=== PATIENT | male | born 1965 | race Caucasian/White ===

== ENCOUNTER → 2016-02-27 | Outpatient (CLI) | payer OTHER ==
[~2016-02-27] MED LIST: BUPIVACAINE HCL 0.25% 30 ML VIAL As Ordered ONE; ISOVUE-M 300 61% 15ML VIAL (Q9967) As Ordered ONE; LIDOCAINE 1% SDV INJ 30 ML VIAL As Ordered ONE; TRIAMCINOLONE ACETONIDE SUSP 40 MG/ML VIAL (J3301) As Ordered ONE; diazePAM 5 MG TAB As Ordered ONE; oxyCODONE 5MG TAB As Ordered ONE
--- NOTE | 2016-02-27 16:02 | REP ---
Partial lumbar spine series: Two views. History: Bilateral lumbar facet block for pain. 10 seconds of fluoroscopy time is reported. Findings: A sequence of two fluoroscopically obtained intraprocedural spot radiographs lumbar spine document needle position and contrast injection associated with lumbar facet injection procedure. Signed by Jm العلي MD 02/27/2016 05:41 P
--- NOTE | 2016-02-28 23:53 | ECWPNPC ---
PATIENT NAME: MONICA HOBSON : 1965 GENDER: MALE VISIT DATE: 02/27/2016 DISCHARGE DATE: 02/27/16 1506 VISIT LOCKED DATE TIME: PHYSICIAN: ROSITA DEVLIN RESOURCE: ROSITA DEVLIN REASON FOR APPOINTMENT 1. LUMBAR FACET THERAPEUTIC HISTORY OF PRESENT ILLNESS HISTORY OF PRESENT ILLNESS: PAIN THE PATIENT DESCRIBES THE PAIN... FALL RISK SCREENING: SCREENING :NO FALLS IN THE PAST YEAR CURRENT MEDICATIONS TAKING OXYCONTIN 10 MG TABLET ER 12 HOUR ABUSE-DETERRENT 1 TABLET ORALLY EVERY 12 HRS, NOTES: 02-27-16 1600 TAKING OXYCODONE-ACETAMINOPHEN 10-325 MG TABLET 1 TABLET NEEDED ORALLY EVERY 6 HRS, NOTES: 02-27-16 1100 TAKING AMITRIPTYLINE HCL 25 MG TABLET 1 TABLET ORALLY ONCE A DAY, NOTES: 02-25-16 MEDICATION LIST REVIEWED AND RECONCILED WITH THE PATIENT PAST MEDICAL HISTORY KIDNEY CANCER GALL STONES DEGENERATIVE DISC DISEASE ALLERGIES N.K.D.A. SURGICAL HISTORY RIGHT NEPHRECTOMY 01/2015 CHOLECYSTECTOMY 06/2015 GASTRIC BYPASS 2004 SOCIAL HISTORY GENERAL: TOBACCO USE ARE YOU A:NONSMOKER ADDITIONAL FINDINGS: TOBACCO USERCHEWS TOBACCO LEARNING BARRIERS / SPECIAL NEEDS ORIENTED TO PLAN OF CARE: PATIENT, PAIN MANAGEMENT PATIENT, ORIENTED TO PLAN OF CARE: PATIENT, PAIN MANAGEMENT PATIENT. NEW PATIENT PAIN DIARY TODAY'S VISITNOTES FROM 0-10, WHAT LEVEL IS YOUR PAIN TODAY?0 PAIN CLINIC PFS, CLERGY, PUBLIC HEALTH REFERRALS PFS REFERRAL NEEDED?NO CLERGY REFERRAL NEEDED?NO PUBLIC HEALTH REFERRAL NEEDED?NO WAS THE PROVIDER NOTIFIED OF ANY PERTINENT INFO?NO PFS REFERRAL NEEDED?NO CLERGY REFERRAL NEEDED?NO PUBLIC HEALTH REFERRAL NEEDED?NO WAS THE PROVIDER NOTIFIED OF ANY PERTINENT INFO?NO HOSPITALIZATION/MAJOR DIAGNOSTIC PROCEDURE SURGERIES REVIEW OF SYSTEMS CONSTITUTIONAL: ANY CHANGE IN YOUR MEDICAL CONDITION? NO . CHILLS NO . FEVER NO . INFECTION: DO YOU HAVE NEW INFECTIONS? NO . DO YOU HAVE HISTORY OF MRSA? NO . MUSCULOSKELETAL: ANY NEW PATTERNS OF PAIN OR NUMBNESS? NO . GASTROENTEROLOGY: ANY NEW CHANGE IN BOWEL CONTROL? NO . GENITOURINARY: ANY NEW CHANGE IN BLADDER CONTROL? NO . IS THERE A CHANCE YOU COULD BE ? NO . HEMATOLOGY/LYMPH: DO YOU TAKE ANY BLOOD THINNERS? (FOR EXAMPLE- COUMADIN, PLAVIX, AGGRENOX, PLATEL, PRADAXA, OR XARELTO) NO . WHEN WAS YOUR LAST DOSE? DATE: TIME: . NEUROLOGY: HAVE YOU FALLEN IN THE PAST 6 MONTHS? NO . ANY NEW EXTREMITY NUMBNESS OR WEAKNESS? NO . CARDIOLOGY: DO YOU HAVE A PACEMAKER OR DEFIBRILLATOR? NO . RESPIRATORY: HAVE YOU BEEN SICK IN THE PAST WEEK? NO . FEVER NO . FLU LIKE SYMPTOMS? NO . COUGH NO . INTEGUMENTARY: DO YOU HAVE ANY RASHES OR OPEN SORES? NO . ALLERGIC/IMMUNO: ARE YOU ALLERGIC TO SHELLFISH OR IV DYE? NO . ANY NEW ALLERGIES? NO . PSYCHIATRIC: DO YOU HAVE THOUGHTS OF HURTING YOURSELF OR SOMEONE ELSE? NO . ARE YOU ABUSED, NEGLECTED, OR IN AN UNSAFE ENVIRONMENT? NO . ENDOCRINOLOGY: ARE YOU DIABETIC? NO . OTHER: DO YOU NEED ANY PRESCRIPTIONS? NO . IF YES, PLEASE LIST: ____ . ANY NEW PROBLEMS WITH YOUR MEDICATIONS? NO . WHEN DID YOU LAST EAT? 0800 . WHEN DID YOU LAST DRINK? 1230 . WHAT DID YOU LAST DRINK? WATER . NAME OF PERSON DRIVING YOU HOME? TIMBO . DO YOU HAVE ANY OTHER QUESTIONS OR CONCERNS NO . REVIEWED BY: PROVIDER: . VITAL SIGNS WT 250 LBS, HT 70", BMI 35.87 INDEX, BP 138/80 MM HG, HR 85 /MIN, RR 16 /MIN, TEMP 96.0 F, OXYGEN SAT % 98, NA INITIALS TL 1327, REVIEWED BY: LS. ASSESSMENTS SPONDYLOSIS WITHOUT MYELOPATHY OR RADICULOPATHY, LUMBAR REGION - M47.816 (PRIMARY) SPONDYLOSIS WITHOUT MYELOPATHY OR RADICULOPATHY, LUMBOSACRAL REGION - M47.817 PROCEDURES PN LUMBAR FACET BLOCK THERAPEUTIC PRE PROCEDURE DIAGNOSIS LUMBAR SPONDYLOSIS, LUMBOSACRAL SPONDYLOSIS POST PROCEDURE DIAGNOSIS LUMBAR SPONDYLOSIS, LUMBOSACRAL SPONDYLOSIS PROCEDURE BILATERAL L4-L5 AND BILATERAL L5-S1 LUMBAR FACET THERAPEUTIC BLOCK SURGEON DR. ROSITA DEVLIN PORTABLE SAWMILL OPERATOR NONE ANESTHESIA LOCAL PRE PROCEDURE NOTE THE PATIENT HAS A HISTORY OF CHRONIC LOW BACK PAIN. I EVALUATE THE PATIENT AND REVIEWED THE CHART. I WENT OVER THE RISKS, ALTERNATIVES, AND BENEFITS ASSOCIATED WITH THIS PROCEDURE. THE PATIENT WOULD LIKE TO PROCEED AND GIVE CONSENT TO PERFORMED THE PROCEDURE. THE PATIENT DENIES UNEXPLAINABLE WEIGHT LOSS, FEVER, CHILLS, OR NEW CHANGES IN URINARY OR BOWEL CONTROL DESCRIPTION OF PROCEDURE THE PATIENT WAS BROUGHT TO THE PROCEDURE ROOM AND PLACED IN THE PRONE POSITION. THE LUMBOSACRAL AREA WAS CLEANED WITH CHLORAPREP SOLUTION AND DRAPED ASEPTICALLY. THE PROCEDURE WAS DONE UNDER STERILE CONDITIONS. I CHECKED LATERALITY AND THE LEVEL WHERE THE PROCEDURE WAS GOING TO BE PERFORMED WITH THE PATIENT AND THE SUPPORTING STAFF AT THE MOMENT OF THE TIME OUT IN THE PROCEDURE ROOM. UNDER FLUOROSCOPIC GUIDANCE, THE TARGET POINT WAS SELECTED AT THE RIGHT AND LEFT L4-L5 AND RIGHT AND LEFT L5-S1 FACET JOINT. TARGET POINT WAS SELECTED AFTER LATERAL ROTATION AND TILT OF THE MAGNIFIER OF THE C-ARM. LIDOCAINE 0.5% WAS USED TO NUMB THE SKIN AND THE SUBCUTANEOUS TISSUE BELOW IT. SPINAL NEEDLES, 22-GAUGE, WERE ADVANCED UNDER FLUOROSCOPIC GUIDANCE AND FOLLOWING PATIENT FEEDBACK UNTIL THE TARGETS WERE TOUCHED. THE POSITION OF THE NEEDLES WAS VERIFIED WITH AP AND LATERAL VIEWS. AFTER PROPER POSITION OF THE NEEDLES WAS ACHIEVED, ISOVUE-M DYE 30% 0.1 ML WAS INJECTED SHOWING ADEQUATE SPREAD OF THE DYE. THEN A SOLUTION OF 1.9 ML OF BUPIVACAINE 0.125% OF KENALOG 10 MG WAS INJECTED AT EACH SITE. THERE WAS NO EVIDENCE OF BLOOD, PARESTHESIA OR CEREBROSPINAL FLUID DURING THE PROCEDURE. THE PATIENT WAS SENT TO THE RECOVERY ROOM. THE PATIENT WAS MOVING THE EXTREMITIES AND DOING WELL. THERE WAS NO COMPLICATION DURING THE PROCEDURE. FLUOROSCOPY TIME WAS 10 SECONDS POST PROCEDURE NOTE THE PATIENT WILL BE SEEN IN A FOLLOW UP IN THE NEXT FEW WEEKS. INSTRUCTIONS WERE GIVEN, QUESTIONS WERE ANSWERED, AND THE PATIENT EXPRESSED UNDERSTANDING AND AGREES WITH THE PLAN. I, NASREEN LY, DOCUMENTED THE ABOVE INFORMATION ACTING A SCRIBE FOR DR. DEVLIN. I, DR. DEVLIN, HAVE REVIEWED THE ABOVE DOCUMENT, SCRIBED BY NASREEN LY, AND I VERIFY THAT IT IS ACCURATE DIAGNOSTIC IMAGING [facility] FACET BLOCK (PAIN)[id number] PROCEDURE CODES 14693 INJ PARAVERT F JNT L/S 1 LEV 17410 INJ PARAVERT F JNT L/S 2 LEV 6045F RADXPS IN END [id number] PXD FOLLOW UP 3 WEEKS ELECTRONICALLY SIGNED BY ROSITA DEVLIN MD ON 02/28/2016 AT 02:07 PM EST DISCLAIMER : THIS IS A VISIT SUMMARY EXTRACTED FROM THE [employer] CHART. IT IS NOT A COPY OF THE [employer] PROGRESS NOTE. MTDD
== END ==
LOC: M PAIN 13:20
PROVIDERS: ATTEND Anesthesiology
DX: G89.29 Other chronic pain (principal); M47.816 Spondylosis without myelopathy or radiculopathy, lumbar region; M47.817 Spondylosis without myelopathy or radiculopathy, lumbosacral region; M54.5 Low back pain; Z79.891 Long term (current) use of opiate analgesic; F17.200 Nicotine dependence, unspecified, uncomplicated
CPT/HCPCS: 64493; 64494; J3301; Q9967

== ENCOUNTER → 2016-03-20 | Outpatient (CLI) | payer BC, OTHER ==
--- NOTE | 2016-03-21 23:48 | ECWPNPC ---
PATIENT NAME: MONICA HOBSON : 1965 GENDER: MALE VISIT DATE: 03/20/2016 DISCHARGE DATE: 03/20/16 1427 VISIT LOCKED DATE TIME: PHYSICIAN: ROSITA DEVLIN RESOURCE: ROSITA DEVLIN REASON FOR APPOINTMENT 1. POST PROCEDURE HISTORY OF PRESENT ILLNESS HISTORY OF PRESENT ILLNESS: PAIN THE PATIENT DESCRIBES THE PAIN... 50 YEAR OLD MALE PATIENT WITH CHRONIC HISTORY OF BACK PAIN. PATIENT DESCRIBES THE PAIN ACHING AND SORE WITH A PAIN SCORE OF 2/10 ON TODAY'S VISIT. PATIENT RECEIVED A LUMBAR FACET BLOCK ON 02/27/2016 AND REPORTS OF GETTING GOOD PAIN RELIEF FROM THE INJECTION. AND AT THIS TIME HE IS ONLY TAKING OXYCONTIN AND OXYCODONE NEEDED. PATIENT REPORTS THAT CHANTIX CAUSES HIS STOMACH TO BE UPSET, BUT ONLY STARTED TO DO SO ABOUT TWO WEEKS AGO. PATIENT DENIES UNEXPLAINABLE WEIGHT LOSS, FEVER, CHILLS, NEW CHANGES ON HIS URINARY OR BOWEL CONTROL. FALL RISK SCREENING: SCREENING :NO FALLS IN THE PAST YEAR CURRENT MEDICATIONS TAKING OXYCONTIN 10 MG TABLET ER 12 HOUR ABUSE-DETERRENT 1 TABLET ORALLY EVERY 12 HRS, NOTES: 02-27-16 1600 TAKING OXYCODONE-ACETAMINOPHEN 10-325 MG TABLET 1 TABLET NEEDED ORALLY EVERY 6 HRS, NOTES: 02-27-16 1100 TAKING AMITRIPTYLINE HCL 25 MG TABLET 1 TABLET ORALLY ONCE A DAY, NOTES: 02-25-16 TAKING CHANTIX STARTING MONTH COTY 0.5 MG X 11 & 1 MG X 42 TABLET ORALLY MEDICATION LIST REVIEWED AND RECONCILED WITH THE PATIENT PAST MEDICAL HISTORY KIDNEY CANCER GALL STONES DEGENERATIVE DISC DISEASE ALLERGIES N.K.D.A. SURGICAL HISTORY RIGHT NEPHRECTOMY 01/2015 CHOLECYSTECTOMY 06/2015 GASTRIC BYPASS 2005 FAMILY HISTORY NO FAMILY HISTORY DOCUMENTED. SOCIAL HISTORY GENERAL: TOBACCO USE ARE YOU A:NONSMOKER LEARNING BARRIERS / SPECIAL NEEDS ORIENTED TO PLAN OF CARE: PATIENT, PAIN MANAGEMENT PATIENT, ORIENTED TO PLAN OF CARE: PATIENT, PAIN MANAGEMENT PATIENT. NEW PATIENT PAIN DIARY TODAY'S VISITNOTES FROM 0-10, WHAT LEVEL IS YOUR PAIN TODAY?0 PAIN CLINIC PFS, CLERGY, PUBLIC HEALTH REFERRALS PFS REFERRAL NEEDED?NO CLERGY REFERRAL NEEDED?NO PUBLIC HEALTH REFERRAL NEEDED?NO WAS THE PROVIDER NOTIFIED OF ANY PERTINENT INFO?NO PFS REFERRAL NEEDED?NO CLERGY REFERRAL NEEDED?NO PUBLIC HEALTH REFERRAL NEEDED?NO WAS THE PROVIDER NOTIFIED OF ANY PERTINENT INFO?NO HOSPITALIZATION/MAJOR DIAGNOSTIC PROCEDURE SURGERIES REVIEW OF SYSTEMS CONSTITUTIONAL: ANY CHANGE IN YOUR MEDICAL CONDITION? NO . CHILLS NO . FEVER NO . INFECTION: DO YOU HAVE NEW INFECTIONS? NO . DO YOU HAVE HISTORY OF MRSA? NO . MUSCULOSKELETAL: ANY NEW PATTERNS OF PAIN OR NUMBNESS? NO . GASTROENTEROLOGY: ANY NEW CHANGE IN BOWEL CONTROL? NO . GENITOURINARY: ANY NEW CHANGE IN BLADDER CONTROL? NO . IS THERE A CHANCE YOU COULD BE ? NO . HEMATOLOGY/LYMPH: DO YOU TAKE ANY BLOOD THINNERS? (FOR EXAMPLE- COUMADIN, PLAVIX, AGGRENOX, PLATEL, PRADAXA, OR XARELTO) NO . WHEN WAS YOUR LAST DOSE? DATE: TIME: . NEUROLOGY: HAVE YOU FALLEN IN THE PAST 6 MONTHS? NO . ANY NEW EXTREMITY NUMBNESS OR WEAKNESS? NO . CARDIOLOGY: DO YOU HAVE A PACEMAKER OR DEFIBRILLATOR? NO . RESPIRATORY: HAVE YOU BEEN SICK IN THE PAST WEEK? NO . FEVER NO . FLU LIKE SYMPTOMS? NO . COUGH NO . INTEGUMENTARY: DO YOU HAVE ANY RASHES OR OPEN SORES? NO . ALLERGIC/IMMUNO: ARE YOU ALLERGIC TO SHELLFISH OR IV DYE? NO . ANY NEW ALLERGIES? YES ? CHANTIX-UPSET STOMACH . PSYCHIATRIC: DO YOU HAVE THOUGHTS OF HURTING YOURSELF OR SOMEONE ELSE? NO . ARE YOU ABUSED, NEGLECTED, OR IN AN UNSAFE ENVIRONMENT? NO . ENDOCRINOLOGY: ARE YOU DIABETIC? NO . OTHER: DO YOU NEED ANY PRESCRIPTIONS? NO . IF YES, PLEASE LIST: ____ . ANY NEW PROBLEMS WITH YOUR MEDICATIONS? YES CHANTIX-UPSET STOMACH . WHEN DID YOU LAST EAT? ____ . WHEN DID YOU LAST DRINK? ____ . WHAT DID YOU LAST DRINK? ____ . NAME OF PERSON DRIVING YOU HOME? ____ . DO YOU HAVE ANY OTHER QUESTIONS OR CONCERNS NO . REVIEWED BY: PROVIDER: ROSITA DEVLIN MD . VITAL SIGNS WT 254 LBS, HT 70", BMI 36.44 INDEX, BP 146/93 MM HG, HR 106 /MIN, RR 16 /MIN, TEMP 96.7 F, OXYGEN SAT % 99, NA INITIALS TL 1350, REVIEWED BY: MLF. EXAMINATION : PATIENT IS ALERT O X 3 AND COOPERATIVE. SOME PAIN AND TENDERNESS IN THE LUMBAR PARASPINAL MUSCLE GROUP. MRI OF THE LUMBAR SPINE DONE ON 01/31/2015 SHOWS DISC BULGING AND LATERAL RECESS NARROWING. ASSESSMENTS SPONDYLOSIS WITHOUT MYELOPATHY OR RADICULOPATHY, LUMBAR REGION - M47.816 (PRIMARY) SPONDYLOSIS WITHOUT MYELOPATHY OR RADICULOPATHY, LUMBOSACRAL REGION - M47.817 TREATMENT SPONDYLOSIS WITHOUT MYELOPATHY OR RADICULOPATHY, LUMBAR REGION NOTES: WE DISCUSSED SEVERAL ISSUES WITH MR. HOBSON PAIN MANAGEMENT CASE. AT THIS TIME DUE TO THE PATIENT DOING VERY WELL FROM THE INJECTION, PATIENT REPORTS THAT HE DOES NOT NEED ANY REFILL OF HIS MEDICATION. PATIENT TO FOLLOW UP IN 4 WEEKS WITH BRANDYN MASSEY. INSTRUCTIONS WERE GIVEN, QUESTIONS WERE ANSWERED, PATIENT REPORTS UNDERSTANDING AND AGREES WITH THE PLAN. I, MATT SANCHES, DOCUMENTED THE ABOVE INFORMATION ACTING A SCRIBE FOR DR. DEVLIN. I HAVE REVIEWED THE ABOVE DOCUMENT, WRITTEN BY MATT SANCHES SCR[employer] AND I VERIFY THAT IT IS ACCURATE. PROCEDURE CODES FA211 ESTABILISHED PATIENT [facility] FACILITY CHARGE G8730 PAIN ASSESS POS TOOL F/U PLAN DOC G8427 DOC MEDS VERIFIED W/PT OR RE FOLLOW UP 4 WEEKS ELECTRONICALLY SIGNED BY ROSITA DEVLIN MD ON 03/21/2016 AT 07:39 PM EST DISCLAIMER : THIS IS A VISIT SUMMARY EXTRACTED FROM THE [employer] CHART. IT IS NOT A COPY OF THE [employer] PROGRESS NOTE. MTDD
== END ==
LOC: M PAIN 14:00
PROVIDERS: ATTEND Anesthesiology
DX: G89.29 Other chronic pain (principal); M47.816 Spondylosis without myelopathy or radiculopathy, lumbar region; M47.817 Spondylosis without myelopathy or radiculopathy, lumbosacral region; M51.9 Unspecified thoracic, thoracolumbar and lumbosacral intervertebral disc disorder; Z88.8 Allergy status to other drugs, medicaments and biological substances; Z79.891 Long term (current) use of opiate analgesic; Z79.899 Other long term (current) drug therapy; Z85.528 Personal history of other malignant neoplasm of kidney

== ENCOUNTER → 2016-04-16 | Outpatient (CLI) | payer BC, OTHER ==
--- NOTE | 2016-04-17 01:18 | ECWPNPC ---
PATIENT NAME: MONICA HOBSON : 1965 GENDER: MALE VISIT DATE: 04/16/2016 DISCHARGE DATE: 04/16/16 1107 VISIT LOCKED DATE TIME: PHYSICIAN: BRANDYN MASSEY RESOURCE: BRANDYN MASSEY REASON FOR APPOINTMENT 1. BACK HISTORY OF PRESENT ILLNESS HISTORY OF PRESENT ILLNESS: PAIN THE PATIENT DESCRIBES THE PAIN... THE PATIENT DESCRIBES THE PAIN... HERE FOR F/U.HAD BILAT. LUMBAR FACET BLOCKS ON 02-27.PAIN CONTINUES TO BE BETTER SINCE PROCEDURE.PAIN IS LOCATED ACROSS LOW BACK.DENIES RADICULAR SYMPTOMS. REPORTS POOR SLEEP DUE TO PAIN. REVIEWED MRI L/S SPINE 01-31-15.THIS IS SHOWING MULTI-LEVEL DDD AND FACET ARTHRITIS.RATING PAIN VAS 3/10.PAIN IS AGGREVATED BY PROLONGED SITTING OR STANDING. FALL RISK SCREENING: SCREENING :NO FALLS IN THE PAST YEAR CURRENT MEDICATIONS TAKING OXYCONTIN 10 MG TABLET ER 12 HOUR ABUSE-DETERRENT 1 TABLET ORALLY EVERY 12 HRS TAKING OXYCODONE-ACETAMINOPHEN 10-325 MG TABLET 1 TABLET NEEDED ORALLY EVERY 6 HRS TAKING AMITRIPTYLINE HCL 25 MG TABLET 1 TABLET ORALLY ONCE A DAY TAKING CHANTIX STARTING MONTH COTY 0.5 MG X 11 & 1 MG X 42 TABLET ORALLY , NOTES: WILL BE STARTING MEDICATION LIST REVIEWED AND RECONCILED WITH THE PATIENT PAST MEDICAL HISTORY KIDNEY CANCER GALL STONES DEGENERATIVE DISC DISEASE ALLERGIES N.K.D.A. SOCIAL HISTORY GENERAL: TOBACCO USE ARE YOU A:USES TOBACCO IN OTHER FORMS ADDITIONAL FINDINGS: TOBACCO USERCHEWS TOBACCO LEARNING BARRIERS / SPECIAL NEEDS ORIENTED TO PLAN OF CARE: PATIENT, PAIN MANAGEMENT PATIENT, ORIENTED TO PLAN OF CARE: PATIENT, PAIN MANAGEMENT PATIENT. NEW PATIENT PAIN DIARY TODAY'S VISITNOTES FROM 0-10, WHAT LEVEL IS YOUR PAIN TODAY?0 PAIN CLINIC PFS, CLERGY, PUBLIC HEALTH REFERRALS PFS REFERRAL NEEDED?NO CLERGY REFERRAL NEEDED?NO PUBLIC HEALTH REFERRAL NEEDED?NO WAS THE PROVIDER NOTIFIED OF ANY PERTINENT INFO?NO PFS REFERRAL NEEDED?NO CLERGY REFERRAL NEEDED?NO PUBLIC HEALTH REFERRAL NEEDED?NO WAS THE PROVIDER NOTIFIED OF ANY PERTINENT INFO?NO REVIEW OF SYSTEMS CONSTITUTIONAL: ANY CHANGE IN YOUR MEDICAL CONDITION? NO . CHILLS NO . FEVER NO . INFECTION: DO YOU HAVE NEW INFECTIONS? NO . DO YOU HAVE HISTORY OF MRSA? NO . MUSCULOSKELETAL: ANY NEW PATTERNS OF PAIN OR NUMBNESS? NO . GASTROENTEROLOGY: ANY NEW CHANGE IN BOWEL CONTROL? NO . GENITOURINARY: ANY NEW CHANGE IN BLADDER CONTROL? NO . IS THERE A CHANCE YOU COULD BE ? NO . HEMATOLOGY/LYMPH: DO YOU TAKE ANY BLOOD THINNERS? (FOR EXAMPLE- COUMADIN, PLAVIX, AGGRENOX, PLATEL, PRADAXA, OR XARELTO) NO . WHEN WAS YOUR LAST DOSE? DATE: TIME: . NEUROLOGY: HAVE YOU FALLEN IN THE PAST 6 MONTHS? NO . ANY NEW EXTREMITY NUMBNESS OR WEAKNESS? NO . CARDIOLOGY: DO YOU HAVE A PACEMAKER OR DEFIBRILLATOR? NO . RESPIRATORY: HAVE YOU BEEN SICK IN THE PAST WEEK? NO . FEVER NO . FLU LIKE SYMPTOMS? NO . COUGH NO . INTEGUMENTARY: DO YOU HAVE ANY RASHES OR OPEN SORES? NO . ALLERGIC/IMMUNO: ARE YOU ALLERGIC TO SHELLFISH OR IV DYE? NO . ANY NEW ALLERGIES? NO . PSYCHIATRIC: DO YOU HAVE THOUGHTS OF HURTING YOURSELF OR SOMEONE ELSE? NO . ARE YOU ABUSED, NEGLECTED, OR IN AN UNSAFE ENVIRONMENT? NO . ENDOCRINOLOGY: ARE YOU DIABETIC? NO . OTHER: DO YOU NEED ANY PRESCRIPTIONS? NO . IF YES, PLEASE LIST: ____ . ANY NEW PROBLEMS WITH YOUR MEDICATIONS? NO . WHEN DID YOU LAST EAT? ____ . WHEN DID YOU LAST DRINK? ____ . WHAT DID YOU LAST DRINK? ____ . NAME OF PERSON DRIVING YOU HOME? ____ . DO YOU HAVE ANY OTHER QUESTIONS OR CONCERNS NO . REVIEWED BY: PROVIDER: BRANDYN MCKOY . VITAL SIGNS WT 252.8 LBS, HT 70", BMI 36.27 INDEX, BP 155/87 MM HG, HR 74 /MIN, RR 16 /MIN, TEMP 96.7 F, OXYGEN SAT % 94%, REVIEWED BY: VINAY. EXAMINATION GENERAL EXAMINATION: LUNGS:LUNG SOUNDS ARE CLEAR. HEART:HEART RATE REGULAR. MUSCULOSKELETAL:*, MUSCLE STRENGTH TESTING 5/5 BLE. PALPATION: NEGATIVE FOR PAIN OVER L/S SPINE. NEGATIVE FOR PAIN OVER L/S PARASPINALS. DIAGNOSTIC:MRI L/S SPINE 01-31-15-REVIEWED. ASSESSMENTS LUMBOSACRAL SPONDYLOLYSIS - M43.07 (PRIMARY) PROCEDURE CODES FA211 ESTABILISHED PATIENT [facility] CHARGE DISPOSITION & COMMUNICATION FOLLOW UP 2 MONTHS ELECTRONICALLY SIGNED BY EAN CARLOS ON 04/16/2016 AT 11:28 AM EST DISCLAIMER : THIS IS A VISIT SUMMARY EXTRACTED FROM THE [employer] CHART. IT IS NOT A COPY OF THE [employer] PROGRESS NOTE. JONI
== END ==
LOC: M PAIN 10:20
PROVIDERS: ATTEND Nurse Practitioner Family
DX: M43.07 Spondylolysis, lumbosacral region (principal); M79.1 Myalgia; M47.816 Spondylosis without myelopathy or radiculopathy, lumbar region; M47.817 Spondylosis without myelopathy or radiculopathy, lumbosacral region; Z79.891 Long term (current) use of opiate analgesic; Z79.899 Other long term (current) drug therapy

== ENCOUNTER → 2016-06-18 | Outpatient (CLI) | payer OTHER ==
--- NOTE | 2016-06-20 02:23 | ECWPNPC ---
PATIENT NAME: MONICA HOBSON : 1965 GENDER: MALE VISIT DATE: 06/18/2016 DISCHARGE DATE: 06/18/16 1514 VISIT LOCKED DATE TIME: PHYSICIAN: BRANDYN MASSEY RESOURCE: BRANDYN MASSEY REASON FOR APPOINTMENT 1. BACK HISTORY OF PRESENT ILLNESS HISTORY OF PRESENT ILLNESS: HERE FOR F/U AND MANAGEMENT OF CHRONIC LOW BACK PAIN.PAIN HAS RETURNED.HAD SIGNIFICANT REDUCTION IN LOW BACK PAIN POST L4/5-L5/S1 THERAPEUTIC FACET BLOCK IN FEBRUARY UNTIL THE PAST FEW WEEKS.WILL BE HAVING KIDNEY CANCER F/U IN NEXT FEW MONTHS.HAD RIGHT KIDNEY REMOVED FOR CANCER IN DECEMBER 2014.RATING PAIN VAS 4/10.USING OXYCONTIN 10MG BID AND PERCOCET 10/325 PRN PRESCRIBED BY [facility]IMARY [facility].ALSO TAKING AMITRIPTYLINE AT HS. FALL RISK SCREENING: SCREENING :NO FALLS IN THE PAST YEAR CURRENT MEDICATIONS TAKING OXYCONTIN 10 MG TABLET ER 12 HOUR ABUSE-DETERRENT 1 TABLET ORALLY EVERY 12 HRS TAKING OXYCODONE-ACETAMINOPHEN 10-325 MG TABLET 1 TABLET NEEDED ORALLY EVERY 6 HRS TAKING AMITRIPTYLINE HCL 25 MG TABLET 1 TABLET ORALLY ONCE A DAY NOT-TAKING CHANTIX STARTING MONTH COTY 0.5 MG X 11 & 1 MG X 42 TABLET ORALLY , NOTES: WILL BE STARTING MEDICATION LIST REVIEWED AND RECONCILED WITH THE PATIENT PAST MEDICAL HISTORY KIDNEY CANCER GALL STONES DEGENERATIVE DISC DISEASE ALLERGIES N.K.D.A. SOCIAL HISTORY GENERAL: TOBACCO USE ARE YOU A:USES TOBACCO IN OTHER FORMS ADDITIONAL FINDINGS: TOBACCO USERCHEWS TOBACCO LEARNING BARRIERS / SPECIAL NEEDS ORIENTED TO PLAN OF CARE: PATIENT, PAIN MANAGEMENT PATIENT, ORIENTED TO PLAN OF CARE: PATIENT, PAIN MANAGEMENT PATIENT. NEW PATIENT PAIN DIARY TODAY'S VISITNOTES FROM 0-10, WHAT LEVEL IS YOUR PAIN TODAY?0 PAIN CLINIC PFS, CLERGY, PUBLIC HEALTH REFERRALS PFS REFERRAL NEEDED?NO CLERGY REFERRAL NEEDED?NO PUBLIC HEALTH REFERRAL NEEDED?NO WAS THE PROVIDER NOTIFIED OF ANY PERTINENT INFO?NO PFS REFERRAL NEEDED?NO CLERGY REFERRAL NEEDED?NO PUBLIC HEALTH REFERRAL NEEDED?NO WAS THE PROVIDER NOTIFIED OF ANY PERTINENT INFO?NO REVIEW OF SYSTEMS CONSTITUTIONAL: ANY CHANGE IN YOUR MEDICAL CONDITION? NO . CHILLS NO . FEVER NO . INFECTION: DO YOU HAVE NEW INFECTIONS? NO . DO YOU HAVE HISTORY OF MRSA? NO . MUSCULOSKELETAL: ANY NEW PATTERNS OF PAIN OR NUMBNESS? YES, PAIN IS BAD IT WAS PRIOR TO HAVING LUMBAR FACET WHICH WAS DONE 02/26 17 . GASTROENTEROLOGY: ANY NEW CHANGE IN BOWEL CONTROL? NO . GENITOURINARY: ANY NEW CHANGE IN BLADDER CONTROL? NO . IS THERE A CHANCE YOU COULD BE ? NO . HEMATOLOGY/LYMPH: DO YOU TAKE ANY BLOOD THINNERS? (FOR EXAMPLE- COUMADIN, PLAVIX, AGGRENOX, PLATEL, PRADAXA, OR XARELTO) NO . WHEN WAS YOUR LAST DOSE? DATE: TIME: . NEUROLOGY: HAVE YOU FALLEN IN THE PAST 6 MONTHS? NO . ANY NEW EXTREMITY NUMBNESS OR WEAKNESS? NO . CARDIOLOGY: DO YOU HAVE A PACEMAKER OR DEFIBRILLATOR? NO . RESPIRATORY: HAVE YOU BEEN SICK IN THE PAST WEEK? NO . FEVER NO . FLU LIKE SYMPTOMS? NO . COUGH NO . INTEGUMENTARY: DO YOU HAVE ANY RASHES OR OPEN SORES? NO . ALLERGIC/IMMUNO: ARE YOU ALLERGIC TO SHELLFISH OR IV DYE? NO . ANY NEW ALLERGIES? NO . PSYCHIATRIC: DO YOU HAVE THOUGHTS OF HURTING YOURSELF OR SOMEONE ELSE? NO . ARE YOU ABUSED, NEGLECTED, OR IN AN UNSAFE ENVIRONMENT? NO . ENDOCRINOLOGY: ARE YOU DIABETIC? NO . OTHER: DO YOU NEED ANY PRESCRIPTIONS? NO . IF YES, PLEASE LIST: ____ . ANY NEW PROBLEMS WITH YOUR MEDICATIONS? NO . WHEN DID YOU LAST EAT? ____ . WHEN DID YOU LAST DRINK? ____ . WHAT DID YOU LAST DRINK? ____ . NAME OF PERSON DRIVING YOU HOME? ____ . DO YOU HAVE ANY OTHER QUESTIONS OR CONCERNS NO . REVIEWED BY: PROVIDER: BRANDYN MCKOY . VITAL SIGNS WT 262.2 LBS, HT 70", BMI 37.62 INDEX, BP 158/99 MM HG, HR 77 /MIN, RR 18 /MIN, TEMP 96.5 F, OXYGEN SAT % 94%, NA INITIALS SC 14:33, REVIEWED BY: AD. EXAMINATION GENERAL EXAMINATION: LUNGS:LUNG SOUNDS ARE CLEAR. HEART:HEART RATE REGULAR. MUSCULOSKELETAL:*, MUSCLE STRENGTH TESTING 5/5 BLE. PALPATION: NEGATIVE FOR PAIN OVER L/S SPINE. POSITIVE FOR PAIN OVER L/S PARASPINALS BILATERAL UPPER LUMBAR.. DIAGNOSTIC:MRI L/S SPINE 01-31-15-REVIEWED. ASSESSMENTS LUMBOSACRAL SPONDYLOLYSIS - M43.07 (PRIMARY) MYALGIA - M79.1 PROCEDURE CODES FA211 ESTABILISHED PATIENT [facility] CHARGE DISPOSITION & COMMUNICATION FOLLOW UP 2 MONTHS ELECTRONICALLY SIGNED BY EAN CARLOS ON 06/19/2016 AT 10:39 AM EDT DISCLAIMER : THIS IS A VISIT SUMMARY EXTRACTED FROM THE [employer] CHART. IT IS NOT A COPY OF THE [employer] PROGRESS NOTE. JONI
== END ==
LOC: M PAIN 15:00
PROVIDERS: ATTEND Nurse Practitioner Family
DX: G89.29 Other chronic pain (principal); M43.07 Spondylolysis, lumbosacral region; M79.1 Myalgia; M54.5 Low back pain; Z79.891 Long term (current) use of opiate analgesic; Z79.899 Other long term (current) drug therapy; Z85.528 Personal history of other malignant neoplasm of kidney; Z90.5 Acquired absence of kidney; F17.220 Nicotine dependence, chewing tobacco, uncomplicated

== ENCOUNTER 2020-03-26 12:20 | Emergency (ER) | payer BC, OTHER ==
[~2020-03-26] VITALS: Ht 182.9 cm; Wt 131.6 kg
[2020-03-26 12:21] VITALS: BP 138/85
--- OUTSIDE RECORDS SUMMARY | 2020-03-26 12:27 | CCD | Summary of Care ---
Author Author [facility] Organization [facility] Address Unknown Phone Unavailable Care Team Providers Care Sap Data Analyst Name Role Phone Reason, Dlel Ramírez DO PCP Reason for Visit * Reason Comments Renal Mass CT done 02/24/20 in chart Encounter Details Care Team Description Date Type Department Moe Mays MD [address] [place] [address] Malignant neoplasm of right kidney (Prim anthony Dx) 02/26/2020 Telemedicine [facility] Urology [address] [place] [address], [place] [address] Allergies No Known Allergiesdocumented as of this encounter (statuses as of 02/26/2020) Medications End Date Status Medication Sig Dispensed Refills Start Date Active oxycodone-acetaminophen Take 1 tablet 30 tablet 0 (PERCOCET) 5-325 MG per by mouth 6 tablet every 4 (four) hours as needed for Pain. Max Daily Amount: 6 tablets. Active tizanidine (ZANAFLEX) 4 Take 4 mg by 5 MG tabletIndications: mouth as 8 Malignant neoplasm of needed right kidney Active Losartan Potassium 50 MG 0 Oral Tablet (COZAAR) 9 Active Gabapentin 300 MG Oral TAKE ONE 0 01 Capsule (NEURONTIN) CAPSULE BY 9 MOUTH THREE TIMES A DAY Active Vitamin D 0 (Ergocalciferol) 1.25 MG 1 (64438 UT) Oral Capsule (ERGOCALCIFEROL) documented as of this encounter (statuses as of 02/26/2020) Active Problems Problem Noted Date Obesity (BMI 30-39.9) 06/15/2015 Gall stones 06/12/2015 Cholecystitis 06/12/2015 Transaminasemia 06/12/2015 Syncope 06/11/2015 Cancer of kidney 01/07/2015 Renal mass Alcohol abuse, daily use documented as of this encounter (statuses as of 02/26/2020) Social History Date Tobacco Use Types Packs/Day Years Used Quit: 07/22/2002 Former Smoker Cigarettes Smokeless Tobacco: Never Used Comments: chews tobacco 1 can q 3 days Drinks/Week oz/Week Comments Alcohol Use 0 Standard drinks or equivalent 0.0 10 beers nightly Yes Sex Assigned at Date Recorded Not on file Date Recorded COVID-19 Exposure Response 02/25/2020 9:16 PM EST In the last month, have you been in contact with No / Unsure someone who was confirmed or suspected to have Coronavirus / COVID-19? documented as of this encounter Last Filed Vital Signs Not on filedocumented in this encounter Progress Notes * Moe Mays MD - 02/26/2020 12:30 PM EST CC: Kidney cancer Chief Complaint Patient presents with Renal Mass CT done 02/24/20 in chart Referring Physician: Dell Xavier DO HPI: 54 y.o. gentleman with a history of renal cell carcinoma, status post radi tadeo nephrectomy in December 2016. 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 He had no recurrence since. He denies any fever, chills, na usea, vomiting. No gross hematuria. No flank pain. Patient recently underwent spine surgery at [place]. He is here with repeat scans. PMH: Past Medical History: Diagnosis Date Alcohol abuse, daily use Cancer of kidney 01/07/2015 Low back pain R lower side renal mass pain Renal mass PSH: Past Surgical History: Procedure Laterality Date APPENDECTOMY BACK SURGERY 11/2019 L-3, L-4, L-5 plates and screws CHOLECYSTECTOMY CYSTOSCOPY RESECTION N/A 01/07/2015 Procedure: CYSTOSCOPY; Surgeon: Moe Mays MD; Location: OR [facility]; Servic e: Urology; Laterality: N/A; GASTRIC BYPASS ID ERCP DX COLLECTION SPECIMEN BRUSHING/WASHING N/A 06/15/2015 Procedure: ENDOSCOPIC RETROGRADE CHOLANGIOPANCREATOGRAPHY DX (ERCP), W/WO SPECI MEN COLLECTION, BRUSH/WASH (SEP PROC); Surgeon: Sebastian Durant MD; Location: OR [facility]; Service: Endoscopy; Laterality: N/A; ID LAP, RADICAL NEPHRECTOMY Right 01/07/2015 Procedure: Right robotic assisted laparoscopic radical nephrectomy, retroperito hector lymph node dissection. Per Dr. Mays; Surgeon: Moe Mays MD; Locati on: OR 5E; Service: Urology; Laterality: Right; Allergies: No Known Allergies Social: Social History Socioeconomic History Marital status: Spouse name: Not on file Number of children: Not on file Years of education: Not on file Highest education level: Not on file Occupational History Not on file Social Needs Financial resource strain: Not on file Food insecurity Worry: Not on file Inability: Not on file Transportation needs Medical: Not on file Non-medical: Not on file Tobacco Use Smoking status: Former Smoker Types: Cigarettes Quit date: 07/22/2002 Years since quittin.6 Smokeless tobacco: Never Used Tobacco comment: chews tobacco 1 can q 3 days Substance and Sexual Activity Alcohol use: Yes Alcohol/week: 0.0 standard drinks Comment: 10 beers nightly Drug use: No Sexual activity: Yes Partners: Female Lifestyle Physical activity Days per week: Not on file Minutes per session: Not on file Stress: Not on file Relationships Social connections Talks on phone: Not on file Gets together: Not on file Attends confucianism service: Not on file Active member of club or organization: Not on file Attends meetings of clubs or organizations: Not on file Relationship status: Not on file Intimate partner violence Fear of current or ex partner: Not on file Emotionally abused: Not on file Physically abused: Not on file Forced sexual activity: Not on file Other Topics Concern Not on file Social History Narrative Not on file Family: Family History Problem Relation Age of Onset Cancer Father esophageal ca Medications: Current Outpatient Medications on File Prior to Visit Medication Sig Dispense Refill Losartan Potassium 50 MG Oral Tablet (COZAAR) oxycodone-acetaminophen (PERCOCET) 5-325 MG per tablet Take 1 tablet by m outh every 4 (four) hours as needed for Pain. Max Daily Amount: 6 tablets. 30 ta blet 0 tizanidine (ZANAFLEX) 4 MG tablet Take 4 mg by mouth as needed 5 Vitamin D (Ergocalciferol) 1.25 MG (83582 UT) Oral Capsule (ERGOCALCIFERO L) Gabapentin 300 MG Oral Capsule (NEURONTIN) TAKE ONE CAPSULE BY MOUTH THRE E TIMES A DAY Current Facility-Administered Medications on File Prior to Visit Medication Dose Route Frequency Provider Last Rate Last Admin [COMPLETED] iohexol (OMNIPAQUE) 300 MG/ML contrast injection 100 mL 100 mL Intravenous Once Sagar Parikh MD 100 mL at 02/24/20 1348 ROS: General: No fevers, chills, weight loss Eyes: No blurry vision, no double vision Ears: No hearing loss Throat: No hoarseness, no difficulty swallowing Heart: No chest pain, palpitations Lung: No shortness of breath Abdomen: No abdominal pain, nausea, vomiting Urinary: As per HPI Extremities: No swelling, no ecchymosis Psychiatric: No feelings of depression or anxiety Neurologic: No extremity weakness, no tingling or numbness Skin: No rashes PHYSICAL EXAM: CONSTITUTIONAL: General appearance is normal. Patient is well developed. ENT: Ears and nose are normal. Throat looks normal. There is no redness or swelli ng. EYES: EOMI. No scleral icterus. RESPIRATORY: The patient is breathing n ormally. No respiratory distress. MUSCULOSKELETAL: The patient moves all extr emities normally. SKIN: Appears normal. No rashes. NEURO: The patient is al ert, awake, and oriented x3. Normal speech. PSYCH: The patient has a normal m ood and normal affect. Labs: No visits with results within 1 Month(s) from this visit. Latest known visit with results is: No results displayed because visit has over 200 results. Radiology: I reviewed the patient's CT of the chest as well as CT of the abdomen pelvis. CT of the chest reveals no evidence of cancer recurrence. CT of the a bdomen reveals a new 2.3 cm left iliac bone lytic lesion. Patient had lytic les ions in the past which were deemed to be benign. Assessment/Plan: Patient does have a new lytic lesion in the left iliac crest. I need this biopsied by our interventional radiology colleagues as soon as possi ble. I will see the patient back as soon as the pathology is available. This is a telemedical visit. The patient was informed of the risks including sec urity breech, technological failure, inability to perform a comprehensive physic al exam which could delay or prevent an accurate diagnosis, and potential compli cations from treatment decisions rendered over a telemedical platform. The patie nt understands and consented to the use of tele-health services. [employer] was used. I appreciate the opportunity to see this patient and I will keep you posted on h is progress. Moe Mays MD FACS Feed Inspection Supervisor Departments of Urology and Radiation Oncology [place], [place] documented in this encounter Plan of Treatment Health Maintenance Due Date Last Done Comments MMR Vaccines (1 of - 1966 Standard series) Varicella Vaccines (1 of 1966 2 - 2-dose childhood series) Pneumococcal Vaccine: 06/21/1971 Pediatrics (0 to 5 Years) and At-Risk Patients (6 to 64 Years) (1 of 3 - PCV13) DTaP,Tdap,and Td Vaccines 1972 (1 - Tdap) HIV Screening 1978 Colon Cancer Screening 10 06/21/2015 yrs Influenza Vaccine 11/12/2019 Pneumococcal Vaccine: 65+ 2030 Years (1 of 1 - PPSV23) HIB Vaccines Aged Out No longer eligible based on patient's age to complete this topic Hepatitis A Vaccines Aged Out No longer eligibl e based on patient's age to complete this topic Hepatitis B Vaccines Aged Out No longer eligibl e based on patient's age to complete this topic IPV Vaccines Aged Out No longer eligible based on patient's age to complete this topic documented as of this encounter Implants Device Identifier Shelf Expiration Date Model / Serial / L ot Implanted Type Area Manufactur er 03/13/2016 [id number] / / [id number] Stapler Seamguard [employer]us 60 - N/A: Abdomen GORE, [id number] BRADLEY Ramírez Implanted: Qty: 1 on 06/15/2015 by + Williams Taylor MD at [facility] [employer] [employer] documented as of this encounter Results Not on filedocumented in this encounter Visit Diagnoses Diagnosis Malignant neoplasm of right kidney - Pr imary documented in this encounter
--- OUTSIDE RECORDS SUMMARY | 2020-03-26 12:27 | CCD | Summary of Care ---
Author Author [facility] Organization [facility] Address Unknown Phone Unavailable Care Team Providers Care Plant Control Aide Name Role Phone Reason, Dell Ramírez DO PCP Reason for Referral * Diagnostic Radiology (Routine) Referred By Contact Referred To Contact Status Reason Specialty Diagnoses / Procedures Moe Mays MD [address] [place] [address] Email: [email or web address] Moe Mays MD [address] [place] [address] Email: [email or web address] Open Diagnoses Malignant neoplasm of right kidney P rocedures IR Imaging Guided Needle, Drain Procedure Reason for Visit * Diagnostic Radiology (Routine) Referred By Contact Referred To Contact Status Reason Specialty Diagnoses / Procedures Moe Mays MD [address] [place] [address] Email: [email or web address] Moe Mays MD [address] [place] [address] Email: [email or web address] Open Diagnoses Malignant neoplasm of right kidney P rocedures IR Imaging Guided Needle, Drain Procedure Encounter Details Care Team Description Date Type Department Gaston Pizano DO [address] [place] [address] [phone] Malignant neoplasm of right kidney 03/15/2020 [facility] [address] Encounter [address] [facility] [address] [place] [address] Allergies No Known Allergiesdocumented as of this encounter (statuses as of 03/15/2020) Medications End Date Status Medication Sig Dispensed [...] Vitamin D 0 (Ergocalciferol) 1.25 MG 1 (02168 UT) Oral Capsule (ERGOCALCIFEROL) Active METOPROLOL SUCCINATE PO Take by mouth 0 Pt does not know dosage documented as of this encounter (statuses as of 03/15/2020) Active Problems Problem Noted Date Obesity (BMI 30-39.9) 06/15/2015 Gall stones 06/12/2015 Cholecystitis 06/12/2015 Transaminasemia 06/12/2015 Syncope 06/11/2015 Cancer of kidney 01/07/2015 Renal mass Alcohol abuse, daily use documented as of this encounter (statuses as of 03/15/2020) Social History Date Tobacco Use Types Packs/Day Years Used Quit: 07/22/2002 Former Smoker Cigarettes Smokeless Tobacco: Never Used Comments: chews tobacco 1 can q 3 days Drinks/Week oz/Week Comments Alcohol Use 0 Standard drinks or equivalent 0.0 10 beers nightly Yes Sex Assigned at Date Recorded Not on file Date Recorded COVID-19 Exposure Response 03/15/2020 9:45 AM EST In the last month, have you been in contact with No / Unsure someone who was confirmed or suspected to have Coronavirus / COVID-19? documented as of this encounter Last Filed Vital Signs Reading Time Taken Comments Vital Sign 132/82 03/15/2020 1:15 PM EST Blood Pressure 69 03/15/2020 1:15 PM EST Pulse 36.4 C (97.5 F) 03/15/2020 1:00 PM EST Temperature 16 03/15/2020 1:15 PM EST Respiratory Rate 96% 03/15/2020 1:15 PM EST Oxygen Saturation - - Inhaled Oxygen Concentration 136.1 kg (300 lb) 03/15/2020 9:58 AM EST Weight 182.9 cm (6') 03/15/2020 9:58 AM EST Height 40.69 03/15/2020 9:58 AM EST Body Mass Index documented in this encounter Discharge Instructions * Discharge Instr - Diet* Gaston Pizano DO - 03/15/2020 12:44 PM EST DISCHARGE INSTRUCTIONS FOR BIOPSY You must have a solid waste technician stay with you for the next 24 hours. Activity: Rest at home this evening. NO driving for 24 hours No strenuous activity, or heavy lifting (nothing over 10 pounds) for 72 hours. Keep a band-aid over the biopsy site for one day. You may shower and change your band-aid tomorrow, You may return to work/school tomorrow. You may resume your previous diet and medication. SAFETY: If you have received I.V. Sedation: Do not operate heavy machinery or drive for 24 hours. Do not drink alcohol for 24 hours. Do not sign legal documents or make important business decisions for 24 hours. If you develop pain or bleeding at the biopsy site, fast heart rate, faintness, dizziness, shortness of breath, or fever over 100.4 call the number below. In case of Emergency or if you experience severe symptoms go to the [facility]. For questions regarding your, call Interventional Radiology. Saturday-Saturday 7 a.am. - 4:30 pm.am. After hours and weekends call * Additional Instructions* Jm Hughes NP - 03/14/2020 7:12 AM EST DISCHARGE INSTRUCTIONS FOR BIOPSY You must have a solid waste technician stay with you for the next 24 hours. Activity: Rest at home this evening. NO driving for 24 hours No strenuous activity, or heavy lifting (nothing over 10 pounds) for 72 hours. Keep a band-aid over the biopsy site for one day. You may shower and change your band-aid tomorrow, You may return to work/school tomorrow. You may resume your previous diet and medication. If you are taking blood thinning medications you may resume after 24 hours. If you have concerns about resuming your blood thinners, please discuss with Int erventional Radiology staff prior to discharge. SAFETY: If you have received I.V. Sedation: Do not operate heavy machinery or drive for 24 hours. Do not drink alcohol for 24 hours. Do not sign legal documents or make important business decisions for 24 hours. If you develop pain or bleeding at the biopsy site, fast heart rate, faintness, dizziness, shortness of breath, or fever over 100.4 call the number below. In case of Emergency or if you experience severe symptoms go to the [facility]. For questions regarding your, call Interventional Radiology. Saturday-Saturday 7 am. - 4:30 pm After hours and weekends call documented in this encounter Progress Notes * Sherri Mancera RN - 03/15/2020 1:10 PM EST Reviewed discharge instructions with patient and patient verbalized nikkie g. Patient has no further questions at this time. VSS, PIV removed. Patient t aken to the front mcgrath in a wheel chair. documented in this encounter H&P Notes * Cyndie Jackson NP - 03/15/2020 10:09 AM EST Interventional Radiology Preprocedure HISTORY AND PHYSICAL Diagnosis:No diagnosis found. Patient Active Problem List Diagnosis Renal mass Alcohol abuse, daily use Cancer of kidney Syncope Gall stones Cholecystitis Transaminasemia Obesity (BMI 30-39.9) History of present illness: Patient is a 54 y.o. male who is seen for Image guid ed biopsy lytic lesion in the left iliac crest . History of renal cell carcinoma, status post radical nephrectomy in December. Malignant neoplasm of right kidney Past Medical history: Past Medical History: Diagnosis Date Alcohol abuse, daily use Cancer of kidney 01/07/2015 Low back pain R lower side renal mass pain Renal mass Past Surgical history: Past Surgical History: Procedure Laterality Date APPENDECTOMY BACK SURGERY 11/2019 L-3, L-4, L-5 plates and screws CHOLECYSTECTOMY CYSTOSCOPY RESECTION N/A 01/07/2015 Procedure: CYSTOSCOPY; Surgeon: Moe Mays MD; Location: OR 5E; Servic e: Urology; Laterality: N/A; GASTRIC BYPASS AK ERCP DX COLLECTION SPECIMEN BRUSHING/WASHING N/A 06/15/2015 Procedure: ENDOSCOPIC RETROGRADE CHOLANGIOPANCREATOGRAPHY DX (ERCP), W/WO SPECI MEN COLLECTION, BRUSH/WASH (SEP PROC); Surgeon: Sebastian Durant MD; Location: OR [facility] 5E; Service: Endoscopy; Laterality: N/A; AK LAP, RADICAL NEPHRECTOMY Right 01/07/2015 Procedure: Right robotic assisted laparoscopic radical nephrectomy, retroperito hector lymph node dissection. Per Dr. Mays; Surgeon: Moe aMys MD; Locati on: OR 5E; Service: Urology; Laterality: Right; Family History: Family History Problem Relation Age of Onset Cancer Father esophageal ca REVIEW OF SYSTEMS Pertinent items are noted in HPI. Current medications: Current Facility-Administered Medications Medication Dose Route Frequency Provider Last Rate Last Admin sodium chloride (preservative free) 0.9 % flush 3 mL 3 mL Intravenous 3 times per day Jm Hughes NP And sodium chloride (preservative free) 0.9 % flush 3 mL 3 mL Intravenous AK N Jm Hughes NP sodium chloride 0.9 % bag 3-20 mL 3-20 mL Intravenous PRN Jm bailon NP Allergies: No Known Allergies Problems with sedation/anesthesia? no Potential Drug/ Sedative Interaction?no PHYSICAL EXAM Vitals: Visit Vitals BP 122/72 (BP Location: Right arm, Patient Position: Lying) Pulse 62 Temp 36.8 C (98.3 F) (Oral) Resp 16 Ht 1.829 m (6') Wt 136.1 kg (300 lb) SpO2 97% BMI 40.69 kg/m Exam: General Appearance: Awake and alert, no distress Airway: II (hard and soft palate, upper portion of tonsils and uvula visible) Lungs: Clear to auscultation bilaterally, respirations unlabored Heart: Regular rate and rhythm ASA Physical Status Classification: ASA 3 - Patient with moderate systemic disea se with functional limitations Moderate Sedation/local Rationale: Pain Control Procedure: Image guided biopsy lytic lesion in the left iliac crest DAY OF SURGERY VERIFICATION: There have been no significant clinical changes sin ce the completion of the above H&P. documented in this encounter Miscellaneous Notes * Brief Op Note - Gaston Pizano DO - 03/15/2020 12:44 PM EST Brief Procedure Note Patient Name: Humberto Ferrell Patient Diagnosis: 1. Malignant neoplasm of right kidney Procedure Start: 03/15/2020 11:45 AM Procedure End: 03/15/2020 12:30 PM Radiologist(s) and/or Proceduralist(s): aGston Pizano MD No anesthesia staff entered. Anesthesia (type): moderate sedation Est. Blood loss: Minimal * No implants in log * Medications Medication Event Details Admin User Admin Time ceFAZolin (ANCEF) IVPB 1 g in dextrose 5 % (premix) Medication Ordered and New B ag Dose: 2 g; Route: Intravenous; Ordered by: DO Myriam Madsen RN 03/15/2020 11:53 AM sodium bicarbonate 8.4 % 1 mL in lidocaine (XYLOCAINE) 2 % 4 mL injection Medica tion Ordered and Given Route: Infiltration; Ordered by: DO Myriam Madsen RN 03/15/2020 12:00 PM Specimens Removed: Order Name Source Comment Collection Info Order Time GRAM STAIN 03/15/2020 12:19 PM Specimen Type Lesion SURGICAL PATHOLOGY EXAM ( ONLY) Collected By: Gaston Pizano DO 03/15/2020 12:14 PM Specimens and Anatomical Sites left lytic iliac lesion tissue Reason for Procedure left iliac lesion CYTOLOGY NON GYNECOLOGICAL Collected By: Gaston Pizano DO 03/15/2020 12:19 PM Clinical Impression left iliac lesion biopsy Specimen Type Other Source Other: lytic iliac bone lesion, left Reason for Procedure left lytic iliac lesion History of Malignancy Yes Comments: Successful left iliac crest lytic lesion biopsy and aspiration. Follo w up surgical pathology, cytology and cultures. Complications: None Noted Fluoroscopy Time AP(minutes): na documented in this encounter Plan of Treatment Care Team Description Date Type Specialty Moe Mays MD [address] [place] [address] [phone] 03/25/2020 Telemedicine Urology Date/Time Name Type Priority Associated Diag noses 03/15/2020 1:17 PM EST Wound culture Microbiology Routine 03/15/2020 1:37 PM EST Surgical Pathology Exam Pathology and Routine ( Only) Cytology Order Schedule Name Type Priority Associated Diag noses Once for 1 Occurrences starting 03/15/19 21 until 03/15/2020 POCT glucose, docked (if Point of Care Routine diabetic) Testing-Docked Device Once for 1 Occurrences starting 03/15/19 21 until 03/15/2020 Surgical Pathology Exam Pathology and Routine ( Only) Cytology Once for 1 Occurrences starting 03/15/19 21 until 03/15/2020 Cytology, Non Pathology and Routine Gynecological Cytology Once for 1 Occurrences starting 03/15/19 21 until 03/15/2020 Gram stain Microbiology Routine Once for 1 Occurrences starting 03/15/19 21 until 03/15/2020 Surgical Pathology Exam Pathology and Routine ( Only) Cytology Health Maintenance Due Date Last Done Comments [...] ot Implanted Type Area Manufactur er 03/13/2016 [id number] / / [id number] Stapler Seamguard [place] 60 - N/A: Abdomen GORCamron, [id number] BRADLEY Ramírez Implanted: Qty: 1 on 06/15/2015 by + Williams Taylor MD at OR [facility] documented as of this encounter Procedures Comments Procedure Name Priority Date/Time Associated Diag nosis WOUND CULTURE Routine 03/15/2020 1:17 PM EST IR IMAGE GUIDED NEEDLE Routine 03/15/2020 Maligna nt neoplasm of DRAIN PROCEDURE 12:30 PM EST right kidney PROTIME INR STAT 03/15/2020 10:19 AM EST CBC AND DIFFERENTIAL Routine 03/15/2020 10:19 AM EST BASIC METABOLIC PANEL STAT 03/15/2020 10:19 AM EST documented in this encounter Results * IR Imaging Guided Needle, Drain Procedure (03/15/2020 12:30 PM EST) Specimen Impressions Performed At Impression: Status post technically suc cessful CT guided left iliac bone biopsy [facility] and aspiration. Follow up pathology rep ort, cytology and cultures. Narrative Performed At Procedure: CT guided left iliac bone biopsy [facility] RAD[facility] OLOGY History: Left iliac crest lytic lesion Comparison: CT of the abdomen and pelvi s from 02/16/2019, 02/24/2020 Moderate Sedation: I performed Moderate Sedation with intravenous 1 mg of Versed and 50 mcg of fentanyl for 45 minutes Consent: Following discussion of the ri sks, benefits and alternatives of the procedure, written informed consent was obtained. Technique: Automated dose lowering tech niques and/or adjustment according to patient size were utilized for this exa m. The patient was placed in the prone pos ition for the exam. Utilizing maximum sterile barrier technique and local ane sthetic with buffered lidocaine an area over the left iliac crest was anestheti zed and an 17-gauge core biopsy introducer needle was advanced under CT guidance into the left iliac crest and multiple 18-gauge core biopsies of the lesion were obtained for histologic evaluation which yielded at least 3 goo d samples of tissue. Additionally, aspiration was performed and samples we re placed in RPMI solution for cytology. Furthermore, an aspirated sample was se nt to the lab for Gram stain and culture. The needle was removed and hemostasis w as obtained with manual pressure. A sterile occlusive dressing was applied. Procedure Note Interface, Received Via [employer] - 03/15/2020 1:00 PM EST Procedure: CT guided left iliac bone biopsy History: Left iliac crest lytic lesion Comparison: CT of the abdomen and pelvis from 02/16/2019, 02/24/2020 Moderate Sedation: I performed Moderate Sedation with intravenous 1 mg of Versed and 50 mcg of fentanyl for 45 minutes Consent: Following discussion of the risks, benefits and alternatives of the procedure, written informed consent was obtained. Technique: Automated dose lowering techniques and/or adjustment according to patient size were utilized for this exam. The patient was placed in the prone position for the exam. Utilizing maximum sterile barrier technique and local anesthetic with buffered lidocaine an area over the left iliac crest was anesthetized and an 17-gauge core biopsy introducer needle was advanced under CT guidance into the left iliac crest and multiple 18-gauge core biopsies of the lesion were obtained for histologic evaluation which yielded at least 3 good samples of tissue. Additionally, aspiration was performed and samples were placed in RPMI solution for cytology. Furthermore, an aspirated sample was sent to the lab for Gram stain and culture. The needle was removed and hemostasis was obtained with manual pressure. A sterile occlusive dressing was applied. Impression: Status post technically successful CT guided left iliac bone biopsy and aspiration. Follow up pathology report, cytology and cultures. Performing Organization Address City/State/[facility] Ph one Number [facility] RAD[facility] [address] [place] [address] * Basic Metabolic Panel (03/15/2020 10:19 AM EST) Bicarbonate 28 22 - 29 mmol/L [facility] Clin Pathology Chloride 100 98 - 107 mmol/L [facility]ology Creatinine 1.30 (H) 0.70 - 1.20 mg/dL [facility] Glucose 97 70 - 140 mg/dL [facility] Potassium 4.6 3.4 - 5.1 mmol/L [facility] Sodium 138 136 - 145 mmol/L [facility]ology Blood Urea 13 6 - 20 mg/dL [facility] Clin Pathology Anion Gap 10 8 - 15 mmol/L [facility] Pathology Osmolality, [place] 286 275 - 300 mosm/kg [facility] Upstat [facility] Clin Pathology BUN/Cre Ratio 10 [place] [facility]ology Calcium 9.4 8.6 - 10.0 mg/dL [facility] Clin Pathology GFR Non 61 >60 mL/min/1.73m2 [facility] e [place] 2008 Med Univ Clin CDK-EPI Pathology GFR 70 >60 mL/min/1.73m2 [facility] 2008 Med Univ Clin CKD-EPI Pathology Specimen Plasma Performing Organization Address City/[facility] Ph one Number [facility] [address] [place], [place] [address] [address] Clin Pathology * Protime-INR (03/15/2020 10:19 AM EST) PT Patient 13.4 12.5 - 14.9 s [facility] Clin Pathology Int'l 1.01Comment: Routine intensity ELDA U pstate Normalized oral anticoagulation INR is Med Univ Clin Ratio typically 2.0-3.0. Target INR Patholo gy must be clinically individualized. Specimen Plasma Performing Organization Address City/[facility] Ph one Number [facility] [address] [place], [place] [address] [address] Clin Pathology * CBC and Differential (03/15/2020 10:19 AM EST) White Blood 6.2 4 - 10 10*3/uL [facility] Cell [facility] Clin Pathology Red Blood Cell 4.19 (L) 4.6 - 6.1 10*6/uL [facility] Clin Pathology Hemoglobin 12.4 (L) 13.5 - 18 g/dL [facility] Clin Pathology Hematocrit 37.1 (L) 41 - 53 % [facility] Clin Pathology Mean Cell 88.5 80 - 96 fL [facility] Volume [facility] Clin Pathology Mean Cell 29.6 27 - 33 pg [facility] Hemoglobin [facility] Clin Pathology Mean Cell Hgb 33.4 32.0 - 36.0 g/dL [facility] Clin Pathology Red Cell Dist 15.5 (H) 11.5 - 14.5 % [facility] Width [facility] Clin Pathology Platelet Count 189 150 - 400 10*3/uL [facility] Clin Pathology Differential Automated Diff [facility] Clin Pathology Neutrophil 62 % [facility] Clin Pathology Lymphocyte 24 % [facility] Clin Pathology Monocyte 10 % [facility] Clin Pathology Eosinophil 3 % [facility] Clin Pathology Basophil 1 % [facility] Clin Pathology Abs Neutrophil 3.88 1.8 - 7.0 10*3/uL [facility] Clin Pathology Abs Lymphocyte 1.50 1.2 - 4.0 10*3/uL [facility] Clin Pathology Abs Monocyte 0.59 0 - 0.8 10*3/uL [facility] Clin Pathology Abs Eosinophil 0.18 0 - 0.5 10*3/uL [facility] Clin Pathology Abs Basophil 0.04 0 - 0.2 10*3/uL [facility] Clin Pathology Nucleated Red 0 0 - 0 /100{WBCs} [facility] Blood Cells [facility] Clin Pathology Specimen EDTA Whole Blood Performing Organization Address City/State/[facility] Ph one Number [facility] CL[facility] [address] [place], [place] [address] PATHOLOGY [facility] [address] [place], [place] [address] Clin Pathology documented in this encounter Visit Diagnoses Diagnosis Malignant neoplasm of right kidney documented in this encounter Administered Medications Action Date Dose Rate Site Medication Order MAR Action sodium chloride (preservative free) 0.9 % flush 3 mL 3 mL, Intravenous, Every 8 hours Standard (3 times per day), First dose on Sat03/15/20 at 1700, For 30 days, Pre-op, Saline Lock. Flush Q8H and afte r each use to Saline Lock., sodium chloride (preservative free) 0.9 % flush 3 mL 3 mL, Intravenous, PRN, Line Care, Starting Sat03/15/20 at 0954, For 30 days, Pre-op, Saline Lock. Flush Q8H an d after each use to Saline Lock., sodium chloride 0.9 % bag 3-20 mL 3-20 mL, Intravenous, at 1-999 mL/hr, PRN, For Medication Administration and Line Clearance, Starting Sat03/15/20 at 0954, For 30 days, Pre-op, Flush line with sufficient amount of fluid needed based on operating engineer recommendation fo r specific line size. Rate should be run at the same rate as medication in the line being flushed., Action Date Dose Rate Site Medication Order MAR Action 03/15/2020 11:53 AM EST 2 g ceFAZolin (ANCEF) IVPB 1 g in dextrose 5 New Bag % (premix) Administer over 30 Minutes, Code/Trauma continuous Med, Starting Sat03/15/20 at 1153 03/15/2020 12:00 PM EST sodium bicarbonate 8.4 % 1 mL in Given lidocaine (XYLOCAINE) 2 % 4 mL injectio n Infiltration, Code/Trauma Medication, Starting Sat03/15/20 at 1200 documented in this encounter
--- OUTSIDE RECORDS SUMMARY | 2020-03-26 12:27 | CCD | Summary of Care ---
Author Author [facility] Organization [facility] Address Unknown Phone Unavailable Care Team Providers Care Testing Consultant Name Role Phone Reason, Dell Ramírez DO PCP Reason for Referral * Diagnostic Radiology (Routine) Referred By Contact Referred To Contact Status Reason Specialty Diagnoses / Procedures Moe Mays MD [address] [place] [address] Email: [email or web address] Authorized Radiology Diagnoses Malignant neoplasm of right kidney P rocedures CT Abdomen Pelvis with and without Contrast * Diagnostic Radiology (Routine) Referred By Contact Referred To Contact Status Reason Specialty Diagnoses / Procedures Moe Mays MD [address] [place] [address] Email: [email or web address] Authorized Radiology Diagnoses Malignant neoplasm of right kidney P rocedures CT Thorax with Contrast Reason for Visit * Diagnostic Radiology (Routine) Referred By Contact Referred To Contact Status Reason Specialty Diagnoses / Procedures Moe Mays MD [address] [place] [address] Email: [email or web address] Authorized Radiology Diagnoses Malignant neoplasm of right kidney P rocedures CT Abdomen Pelvis with and without Contrast Encounter Details Care Team Description Date Type Department Malignant neoplasm of right kidney 02/24/[address] [facility] [address] Scan [id number] Encounter [address] [place] [address] Allergies No Known Allergiesdocumented as of this encounter (statuses as of 02/25/2020) Medications End Date Status Medication Sig Dispensed Refills Start Date Active oxycodone-acetaminophen Take 1 tablet 30 tablet 0 (PERCOCET) 5-325 MG per by mouth 6 tablet every 4 (four) hours as needed for Pain. Max Daily Amount: 6 tablets. Additional Information Patient not taking. Reported on 02/16/2019 11:44 AM Active tizanidine (ZANAFLEX) 4 Take 4 mg by 5 MG tabletIndications: mouth as 8 Malignant neoplasm of needed right kidney Active Losartan Potassium 50 MG 0 Oral Tablet (COZAAR) 9 Active Gabapentin 300 MG Oral TAKE ONE 0 01 Capsule (NEURONTIN) CAPSULE BY 9 MOUTH THREE TIMES A DAY documented as of this encounter (statuses as of 02/25/2020) Active Problems Problem Noted Date Obesity (BMI 30-39.9) 06/15/2015 Gall stones 06/12/2015 Cholecystitis 06/12/2015 Transaminasemia 06/12/2015 Syncope 06/11/2015 Cancer of kidney 01/07/2015 Renal mass Alcohol abuse, daily use documented as of this encounter (statuses as of 02/25/2020) Social History Date Tobacco Use Types Packs/Day Years Used Quit: 07/22/2002 Former Smoker Cigarettes Smokeless Tobacco: Never Used Comments: chews tobacco 1 can q 3 days Drinks/Week oz/Week Comments Alcohol Use 0 Standard drinks or equivalent 0.0 10 beers nightly Yes Sex Assigned at Date Recorded Not on file Date Recorded COVID-19 Exposure Response 02/24/2020 1:20 PM EST In the last month, have you been in contact with No / Unsure someone who was confirmed or suspected to have Coronavirus / COVID-19? documented as of this encounter Last Filed Vital Signs Not on filedocumented in this encounter Plan of Treatment Care Team Description Date Type Specialty Moe Mays MD [facility] [place] [address] [place] [address] [phone] 02/26/2020 Telemedicine Urology Date/Time Name Type Priority Associated Diag noses 02/24/2020 1:[address] Thorax with Contrast Imaging Routine Malign ant neoplasm of right kidney 02/24/2020 1:[address] Abdomen Pelvis with Imaging Routine Maligna nt neoplasm of and without Contrast right kidney Order Schedule Name Type Priority Associated Diag noses As Needed for 1 Occurrences starting until 02/24/2020 CT Thorax with Contrast Imaging Routine Malign ant neoplasm of right kidney As Needed for 1 Occurrences starting until 02/24/2020 CT Abdomen Pelvis with Imaging Routine Maligna nt neoplasm of and without Contrast right kidney Health Maintenance Due Date Last Done Comments MMR Vaccines (1 of 1 - 1966 Standard series) Varicella Vaccines (1 [...] ot Implanted Type Area Manufactur er 03/13/2016 [id number] / / [id number] Stapler Seamguard [place] 60 - N/A: Abdomen GORE, [id number] BRADLEY L Implanted: Qty: 1 on 06/15/2015 by + Williams Taylor MD at OR [facility] documented as of this encounter Results Not on filedocumented in this encounter Visit Diagnoses Diagnosis Malignant neoplasm of right kidney documented in this encounter Administered Medications Action Date Dose Rate Site Medication Order MAR Action 02/24/2020 1:48 PM EST 100 mLs iohexol (OMNIPAQUE) 300 MG/ML contrast New Bag injection 100 mL 100 mL, Intravenous, 1 TIME IMAGING, We d 02/24/20 at 1345, For 1 dose, Imaging Protocol documented in this encounter
--- OUTSIDE RECORDS SUMMARY | 2020-03-26 12:27 | CCD | Summary of Care ---
Author Author [facility] Organization [facility] Address Unknown Phone Unavailable Care Team Providers Care District Operations Manager Name Role Phone Reason, Dell Ramírez DO PCP Reason for Visit * Reason Comments Renal Cancer IR biopsy done 03/15/20, path ology in chart. Encounter Details Care Team Description Date Type Department Moe Mays MD [address] [place] [address] Malignant neoplasm of right kidney (Prim anthony Dx) 03/25/2020 Telemedicine [facility] Urology [address] [place] [address], [place] [address] Allergies No Known Allergiesdocumented as of this encounter (statuses as of 03/25/2020) Medications End Date Status Medication Sig Dispensed [...] Vitamin D 0 (Ergocalciferol) 1.25 MG 1 (63059 UT) Oral Capsule (ERGOCALCIFEROL) Active METOPROLOL SUCCINATE PO Take by mouth 0 Pt does not know dosage documented as of this encounter (statuses as of 03/25/2020) Active Problems Problem Noted Date Obesity (BMI 30-39.9) 06/15/2015 Gall stones 06/12/2015 Cholecystitis 06/12/2015 Transaminasemia 06/12/2015 Syncope 06/11/2015 Cancer of kidney 01/07/2015 Renal mass Alcohol abuse, daily use documented as of this encounter (statuses as of 03/25/2020) Social History Date Tobacco Use Types Packs/Day Years Used Quit: 07/22/2002 Former Smoker Cigarettes Smokeless Tobacco: Never Used Comments: chews tobacco 1 can q 3 days Drinks/Week oz/Week Comments Alcohol Use 0 Standard drinks or equivalent 0.0 10 beers nightly Yes Sex Assigned at Date Recorded Not on file Date Recorded COVID-19 Exposure Response 03/25/2020 6:22 AM EST In the last month, have you been in contact with No / Unsure someone who was confirmed or suspected to have Coronavirus / COVID-19? documented as of this encounter Last Filed Vital Signs Not on filedocumented in this encounter Progress Notes * Moe Mays MD - 03/25/2020 11:50 AM EST CC: Kidney cancer Chief Complaint Patient presents with Renal Cancer IR biopsy done 03/15/20, pathology in chart. Referring Physician: Dell Xavier DO HPI: 54 y.o. gentleman with a history of renal cell carcinoma, status post radi tadeo nephrectomy in December 2016. 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 He had no recurrence since. He denies any fever, c hills, nausea, vomiting. No gross hematuria. No flank pain. Patient rec ently underwent spine surgery at [place]. Patient's recent scan showed a 2.3 cm left iliac bone lytic lesion. We decided to biopsy the area and patient is here with the pathology. He was told by his [facility] doctors that the graft was taken fr om that spot for his orthopedic surgery. PMH: Past Medical History: Diagnosis Date Alcohol abuse, daily use Cancer of kidney 01/07/2015 [place] Low back pain R lower side renal mass pain Neuropathy Renal mass PSH: Past Surgical History: Procedure Laterality Date APPENDECTOMY BACK SURGERY 11/2019 L-3, L-4, L-5 plates and screws CHOLECYSTECTOMY CYSTOSCOPY RESECTION N/A 01/07/2015 Procedure: CYSTOSCOPY; Surgeon: Moe Mays MD; Location: OR 5E; Servic e: Urology; Laterality: N/A; GASTRIC BYPASS [place] ERCP DX COLLECTION SPECIMEN BRUSHING/WASHING N/A 06/15/2015 Procedure: ENDOSCOPIC RETROGRADE CHOLANGIOPANCREATOGRAPHY DX (ERCP), W/WO SPECI MEN COLLECTION, BRUSH/WASH (SEP PROC); Surgeon: Sebastian Durant MD; Location: OR [facility] 5[facility]; Service: Endoscopy; Laterality: N/A; NH LAP, RADICAL NEPHRECTOMY Right 01/07/2015 Procedure: Right [...] file Gets together: Not on file Attends latter day service: Not on file Active member of [...] Prior to Visit Medication Sig Dispense Refill Gabapentin 300 MG Oral Capsule (NEURONTIN) TAKE ONE CAPSULE BY MOUTH THRE E TIMES A DAY Losartan Potassium 50 MG Oral Tablet (COZAAR) METOPROLOL SUCCINATE PO Take by mouth Pt does not know dosage oxycodone-acetaminophen (PERCOCET) 5-325 MG per tablet Take 1 tablet by m outh every 4 (four) hours as needed for Pain. Max Daily Amount: 6 tablets. 30 ta blet 0 tizanidine (ZANAFLEX) 4 MG tablet Take 4 mg by mouth as needed 5 Vitamin D (Ergocalciferol) 1.25 MG (07138 UT) Oral Capsule (ERGOCALCIFERO L) No current facility-administered medications on file prior to visit. ROS: General: No fevers, chills, weight loss [...] normal m ood and normal affect. Labs: Admission on 03/15/2020, Discharged on 03/15/2020 Component Date Value Ref Range Status White Blood Cell 03/15/2020 6.2 4 - 10 10*3/uL Final Red Blood Cell 03/15/2020 4.19* 4.6 - 6.1 10*6/uL Final Hemoglobin 03/15/2020 12.4* 13.5 - 18 g/dL Final Hematocrit 03/15/2020 37.1* 41 - 53 % Final Mean Cell Volume 03/15/2020 88.5 80 - 96 fL Final Mean Cell Hemoglobin 03/15/2020 29.6 27 - 33 pg Final Mean Cell Hgb Conc 03/15/2020 33.4 32.0 - 36.0 g/dL Final Red Cell Dist Width 03/15/2020 15.5* 11.5 - 14.5 % Final Platelet Count 03/15/2020 189 150 - 400 10*3/uL Final Differential Type 03/15/2020 Automated Diff Final Neutrophil 03/15/2020 62 % Final Lymphocyte 03/15/2020 24 % Final Monocyte 03/15/2020 10 % Final Eosinophil 03/15/2020 3 % Final Basophil 03/15/2020 1 % Final Abs Neutrophil 03/15/2020 3.88 1.8 - 7.0 10*3/uL Final Abs Lymphocyte 03/15/2020 1.50 1.2 - 4.0 10*3/uL Final Abs Monocyte 03/15/2020 0.59 0 - 0.8 10*3/uL Final Abs Eosinophil 03/15/2020 0.18 0 - 0.5 10*3/uL Final Abs Basophil 03/15/2020 0.04 0 - 0.2 10*3/uL Final Nucleated Red Blood Cells 03/15/2020 0 0 - 0 /100 Final PT Patient 03/15/2020 13.4 12.5 - 14.9 s Final Int'l Normalized Ratio 03/15/2020 1.01 Final Bicarbonate 03/15/2020 28 22 - 29 mmol/L Final Chloride 03/15/2020 100 98 - 107 mmol/L Final Creatinine 03/15/2020 1.30* 0.70 - 1.20 mg/dL Final Glucose 03/15/2020 97 70 - 140 mg/dL Final Potassium 03/15/2020 4.6 3.4 - 5.1 mmol/L Final Sodium 03/15/2020 138 136 - 145 mmol/L Final Blood Urea Nitrogen 03/15/2020 13 6 - 20 mg/dL Final Anion Gap 03/15/2020 10 8 - 15 mmol/L Final Osmolality, Tadeo 03/15/2020 286 275 - 300 mosm/kg Final BUN/Cre Ratio 03/15/2020 10 Final Calcium 03/15/2020 9.4 8.6 - 10.0 mg/dL Final GFR Non 2008 CDK-* 03/15/2020 61 >60 mL/min/1.73m2 Final GFR 2008 CKD-EPI 03/15/2020 70 >60 mL/min/1.73m2 Final Special Request 03/15/2020 LEFT LYTIC LESION Final Gram Stain 03/15/2020 2+ WBC'S Seen.* Final Gram Stain 03/15/2020 No organisms seen Final Culture/Results 03/15/2020 No growth 3 days Final SURGICAL 03/15/2020 Final Value:Surgical Pathology Report Name: MONICA FERRELL Collection Date: 03/15/2020 00:00 Received Date: 03/15/2020 13:37 Physician(s): SIM GUTIERREZ DO MUJO, TOMAS, DO Copy To: MOE MAYS MD Specimen(s) Received A: Left lytic iliac lesion tissue Clinical History Left iliac lesion. History of clear cell renal cell carcinoma status post right nephrectomy ([id number]). Diagnosis BONE, LEFT ILIAC CREST LYTIC LESION, NEEDLE BIOPSY: BENIGN FIBROVASCULAR TISSUE WITH FEW SCATTERED EOSINOPHILS, FOCAL MILD CHRONIC INFLAMMATION, FOCAL HISTIOCYTES AND FOCAL REACTIVE WOVEN BONE. (See microscopic description). Devaughn Jean M.D.;Resident Pathologist Electronically Signed By Edgar Nair MD;, Attending Pathologist 03/18/2020 17:38:48 The attending pathologist named above attests that he/she has personally reviewed the relevant preparation(s) for the specimen, performed microscopic examination when indicated, and rendered the f inal diagnosis. Gross Description The specimen is received in formalin labeled with the patient's name "Monica Ferrell" and "left iliac crest lytic lesion tissue". It consists of multiple soft cazares-white tissue cores measuring from 0.1 up to 0.8 cm in length and averaging 0.1 cm in diameter. Totally submitted in two cassettes. [place]/pmw Microscopic Description Sections contain cores of fibrovascular tissue with bland spindle cells that have occasional irregular nuclear contours and longitudinal nuclear grooves. The morphology of these cells was initially suspicious for Langerhans cells but our CD1a and S-100 stains are negative. A few eosinophils are seen scattered in the background. Focal mild chronic inflammation, focal histiocytes and focal reactive woven bone are present. A CD163 immunostains highlights focal histiocytes within the fibrovascular tissue. Pankeratin and PAX-8 immunostains are also negative. No malignancy is identified. This report m ay include one or more immunohistochemical stain results that use analyte specific reagents. All positive and negative controls have been reviewed by the attending pathologist and are satisfactory. The tests were developed and their performance characteristics determined by [facility] Pathology department. They have not been cleared or approved by the [place] Food and Drug Administration. The FDA has determined that such clearance or approval is not necessary. FINE NEEDLE ASPIRATE (FNA) 03/15/2020 Final Value:CYTOPATHOLOGY REPORT Name: MONICA FERRELL Collection Date: 03/15/2020 00:00 Received Date: 03/15/2020 15:21 Physician(s): SIM GUTIERREZ DO SHAPIRO, OLEG, MD Copy To: SIM GUTIERREZ DO Specimen(s) Received A: ILIAC BONE LESION, LYTIC, LEFT, FINE NEEDLE ASPIRATION Clinical History: Hx of renal cell carcinoma, left lytic iliac lesion Diagnosis ILIAC BONE LESION, LYTIC, LEFT, FINE NEEDLE ASPIRATION: BLOOD ONLY Comment /cw/tadeo Reviewing [employer]: Vanessa White, [facility] Dick Moses M.D. Electronically Signed By Wyatt Bradshaw M.D. 03/16/2020 15:48:44 The attending pathologist named above attests that he/she has personally reviewed the relevant preparation(s) for the specimen(s) and rendered the final diagnosis. Microscopic Description The specimen is composed of blood. The cell block shows similar features. /cw/tadeo Gross Description 10 ml red fluid RPMI received: 2 slides prepared by cytocentrifugation: 1 Diff Quik and 1 Pap stain. Also received red clot material with aggregate dimension of 1.1 x 0.5 x 0.2 cm submitted for cell block. This report may include one or more immunohistochemical stain results that use analyte specific reagents. All positive and negative controls have been reviewed by the attending pathologist and are satisfactory. The tests were developed and their performance characteristics determined by [facility] Pathololgy department. They have not been cleared or approved by the [place] Food and Drug Administration. The FDA has determined that such clearance or approval is not necessary. Assessment/Plan: Patient's pathology on the left iliac bone biopsy was negative. I am very happy about that. I would like to keep a close eye and the patient given his high risk kidney cancer in the past. I would like to see him back in [address] of the chest as well as another CT of the abdomen pelvi s with renal mass protocol. This is a telemedical visit. The patient was informed of the risks including sec urity breech, technological failure, inability to perform a comprehensive physic al exam which could delay or prevent an accurate diagnosis, and potential compli cations from treatment decisions rendered over a telemedical platform. The patie nt understands and consented to the use of tele-health services. Aye.me was used. I appreciate the opportunity to see this patient and I will keep you posted on h is progress. Moe Mays MD FACS [facility] Dep[facility] of Urology and Radiation Oncology [place], [place] documented in this encounter Plan [...] ot Implanted Type Area Manufactur er 03/13/2016 [id number] / / [id number] Stapler Seamguard [place] 60 - N/A: Abdomen GORE, [id number] BRADLEY Ramírez Implanted: Qty: 1 on 06/15/2015 by + Williams Taylor MD at OR [facility] documented as of this encounter Results Not on filedocumented in this encounter Visit Diagnoses Diagnosis Malignant neoplasm of right kidney - Pr imary documented in this encounter
--- OUTSIDE RECORDS SUMMARY | 2020-03-26 12:29 | CCD ---
Author Author [facility] Address Unknown Phone Unavailable Care Team Providers Care Patent Attorney Name Role Phone Yusuf Grissom Unavailable Unavailable PraveenaYusuf Unavailable Unavailable Praveena, Jacek FLORES Unavailable Unavailable Praveena, Jacek FLORES Unavailable Unavailable Praveena, Jacek FLORES Unavailable Unavailable Praveena, Jacek FLORES Unavailable Unavailable Praveena, Jacek FLORES Unavailable Unavailable Praveena, Jacek FLORES Unavailable Unavailable Praveena, Jacek FLORES Unavailable Unavailable Praveena, Jacek FLORES Unavailable Unavailable Praveena, Jacek FLORES Unavailable Unavailable Praveena, Jacek FLORES Unavailable Unavailable Praveena, Jacek FLORES Unavailable Unavailable PraveenaYusuf Unavailable Unavailable PraveenaYusuf Unavailable Unavailable PraveenaYusuf Unavailable Unavailable PraveenaYusuf Unavailable Unavailable PraveenaYusuf Unavailable Unavailable PraveenaYusuf Unavailable Unavailable PraveenaYusuf Unavailable Unavailable Praveena, Jacek FLORES Unavailable Unavailable PraveenaYusuf Unavailable Unavailable PraveenaYusuf Unavailable Unavailable PraveenaYusuf Unavailable Unavailable Praveena, Jacek MD Unavailable Unavailable Praveena, Jacek FLORES Unavailable Unavailable Praveena, Jacek MD Unavailable Unavailable Praveena, Jacek MD Unavailable Unavailable Praveena, Jacek FLORES Unavailable Unavailable Praveena, Jacek FLORES Unavailable Unavailable Praveena, Jacek FLORES Unavailable Unavailable PraveenaYusuf Unavailable Unavailable Praveena, Jacek FLORES Unavailable Unavailable Praveena, Jacek FLORES Unavailable Unavailable Praveena, Jacek FLORES Unavailable Unavailable Praveena, Jacek MD Unavailable Unavailable Praveena, Jacek MD Unavailable Unavailable Praveena, Jacek MD Unavailable Unavailable Praveena, Jacek MD Unavailable Unavailable Praveena, Jacek MD Unavailable Unavailable Praveena, Jacek MD Unavailable Unavailable Praveena, Jacek MD Unavailable Unavailable Praveena, Jacek MD Unavailable Unavailable Praveena, Jacek MD Unavailable Unavailable Praveena, Jacek MD Unavailable Unavailable Praveena, Jacek MD Unavailable Unavailable Praveena, Jacek MD Unavailable Unavailable Praveena, Jacek MD Unavailable Unavailable Praveena, Jacek MD Unavailable Unavailable Praveena, Jacek MD Unavailable Unavailable Praveena, Jacek MD Unavailable Unavailable Praveena, Jacek MD Unavailable Unavailable Praveena, Jacek MD Unavailable Unavailable Praveena, Jacek MD Unavailable Unavailable Praveena, Jacek MD Unavailable Unavailable Praveena, Jacek MD Unavailable Unavailable Praveena, Jacek MD Unavailable Unavailable Praveena, Jacek MD Unavailable Unavailable Praveena, Jacek MD Unavailable Unavailable Praveena, Jacek MD Unavailable Unavailable Praveena, Jacek MD Unavailable Unavailable Praveena, Jacek MD Unavailable Unavailable Praveena, Jacek MD Unavailable Unavailable Schaffer, Jermain Unavailable Unavailable Schaffer, Jermain Unavailable Unavailable Schaffer, Jermain Unavailable Unavailable Schaffer, Jermain Unavailable Unavailable Schaffer, Jermain Unavailable Unavailable Schaffer, Jermain Unavailable Unavailable Schaffer, Jermain Unavailable Unavailable Schaffer, Jermain Unavailable Unavailable Schaffer, Jermain Unavailable Unavailable Schaffer, Jermain Unavailable Unavailable Schaffer, Jermain Unavailable Unavailable Schaffer, Jermain Unavailable Unavailable Schaffer, Jermain Unavailable Unavailable Schaffer, Jermain Unavailable Unavailable Schaffer, Jermain Unavailable Unavailable Schaffer, Jermain Unavailable Unavailable Schaffer, Jermain Unavailable Unavailable Schaffer, Jermain Unavailable Unavailable Schaffer, Jermain Unavailable Unavailable Schaffer, Jermain Unavailable Unavailable Schaffer, Jermain Unavailable Unavailable Schaffer, Jermain Unavailable Unavailable Schaffer, Jermain Unavailable Unavailable Schaffer, Jermain Unavailable Unavailable Schaffer, Jermain Unavailable Unavailable Schaffer, Jermain Unavailable Unavailable Schaffer, Jermain Unavailable Unavailable Schaffer, Jermain Unavailable Unavailable Schaffer, Jermain Unavailable Unavailable Schaffer, Jermain Unavailable Unavailable Schaffer, Jermain Unavailable Unavailable Schaffer, Jermain Unavailable Unavailable Schaffer, Jermain Unavailable Unavailable Schaffer, Jermain Unavailable Unavailable Schaffer, Jermain Unavailable Unavailable Schaffer, Jermain Unavailable Unavailable Schaffer, Jermain Unavailable Unavailable Schaffer, Jermain Unavailable Unavailable Schaffer, Jermain Unavailable Unavailable Schaffer, Jermain Unavailable Unavailable Schaffer, Jermain Unavailable Unavailable Schaffer, Jermain Unavailable Unavailable Schaffer, Jermain Unavailable Unavailable Schaffer, Jermain Unavailable Unavailable Schaffer, Jermain Unavailable Unavailable Schaffer, Jermain Unavailable Unavailable Schaffer, Jermain Unavailable Unavailable Schaffer, Jermain Unavailable Unavailable Schaffer, Jermain Unavailable Unavailable Schaffer, Jermain Unavailable Unavailable Schaffer, Jermain Unavailable Unavailable Schaffer, Jermain Unavailable Unavailable Schaffer, Jermain Unavailable Unavailable Schaffer, Jermain Unavailable Unavailable Schaffer, Jermain Unavailable Unavailable Schaffer, Jermain Unavailable Unavailable Schaffer, Jermain Unavailable Unavailable Schaffer, Jermain Unavailable Unavailable Schaffer, Jermain Unavailable Unavailable Schaffer, Jermain Unavailable Unavailable Schaffer, Jermain Unavailable Unavailable Schaffer, Jermain Unavailable Unavailable Schaffer, Jermain Unavailable Unavailable Schaffer, Jeramin Unavailable Unavailable Schaffer, Jermain Unavailable Unavailable Schaffer, Jermain Unavailable Unavailable Schaffer, Jermain Unavailable Unavailable Schaffer, Jermain Unavailable Unavailable Schaffer, Jermain Unavailable Unavailable Schaffer, Jermain Unavailable Unavailable REASON, L EDWARD DO Unavailable Unavailable REASON, L EDWARD DO Unavailable Unavailable REASON, L EDWARD DO Unavailable Unavailable REASON, L EDWARD DO Unavailable Unavailable REASON, L EDWARD DO Unavailable Unavailable REASON, L EDWARD DO Unavailable Unavailable REASON, L EDWARD DO Unavailable Unavailable REASON, L EDWARD DO Unavailable Unavailable REASON, L EDWARD DO Unavailable Unavailable REASON, L EDWARD DO Unavailable Unavailable REASON, L EDWARD DO Unavailable Unavailable REASON, L EDWARD DO Unavailable Unavailable REASON, L EDWARD DO Unavailable Unavailable REASON, L EDWARD DO Unavailable Unavailable REASON, L EDWARD DO Unavailable Unavailable REASON, L EDWARD DO Unavailable Unavailable REASON, L EDWARD DO Unavailable Unavailable REASON, L EDWARD DO Unavailable Unavailable REASON, L EDWARD DO Unavailable Unavailable REASON, L EDWARD DO Unavailable Unavailable REASON, L EDWARD DO Unavailable Unavailable REASON, L EDWARD DO Unavailable Unavailable REASON, L EDWARD DO Unavailable Unavailable REASON, L EDWARD DO Unavailable Unavailable REASON, L EDWARD DO Unavailable Unavailable REASON, L EDWARD DO Unavailable Unavailable REASON, L EDWARD DO Unavailable Unavailable REASON, L EDWARD DO Unavailable Unavailable REASON, L EDWARD DO Unavailable Unavailable REASON, L EDWARD DO Unavailable Unavailable REASON, L EDWARD DO Unavailable Unavailable REASON, L EDWARD DO Unavailable Unavailable REASON, L EDWARD DO Unavailable Unavailable REASON, L EDWARD DO Unavailable Unavailable REASON, L EDWARD DO Unavailable Unavailable REASON, L EDWARD DO Unavailable Unavailable REASON, L EDWARD DO Unavailable Unavailable REASON, L EDWARD DO Unavailable Unavailable REASON, L EDWARD DO Unavailable Unavailable REASON, L EDWARD DO Unavailable Unavailable REASON, L EDWARD DO Unavailable Unavailable REASON, L EDWARD DO Unavailable Unavailable REASON, L EDWARD DO Unavailable Unavailable REASON, L EDWARD DO Unavailable Unavailable REASON, L EDWARD DO Unavailable Unavailable REASON, L EDWARD DO Unavailable Unavailable REASON, L EDWARD DO Unavailable Unavailable REASON, L EDWARD DO Unavailable Unavailable REASON, L EDWARD DO Unavailable Unavailable REASON, L EDWARD DO Unavailable Unavailable REASON, L EDWARD DO Unavailable Unavailable REASON, L EDWARD DO Unavailable Unavailable REASON, L EDWARD DO Unavailable Unavailable REASON, L EDWARD DO Unavailable Unavailable REASON, L EDWARD DO Unavailable Unavailable REASON, L EDWARD DO Unavailable Unavailable REASON, L EDWARD DO Unavailable Unavailable REASON, L EDWARD DO Unavailable Unavailable REASON, L EDWARD DO Unavailable Unavailable REASON, L EDWARD DO Unavailable Unavailable REASON, L EDWARD DO Unavailable Unavailable REASON, L EDWARD DO Unavailable Unavailable REASON, L EDWARD DO Unavailable Unavailable REASON, L EDWARD DO Unavailable Unavailable REASON, L EDWARD DO Unavailable Unavailable GUSTAVO COLLAZO MD Unavailable Unavailable GUSTAVO COLLAZO MD Unavailable Unavailable GUSTAVO COLLAZO MD Unavailable Unavailable GUSTAVO COLLAZO MD Unavailable Unavailable GUSTAVO COLLAZO MD Unavailable Unavailable GUSTAVO COLLAZO MD Unavailable Unavailable GUSTAVO COLLAZO MD Unavailable Unavailable Schaffer, Jermain Unavailable Unavailable Schaffer, Jermain Unavailable Unavailable Schaffer, Jermain Unavailable Unavailable Schaffer, Jermain Unavailable Unavailable Schaffer, Jermain Unavailable Unavailable Schaffer, Jermain Unavailable Unavailable Schaffer, Jermain Unavailable Unavailable Schaffer, Jermain Unavailable Unavailable Schaffer, Jermain Unavailable Unavailable Schaffer, Jermain Unavailable Unavailable Schaffer, Jermain Unavailable Unavailable Schaffer, Jermain Unavailable Unavailable Schaffer, Jermain Unavailable Unavailable Schaffer, Jermain Unavailable Unavailable Schaffer, Jermain Unavailable Unavailable Schaffer, Jermain Unavailable Unavailable Schaffer, Jermain Unavailable Unavailable Schaffer, Jermain Unavailable Unavailable Schaffer, Jermain Unavailable Unavailable Schaffer, Jermain Unavailable Unavailable Schaffer, Jermain Unavailable Unavailable Schaffer, Jermain Unavailable Unavailable Schaffer, Jemrain Unavailable Unavailable Schaffer, Jermain Unavailable Unavailable Schaffer, Jermain Unavailable Unavailable Schaffer, Jermain Unavailable Unavailable Schaffer, Jermain Unavailable Unavailable Schaffer, Jermain Unavailable Unavailable Schaffer, Jermain Unavailable Unavailable Schaffer, Jermain Unavailable Unavailable Schaffer, Jermain Unavailable Unavailable Schaffer, Jermain Unavailable Unavailable Schaffer, Jermain Unavailable Unavailable Schaffer, Jermain Unavailable Unavailable Schaffer, Jermain Unavailable Unavailable Schaffer, Jermain Unavailable Unavailable Schaffer, Jermain Unavailable Unavailable Schaffer, Jermain Unavailable Unavailable Schaffer, Jermain Unavailable Unavailable Schaffer, Jermain Unavailable Unavailable Schaffer, Jermain Unavailable Unavailable Schaffer, Jermain Unavailable Unavailable Schaffer, Jermain Unavailable Unavailable Schaffer, Jermain Unavailable Unavailable Schaffer, Jermain Unavailable Unavailable Schaffer, Jermain Unavailable Unavailable Schaffer, Jermain Unavailable Unavailable Schaffer, Jermain Unavailable Unavailable Schaffer, Jermain Unavailable Unavailable Schaffer, Jermain Unavailable Unavailable Schaffer, Jermain Unavailable Unavailable Schaffer, Jermain Unavailable Unavailable Schaffer, Jermain Unavailable Unavailable Schaffer, Jermain Unavailable Unavailable Schaffer, Jermain Unavailable Unavailable Schafefr, Jermain Unavailable Unavailable Schaffer, Jermain Unavailable Unavailable Schaffer, Jermain Unavailable Unavailable Schaffer, Jermain Unavailable Unavailable Schaffer, Jermain Unavailable Unavailable Schaffer, Jermain Unavailable Unavailable Schaffer, Jermain Unavailable Unavailable Schaffer, Jermain Unavailable Unavailable Schaffer, Jermain Unavailable Unavailable Schaffer, Jermain Unavailable Unavailable Schaffer, Jermain Unavailable Unavailable Schaffer, Jermain Unavailable Unavailable Schaffer, Jermain Unavailable Unavailable Schaffer, Jermain Unavailable Unavailable Schaffer, Jermain Unavailable Unavailable Everetts, F Bijan PA Unavailable Unavailable Everetts, F Bijan PA Unavailable Unavailable Everetts, F Bijan PA Unavailable Unavailable Storm, F Bijan PA Unavailable Unavailable Everetts, F Bijan PA Unavailable Unavailable Storm, F Bijan PA Unavailable Unavailable Storm, F Bijan PA Unavailable Unavailable Storm, F Bijan PA Unavailable Unavailable Everetts, F Bijan PA Unavailable Unavailable Storm, F Bijan PA Unavailable Unavailable Hadian, Max Unavailable Unavailable Hadian, Max Unavailable Unavailable Hadian, Max Unavailable Unavailable Hadian, Max Unavailable Unavailable Hadian, Max Unavailable Unavailable Hadian, Max Unavailable Unavailable Hadian, Max Unavailable Unavailable Hadian, Max Unavailable Unavailable Hadian, Max Unavailable Unavailable Hadian, Max Unavailable Unavailable Hadian, Max Unavailable Unavailable Hadian, Max Unavailable Unavailable Hadian, Max Unavailable Unavailable Hadian, Max Unavailable Unavailable Hadian, Max Unavailable Unavailable Hadian, Max Unavailable Unavailable Hadian, Max Unavailable Unavailable Hadian, Max Unavailable Unavailable Hadian, Max Unavailable Unavailable Hadian, Max Unavailable Unavailable Hadian, Max Unavailable Unavailable Hadian, Max Unavailable Unavailable Hadian, Max Unavailable Unavailable Hadian, Max Unavailable Unavailable Hadian, Max Unavailable Unavailable Hadian, Max Unavailable Unavailable Hadian, Max Unavailable Unavailable Hadian, Max Unavailable Unavailable Hadian, Max Unavailable Unavailable Hadian, Max Unavailable Unavailable Hadian, Max Unavailable Unavailable Hadian, Max Unavailable Unavailable Hadian, Max Unavailable Unavailable MUJO, GASTON Unavailable Unavailable Rey DALTON MD Unavailable Unavailable Rey DALTON MD Unavailable Unavailable Rey DALOTN MD Unavailable Unavailable Rey DALTON MD Unavailable Unavailable Rey DALTON MD Unavailable Unavailable JIMMY, J BIJAN MD Unavailable Unavailable Rey DALTON MD Unavailable Unavailable Rey DALTON MD Unavailable Unavailable Rey DALTON MD Unavailable Unavailable Rey DALTON MD Unavailable Unavailable Rey DALTON MD Unavailable Unavailable Rey DALTON MD Unavailable Unavailable Rey DALTON MD Unavailable Unavailable Rey DALTON MD Unavailable Unavailable Rey DALTON MD Unavailable Unavailable Rey DALTON MD Unavailable Unavailable Rey DALTON MD Unavailable Unavailable Rey DALTON MD Unavailable Unavailable Rey DALTON MD Unavailable Unavailable Rey DALTON MD Unavailable Unavailable Rey DALTON MD Unavailable Unavailable Rey DALTON MD Unavailable Unavailable Rey DALTON MD Unavailable Unavailable Rey DALTON MD Unavailable Unavailable Rey DALTON MD Unavailable Unavailable Rey DALTON MD Unavailable Unavailable Rey DALTON MD Unavailable Unavailable Rey DALTON MD Unavailable Unavailable Rey DALTON MD Unavailable Unavailable Rey DALTON MD Unavailable Unavailable Rey DALTON MD Unavailable Unavailable Rey DALTON MD Unavailable Unavailable Rey DALTON MD Unavailable Unavailable Rey DALTON MD Unavailable Unavailable Rey DALTON MD Unavailable Unavailable Rey DALTON MD Unavailable Unavailable Rey DALTON MD Unavailable Unavailable Rey DALTON MD Unavailable Unavailable Rey DALTON MD Unavailable Unavailable Rey DALTON MD Unavailable Unavailable Rey DALTON MD Unavailable Unavailable Rey DALTON MD Unavailable Unavailable Rey DALTON MD Unavailable Unavailable Rey DALTON MD Unavailable Unavailable Rey DALTON MD Unavailable Unavailable Rey DALTON MD Unavailable Unavailable Rey DALTON MD Unavailable Unavailable Rey DALTON MD Unavailable Unavailable Rey DALTON MD Unavailable Unavailable Rey DALTON MD Unavailable Unavailable Rey DALTON MD Unavailable Unavailable Rey DALTON MD Unavailable Unavailable Rey DALTON MD Unavailable Unavailable Rey DALTON MD Unavailable Unavailable Rey DALTON MD Unavailable Unavailable Rey DALTON MD Unavailable Unavailable Rey DALTON MD Unavailable Unavailable Rey DALTON MD Unavailable Unavailable Rey DALTON MD Unavailable Unavailable Rey DALTON MD Unavailable Unavailable Rey DALTON MD Unavailable Unavailable Rey DALTON MD Unavailable Unavailable Rey DALTON MD Unavailable Unavailable Rey DALTON MD Unavailable Unavailable Rey DALTON MD Unavailable Unavailable Rey DALTON MD Unavailable Unavailable Rey DALTON MD Unavailable Unavailable Rey DALTON MD Unavailable Unavailable Rey DALTON MD Unavailable Unavailable Rey DALTON MD Unavailable Unavailable Rey DALTON MD Unavailable Unavailable Rey DALTON MD Unavailable Unavailable Rey DALTON MD Unavailable Unavailable Rey DALTON MD Unavailable Unavailable Rey DALTON MD Unavailable Unavailable Rey DALTON MD Unavailable Unavailable Rey DALTON MD Unavailable Unavailable Rey DALTON MD Unavailable Unavailable Rey DALTON MD Unavailable Unavailable Rey DALTON MD Unavailable Unavailable Rey DALTON MD Unavailable Unavailable Rey DALTON MD Unavailable Unavailable Rey DALTON MD Unavailable Unavailable Rey DALTON MD Unavailable Unavailable Rey DALTON MD Unavailable Unavailable Rey DALTON MD Unavailable Unavailable Rey DALTON MD Unavailable Unavailable Rey DALTON MD Unavailable Unavailable Rey DALTON MD Unavailable Unavailable Rey DALTON MD Unavailable Unavailable Rey DALTON MD Unavailable Unavailable Rey DALTON MD Unavailable Unavailable Rey DALTON MD Unavailable Unavailable Rey DALTON MD Unavailable Unavailable Rey DALTON MD Unavailable Unavailable Rey DALTON MD Unavailable Unavailable Rey DALTON MD Unavailable Unavailable Rey DALTON MD Unavailable Unavailable Rey DALTON MD Unavailable Unavailable Rey DALTON MD Unavailable Unavailable Rey DALTON MD Unavailable Unavailable Rey DALTON MD Unavailable Unavailable Rey DALTON MD Unavailable Unavailable Rey DALTON MD Unavailable Unavailable Rey DALTON MD Unavailable Unavailable Rey DALTON MD Unavailable Unavailable Rey DALTON MD Unavailable Unavailable Rey DALTON MD Unavailable Unavailable Rey DALTON MD Unavailable Unavailable Rey DALTON MD Unavailable Unavailable Rey DALTON MD Unavailable Unavailable Rey DALTON MD Unavailable Unavailable Rey DALTON MD Unavailable Unavailable Rey DALTON MD Unavailable Unavailable Rey DALTON MD Unavailable Unavailable Rey DALTON MD Unavailable Unavailable Rey DALTON MD Unavailable Unavailable Rey DALTON MD Unavailable Unavailable Rey DALTON MD Unavailable Unavailable Rey DALTON MD Unavailable Unavailable Rey DALTON MD Unavailable Unavailable Rey DALTON MD Unavailable Unavailable Rey DALTON MD Unavailable Unavailable Rey DALTON MD Unavailable Unavailable Rey DALTON MD Unavailable Unavailable Rey DALTON MD Unavailable Unavailable Rey DALTON MD Unavailable Unavailable Rey DALTON MD Unavailable Unavailable Rey DALTON MD Unavailable Unavailable Rey DALTON MD Unavailable Unavailable Rey DALTON MD Unavailable Unavailable Rey DALTON MD Unavailable Unavailable Rey DALTON MD Unavailable Unavailable Rey DALTON MD Unavailable Unavailable Rey DALTON MD Unavailable Unavailable Rey DALTON MD Unavailable Unavailable Rey DALTON MD Unavailable Unavailable Rey DALTON MD Unavailable Unavailable Rey DALTON MD Unavailable Unavailable Rey DALTON MD Unavailable Unavailable Rey DALTON MD Unavailable Unavailable Rey DALTON MD Unavailable Unavailable Rey DALTON MD Unavailable Unavailable Rey DALTON MD Unavailable Unavailable Rey DALTON MD Unavailable Unavailable Rey DALTON MD Unavailable Unavailable Rey DALTON MD Unavailable Unavailable Rey DALTON MD Unavailable Unavailable Rey DALTON MD Unavailable Unavailable Rey DALTON MD Unavailable Unavailable Rey DALTON MD Unavailable Unavailable Rey DALTON MD Unavailable Unavailable Rey DALTON MD Unavailable Unavailable Rey DALTON MD Unavailable Unavailable Rey DALTON MD Unavailable Unavailable Rey DALTON MD Unavailable Unavailable Rey DALTON MD Unavailable Unavailable Rey DALTON MD Unavailable Unavailable Rey DALTON MD Unavailable Unavailable Rey DALTON MD Unavailable Unavailable Rey DALTON MD Unavailable Unavailable Rey DALTON MD Unavailable Unavailable Rey DALTON MD Unavailable Unavailable Rey DALTON MD Unavailable Unavailable Rey DALTON MD Unavailable Unavailable Rey DALTON MD Unavailable Unavailable Rey DALTON MD Unavailable Unavailable Rey DALTON MD Unavailable Unavailable Rey DALTON MD Unavailable Unavailable Rey DALTON MD Unavailable Unavailable Rey DALTON MD Unavailable Unavailable Rey DALTON MD Unavailable Unavailable Rey DALTON MD Unavailable Unavailable Rey DALTON MD Unavailable Unavailable Rey DALTON MD Unavailable Unavailable Rey DALTON MD Unavailable Unavailable Rey DALTON MD Unavailable Unavailable Rey DALTON MD Unavailable Unavailable Rey DALTON MD Unavailable Unavailable Rey DALTON MD Unavailable Unavailable Rey DALTON MD Unavailable Unavailable Rey DALTON MD Unavailable Unavailable Rey DALTON MD Unavailable Unavailable Rey DALTON MD Unavailable Unavailable Rey DALTON MD Unavailable Unavailable Rey DALTON MD Unavailable Unavailable Rey DALTON MD Unavailable Unavailable Rey DALTON MD Unavailable Unavailable Rey DALTON MD Unavailable Unavailable Rey DALTON MD Unavailable Unavailable Rey DALTON MD Unavailable Unavailable Rey DALTON MD Unavailable Unavailable Jumalon, M Wen RUG SETTER VELVET Unavailable Unavailable Jumalon, M Wen RUG SETTER VELVET Unavailable Unavailable Jumalon, M Wen RUG SETTER VELVET Unavailable Unavailable Jumalon, M Wen RUG SETTER VELVET Unavailable Unavailable Jumalon, M Wen RUG SETTER VELVET Unavailable Unavailable Jumalon, M Wen RUG SETTER VELVET Unavailable Unavailable Jumalon, M Wen RUG SETTER VELVET Unavailable Unavailable Jumalon, M Wen RUG SETTER VELVET Unavailable Unavailable Jumalon, M Wen RUG SETTER [place]ELVET Unavailable Unavailable Jumalon, M Wen RUG SETTER [place]ELVET Unavailable Unavailable Jumalon, M Wen RUG SETTER [place]EL[place] Unavailable Unavailable Jumalon, M Wen RUG SETTER [place]ELVET Unavailable Unavailable Jumalon, M Wen RUG SETTER [place]EL[place]ET Unavailable Unavailable Jumalon, M Wen RUG SETTER [place]ELVET Unavailable Unavailable Jumalon, M Wen RUG SETTER [place]ELVET Unavailable Unavailable Jumalon, M Wen RUG SETTER [place]ELVET Unavailable Unavailable Jumalon, M Wen RUG SETTER [place]EL[place] Unavailable Unavailable Jumalon, M Wen RUG SETTER [place]EL[place] Unavailable Unavailable Jumalon, M Wen RUG SETTER [place]EL[place] Unavailable Unavailable Jumalon, M Wen RUG SETTER [place]EL[place] Unavailable Unavailable Jumalon, M Wen RUG SETTER [place] Unavailable Unavailable Jumalon, M Wen RUG SETTER [place] Unavailable Unavailable Jumalon, M Wen RUG SETTER [place] Unavailable Unavailable Jumalon, M Wen RUG SETTER [place] Unavailable Unavailable Jumalon, M Wen RUG SETTER [place] Unavailable Unavailable Jumalon, M Wen RUG SETTER [place]EL[place] Unavailable Unavailable Jumalon, M Wen RUG SETTER [place]EL[place] Unavailable Unavailable Jumalon, M Wen RUG SETTER VELVET Unavailable Unavailable Rey GARCÍA MD Unavailable Unavailable Rey GARCÍA MD Unavailable Unavailable Rey GARCÍA MD Unavailable Unavailable Rey GARCÍA MD Unavailable Unavailable Rey GARCÍA MD Unavailable Unavailable Rey GARCÍA MD Unavailable Unavailable Rey GARCÍA MD Unavailable Unavailable Rey GARCÍA MD Unavailable Unavailable Rey GARCÍA MD Unavailable Unavailable Rey GARCÍA MD Unavailable Unavailable Rey GARCÍA MD Unavailable Unavailable Rey GARCÍA MD Unavailable Unavailable Rey GRACÍA MD Unavailable Unavailable Rey GARCÍA MD Unavailable Unavailable Rey GARCÍA MD Unavailable Unavailable Rey GARCÍA MD Unavailable Unavailable Rey GARCÍA MD Unavailable Unavailable Rey GARCÍA MD Unavailable Unavailable Rey GARCÍA MD Unavailable Unavailable Rey GARCÍA MD Unavailable Unavailable Rey GARCÍA MD Unavailable Unavailable Rey GARCÍA MD Unavailable Unavailable Rey AGRCÍA MD Unavailable Unavailable Rey GARCÍA MD Unavailable Unavailable Rey GARCÍA MD Unavailable Unavailable Rey GARCÍA MD Unavailable Unavailable Rey GARCÍA MD Unavailable Unavailable Rey GARCÍA MD Unavailable Unavailable Rey GARCÍA MD Unavailable Unavailable Rey GARCÍA MD Unavailable Unavailable Rey GARCÍA MD Unavailable Unavailable Rey GARCÍA MD Unavailable Unavailable Rey GARCÍA MD Unavailable Unavailable Rey GARCÍA MD Unavailable Unavailable Rey GARCÍA MD Unavailable Unavailable Rey GARCÍA MD Unavailable Unavailable Rey GARCÍA MD Unavailable Unavailable Rey GARCÍA MD Unavailable Unavailable Rey GARCÍA MD Unavailable Unavailable Rey GARCÍA MD Unavailable Unavailable Rey GARCÍA MD Unavailable Unavailable Rey GARCÍA MD Unavailable Unavailable Rey GARCÍA MD Unavailable Unavailable Rey GARCÍA MD Unavailable Unavailable Rey GARCÍA MD Unavailable Unavailable Rey GARCÍA MD Unavailable Unavailable Rey GARCÍA MD Unavailable Unavailable Rey GARCÍA MD Unavailable Unavailable Rey GARCÍA MD Unavailable Unavailable Rey GARCÍA MD Unavailable Unavailable Rey GARCÍA MD Unavailable Unavailable Rey GARCÍA MD Unavailable Unavailable Rey GARCÍA MD Unavailable Unavailable Rey GARCÍA MD Unavailable Unavailable Rey GARCÍA MD Unavailable Unavailable Rey GARCÍA MD Unavailable Unavailable Rey GARCÍA MD Unavailable Unavailable Rey GARCÍA MD Unavailable Unavailable Rey GARCÍA MD Unavailable Unavailable Rey GARCÍA MD Unavailable Unavailable Rey AGRCÍA MD Unavailable Unavailable Rey GARCÍA MD Unavailable Unavailable Rey GARCÍA MD Unavailable Unavailable Rey GARCÍA MD Unavailable Unavailable Rey GARCÍA MD Unavailable Unavailable VanArnam, W Tremaine PA Unavailable Unavailable VanArnam, W Tremaine PA Unavailable Unavailable VanArnam, W Tremaine PA Unavailable Unavailable VanArnam, W Tremaine PA Unavailable Unavailable VanArnam, W Tremaine PA Unavailable Unavailable VanArnam, W Tremaine PA Unavailable Unavailable VanArnam, W Tremaine PA Unavailable Unavailable VanArnam, W Tremaine PA Unavailable Unavailable VanArnam, W Tremaine PA Unavailable Unavailable VanArnam, W Tremaine PA Unavailable Unavailable VanArnam, W Tremaine PA Unavailable Unavailable VanArnam, W Tremaine PA Unavailable Unavailable VanArnam, W Tremaine PA Unavailable Unavailable VanArnam, W Tremaine PA Unavailable Unavailable VanArnam, W Tremaine PA Unavailable Unavailable VanArnam, W Tremaine PA Unavailable Unavailable VanArnam, W Tremaine PA Unavailable Unavailable VanArnam, W Tremaine PA Unavailable Unavailable VanArnam, W Tremaine PA Unavailable Unavailable VanArnam, W Tremaine PA Unavailable Unavailable VanArnam, W Tremaine PA Unavailable Unavailable VanArnam, W Tremaine PA Unavailable Unavailable VanArnam, W Tremaine PA Unavailable Unavailable VanArnam, W Tremaine PA Unavailable Unavailable VanArnam, W Tremaine PA Unavailable Unavailable VanArnam, W Tremaine PA Unavailable Unavailable VanArnam, W Tremaine PA Unavailable Unavailable VanArnam, W Tremaine PA Unavailable Unavailable VanArnam, W Tremaine PA Unavailable Unavailable VanArnam, W Tremaine PA Unavailable Unavailable VanArnam, W Tremaine PA Unavailable Unavailable VanArnam, W Tremaine PA Unavailable Unavailable VanArnam, W Tremaine PA Unavailable Unavailable VanArnam, W Tremaine PA Unavailable Unavailable VanArnam, W Tremaine PA Unavailable Unavailable VanArnam, W Tremaine PA Unavailable Unavailable VanArnam, W Tremaine PA Unavailable Unavailable VanArnam, W Tremaine PA Unavailable Unavailable VanArnam, W Tremaine PA Unavailable Unavailable VanArnam, W Tremaine PA Unavailable Unavailable VanArnam, W Tremaine PA Unavailable Unavailable VanArnam, W Tremaine PA Unavailable Unavailable REASON, L EDWARD DO Unavailable Unavailable REASON, L EDWARD DO Unavailable Unavailable REASON, L EDWARD DO Unavailable Unavailable REASON, L EDWARD DO Unavailable Unavailable REASON, L EDWARD DO Unavailable Unavailable REASON, L EDWARD DO Unavailable Unavailable REASON, L EDWARD DO Unavailable Unavailable REASON, L EDWARD DO Unavailable Unavailable REASON, L EDWARD DO Unavailable Unavailable REASON, L EDWARD DO Unavailable Unavailable REASON, L EDWARD DO Unavailable Unavailable REASON, L EDWARD DO Unavailable Unavailable REASON, L EDWARD DO Unavailable Unavailable REASON, L EDWARD DO Unavailable Unavailable REASON, L EDWARD DO Unavailable Unavailable REASON, L EDWARD DO Unavailable Unavailable REASON, L EDWARD DO Unavailable Unavailable REASON, L EDWARD DO Unavailable Unavailable REASON, L EDWARD DO Unavailable Unavailable REASON, L EDWARD DO Unavailable Unavailable REASON, L EDWARD DO Unavailable Unavailable REASON, L EDWARD DO Unavailable Unavailable REASON, L EDWARD DO Unavailable Unavailable REASON, L EDWARD DO Unavailable Unavailable REASON, L EDWARD DO Unavailable Unavailable REASON, L EDWARD DO Unavailable Unavailable REASON, L EDWARD DO Unavailable Unavailable REASON, L EDWARD DO Unavailable Unavailable REASON, L EDWARD DO Unavailable Unavailable REASON, L EDWARD DO Unavailable Unavailable REASON, L EDWARD DO Unavailable Unavailable REASON, L EDWARD DO Unavailable Unavailable REASON, L EDWARD DO Unavailable Unavailable REASON, L EDWARD DO Unavailable Unavailable REASON, L EDWARD DO Unavailable Unavailable REASON, L EDWARD DO Unavailable Unavailable REASON, L EDWARD DO Unavailable Unavailable REASON, L EDWARD DO Unavailable Unavailable REASON, L EDWARD DO Unavailable Unavailable REASON, L EDWARD DO Unavailable Unavailable REASON, L EDWARD DO Unavailable Unavailable REASON, L EDWARD DO Unavailable Unavailable REASON, L EDWARD DO Unavailable Unavailable REASON, L EDWARD DO Unavailable Unavailable REASON, L EDWARD DO Unavailable Unavailable REASON, L EDWARD DO Unavailable Unavailable REASON, L EDWARD DO Unavailable Unavailable REASON, L EDWARD DO Unavailable Unavailable REASON, L EDWARD DO Unavailable Unavailable REASON, L EDWARD DO Unavailable Unavailable REASON, L EDWARD DO Unavailable Unavailable REASON, L EDWARD DO Unavailable Unavailable REASON, L EDWARD DO Unavailable Unavailable REASON, L EDWARD DO Unavailable Unavailable REASON, L EDWARD DO Unavailable Unavailable REASON, L EDWARD DO Unavailable Unavailable REASON, L EDWARD DO Unavailable Unavailable REASON, L EDWARD DO Unavailable Unavailable REASON, L EDWARD DO Unavailable Unavailable REASON, L EDWARD DO Unavailable Unavailable REASON, L EDWARD DO Unavailable Unavailable REASON, L EDWARD DO Unavailable Unavailable REASON, L EDWARD DO Unavailable Unavailable REASON, L EDWARD DO Unavailable Unavailable REASON, L EDWARD DO Unavailable Unavailable Rey DALTON MD Unavailable Unavailable Rey DALTON MD Unavailable Unavailable Rey DALTON MD Unavailable Unavailable Rey DALTON MD Unavailable Unavailable Rey DALTON MD Unavailable Unavailable Rey DALTON MD Unavailable Unavailable Rey DALTON MD Unavailable Unavailable Rey DALTON MD Unavailable Unavailable Rey DALTON MD Unavailable Unavailable Rey DALTON MD Unavailable Unavailable Rey DALTON MD Unavailable Unavailable Rey DALTON MD Unavailable Unavailable Rey DALTON MD Unavailable Unavailable Rey DALTON MD Unavailable Unavailable Rey DALTON MD Unavailable Unavailable Rey DALTON MD Unavailable Unavailable Rey DALTON MD Unavailable Unavailable Rey DALTON MD Unavailable Unavailable Rey DALTON MD Unavailable Unavailable Rey DALTON MD Unavailable Unavailable Rey DALTON MD Unavailable Unavailable Rey DALTON MD Unavailable Unavailable Rey DALTON MD Unavailable Unavailable Rey DALTON MD Unavailable Unavailable Rey DALTON MD Unavailable Unavailable Rey DALTON MD Unavailable Unavailable Rey DALTON MD Unavailable Unavailable Rey DALTON MD Unavailable Unavailable Rey DALTON MD Unavailable Unavailable Rey DALTON MD Unavailable Unavailable Rey DALTON MD Unavailable Unavailable Rey DALTON MD Unavailable Unavailable Rey DALTON MD Unavailable Unavailable Rey DALTON MD Unavailable Unavailable Rey DALTON MD Unavailable Unavailable Rey DALTON MD Unavailable Unavailable Rey DALTON MD Unavailable Unavailable Rey DALTON MD Unavailable Unavailable Rey DALTON MD Unavailable Unavailable Rey DALTON MD Unavailable Unavailable Rey DALTON MD Unavailable Unavailable Rey DALTON MD Unavailable Unavailable Rey DALTON MD Unavailable Unavailable Rey DALTON MD Unavailable Unavailable Rey DALTON MD Unavailable Unavailable Rey DALTON MD Unavailable Unavailable Rey DALTON MD Unavailable Unavailable Rey DALTON MD Unavailable Unavailable Rey DALTON MD Unavailable Unavailable Rey DALTON MD Unavailable Unavailable Rey DALTON MD Unavailable Unavailable Rey DALTON MD Unavailable Unavailable Rey DALTON MD Unavailable Unavailable Rey DALTON MD Unavailable Unavailable Rey DALTON MD Unavailable Unavailable Rey DALTON MD Unavailable Unavailable Rey DALTON MD Unavailable Unavailable Rey DALTON MD Unavailable Unavailable Rey DALTON MD Unavailable Unavailable Rey DALTON MD Unavailable Unavailable Rey DALTON MD Unavailable Unavailable Rey DALTON MD Unavailable Unavailable Rey DALTON MD Unavailable Unavailable Rey DALTON MD Unavailable Unavailable Rey DALTON MD Unavailable Unavailable Rey DALTON MD Unavailable Unavailable Rey DALTON MD Unavailable Unavailable Rey DALTON MD Unavailable Unavailable Rey DALTON MD Unavailable Unavailable Rey DALTON MD Unavailable Unavailable Rey DALTON MD Unavailable Unavailable Rey DALTON MD Unavailable Unavailable Rey DALTON MD Unavailable Unavailable Rey DALTON MD Unavailable Unavailable Rey DALTON MD Unavailable Unavailable Rey DALTON MD Unavailable Unavailable Rey DALTON MD Unavailable Unavailable Rey DALTON MD Unavailable Unavailable Rey DALTON MD Unavailable Unavailable Rey DALTON MD Unavailable Unavailable Rey DALTON MD Unavailable Unavailable Rey DALTON MD Unavailable Unavailable Rey DALTON MD Unavailable Unavailable Rey DLATON MD Unavailable Unavailable Rey DALTON MD Unavailable Unavailable Rey DALTON MD Unavailable Unavailable Rey DALTON MD Unavailable Unavailable Rey DALTON MD Unavailable Unavailable Rey DALTON MD Unavailable Unavailable Rey DALTON MD Unavailable Unavailable Rey DALTON MD Unavailable Unavailable Rey DALTON MD Unavailable Unavailable Rey DALTON MD Unavailable Unavailable Rey DALTON MD Unavailable Unavailable Rey DALTON MD Unavailable Unavailable Rey DALTON MD Unavailable Unavailable Angel Leon MD Unavailable Unavailable Angel Leon MD Unavailable Unavailable Angel Leon MD Unavailable Unavailable Angel Leon MD Unavailable Unavailable Angel Leon MD Unavailable Unavailable Angel Leon MD Unavailable Unavailable BolAngel rock MD Unavailable Unavailable BolAngel rock MD Unavailable Unavailable BolAngel rock MD Unavailable Unavailable BolAngel rock MD Unavailable Unavailable Angel Leon MD Unavailable Unavailable BolAngel rock MD Unavailable Unavailable BolAngel rock MD Unavailable Unavailable BolAngel rock MD Unavailable Unavailable BolAngel rock MD Unavailable Unavailable BolAngel rock MD Unavailable Unavailable BolAngel rock MD Unavailable Unavailable BolAngel rock MD Unavailable Unavailable BolAngel rock MD Unavailable Unavailable Bolla, S Farzad MD Unavailable Unavailable Bolla, S Farzad MD Unavailable Unavailable Bolla, S Farzad MD Unavailable Unavailable Bolla, S Farzad MD Unavailable Unavailable Bolla, S Farzad MD Unavailable Unavailable Bolla, S Farzad MD Unavailable Unavailable Bolla, S Farzad MD Unavailable Unavailable Bolla, S Farzad MD Unavailable Unavailable Bolla, S Farzad MD Unavailable Unavailable Bolla, S Farzad MD Unavailable Unavailable Bolla, S Farzad MD Unavailable Unavailable Bolla, S Farzad MD Unavailable Unavailable Bolla, S Farzad MD Unavailable Unavailable Bolla, S Farzad MD Unavailable Unavailable Bolla, S Farzad MD Unavailable Unavailable Bolla, S Farzad MD Unavailable Unavailable Bolla, S Farzad MD Unavailable Unavailable Bolla, S Farzad MD Unavailable Unavailable Bolla, S Farzad MD Unavailable Unavailable Bolla, S Farzad MD Unavailable Unavailable Bolla, S Frazad MD Unavailable Unavailable Bolla, S Farzad MD Unavailable Unavailable Bolla, S Farzad MD Unavailable Unavailable Bolla, S Farzad MD Unavailable Unavailable Bolla, S Farzad MD Unavailable Unavailable Bolla, S Farzad MD Unavailable Unavailable Bolla, S Farzad MD Unavailable Unavailable Bolla, S Farzad MD Unavailable Unavailable Bolla, S Farzad MD Unavailable Unavailable Re-disclosure Warning The records that you are about to access may contain information from federally-assisted alcohol or drug abuse programs. If such information is present, then the following federally mandated warning applies: This information has been disclosed to you from records protected by federal confidentiality rules (42 CFR part 2). The federal rules prohibit you from making any further disclosure of this information unless further disclosure is expressly permitted by the written consent of the person to whom it pertains or as otherwise permitted by 42 CFR part 2. A general authorization for the release of medical or other information is NOT sufficient for this purpose. The Federal rules restrict any use of the information to criminally investigate or prosecute any alcohol or drug abuse patient.The records that you are about to access may contain highly sensitive health information, the redisclosure of which is protected by Article 27-F of the [facility] Public Health law. If you continue you may have access to information: Regarding HIV / AIDS; Provided by facilities licensed or operated by the [facility] Office of Mental Health; or Provided by the [facility] Office for People With Developmental Disabilities. If such information is present, then the following [facility] mandated warning applies: This information has been disclosed to you from confidential records which are protected by state law. State law prohibits you from making any further disclosure of this information without the specific written consent of the person to whom it pertains, or as otherwise permitted by law. Any unauthorized further disclosure in violation of state law may result in a fine or mcc sentence or both. A general authorization for the release of medical or other information is NOT sufficient authorization for further disc losure. Encounters Encounter Providers Location Date Indications Data Source(s ) Outpatient Attender: Jermain Schaffer 07/19/2020 12:00:00 AM [facility] Outpatient Attender: Jermain ChavarriaA-XXHAURO 03/25/2020 12:00:[address] [facility] Recurring Patient Referrer: DELL TIRADO DO 03/24/2020 11 :20:26 AM [facility] Outpatient Attender: DELL TIRADO DO ED-IMAG 03/23 02:47:00 PM [facility] 03/23/2020 02:48:00 PM [facility] I1 [facility] I771 Patient discharged. Outpatient Attender: GASTON PIZANOAdmitter: GASTON PIZANO Referrer: Jermain Schaffer [id number] 03/15/2020 12:00:00 AM [facility] - 03/15/2020 12:00:00 AM ES T Malignant neoplasm of right kidney, except renal pelvis [facility] Malignant neoplasm of right kidney, exce pt renal pelvis Patient discharged. Outpatient 03/11/2020 12:00:[address] [facility] Outpatient Attender: Max Salmeron ED-LABPNP 02:04:00 PM [facility] - 03/10/2020 02:05:00 PM [facility] PREOP [facility] PREOP Patient discharged. Outpatient Attender: DELL TIRADO DO ED-LAB 03/05 09:45:00 AM [facility] 03/05/2020 09:46:00 AM [facility] [id number] [facility] [id number] Patient discharged. Outpatient Attender: Jermain ChavarriaA-XXHAURO 02/26/2020 12:00:[address] [facility] Recurring Patient Referrer: DELL TIRADO DO 02/25/2020 10 :08:17 AM EST [facility] Outpatient Referrer: Jermain Schaffer 02/24/2020 12:00:0 0 AM EST Malignant neoplasm of right kidney, except renal pelvis [facility] Malignant neoplasm of right kidney, exce pt renal pelvis Outpatient Attender: Jermain Schaffer 02/15/2020 12:00:00 AM E [facility] CPSCAORT-LABEJN 02/02/2020 02:59:00 PM EST [facility] Outpatient Attender: DELL TIRADO DO ED-LABGH 02/01 01:38:00 PM EST - 02/02/2020 01:39:00 PM EST E559 [id number] I10 N400 C641 [facility] E559 E538 I10 N400 C641 Patient discharged. Outpatient Attender: BIJAN DALTON MDReferrer: DELL JACOBO DO 01/21/2020 12:16:55 PM EST [facility] Outpatient CPSCAORT-LABEJN 12/25/2019 02:56:00 PM [facility] Outpatient Attender: DELL TIRADO DO ED-LABPNP 12/24 01:35:00 PM EST - 12/25/2019 01:36:00 PM EST HEADACHE [facility] HEADACHE Patient discharged. Outpatient Attender: Tremaine Marvinerrer: DELL MALDONADO DO 12/25/2019 08:18:21 AM EST [facility] Inpatient Attender: HOUSTON GARCÍA MDAt tender: BIJAN DALTON MDAdmitter: BIJAN DALTON MDReferrer: BIJAN DALTON MD [id number] 09:00:39 AM EDT - 12/02/2019 02:12:00 PM EDT [facility] Patient discharged. Outpatient Admitter: BIJAN DALTON MDReferrer: BIJAN DALTON MD MOB-MOB.PAT 11/25/2019 12:00:00 AM EDT [facility] Outpatient Attender: Tremaine Marvinerrer: DELL MALDONADO DO 11/24/2019 09:57:47 AM EDT [facility] Recurring Patient Referrer: EDWARD REASON DO 11/19/2019 11 :41:32 AM EDT [facility] Outpatient Attender: BIJAN DALTON MDAdmitter: BIAJN DALTON MDReferrer: BIJAN DALTON MD MOB-MOB.PAT 11/19/2019 12:00:00 AM EDT - 11/19/2019 02:52:02 PM EDT [facility] Outpatient CPSCAORT-LABEJN 11/10/2019 09:25:00 PM EDT [facility] Outpatient Attender: EDWARD REASON DO ED-LABGH 11/09 10:02:00 AM EDT - 11/10/2019 10:03:00 AM EDT 0 PREOP [facility] I10 PREOP Patient discharged. Recurring Patient Referrer: EDWARD REASON DO 11/04/2019 07 :00:10 AM EDT [facility] Outpatient Attender: BIJAN DALTON MDReferrer: DELL JACOBO DO 09/03/2019 07:23:32 PM EDT [facility] Recurring Patient Referrer: EDWARD REASON DO 09/03/2019 01 :52:24 PM EDT [facility] Outpatient Attender: Jacek Grissom MD Main office - [place] 08/19/2019 12:30:00 PM EDT [facility] ([facility], ) Outpatient Attender: Jacek Grissom MD Main office - [place] 07/20/2019 12:15:00 PM [facility] CPSCAORT-LABEJN 06/12/2019 02:48:00 PM EDT [facility] Outpatient Attender: EDWARD REASON DO ED-IMAGH 06/11 12:12:00 PM EDT - 06/12/2019 12:13:00 PM EDT PVD - BILAT LEGS I73.9 G62.89 [facility] PVD - BILAT LEGS I73.9 G62.89 Patient discharged. Wen Earl NP: [id number], [address], [place] [id number], Ph. Attender: Wen Earl EAN [place] [facility] 03/31/2019 12:00:00 AM EST ATHE NA ([facility]) Farzad Leon MD: [id number], [place] [address], Ph. Attender: Farzad Leon MD [facility] 02/23/2019 12:00:00 AM EST KATIE ([facility]) Farzad Leon MD: [id number], [place] [phone], Ph. Attender: Farzad Leon MD [place] - [facility] 02/23/2019 12:00:00 AM EST KATIE ([facility]) Outpatient Attender: Jermain Schaffer [id number] 0 12:00:00 AM EST - 02/16/2019 01:36:52 PM EST Malignant neoplasm of right kidney, exce pt renal pelvis [facility] Malignant neoplasm of right kidney, exce pt renal pelvis Outpatient Referrer: Jermain Schaffer 02/16/2019 12:00:0 0 AM EST Malignant neoplasm of right kidney, except renal pelvis [facility] Malignant neoplasm of right kidney, exce pt renal pelvis Outpatient Attender: Jermain Schaffer ED-[facility] 9 10:22:00 AM EST - 02/07/2019 10:23:00 AM EST C641 [facility] C641 Patient discharged. R Attender: BIJAN DALTON MD ED-[facility] 0 04/04/2017 09:36:00 AM EST - 04/10/2017 12:01:00 AM EST LOW BACK PAIN, SPONDYLOLISTHESIS [facility] LOW BACK PAIN, SPONDYLOLISTHESIS R Attender: [facility]TON [facility] 03/08/2017 09:54:00 AM EST - 03/13/2017 12:01:00 AM EST LOW BACK PAIN, SPONDYLOLISTHESIS [facility] LOW BACK PAIN, SPONDYLOLISTHESIS R Attender: BIJAN DALTON MD ED-[facility] 1 04/10/2016 09:47:00 AM EST - 02/10/2017 12:01:00 AM EST LOW BACK PAIN, SPONDYLOLISTHESIS [facility] LOW BACK PAIN, SPONDYLOLISTHESIS Outpatient Attender: EDWARD REASON DO ED-IMAG 11/02 10:03:00 AM EDT - 11/02/2016 10:04:00 AM EDT LBP [facility] LBP Outpatient Attender: EDWARD REASON DO ED-[facility] 10/11 03:24:00 PM EDT - 10/11/2016 03:25:00 PM EDT [id number] CONTUSION OF THE RIGHT HIP [facility] [id number] CONTUSION OF THE RIGHT HIP Emergency Attender: GUSTAVO COLLAZO MD ED-ED 2016 08:00:00 PM EDT - 10/08/2016 08:50:00 PM EDT RT LOWER BACK AND HIP PAIN [facility] RT LOWER BACK AND HIP PAIN Outpatient Attender: Jermain Schaffer [facility] 6 09:02:00 AM EDT - 09/13/2015 09:03:00 AM EDT C64.1 [facility] C64.1 Outpatient Attender: EDGABE REASON [facility] 06/09 09:26:00 AM EDT - 06/10/2015 09:27:00 AM EDT K86.9, [facility] K86.9, Emergency Attender: Bijan MATTHEWS ED-ED 01:01:00 AM EDT - 06/09/2015 03:54:00 AM EDT EPIGASTRIC DISCOMFORT [facility] EPIGASTRIC DISCOMFORT Outpatient Attender: Jermain Schaffer [facility] 6 03:00:00 PM EDT - 05/20/2015 03:01:00 PM EDT C64.1 [facility] C64.1 Outpatient Attender: Jermain Schaffer [facility] 6 01:54:00 PM EST - 04/20/2015 01:55:00 PM EST C64.1 [facility] C64.1 Medications Medication Brand Name Start Date Product Form Dose Route Admi nistrative Instructions Pharmacy Instructions Status Indications Reaction Description Data Source(s) 100 mg 03/20/2020 12:00:00 AM EST capsule 60 TAKE ONE CAPSULE BY MOUTH TWICE A DAY MAXIMUM DAILY DOSE = 2 TAKE ONE CAPSULE BY MOUTH TWICE A DAY MA THA DAILY DOSE = 2 SOLD: 03/20/2020 [facility] Cephalexin 500 MG Oral Capsule CEPHALEXIN 03/20/2020 12:00:00 AM EST capsule 28 TAKE ONE CAPSULE BY MOUTH FOUR TIMES A DAY FOR 7 DAYS TAKE ONE CAPSULE BY MOUTH FOUR TIMES A DAY FOR 7 DAYS SOLD: 03/20/2020 [facility] 2 % 03/20/2020 12:00:00 AM EST ointment 22 APPLY ONCE DAILY DIRECTED TO AFFECTED TOES APPLY ONCE DAILY DIRECTED TO AFFECTED TOES SOLD: 03/20/2020 [facility] 20 mg 03/17/2020 12:00:00 AM EST tablet,oral only,ext.re l.12 hr 60 TAKE ONE TABLET BY MOUTH EVERY 12 HOURS MAXIMUM DAILY DOSE = 2 TAKE ONE TABLET BY MOUTH EVERY 12 HOURS MAXIMUM DAILY DOSE = 2 SOLD: 03/17/2020 [facility] 10-325 mg 03/17/2020 12:00:00 AM EST tablet 120 TAKE ONE TABLET BY MOUTH FOUR TIMES A DAY NEEDED MAXIMUM DAILY DOSE = 4 TAKE ONE TABLET BY MOUTH FOUR TIMES A DAY NEEDED MAXIMUM DAILY DOSE = 4 SOLD: 03/17/2020 [facility] sodium chloride (preservative free) 0.9 % flush 3 mL 03/15/2020 05:00:00 PM EST 3 mL Intravenous active [Ord er 1 Start] Name: Peripheral IV Signed Summary: Routine, CONTINUOUS, Starting Sat03/15/20 at 0955, Until Sat03/16/20, For 1 day
Upon admission through end of procedure., Pre-op [Order 1 End] [Order 2 Start] Name: sodium chloride (preservative free) 0.9 % flush 3 mL Signed Summary: 3 mL, Intravenous, Every 8 hours Standard (3 times per day), First dose on Sat03/15/20 at 1700, For 30 days, Pre-op
Saline Lock. Flush Q8H and after each use to Saline Lock.
[Order 2 End] [Order 3 Start] Name: sodium chloride (preservative free) 0.9 % flush 3 mL Signed Summary: 3 mL, Intravenous, PRN, Line Care, Starting Sat03/15/20 at 0954, For 30 days, Pre-op
Saline Lock. Flush Q8H and after each use to Saline Lock.
[Order 3 End] [Order 4 Start] Name: Saline Lock order Signed Summary: Routine, ONCE, Sat03/15/20 at 0955, For 1 occurrence
Pre-op [Order 4 End] [facility] Medication administered onsite sodium bicarbonate 8.4 % 1 mL in lidocaine (XYLOCAINE) 2 % 4 mL injection 03/15/2020 12:00:00 PM EST Infiltration complete d Infiltration, Code/Trauma Medication, Starting Sat03/15/20 at 1200 [facility] Medication administered onsite Cefazolin 1000 MG Injection ceFAZolin (ANCEF) IVPB 1 g in dextrose 5 % (premix) ceFAZolin (ANCEF) IVPB 1 g in dextrose 5 % (premix) 03/15/2020 11:53:19 AM EST completed Administer ove r 30 Minutes, Code/Trauma continuous Med, Starting [facility] 03/15/20 at 1153 [facility] [facility] Medication administered onsite sodium chloride 0.9 % bag 3-20 mL [id number] 03/15/2020 09:54:43 AM EST mL Intravenous active 3-20 mL, Intr avenous, at 1-999 mL/hr, PRN, For Medication Administration and Line Clearance, Starting [facility] 03/15/20 at 0954, For 30 days, Pre-op
Flush line with sufficient amount of fluid needed based on civil drafter recommendation for specific line size. Rate should be run at the same rate as medication in the line being flushed.
[facility] Medication administered onsite iohexol (OMNIPAQUE) 300 MG/ML contrast injection 100 mL [id number] 02/24/2020 01:45:00 PM EST 100 mL Intravenous completed 100 mL, Intravenous, 1 TIME IMAGING, 02/24/20 at 1345, For 1 dose, Imaging Protocol [facility] Medication administered onsite Ergocalciferol [id number] UNT Oral Capsule Vi tamin D (Ergocalciferol) 1.25 MG (23543 UT) Oral Capsule (ERGOCALCIFEROL) Vitamin D (Ergocalciferol) 1.25 MG (5000 0 UT) Oral Capsule (ERGOCALCIFEROL) 02/19/2020 12:00:00 AM EST [facility] 20 mg 02/10/2020 12:00:00 AM EST tablet,oral only,ext.re l.12 hr 60 TAKE ONE TABLET BY MOUTH EVERY 12 HOURS MAXIMUM DAILY DOSE = 2 TAKE ONE TABLET BY MOUTH EVERY 12 HOURS MAXIMUM DAILY DOSE = 2 SOLD: 02/11/2020 [facility] 10-325 mg 02/10/2020 12:00:00 AM EST tablet 120 TAKE ONE TABLET BY MOUTH FOUR TIMES A DAY NEEDED MAXIMUM DAILY DOSE = 4 TAKE ONE TABLET BY MOUTH FOUR TIMES A DAY NEEDED MAXIMUM DAILY DOSE = 4 SOLD: 02/11/2020 [facility] 500 mg 02/10/2020 12:00:00 AM EST tablet 28 TAKE ONE TABLET BY MOUTH EVERY 12 HOURS TAKE ONE TABLET BY MOUTH EVERY 12 HOURS SOLD: 02/11/2020 [facility] 50 mg 01/26/2020 12:00:00 AM EST tablet 30 TAKE ONE TABLET BY MOUTH EVERY DAY TAKE ONE TABLET BY MOUTH EVERY DAY SOLD: 01/27/2020 [facility] 10-325 mg 01/20/2020 12:00:00 AM EST tablet 80 TAKE ONE TABLET BY MOUTH FOUR TIMES A DAY NEEDED MAXIMUM DAILY DOSE = 4 TAKE ONE TABLET BY MOUTH FOUR TIMES A DAY NEEDED MAXIMUM DAILY DOSE = 4 SOLD: 01/20/2020 [facility] 20 mg 01/10/2020 12:00:00 AM EST tablet,oral only,ext.re l.12 hr 60 TAKE ONE TABLET BY MOUTH EVERY 12 HOURS MAXIMUM DAILY DOSE = TWO TABLETS TAKE ONE TABLET BY MOUTH EVERY 12 HOURS MAXIMUM DAILY DOSE = TWO TABLETS SOLD: 01/11/2020 [facility] 10-325 mg 12/21/2019 12:00:00 AM EST tablet 120 TAKE ONE TABLET BY MOUTH FOUR TIMES A DAY NEEDED MAXIMUM DAILY DOSE = 4 TABLETS TAKE ONE TABLET BY MOUTH FOUR TIMES A DAY NEEDED MAXIMUM DAILY DOSE = 4 TABLETS SOLD: 12/22/2019 [facility] 50 mg 12/12/2019 12:00:00 AM EDT tablet extended release 24 hr 30 TAKE ONE TABLET BY MOUTH EVERY DAY TAKE ONE TABLET BY MOUTH EVERY DAY SOLD: 01/18/2020 [facility] 50 mg 12/12/2019 12:00:00 AM EDT tablet extended release 24 hr 30 TAKE ONE TABLET BY MOUTH EVERY DAY TAKE ONE TABLET BY MOUTH EVERY DAY SOLD: 12/16/2019 [facility] 10 mg 12/04/2019 12:00:00 AM EDT tablet 240 TAKE 1-2 TABLETS BY MOUTH EVERY 4 HOURS NEEDED FOR PAIN MAX DAILY DOSE = 8 TAKE 1-2 TABLETS BY MOUTH EVERY 4 HOURS NEEDED FOR PAIN MAX DAILY DOSE = 8 SOLD: 12/04/2019 [facility] Bisacodyl 10 MG Rectal Suppository bisacodyl (DULCOLAX ) suppository 10 mg bisacodyl (DULCOLAX) suppository 10 mg 12/02/2019 07:00:00 PM EDT 10 mg Rectal active 10 mg, Rectal, Once, Sat12/02/19 at 1900, For 1 dose, Post-op
Post-op day #2Hold for BM
[facility] Medication administered onsite Methocarbamol 500 MG Oral Tablet methocarbamol (ROBAXI N) 500 MG tablet methocarbamol (ROBAXIN) 500 MG tablet 12/02/2019 12:00:00 AM EDT 50 0 mg Oral active Take 1 tablet ( 500 mg total) by mouth 4 (four) times a day as needed [facility] Oxycodone Hydrochloride 5 MG Oral Tablet oxyCODONE (ROXICODONE) 5 MG immediate release tablet oxyCODONE (ROXICODONE) 5 MG immediate release tablet 1 12:00:00 AM EDT active Take 1-2 tablets every 4 hrs prn pain. MDD: 6 tablets [facility] 500 mg 12/02/2019 12:00:00 AM EDT tablet 20 TAKE ONE TABLET BY MOUTH FOUR TIMES A DAY NEEDED TAKE ONE TABLET BY MOUTH FOUR TIMES A DAY NEEDED SO LD: 12/02/2019 [facility] 5 mg 12/02/2019 12:00:00 AM EDT tablet 40 TAKE 1-2 TABLETS BY MOUTH EVERY 4 HOURS NEEDED FOR PAIN MAXIMUM DAILY DOSE = 6 TAKE 1-2 TABLETS BY MOUTH EVERY 4 HOURS NEEDED FOR PAIN MAXIMUM DAILY DOSE = 6 SOLD: 12/02/2019 [facility] 24 HR metoprolol succinate 50 MG Extende d Release Oral Tablet metoprolol succinate (TOPROL-XL) 24 hr tablet 50 mg metoprolol succinate (TOPROL-XL) 24 hr tablet 50 mg 12/01/2019 09:00:00 PM EDT 50 mg Oral activ e 50 mg, Oral, Nightly, First dose on Sat12/01/19 at 2100, Post-op [facility] Medication administered onsite Methocarbamol 500 MG Oral Tablet methocarbamol (ROBAXI N) tablet 500 mg methocarbamol (ROBAXIN) tablet 500 mg 12/01/2019 03:13:56 PM EDT 50 0 mg Oral active 500 mg, Oral, 4 times daily PRN, muscle spasms, Starting Sat12/01/19 at 1513 [facility] Medication administered onsite oxyCODONE HCl ER (OXYCONTIN) tablet 20 mg [id number] 12/01/2019 11:00:00 AM EDT 20 mg Oral active 20 mg, O ral, Every 12 hours, First dose on Sat12/01/19 at 1100 [facility] Medication administered onsite POLYETHYLENE GLYCOL 3350 142 MG/ML Oral Solution polyethylene glycol (GLYCOLAX) packet 17 g polyethylene glycol (GLYCOLAX) packet 17 g 12/01/2019 09:00:00 AM EDT 17 g Oral active 17 g, Or al, Daily, First dose on Sat12/01/19 at 0900, Post-op
Start POD #1
[facility] Medication administered onsite Bisacodyl 10 MG Rectal Suppository bisacodyl (DULCOLAX ) suppository 10 mg bisacodyl (DULCOLAX) suppository 10 mg 12/01/2019 12:00:00 AM EDT 10 mg Rectal active 10 mg, Rectal, Daily PRN, constipation, for constipation unrelieved by miralax/MOM, Starting Sat12/01/19 at 0000, For 4 days, Post- op
For post-op day #1, #3, and #4Hold for BM
[facility] Medication administered onsite Docusate Sodium 50 MG / sennosides, INTERMEDIATE 8.6 MG Oral Tablet senna-docusate (PERICOLACE) 8.6-50 MG 2 tablet senna-docusate (PERICOLACE) 8.6-50 MG 2 tablet 11/30/2019 09:00:00 PM EDT 2 {tbl} Oral active 2 tablet, Oral, Nightly, First dose on Sat11/30/19 at 2100, Post-op
hold for loose stools
[facility] Medication administered onsite pregabalin 100 MG Oral Capsule pregabalin (LYRICA) cap addison 100 mg pregabalin (LYRICA) capsule 100 mg 11/30/2019 09:00:00 PM EDT 100 mg Oral active 100 mg, Oral, 2 times daily, First dose on Sat11/30/19 at 2100, For 7 days, Post-op [facility] Medication administered onsite sodium chloride 0.9% (NS) infusion [id number] 11/30/2019 06:00:00 P M EDT Intravenous active at 100 mL/hr, Intravenous, Continuous, Starting Sat11/30/19 at 1800, Post-op [facility] Medication administered onsite cefazolin (ANCEF) injection 2 g 11/30/2019 06:00:00 PM EDT 2 g Intravenous aborted Perioperative Pharmacoprophylaxis 2 g, Intravenous, Administer over 6 Minutes, Every 8 hours (relative), First dose on Sat11/30/19 at 1800, Post- op
Start 4 hours after pre-op dose, then every 8 hours until hemovac removed. Give a minimum of 3 doses. Time pre-op dose hunRN may administer IV push or infuse this medication through syringe adapter set ref [id number]. Flush line after use
[facility] Perioperative Pharmacoprophylaxis Medication administered onsite Acetaminophen 500 MG Oral Tablet acetaminophen (TYLENO L) tablet 1,000 mg acetaminophen (TYLENOL) tablet 1,000 mg 11/30/2019 06:00:00 PM EDT 1000 mg Oral active 1,000 mg, Oral , Every 6 hours (scheduled), First dose on Sat11/30/19 at 1800, Post-op [facility] Medication administered onsite Oxycodone Hydrochloride 5 MG Oral Tablet oxyCODONE (ROXICODONE) immediate release tablet 5 mg oxyCODONE (ROXICODONE) immediate release tablet 5 mg 11/30/2019 04:54:15 PM EDT 5 mg Oral active 5 mg, Oral, Every 4 hours PRN, moderate pain (4-6), Starting 11/30/19 at 1654, For 7 days, Post-op [facility] Medication administered onsite Oxycodone Hydrochloride 10 MG Oral Tablet Oxycodone HC l TABS 10 mg Oxycodone HCl TABS 10 mg 11/30/2019 04:54:15 PM EDT 10 mg Oral active 10 mg, Oral, Every 4 hours PRN, severe pain (7-10), Starting 11/30/19 at 1654, For 7 days, Post-op [facility] Medication administered onsite Ondansetron 4 MG Disintegrating Oral Tab let ondansetron (ZOFRAN-ODT) disintegrating tablet 4 mg ondansetron (ZOFRAN-ODT) disintegrating tablet 4 mg 11/30/2019 04:54:15 PM EDT 4 mg Oral active 4 mg, Oral, Every 4 hours PRN, nausea, vomiting, Starting 11/30/19 at 1654, Post-op [facility] Medication administered onsite ondansetron (ZOFRAN) injection 4 mg [id number] 11/30/2019 04:54:1 5 PM EDT 4 mg Intravenous active 4 mg, In travenous, Every 4 hours PRN, nausea, vomiting, Starting 11/30/19 at 1654, Post-op
If unable to take PO
[facility] Medication administered onsite Mineral Oil 1000 MG/ML Enema mineral oil enema 1 enema mineral oil enema 1 enema 11/30/2019 04:54:15 PM EDT 1 {enema} Rectal active 1 enema, Rectal, Daily PRN, constipation, if unrelieved by dulcolax, Starting 11/30/19 at 1654, Post-op
hold for loose stools
[facility] Medication administered onsite fentaNYL Citrate (PF) (SUBLIMAZE) injection 50 mcg [id number] 11/30/2019 04:54:15 PM EDT 50 ug Intravenous active 50 mcg, Intravenous, Every 3 hours PRN, for severe breakthrough pain (7-10) if oral opioid ineffective, Starting Sat11/30/19 at 1654, For 7 days, Post-op [facility] Medication administered onsite 1 ML Meperidine Hydrochloride 50 MG/ML I njection meperidine (DEMEROL) injection 25 mg meperidine (DEMEROL) injection 25 mg 11/30/2019 04:18:32 PM EDT 25 mg Intravenous aborted 25 mg, Intrav enous, Every 10 min PRN, severe pain (7-10), Starting Sat11/30/19 at 1618, For 2 doses, PACU (only) [facility] Medication administered onsite HYDROmorphone (DILAUDID) injection 0.5 mg [id number] 11/30/2019 03:54:58 PM EDT 0.5 mg Intravenous aborted 0.5 mg, Intravenous, Every 5 min PRN, severe pain (7-10), Starting Sat11/30/19 at 1554, For 4 doses, PACU (only) [facility] Medication administered onsite fentaNYL Citrate (PF) (SUBLIMAZE) injection 25 mcg [id number] 11/30/2019 02:43:29 PM EDT 25 ug Intravenous aborted 25 mcg, Intravenous, Every 5 min PRN, moderate pain (4 to 6), Starting Sat11/30/19 at 1443, For 5 doses, PACU (only) [facility] Medication administered onsite HYDROmorphone (DILAUDID) injection 0.5 mg [id number] 11/30/2019 02:43:29 PM EDT 0.5 mg Intravenous completed 0. 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
To be administered just prior to to transport to operating room
[facility] Spinal stenosis of lumbar region with ne urogenic claudication Medication administered onsite chlorhexidine gluconate 1.2 MG/ML Mouthw aleksey chlorhexidine (PERIDEX) 0.12 % oral solution 15 mL chlorhexidine (PERIDEX) 0.12 % oral solution 15 mL 09:00:00 AM EDT 15 mL Mouth/Throat completed S randell stenosis of lumbar region with neurogenic claudication 15 mL, Mouth/Throa t, call center supervisor, Sat11/30/19 at 0900, For 1 dose, Pre-op
Swish for 30 seconds and spit in pre-induction unit
[facility] Spinal stenosis of lumbar region with ne urogenic claudication Medication administered onsite dexamethasone (DECADRON) injection 4 mg [id number] 11/30/19 09:00:00 AM EDT 4 mg Intravenous completed Spinal stenos is of lumbar region with neurogenic claudication 4 mg, Intravenous, call center supervisor, Sat11/30/19 at 0900, For 1 dose, Pre-op
To be administered just prior to to transport to operating room.Hold if patient is diabetic or if stress dose steroids are ordered
[facility] Spinal stenosis of lumbar region with ne urogenic claudication Medication administered onsite 2 ML Metoclopramide 5 MG/ML Prefilled Sy ringe metoclopramide (REGLAN) injection 10 mg metoclopramide (REGLAN) injection 10 mg 11/30/2019 09:00:00 AM E DT 10 mg Intravenous completed Spinal stenosis of lumbar region with neurogenic claudication 10 mg, Intravenous, call center supervisor, Sat11/30/19 at 0900, For 1 dose, Pre-op
To be administered just prior to to transport to operating room
[facility] Spinal stenosis of lumbar region with ne urogenic claudication Medication administered onsite ondansetron (ZOFRAN) injection 4 mg [id number] 11/30/2019 09:00:0 0 AM EDT 4 mg Intravenous completed Spinal stenosis of lumbar region with neurogenic claudication 4 mg, Intravenous, call center supervisor, Sat11/30/19 at 0900, For 1 dose, Pre-op
To be administered just prior to to transport to operating room
[facility] Spinal stenosis of lumbar region with ne urogenic claudication Medication administered onsite Magnesium Chloride 0.74314 MEQ/ML / Pota ssium Chloride 0.0497 MEQ/ML / Sodium Acetate 0.0163 MEQ/ML / Sodium Chloride 0.0899 MEQ/ML / Sodium gluconate 5.02 MG/ML Injectable Solution [Normosol-R] electrolyte-R (NORMOSOL-R/PLASMALYTE-R) solution electrolyte-R (NORMOSOL-R/PLASMALYTE-R) solution 11/29 09:00:00 AM EDT Intravenous aborted at 1 00 mL/hr, Intravenous, Continuous, Starting Sat11/30/19 at 0900, Pre-op [facility] Medication administered onsite Hydrochlorothiazide 12.5 MG Oral Tablet HYDROCHLOROTHIAZIDE 11/11/2019 12:00:00 AM EDT tablet 30 TAKE ONE TABLET BY MOUTH JAZLYN DAY TAKE ONE TABLET BY MOUTH EVERY DAY SOLD: 12/10/2019 [facility] Hydrochlorothiazide 12.5 MG Oral Tablet HYDROCHLOROTHIAZIDE 11/11/2019 12:00:00 AM EDT tablet 30 TAKE ONE TABLET BY MOUTH JAZLYN TAKE ONE TABLET BY MOUTH EVERY DAY SOLD: 01/18/2020 [facility] 10-325 mg 11/11/2019 12:00:00 AM EDT tablet 120 TAKE ONE TABLET BY MOUTH FOUR TIMES A DAY NEEDED MAXIMUM DAILY DOSE = 4 TAKE ONE TABLET BY MOUTH FOUR TIMES A DAY NEEDED MAXIMUM DAILY DOSE = 4 SOLD: 11/12/2019 [facility] Hydrochlorothiazide 12.5 MG Oral Tablet HYDROCHLOROTHIAZIDE 11/11/2019 12:00:00 AM EDT tablet 30 TAKE ONE TABLET BY MOUTH JAZLYN RY DAY TAKE ONE TABLET BY MOUTH EVERY DAY SOLD: 11/11/2019 [facility] 20 mg 11/11/2019 12:00:00 AM EDT tablet,oral only,ext.re l.12 hr 60 TAKE ONE TABLET BY MOUTH EVERY 12 HOURS MAXIMUM DAILY DOSE = 2 TAKE ONE TABLET BY MOUTH EVERY 12 HOURS MAXIMUM DAILY DOSE = 2 SOLD: 11/12/2019 [facility] 100 mg 10/12/2019 12:00:00 AM EDT capsule 60 TAKE ONE CAPSULE BY MOUTH TWICE A DAY MAXIMUM DAILY DOSE = 2 TAKE ONE CAPSULE BY MOUTH TWICE A DAY DOLLY ALMAZAN DAILY DOSE = 2 SOLD: 01/18/2020 [facility] 100 mg 10/12/2019 12:00:00 AM EDT capsule 60 TAKE ONE CAPSULE BY MOUTH TWICE A DAY MAXIMUM DAILY DOSE = 2 TAKE ONE CAPSULE BY MOUTH TWICE A DAY MA XIMUHarleen DAILY DOSE = 2 SOLD: 11/10/2019 [facility] 100 mg 10/12/2019 12:00:00 AM EDT capsule 60 TAKE ONE CAPSULE BY MOUTH TWICE A DAY MAXIMUM DAILY DOSE = 2 TAKE ONE CAPSULE BY MOUTH TWICE A DAY DOLLY XIMUHarleen DAILY DOSE = 2 SOLD: 10/12/2019 [facility] 100 mg 10/12/2019 12:00:00 AM EDT capsule 60 TAKE ONE CAPSULE BY MOUTH TWICE A DAY MAXIMUM DAILY DOSE = 2 TAKE ONE CAPSULE BY MOUTH TWICE A DAY DOLLY SUMMERSMUHarleen DAILY DOSE = 2 SOLD: 12/10/2019 [facility] 20 mg 10/12/2019 12:00:00 AM EDT tablet,oral only,ext.re l.12 hr 60 TAKE ONE TABLET BY MOUTH EVERY 12 HOURS MAXIMUM DAILY DOSE = 2 TAKE ONE TABLET BY MOUTH EVERY 12 HOURS MAXIMUM DAILY DOSE = 2 SOLD: 10/12/2019 [facility] 10-325 mg 10/12/2019 12:00:00 AM EDT tablet 120 TAKE ONE TABLET BY MOUTH FOUR TIMES A DAY NEEDED MAXIMUM DAILY DOSE = 4 TAKE ONE TABLET BY MOUTH FOUR TIMES A DAY NEEDED MAXIMUM DAILY DOSE = 4 SOLD: 10/12/2019 [facility] 10-325 mg 09/10/2019 12:00:00 AM EDT tablet 120 TAKE ONE TABLET BY MOUTH FOUR TIMES A DAY NEEDED MAXIMUM DAILY DOSE = 4 TAKE ONE TABLET BY MOUTH FOUR TIMES A DAY NEEDED MAXIMUM DAILY DOSE = 4 SOLD: 09/10/2019 [facility] 20 mg 09/10/2019 12:00:00 AM EDT tablet,oral only,ext.re l.12 hr 60 TAKE ONE TABLET BY MOUTH EVERY 12 HOURS MAXIMUM DAILY DOSE = 2 TAKE ONE TABLET BY MOUTH EVERY 12 HOURS MAXIMUM DAILY DOSE = 2 SOLD: 09/10/2019 [facility] 20 mg 08/11/2019 12:00:00 AM EDT tablet,oral only,ext.re l.12 hr 60 TAKE ONE TABLET BY MOUTH EVERY 12 HOURS MAXIMUM DAILY DOSE = 2 TAKE ONE TABLET BY MOUTH EVERY 12 HOURS MAXIMUM DAILY DOSE = 2 SOLD: 08/11/2019 [facility] 1,250 mcg (50,000 unit) 08/10/2019 12:00:00 AM EDT capsule 1 TAKE ONE CAPSULE BY MOUTH ONCE WEEKLY FOR 1 MONTH, THEN 1 CAPSULE MONTHLY THEREAFTER TAKE ONE CAPSULE BY MOUTH ONCE WEEKLY FOR 1 MONTH, THEN 1 CAPSULE MONTHLY THEREAFTER SOLD: 01/20/2020 [facility] 1,250 mcg (50,000 unit) 08/10/2019 12:00:00 AM EDT capsule 1 TAKE ONE CAPSULE BY MOUTH ONCE WEEKLY FOR 1 MONTH, THEN 1 CAPSULE MONTHLY THEREAFTER TAKE ONE CAPSULE BY MOUTH ONCE WEEKLY FOR 1 MONTH, THEN 1 CAPSULE MONTHLY THEREAFTER SOLD: 02/22/2020 [facility] 1,250 mcg (50,000 unit) 08/10/2019 12:00:00 AM EDT capsule 4 TAKE ONE CAPSULE BY MOUTH ONCE WEEKLY FOR 1 MONTH, THEN 1 CAPSULE MONTHLY THEREAFTER TAKE ONE CAPSULE BY MOUTH ONCE WEEKLY FOR 1 MONTH, THEN 1 CAPSULE MONTHLY THEREAFTER SOLD: 09/14/2019 [facility] 1,250 mcg (50,000 unit) 08/10/2019 12:00:00 AM EDT capsule 1 TAKE ONE CAPSULE BY MOUTH ONCE WEEKLY FOR 1 MONTH, THEN 1 CAPSULE MONTHLY THEREAFTER TAKE ONE CAPSULE BY MOUTH ONCE WEEKLY FOR 1 MONTH, THEN 1 CAPSULE MONTHLY THEREAFTER SOLD: 11/10/2019 [facility] 1,250 mcg (50,000 unit) 08/10/2019 12:00:00 AM EDT capsule 1 TAKE ONE CAPSULE BY MOUTH ONCE WEEKLY FOR 1 MONTH, THEN 1 CAPSULE MONTHLY THEREAFTER TAKE ONE CAPSULE BY MOUTH ONCE WEEKLY FOR 1 MONTH, THEN 1 CAPSULE MONTHLY THEREAFTER SOLD: 12/10/2019 [facility] 1,250 mcg (50,000 unit) 08/10/2019 12:00:00 AM EDT capsule 4 TAKE ONE CAPSULE BY MOUTH ONCE WEEKLY FOR 1 MONTH, THEN 1 CAPSULE MONTHLY THEREAFTER TAKE ONE CAPSULE BY MOUTH ONCE WEEKLY FOR 1 MONTH, THEN 1 CAPSULE MONTHLY THEREAFTER SOLD: 08/10/2019 [facility] 1,250 mcg (50,000 unit) 08/10/2019 12:00:00 AM EDT capsule 1 TAKE ONE CAPSULE BY MOUTH ONCE WEEKLY FOR 1 MONTH, THEN 1 CAPSULE MONTHLY THEREAFTER TAKE ONE CAPSULE BY MOUTH ONCE WEEKLY FOR 1 MONTH, THEN 1 CAPSULE MONTHLY THEREAFTER SOLD: 10/10/2019 [facility] 100 mg 08/10/2019 12:00:00 AM EDT capsule 60 TAKE ONE CAPSULE BY MOUTH TWICE A DAY MAXIMUM DAILY DOSE = 2 TAKE ONE CAPSULE BY MOUTH TWICE A DAY DOLLY ALMAZAN DAILY DOSE = 2 SOLD: 09/14/2019 [facility] 100 mg 08/10/2019 12:00:00 AM EDT capsule 60 TAKE ONE CAPSULE BY MOUTH TWICE A DAY MAXIMUM DAILY DOSE = 2 TAKE ONE CAPSULE BY MOUTH TWICE A DAY MA XIMUM DAILY DOSE = 2 SOLD: 08/11/2019 [facility] 10-325 mg 08/10/2019 12:00:00 AM EDT tablet 120 TAKE ONE TABLET BY MOUTH FOUR TIMES A DAY NEEDED MAXIMUM DAILY DOSE = 4 TAKE ONE TABLET BY MOUTH FOUR TIMES A DAY NEEDED MAXIMUM DAILY DOSE = 4 SOLD: 08/11/2019 [facility] 1,000 mcg/mL 07/28/2019 12:00:00 AM EDT solution 6 INJECT 1ML INTRAMUSCULARLY WEEKLY X 4 WEEKS, MONTHLY THEREAFTER (AT MD OFFICE) INJECT 1ML INTRAMUSCULARLY WEEKLY X 4 WEEKS, MONTHLY THEREAFTER (AT MD OFFICE) SOLD: 07/31/2019 [facility] 75 mg 07/14/2019 12:00:00 AM EDT capsule 60 TAKE ONE CAPSULE BY MOUTH TWICE A DAY MAXIMUM DAILY DOSE = 2 TAKE ONE CAPSULE BY MOUTH TWICE A DAY DOLLY ALMAZAN DAILY DOSE = 2 SOLD: 07/15/2019 [facility] Losartan Potassium 50 MG Oral Tablet LOSARTAN POTASSIUM 03/2019 12:00:00 AM EDT tablet 30 TAKE ONE TABLET BY MOUTH TAKE ONE TABLET BY MOUTH EVERY DAY SOLD: 09/10/2019 [facility] 50 mg 07/14/2019 12:00:00 AM EDT tablet 30 TAKE ONE TABLET BY MOUTH EVERY DAY TAKE ONE TABLET BY MOUTH EVERY DAY SOLD: 08/10/2019 [facility] 50 mg 07/14/2019 12:00:00 AM EDT tablet 30 TAKE ONE TABLET BY MOUTH EVERY DAY TAKE ONE TABLET BY MOUTH EVERY DAY SOLD: 10/10/2019 [facility] 50 mg 07/14/2019 12:00:00 AM EDT tablet 30 TAKE ONE TABLET BY MOUTH EVERY DAY TAKE ONE TABLET BY MOUTH EVERY DAY SOLD: 12/10/2019 [facility] 50 mg 07/14/2019 12:00:00 AM EDT tablet 30 TAKE ONE TABLET BY MOUTH EVERY DAY TAKE ONE TABLET BY MOUTH EVERY DAY SOLD: 07/15/2019 [facility] 50 mg 07/14/2019 12:00:00 AM EDT tablet 30 TAKE ONE TABLET BY MOUTH EVERY DAY TAKE ONE TABLET BY MOUTH EVERY DAY SOLD: 11/11/2019 [facility] 20 mg 07/10/2019 12:00:00 AM EDT tablet,oral only,ext.re l.12 hr 60 TAKE ONE TABLET BY MOUTH EVERY 12 HOURS MAXIMUM DAILY DOSE = 2 TAKE ONE TABLET BY MOUTH EVERY 12 HOURS MAXIMUM DAILY DOSE = 2 SOLD: 07/10/2019 [facility] 10-325 mg 07/10/2019 12:00:00 AM EDT tablet 120 TAKE ONE TABLET BY MOUTH FOUR TIMES A DAY NEEDED MAXIMUM DAILY DOSE = 4 TAKE ONE TABLET BY MOUTH FOUR TIMES A DAY NEEDED MAXIMUM DAILY DOSE = 4 SOLD: 07/10/2019 [facility] 300 mg 07/08/2019 12:00:00 AM EDT capsule 90 TAKE ONE CAPSULE BY MOUTH THREE TIMES A DAY TAKE ONE CAPSULE BY MOUTH THREE TIMES A DAY SOLD: 08/10/2019 [facility] 300 mg 07/08/2019 12:00:00 AM EDT capsule 90 TAKE ONE CAPSULE BY MOUTH THREE TIMES A DAY TAKE ONE CAPSULE BY MOUTH THREE TIMES A DAY SOLD: 07/08/2019 [facility] 8 HR Acetaminophen 650 MG Extended Release Oral Tablet [Tyle nol] Tylenol 8 Hour 06/18/2019 12:00:00 AM EDT active [facility] ([facility]) 10-325 mg 06/11/2019 12:00:00 AM EDT tablet 120 TAKE ONE TABLET BY MOUTH FOUR TIMES A DAY NEEDED MAXIMUM DAILY DOSE = 4 TAKE ONE TABLET BY MOUTH FOUR TIMES A DAY NEEDED MAXIMUM DAILY DOSE = 4 SOLD: 06/11/2019 [facility] 20 mg 06/11/2019 12:00:00 AM EDT tablet,oral only,ext.re l.12 hr 60 TAKE ONE TABLET BY MOUTH EVERY 12 HOURS MAXIMUM DAILY DOSE = 2 TAKE ONE TABLET BY MOUTH EVERY 12 HOURS MAXIMUM DAILY DOSE = 2 SOLD: 06/11/2019 [facility] 50 mg 06/09/2019 12:00:00 AM EDT tablet extended release 24 hr 30 TAKE ONE TABLET BY MOUTH EVERY DAY TAKE ONE TABLET BY MOUTH EVERY DAY SOLD: 06/09/2019 [facility] 50 mg 06/09/2019 12:00:00 AM EDT tablet extended release 24 hr 30 TAKE ONE TABLET BY MOUTH EVERY DAY TAKE ONE TABLET BY MOUTH EVERY DAY SOLD: 08/10/2019 [facility] 50 mg 06/09/2019 12:00:00 AM EDT tablet extended release 24 hr 30 TAKE ONE TABLET BY MOUTH EVERY DAY TAKE ONE TABLET BY MOUTH EVERY DAY SOLD: 10/10/2019 [facility] 50 mg 06/09/2019 12:00:00 AM EDT tablet extended release 24 hr 30 TAKE ONE TABLET BY MOUTH EVERY DAY TAKE ONE TABLET BY MOUTH EVERY DAY SOLD: 11/10/2019 [facility] 50 mg 06/09/2019 12:00:00 AM EDT tablet extended release 24 hr 30 TAKE ONE TABLET BY MOUTH EVERY DAY TAKE ONE TABLET BY MOUTH EVERY DAY SOLD: 07/08/2019 [facility] 50 mg 06/09/2019 12:00:00 AM EDT tablet extended release 24 hr 30 TAKE ONE TABLET BY MOUTH EVERY DAY TAKE ONE TABLET BY MOUTH EVERY DAY SOLD: 09/10/2019 [facility] tizanidine 4 MG Oral Tablet TIZANIDINE HCL 05/20/2019 12:00:00 AM EDT tablet 90 TAKE ONE TABLET BY MOUTH THREE TIMES A DAY NEEDED F OR SPASM TAKE ONE TABLET BY MOUTH THREE TIMES A DAY NEEDED FOR SPASM SOLD: 01/18/2020 [facility] 4 mg 05/20/2019 12:00:00 AM EDT tablet 90 TAKE ONE TABLET BY MOUTH THREE TIMES A DAY NEEDED FOR SPASM TAKE ONE TABLET BY MOUTH THREE TIMES A D AY NEEDED FOR SPASM SOLD: 06/26/2019 [facility] tizanidine 4 MG Oral Tablet TIZANIDINE HCL 05/20/2019 12:00:00 AM EDT tablet 90 TAKE ONE TABLET BY MOUTH THREE TIMES A DAY NEEDED F OR SPASM TAKE ONE TABLET BY MOUTH THREE TIMES A DAY NEEDED FOR SPASM SOLD: 12/10/2019 [facility] 4 mg 05/20/2019 12:00:00 AM EDT tablet 90 TAKE ONE TABLET BY MOUTH THREE TIMES A DAY NEEDED FOR SPASM TAKE ONE TABLET BY MOUTH THREE TIMES A D AY NEEDED FOR SPASM SOLD: 11/10/2019 [facility] 4 mg 05/20/2019 12:00:00 AM EDT tablet 90 TAKE ONE TABLET BY MOUTH THREE TIMES A DAY NEEDED FOR SPASM TAKE ONE TABLET BY MOUTH THREE TIMES A D AY NEEDED FOR SPASM SOLD: 10/10/2019 [facility] 4 mg 05/20/2019 12:00:00 AM EDT tablet 90 TAKE ONE TABLET BY MOUTH THREE TIMES A DAY NEEDED FOR SPASM TAKE ONE TABLET BY MOUTH THREE TIMES A D AY NEEDED FOR SPASM SOLD: 05/22/2019 [facility] 10-325 mg 05/08/2019 12:00:00 AM EDT tablet 120 TAKE ONE TABLET BY MOUTH FOUR TIMES A DAY NEEDED MAXIMUM DAILY DOSE = 4 TAKE ONE TABLET BY MOUTH FOUR TIMES A DAY NEEDED MAXIMUM DAILY DOSE = 4 SOLD: 05/08/2019 [facility] 20 mg 05/08/2019 12:00:00 AM EDT tablet,oral only,ext.re l.12 hr 60 TAKE ONE TABLET BY MOUTH EVERY 12 HOURS MAXIMUM DAILY DOSE = 2 TAKE ONE TABLET BY MOUTH EVERY 12 HOURS MAXIMUM DAILY DOSE = 2 SOLD: 05/08/2019 [facility] 300 mg 05/02/2019 12:00:00 AM EDT capsule 90 TAKE 1 CAPSULE BY MOUTH THREE TIMES DAILY TAKE 1 CAPSULE BY MOUTH THREE TIMES DAILY SOLD: 06/01/2019 [facility] 300 mg 05/02/2019 12:00:00 AM EDT capsule 90 TAKE 1 CAPSULE BY MOUTH THREE TIMES DAILY TAKE 1 CAPSULE BY MOUTH THREE TIMES DAILY SOLD: 05/06/2019 [facility] 10-325 mg 04/09/2019 12:00:00 AM EST tablet 120 TAKE ONE TABLET BY MOUTH FOUR TIMES A DAY NEEDED MAXIMUM DAILY DOSE = 4 TAKE ONE TABLET BY MOUTH FOUR TIMES A DAY NEEDED MAXIMUM DAILY DOSE = 4 SOLD: 04/09/2019 [facility] 20 mg 04/09/2019 12:00:00 AM EST tablet,oral only,ext.re l.12 hr 60 TAKE ONE TABLET BY MOUTH EVERY 12 HOURS MAXIMUM DAILY DOSE = 2 TAKE ONE TABLET BY MOUTH EVERY 12 HOURS MAXIMUM DAILY DOSE = 2 SOLD: 04/09/2019 [facility] 10-325 mg 03/05/2019 12:00:00 AM EST tablet 120 TAKE 1 TABLET BY MOUTH FOUR TIMES DAILY NEEDED MAX = 4 TABS/DAY TAKE 1 TABLET BY MOUTH FOUR TIMES DAILY NEEDED MAX = 4 TABS/DAY SOLD: 03/05/2019 [facility] 20 mg 03/05/2019 12:00:00 AM EST tablet,oral only,ext.re l.12 hr 60 TAKE 1 TABLET BY MOUTH EVERY 12 HOURS MAX = 2 TABS/DAY TAKE 1 TABLET BY MOUTH EVERY 12 HOURS MAX = 2 TABS/DAY SOLD: 03/05/2019 [facility] 300 mg 02/23/2019 12:00:00 AM EST capsule 90 TAKE ONE CAPSULE BY MOUTH THREE TIMES A DAY TAKE ONE CAPSULE BY MOUTH THREE TIMES A DAY SOLD: 02/25/2019 [facility] 300 mg 02/23/2019 12:00:00 AM EST capsule 90 TAKE ONE CAPSULE BY MOUTH THREE TIMES A DAY TAKE ONE CAPSULE BY MOUTH THREE TIMES A DAY SOLD: 03/29/2019 [facility] iohexol (OMNIPAQUE) 300 MG/ML contrast injection 100 mL [id number] 02/16/2019 01:00:00 PM EST 100 mL Intravenous completed 100 mL, Intravenous, 1 TIME IMAGING, 02/16/19 at 1300, For 1 dose, Imaging Protocol [facility] Medication administered onsite Losartan Potassium 50 MG Oral Tablet Los tenisha Potassium 50 MG Oral Tablet (COZAAR) Losartan Potassium 50 MG Oral Tablet (COZAAR) 02/07/20 19 12:00:00 AM EST active [facility] 10-325 mg 01/25/2019 12:00:00 AM EST tablet 120 TAKE ONE TABLET BY MOUTH FOUR TIMES A DAY NEEDED MAXIMUM DAILY DOSE = 4 TAKE ONE TABLET BY MOUTH FOUR TIMES A DAY NEEDED MAXIMUM DAILY DOSE = 4 SOLD: 01/26/2019 [facility] 20 mg 01/25/2019 12:00:00 AM EST tablet,oral only,ext.re l.12 hr 60 TAKE ONE TABLET BY MOUTH EVERY 12 HOURS MAXIMUM DAILY DOSE = 2 TAKE ONE TABLET BY MOUTH EVERY 12 HOURS MAXIMUM DAILY DOSE = 2 SOLD: 01/26/2019 [facility] Losartan Potassium 50 MG Oral Tablet LOSARTAN POTASSIUM 12:00:00 AM EST tablet 30 TAKE ONE TABLET BY MOUTH JAZLYN DAY TAKE ONE TABLET BY MOUTH EVERY DAY SOLD: 03/06/2019 [facility] Losartan Potassium 50 MG Oral Tablet LOSARTAN POTASSIUM 12:00:00 AM EST tablet 30 TAKE ONE TABLET BY MOUTH JAZLYN RY DAY TAKE ONE TABLET BY MOUTH EVERY DAY SOLD: 04/07/2019 [facility] 50 mg 01/06/2019 12:00:00 AM EST tablet 30 TAKE ONE TABLET BY MOUTH EVERY DAY TAKE ONE TABLET BY MOUTH EVERY DAY SOLD: 05/18/2019 [facility] Losartan Potassium 50 MG Oral Tablet LOSARTAN POTASSIUM 12:00:00 AM EST tablet 30 TAKE ONE TABLET BY MOUTH JAZLYN DAY TAKE ONE TABLET BY MOUTH EVERY DAY SOLD: 02/06/2019 [facility] 4 mg 08/22/2018 12:00:00 AM EDT tablet 90 TAKE ONE TABLET BY MOUTH THREE TIMES A DAY NEEDED FOR SPASM TAKE ONE TABLET BY MOUTH THREE TIMES A D AY NEEDED FOR SPASM SOLD: 03/06/2019 [facility] 4 mg 08/22/2018 12:00:00 AM EDT tablet 90 TAKE ONE TABLET BY MOUTH THREE TIMES A DAY NEEDED FOR SPASM TAKE ONE TABLET BY MOUTH THREE TIMES A D AY NEEDED FOR SPASM SOLD: 04/04/2019 [facility] 4 mg 08/22/2018 12:00:00 AM EDT tablet 90 TAKE ONE TABLET BY MOUTH THREE TIMES A DAY NEEDED FOR SPASM TAKE ONE TABLET BY MOUTH THREE TIMES A D AY NEEDED FOR SPASM SOLD: 02/06/2019 [facility] Acetaminophen 325 MG / Oxycodone Hydroch loride 10 MG Oral Tablet oxyCODONE- acetaminophen (PERCOCET) 10-325 MG per tablet oxyCODONE-acetaminophen (PERCOCET) 10-325 MG per tablet 1 {tbl} Oral aborted Take 1 tablet by mouth every 6 (six) hours as needed for pain [facility] tizanidine 4 MG Oral Tablet tiZANidine (ZANAFLEX) 4 MG tablet tiZANidine (ZANAFLEX) 4 MG tablet 4 mg Oral aborted Take 4 mg by mouth nightly as needed [facility] Insurance Providers Payer name Policy type / Coverage type Policy ID Covered democrat ID Covered democrat's relationship to jhaveri Policy Jhaveri Plan Information [facility] [id number] SP [id number] BCBS EMPIRE [place] DIV [id number] SP [id number] EMPIRE PLAN [facility] U [id number] Self [id number] [place] [id number] S [id number] [facility] INSURANCE FUND [id number] S [id number] [facility] INSURANCE FUND [id number] S [id number] [employer] [id number] S [id number] [employer] [id number] S [id number] [employer] [place] [id number] S [id number] WORKER'S COMP [id number] WORKER'S COMP [id number] Rabia [id number] INSURANCE COVID-19 COVID Rabia C OVID WORKER'S COMP [id number] Rabia [id number] ONE CALL CARE MANAGEMENT O [id number] S [id number] [employer] EMPIRE [place] DIV [id number] SP [id number] [facility] [id number] SP [id number] [facility] O [id number] S [id number] [facility] O [id number] S [id number] [facility] [id number] SP [id number] BC[employer] EMPIRE [place] ELENA DIV [id number] SP [id number] EMPIRE PLAN [facility] U [id number] Self [id number] EMPIRE PLAN [facility] U [id number] Self [id number] EMPIRE BLUE CROSS -O/P [id number] [facility] -PHYSICIAN [id number] BLUE CARD C [id number] Self [id number] Problems, Conditions, and Diagnoses Code Display Name Description Problem Type Effective Dates Data Source(s) I10 Hypertension Hypertension [id number] 11/30/2019 12:00:00 A M EDT [facility] E53.8 Vitamin B12 deficiency Vitamin B12 deficiency 69363983 11/30/2019 12:00:00 AM EDT [facility] E55.9 Vitamin D deficiency Vitamin D deficiency 68971503 11/30/2019 12:00:00 AM EDT [facility] F10.20 Alcohol dependence Alcohol dependence [id number] 12:00:00 AM EDT [facility] M54.5 Low back pain radiating to both legs Low back pa in radiating to both legs [id number] 11/30/2019 12:00:00 AM EDT [facility] R60.0 Edema of both legs Edema of both legs [id number] 0 12:00:00 AM EDT [facility] R20.0 Numbness and tingling of both feet Numbness and tingling of both feet [id number] 11/19/2019 12:00:00 AM EDT [facility] G62.9 Peripheral neuropathy Peripheral neuropathy [id number] 11/19/2019 12:00:00 AM EDT [facility] Z87.19 Personal history of gallstones Personal history of gal lstones [id number] 11/19/2019 12:00:00 AM EDT [facility] E66.01 Morbid obesity with BMI of 40.0-44.9, ad ult Morbid obesity with BMI of 40.0-44.9, adult [id number] 11/19/2019 12:00:00 AM EDT [facility] K42.9 Umbilical hernia Umbilical hernia 06052411 11/19/2019 12 :00:00 AM EDT [facility] C80.1 Cancer Cancer [id number] 11/19/2019 12:00:00 AM ED T [facility] [id number] Idiopathic peripheral neuropathy Idiopathic tyler pheral neuropathy Problem 06/18/2019 12:00:00 AM EDT [facility] ([facility]) [id number] Numbness of lower limb Numbness of lower limb Problem 06/18/2019 12:00:00 AM EDT [facility] ([facility]) [id number] Lumbosacral radiculopathy Lumbosacral radiculopathy Pr oblem 06/18/2019 12:00:00 AM EDT [facility] ([facility]) [id number] Chronic low back pain Chronic low back pain Problem 06/18/2019 12:00:00 AM EDT [facility] ([facility]) Z11.52 ENCOUNTER FOR SCREENING FOR COVID-19 ENC OUNTER FOR SCREENING FOR COVID-19 Diagnosis 03/10/2020 02:04:00 PM [facility] Z01.812 Encounter for preprocedural laboratory e xamination ENCOUNTER FOR PREPROCEDURAL LABORATORY EXAMINATION Diagnosis 03/10/2020 02:04:00 PM [facility] C64.1 Malignant neoplasm of right kidney, exce pt renal pelvis MALIGNANT NEOPLASM OF RIGHT KIDNEY, EXCEPT RENAL PELVIS Diagnosis 02/02/2020 01:38:00 PM [facility] N40.0 Benign prostatic hyperplasia without low er urinary tract symptoms BENIGN PROSTATIC HYPERPLASIA WITHOUT LOWER URINRY TRACT SYMP Diagnosis 02/02/2020 01:38:00 PM [facility] E53.8 Deficiency of other specified B group vi tamins DEFICIENCY OF OTHER SPECIFIED B GROUP VITAMINS Diagnosis 02/02/2020 01:38:00 PM [facility] E55.9 Vitamin D deficiency, unspecified VITAMIN D DEFI CIENCY, UNSPECIFIED Diagnosis 02/02/2020 01:38:00 PM [facility] M48.062 Spinal stenosis, lumbar region with neur ogenic claudication Spinal stenosis, lumbar region with neur Diagnosis 11/30/2019 07:20:00 AM EDT [facility] G89.29 Other chronic pain Other chronic pain Diagnosis 07:20:00 AM EDT [facility] M54.5 Low back pain Low back pain Diagnosis 11/30/2019 07:20:00 AM EDT [facility] M43.10 Spondylolisthesis, site unspecified Spondylolist hesis, site unspecified Diagnosis 11/30/2019 07:20:00 AM EDT [facility] U07.1 COVID-19 COVID-19 Diagnosis 11/25/2019 12:00:00 AM ED T [facility] R60.0 Localized edema Localized edema Diagnosis 11/19/2019 12:5 4:33 PM EDT [facility] E53.8 Deficiency of other specified B group vi tamins Deficiency of other specified B group vi Diagnosis 11/19/2019 12:54:33 PM EDT [facility] E55.9 Vitamin D deficiency, unspecified Vitamin D defi ciency, unspecified Diagnosis 11/19/2019 12:54:33 PM EDT [facility] R20.2 Paresthesia of skin Paresthesia of skin Diagnosis 1 12:54:33 PM EDT [facility] R20.0 Anesthesia of skin Anesthesia of skin Diagnosis 09/2019 12:54:33 PM EDT [facility] F10.20 Alcohol dependence, uncomplicated Alcohol depend ence, uncomplicated Diagnosis 11/19/2019 12:54:33 PM EDT [facility] Z87.19 Personal history of other diseases of th e digestive system Personal history of other diseases of th Diagnosis 11/19/2019 12:54:33 PM EDT [facility] Z68.41 Body mass index (BMI) 40.0-44.9, adult B jemima mass index (BMI)40.0-44.9, adult Diagnosis 11/19/2019 12:54:33 PM EDT [facility] E66.01 Morbid (severe) obesity due to excess ca lories Morbid (severe) obesity due to excess ca Diagnosis 11/19/2019 12:54:33 PM EDT [facility] K42.9 Umbilical hernia without obstruction or gangrene Umbilical hernia without obstruction or Diagnosis 11/19/2019 12:54:33 PM EDT [facility] C80.1 Malignant (primary) neoplasm, unspecifie d Malignant (primary) neoplasm, unspecifie Diagnosis 11/19/2019 12:54:33 PM EDT [facility] I10 Essential (primary) hypertension ESSENTIAL (PRIMARY) H YPERTENSION Diagnosis 11/10/2019 10:02:00 AM [facility] Z01.818 Encounter for other preprocedural examin ation ENCOUNTER FOR OTHER PREPROCEDURAL EXAMINATION Diagnosis 11/10/2019 10:02:[address] [facility] G62.89 Other specified polyneuropathies OTHER SPECIFIED POLYNEUROPATHIES Diagnosis 06/12/2019 12:12:00 PM [facility] I73.9 Peripheral vascular disease, unspecified PERIPHERAL VASCULAR DISEASE, UNSPECIFIED Diagnosis 06/12/2019 12:12:00 PM [facility] spital Surgeries/Procedures Procedure Description Date Indications Data Source(s) CUL BACT XCPT URINE BLOOD/STOOL AEROBIC ISOL WOUND CULTURE Ro utine 03/15/2020 1:17 PM EST 03/15/2020 01:17:00 PM EST U [facility] BIOPSY BONE TROCAR/NEEDLE DEEP IR IMAGE GUIDED NEEDLE DRAIN PRO CEDURE Routine 03/15/2020 12:30 PM EST Malignant neoplasm of right kidney 03/15/2020 12:30:00 PM ES T Malignant neoplasm of right kidney [facility] Malignant neoplasm of right kidney PROTHROMBIN TIME PROTIME INR STAT 03/15/2020 10:19 AM EST 03/15/2020 10:19:[address] [facility] BLOOD COUNT COMPLETE AUTO&AUTO DIFRNTL WBC COUNT CBC AND DIFFER ENTIAL Routine 03/15/2020 10:19 AM EST 03/15/2020 10:19:[address] [facility] BASIC METABOLIC PANEL CALCIUM TOTAL BASIC METABOLIC PANEL STAT 03/15/2020 10:19 AM EST 03/15/2020 10:19:00 AM [facility] [address] SARS-COV-2 COVID-19 AMP PRB 03/10/2020 12:00:00 AM [facility] 25 HYDROXY INCLUDES FRACTIONS IF PERFORMED VITAMIN D 25 HYDR OXY 02/02/2020 12:00:00 AM [facility] FOLIC ACID SERUM ASSAY OF FOLIC ACID SERUM 02/02/2020 12:00:00 AM [facility] CYANOCOBALAMIN VITAMIN B-12 VITAMIN B-12 02/02/2020 12:00:00 AM [facility] URNLS DIP STICK/TABLET REAGENT AUTO MICROSCOPY URINALYSIS AU TO W/SCOPE 02/02/2020 12:00:00 AM [facility] PROSTATE SPECIFIC ANTIGEN TOTAL ASSAY OF PSA TOTAL 02/02/2020 12:00 :00 AM [facility] LIPID PANEL LIPID PANEL 02/02/2020 12:00:00 AM [facility] BLOOD COUNT COMPLETE AUTOMATED CBC Routine 12/01/2019 4:22 A M EDT 12/01/2019 08:22:00 AM EDT [facility] BASIC METABOLIC PANEL CALCIUM TOTAL BASIC METABOLIC PANEL Routi ne 12/01/2019 4:22 AM EDT 12/01/2019 08:22:00 AM EDT [facility] FLUOROSCOPY SPX <1 HOUR PHYSICIAN TIME XR OR SPINE LUMBAR JUSTIN NUATION STAT 11/30/2019 2:04 PM EDT 11/30/2019 06:04:24 PM EDT [facility] RADEX SPINE 1 VIEW SPECIFY LEVEL XR OR SPINE LUMBAR CONTINUATIO N STAT 11/30/2019 12:13 PM EDT 11/30/2019 04:13:56 PM EDT [facility] XR OR SPINE LUMBAR XR OR SPINE LUMBAR Routine 11/30/2019 12:13 PM E DT 11/30/2019 04:13:21 PM [facility] LAMINECTOMY, SPINE, THORACOLUMBAR, 3 LEVELS, WITH DECO MPRESSION AND FUSION LAMINECTOMY, SPINE, THORACOLUMBAR, 3 LEVELS, WITH DECOMPRESSION AND FUSION 11/30/2019 10:13 AM EDT Spinal stenosis of lumbar region with neurogenic claudication Spondylolisthesis, unspecified spinal region Chronic low back pain, unspecified back pain laterality, unspecified whether sciatica present 11/30/2019 02:13:00 PM EDT - 11/30/2019 07:14:00 PM EDT Chronic low back pain, unspecified back pain laterality, unspecified whether sciatica presentSpondylolisthesis, unspecified spinal regionSpinal stenosis of lumbar region with neurogenic claudication [facility] Chronic low back pain, unspecified back pain laterality, unspecified whether sciatica present Spondylolisthesis, unspecified spinal re gion Spinal stenosis of lumbar region with ne urogenic claudication ECG ROUTINE ECG W/LEAST 12 LDS TRCG ONLY W/O I&R ELECTROCARD IOGRAM TRACING 11/10/2019 12:00:00 AM [facility] CULTURE BACTERIAL QUANTTATIVE COLONY COUNT URINE URINE CULTU RE/COLONY COUNT 11/10/2019 12:00:00 AM [facility] URNLS DIP STICK/TABLET RGNT AUTO W/O MICROSCOPY URINALYSIS A UTO W/O SCOPE 11/10/2019 12:00:00 AM [facility] COLLECTION VENOUS BLOOD VENIPUNCTURE ROUTINE VENIPUNCTURE 12:00:00 AM [facility] BLOOD COUNT COMPLETE AUTO&AUTO DIFRNTL WBC COUNT COMPLETE CB C W/AUTO DIFF WBC 11/10/2019 12:00:00 AM [facility] BASIC METABOLIC PANEL CALCIUM TOTAL METABOLIC PANEL TOTAL CA 11/10/2019 12:00:00 AM [facility] MRI SPINAL CANAL LUMBAR W/O CONTRAST MATERIAL [facility]22[facility] MRI SPINAL CANAL LUMBAR W/O CONTRAST MATERIAL 07/22/19 12:00:00 AM [facility] ([facility], ) Needle electromyography, each extremity, with related paraspinal areas, when performed, done with nerve conduction, amplitude and latency/velocity study; complete, five or more muscles studied, innervated by three or more nerves or four or more spinal levels (list separately in addition to the code for primary procedure). 06/18/2019 12:00:00 AM [facility] ([facility] ) Needle electromyography, each extremity, with related paraspinal areas, when performed, done with nerve conduction, amplitude and latency/velocity study; complete, five or more muscles studied, innervated by three or more nerves or four or more spinal levels (list separately in addition to the code for primary procedure). 06/18/2019 12:00:00 AM [facility] ([facility], ) [address] Nerve conduction studies 13 or more studies NEW 201206/18/2019 12:00:00 AM [facility] ([facility] ) DUP-SCAN LXTR ART/ARTL BPGS COMPL BI STUDY LOWER EXTREMITY S TUDY 06/12/2019 12:00:00 AM [facility] THIAMINE ASSAY OF VITAMIN B-1 06/12/2019 12:00:00 AM [facility] LEAD ASSAY OF LEAD 06/12/2019 12:00:00 AM [facility] MERCURY QUANTITATIVE ASSAY OF MERCURY 06/12/2019 12:00:00 AM [facility] THYROXINE FREE ASSAY OF FREE THYROXINE 06/12/2019 12:00:00 AM [facility] THYROID STIMULATING HORMONE TSH ASSAY THYROID STIM HORMONE 0 06/12/2019 12:00:00 AM [facility] ARSENIC ASSAY OF ARSENIC 06/12/2019 12:00:00 AM [facility] SEDIMENTATION RATE RBC NON-AUTOMATED RBC SED RATE NONAUTOMAT ED 06/12/2019 12:00:00 AM [facility] HEMOGLOBIN GLYCOSYLATED A1C GLYCOSYLATED HEMOGLOBIN TEST 02/2019 12:00:00 AM [facility] MAGNESIUM ASSAY OF MAGNESIUM 06/12/2019 12:00:00 AM [facility] Results ID Date Data Source [id number] 03/25/2020 11:56:30 AM [facility] Name Value Range Interpretation Code Description Data Rachel rce(s) Supporting Document(s) Progress Note [facility] BZDTAe8tToJIDrDx52/LDPljCMOrr5EhMZwpEZz6JFbcPFQnU4HbPFU4wB0wLBL4NIpDReOqEuReNlGl lbm [file] AgICAgICAgICAgICAgICAgICAgICAgICAgICAgICAgICAgICAgICAgICAgICAgICAgICAgICAgICAgIC AgICAgICAgICAgICAgICAgICAgICAgICAgICANCiAg ICAgICAgICAgICAgICAgICAgICAgICAgICAgICAgICAgICAgICAgICAgICAgICAgICAgICAgICAgICAg ICAgICAgICAgICAgICAgICAgICAgICAgICAgICAgICAgICAgICANCiAgICAgICAgICAgICAgICAgICAg ICAgICAgICAgICAgICAgICAgICAgICAgICAgICAgIC AgICAgICAgICAgICAgICAgICAgICAgICAgICAgICAgICAgICAgICAgICAgICAgICANCiAgICAgICAgIC AgICAgICAgICAgICAgICAgICAgICAgICAgICAgICAgICAgICAgICAgICAgICAgICAgICAgICAgICAgIC AgICAgICAgICAgICAgICAgICAgICAgICAgICAgICAN CiAgICAgICAgICAgICAgICAgICAgICAgICAgICAgICAgICAgICAgICAgICAgICAgICAgICAgICAgICAg ICAgICAgICAgICAgICAgICAgICAgICAgICAgICAgICAgICAgICAgICANCiAgICAgICAgICAgICAgICAg ICAgICAgICAgICAgICAgICAgICAgICAgICAgICAgIC AgICAgICAgICAgICAgICAgICAgICAgICAgICAgICAgICAgICAgICAgICAgICAgICAgICANCiAgICAgIC AgICAgICAgICAgICAgICAgICAgICAgICAgICAgICAgICAgICAgICAgICAgICAgICAgICAgICAgICAgIC AgICAgICAgICAgICAgICAgICAgICAgICAgICAgICAg ICANCiAgICAgICAgICAgICAgICAgICAgICAgICAgICAgICAgICAgICAgICAgICAgICAgICAgICAgICAg ICAgICAgICAgICAgICAgICAgICAgICAgICAgICAgICAgICAgICAgICAgICANCiAgICAgICAgICAgICAg ICAgICAgICAgICAgICAgICAgICAgICAgICAgICAgIC AgICAgICAgICAgICAgICAgICAgICAgICAgICAgICAgICAgICAgICAgICAgICAgICAgICAgICANCiAgIC AgICAgICAgICAgICAgICAgICAgICAgICAgICAgICAgICAgICAgICAgICAgICAgICAgICAgICAgICAgIC AgICAgICAgICAgICAgICAgICAgICAgICAgICAgICAg ICAgICANCjw/cPNoZ2cscCBwybB4T8keEq4VLk3NKX0re3OwKWJcAWawyhRjQhnYUnYeQQSjXxwOSnu7 TMhyUD1KtAIsA6NvJ8FaAIyjOM0TWOWtWGIyxXGnQIQlMQQrVmG5IQXmQKxsYA9WsLXgSQczQBIiNGYe NyAwIFIgOSAwIFIgMTEgMCBSIDEzIDAgUiAxNSAwIF EyXVbxKDHQSCQ1NYFoSjGkJKuaPX8Ep1YluCM0EXr+Hd2OOI1gc4YpXJwrRQMjCB7qxx2JGFkWUaEbI8 UbvbM7WILyNHAtRm5GVIEwJGDdeZK4IPNfILFVMhItB6WjxN05KJVRYr0+DQplbmRvYmoNCjQwIDAgb2 YvCOs8QH5WPGJxSUr2bRFlPVXgC4Yre4YxJe24UYAc TjykY9rnZqCGbUEceFWuPNTCNWAtiMDdTbDaXaCuXdGoOYX0TQZxEV2qQXbzZZ0WJLZ1EHepZRXpVHHn Q8fMHfFtABQfZXRcnAiyWC9UEdTeV1KvisCqxSLvBEUmMCOUTd7+JRiuemKzZntYHeOzKLUqj3AbCXk3 RC6UGKVtXDtcQO1EVBGskA0pYMxiRH6WWdCgRhNiHA NZMmGvT27npMIuHPw4K7XdQjOtHCScWqzvXNLtSPvcSdDyBQCiNhJtIQdzRD8+ID4+JKjaHV9NZCsdkp GpRUBlTa2UMPZyDQLgKH1oSBXbVYHtJ0Z9cOpbOSNUXkZgV4biiuhvOZ4uCYYxD237xHulrfXiQYY2IG SmFf5TZYYsAZZ5DHFdlZEiVofqOJWLVNmmKK5JhOUi QMR9pI8tOJftLUNiIDSrX3lUXwJooDiaNS39hEtuxfKtrHPmYVn+Ji2YYX2cg5IyMYf0uzYjYIwsYVHg ZLmrBOZnAKGbVYBhAWI2EDI6BJMGWtDmVSYbMRAqAQnbBNJuOPFcls7LJRAbGNE1IQPnULDgNRSoQCKx CKuuELKmKCVeTEu2QCEkPUEwCP5FIxMeEVYiOSYzGY cmBOTqJYYdes8YYVLeAWMtWsU6XUOyQVVmYNAzCGwlOPGrWYLsKdJgTSTxNHMlSC3QQfWuACSmHWIlKp jsNMLdCCGsrz4VJWTlYVPbVbT8BLYoIFSbAPHnMFuaPRVjJGD3ROP5SFUkWTVtBZ1TUjIoXXXuBYs7XT wbQLIqSPVdie6ELMJkRQKmAjU5LvFkBFFiOHRaEPca DEFcGWZfXHx3GFBsBOSbMJ6ZPzUxKHYtZJWkPUPmEMDpKNVoto8UZYVfEOBuBdHhZATjROAcDZYjMBfx JJAgVXC6GuH0XVWaVZQkEE8ZQlAzFXLjVHg3PURbZACkYVOfcx7TXKTvZVCnKjR8BIGuSJUwDJEeBCyh MJClODYhZrF0IJZvGHRbYE2NVsGnURIkTyM3HFVtSL NaKDTuyf2CAKWxDQUgCbB1TfAgDOGwOLQrQKauBNQaPQS1SzQ3FEBhHYChMP9FFwCuQQDkKcI6LLGcGP PzHKCrlm7UIXWuDZAhCWd0DwCaQHPiAGUvJLjcFYGcOAJ2JLZ7UQGsZQLwLU7GJvOyAKOgUkExVMumQV EcGKRoqw9XWPRxURAzZeGhEaDmWPRjGZReUEmoWKBk UMR5UpK7XZFtVQTtXI6ZOwSxWVJiKjciULNkZNYtIAVhzu4PZXPwLYFaQTXiJGSsVDRzXYSaXYemZLSg ZGV1VDUkABJlCEXiHZ8ERoRlDBYsDlj4OWNwJXPjPNCltk5WSNShWKBtSAY7TUClXGEhWUNgZJtlSYOb GTN5SDK4NSMrXWIpVQ2FKaQbCWXtRJTxLHGuEWGcXH Ersw2DLFEeXTD9XXw5QYToMKCmWUMiUQuyLBUyQTEmKDNuGVTrSCWnID9WFcObVWUwQWPpUPVwTTNcWS Bqky2NJXLgWYJ7CQdyRKNgYXQcFVObFNpoZYYiAMPqEiRvRWOgFXZwAW1IIvLdNQOnQCTsXATmTGYzWL Gjtn9JAXJbAWD4SeKoDLUkJROcLXDjYJi8ejJmxTNq LDx4CM9QO0PellJpAIXQRa8Wu976IJKiRFRaJm8NN0qePu9bJPFjHEPPYh5OBFh9PxVwQFCfXPD5IqHg OAXtSTH4GTLvIxD6BnfuBYXcQPl+DXdaANZ3KEVuJhQyWSPgVRC4EDA7CAA4CfTrTSH2OEJ4Kh6qVUSE Cj4+CCbzyFGtvCdiLVBBBkAkAiogYDuxYGTDSa3K ID Date Data Source [id number] 03/24/2020 11:55:[address] [facility] Imaging Services Department Imaging Report [address] [place] [address] %(RAD)RES..[email or web address]("line") Name: MONICA HOBSON : 1965 Age/Sex: 54M Ordering Provider: Dell Tirado DO Med Rec #: [id number] Reg Status: DEP REF Room #: Date of Service: 03/23/20 Report Number: [id number] cc:Dell Tirado DO Send Report To: [id number] US/US Dup Lower Ext Artery Lt Reason for exam: STRICTURE OF ARTERY Technique: Ultrasound imaging performed using color flow and spectral Doppler interrogation. Comparison: 06-12-19 FINDINGS: Color and spectral doppler along with grayscale imaging was utilizedto evaluate the arterial system of the left lower extremity. No areas of plaqueare depicted. The peak systolic velocity are in cm/sec for the left are as follows: Common femoral: 103.3; superficial femoral artery 114; popliteal artery 94.2; posterior tibial artery 163.1; anterior tibial artery 81.2; proximal peroneal artery 36.5; mid peroneal artery 36.3; distal peroneal artery 90; dorsalis pedisartery 109.9. There is more than doubling of the peak systolic velocity between the mid and distal left peroneal artery which was also the case before, suggesting the presence of a hemodynamically significant stenosis. Otherwise, normal flow is demonstrated without areas of occlusion. Waveforms appear to be triphasic and biphasic. IMPRESSION: No areas of occlusion. Suggestion of hemodynamically significant stenosis at between the mid and distal left peroneal artery. Further evaluation may be made with CTA with lower extremity runoff if needed. REPORT SIGNATURE ON FILE Reported By: Imtiaz Ruiz MD <Electronically signed by Imtiaz Ruiz MD> 03/25/20 1154 Dictation Date/Time: 03/23/20 1717 Transcribed Date/Time: 03/24/20 1155 Track Repair Person: LOUISA Name Value Range Interpretation Code Description Data Rachel rce(s) Supporting Document(s) ID Date Data Source [id number] 03/15/2020 01:37:12 PM [facility] Name Value Range Interpretation Code Description Data Rachel rce(s) Supporting Document(s) Progress Note [facility] [id number]/YTVoaOQRbo5CfLPinXLb0MMybTHAkY9TkQRB6iK6jLJC8ARjELqYuDtDoWvPf [facility] [file] HtYbKIW9BSTpXkDfAnrhCWIgBAKsEzY+XX6rVMh+Kw4Wp1PmxsT0cwWuJYl8TUXnGBrcRELARv5S ID Date Data Source [id number] 03/18/2020 10:57:29 AM [facility] Service Cmnt XXX-Imp : LEFT LYTIC LESION Gram Stn XXX : 2+WBC'S Seen.No organisms seenMicroorganism XXX Cult : No growth 3 days Name Value Range Interpretation Code Description Data Rachel rce(s) Supporting Document(s) ID Date Data Source [id number] 03/15/2020 01:00:10 PM [facility] IR IMAGE GUIDED NEEDLE DRAIN PROCEDUREFI NAL RESULTInterpreted by:RUIZ Madsenrocedure: CT guided left iliac bone biopsy History: Left iliac crest lytic lesionComparison: CT of the abdomen and pelvis from 02/16/2019, 02/24/2020Moderate Sedation: I performed Moderate Sedation with intravenous 1 mg of Versed and 50 mcg of fentanyl for 45 minutesConsent: Following discussion of the risks, benefits and alternatives of the procedure, written informed consent was obtained. Technique: Automated dose lowering techniques and/or adjustment according to patient size were utilized for this exam.The patient was placed in the prone position [...] manual pressure. A sterile occlusive dressing was applied.Impression: Status post technically successful CT guided left iliac bone biopsy and aspiration. Follow up pathology report, cytology and cultures.This document has been electronically signed by Gaston Pizano DO on 03/15/2020 12:57 PM Name Value Range Interpretation Code Description Data Rachel rce(s) Supporting Document(s) ID Date Data Source [id number] 03/15/2020 10:27:18 AM [facility] Name Value Range Interpretation Code Description Data Rachel rce(s) Supporting Document(s) History and Physical [facility] UXXKCe3lRxWXMpHt03/VJAytQCApi4CqJXlpEKt2XLbbLQHuF4EgRPG7jZ8eBCN3UTlEAqVnBuNuXdLs [facility] [file] [id number]+IPqocHKpuDzbJWJYOuE0EKlcEHkaEXATVv2C ID Date Data Source [id number] 03/15/2020 10:37:21 AM [facility] Name Value Range Interpretation Code Description Data Rachel rce(s) Supporting Document(s) Leukocytes [#/volume] in Blood by Automated count 6.2 10*3/uL 4-10 [facility] Erythrocytes [#/volume] in Blood by Automated count 4.19 10*6/uL 4.6- 6.1 L [facility] Hemoglobin [Mass/volume] in Blood 12.4 g/dL 13.5-18 L [facility] Hematocrit [Volume Fraction] of Blood by Automated count 37.1 % 4 1-53 L [facility] Erythrocyte mean corpuscular volume [Entitic volume] by Auto mated count 88.5 fL 80-96 [facility] Erythrocyte mean corpuscular hemoglobin [Entitic mass] by Automated count 29.6 pg 27-33 [facility] Erythrocyte mean corpuscular hemoglobin concentration [Mass/volume] by Automated count 33.4 g/dL 32.0-[facility].0 [facility] width [Ratio] by Automated count 15.5 % 11.5-14.5 H [facility] Platelets [#/volume] in Blood by Automated count 189 10*3/uL 150-400 [facility] Differential cell count method - Blood [facility] Neutrophils/100 leukocytes in Blood by Automated count 62 % [facility] Lymphocytes/100 leukocytes in Blood by Automated count 24 % [facility] Monocytes/100 leukocytes in Blood by Automated count 10 % [facility] Eosinophils/100 leukocytes in Blood by Automated count 3 % [facility] Basophils/100 leukocytes in Blood by Automated count 1 % [facility] Neutrophils [#/volume] in Blood by Automated count 3.88 10*3/uL 1.8-7 .0 [facility] Lymphocytes [#/volume] in Blood by Automated count 1.50 10*3/uL 1.2-4 .0 [facility] Monocytes [#/volume] in Blood by Automated count 0.59 10*3/uL 0-0.8 [facility] Eosinophils [#/volume] in Blood by Automated count 0.18 10*3/uL 0-0.5 [facility] Basophils [#/volume] in Blood by Automated count 0.04 10*3/uL 0-0.2 [facility] Nucleated erythrocytes/100 leukocytes [Ratio] in Blood by Automated count 0 /100{WBCs} 0-0 [facility] ID Date Data Source [id number] 03/15/2020 11:00:32 AM [facility] Name Value Range Interpretation Code Description Data Rachel rce(s) Supporting Document(s) Bicarbonate [Moles/volume] in Serum 28 mmol/L 22-29 [facility] Chloride [Moles/volume] in Serum or Plasma 100 mmol/L 98-107 [facility] Creatinine [Mass/volume] in Serum or Plasma 1.30 mg/dL 0.70-1.20 H [facility] Glucose [Mass/volume] in Serum or Plasma 97 mg/dL 70-140 [facility] Potassium [Moles/volume] in Serum or Plasma 4.6 mmol/L 3.4-5.1 [facility] Sodium [Moles/volume] in Serum or Plasma 138 mmol/L 136-145 [facility] Urea nitrogen [Mass/volume] in Serum or Plasma 13 mg/dL 6-20 [facility] Anion gap 3 in Serum or Plasma 10 mmol/L 8-15 [facility] Osmolality of Serum or Plasma by calculation 286 mosm/kg 275-300 [facility] Creatinine/Urea nitrogen [Mass Ratio] in Serum or Plasma 10 [facility] Calcium [Mass/volume] in Serum or Plasma 9.4 mg/dL 8.6-10.0 [facility] Glomerular filtration rate/1.73 sq M pre dicted among non-blacks [Volume Rate/Area] in Serum or Plasma by Creatinine-based formula (MDRD) 61 mL/min/1.73m2 >60 [facility] Glomerular filtration rate/1.73 sq M pre dicted among blacks [Volume Rate/Area] in Serum or Plasma by Creatinine-based formula (MDRD) 70 mL/min/1.73m2 >60 [facility] ID Date Data Source [id number] 03/15/2020 11:03:27 AM [facility] Name Value Range Interpretation Code Description Data Rachel rce(s) Supporting Document(s) Prothrombin time (PT) 13.4 s 12.5-14.9 [facility] INR in Platelet poor plasma by Coagulation assay 1.01 [facility] Routine intensity oral anticoagulation I NR is typically 2.0-3.0. Target INR must be clinically individualized. ID Date Data Source [id number] 03/18/2020 05:38:00 PM [facility] Surgical Pathology ReportName: MONICA HOBSONMRN: [id number] Number: [id number] Date: 03/15/2020 00:00Received Date: 03/15/2020 13:37Physician(s): GASTON PIZANO,GASTON JACINTO,DOCopy To:JERMAIN SCHAFFER,MDSpecimen(s) ReceivedA: Left lytic iliac lesion tissueClinical HistoryLeft iliac lesion. History of clear cell renal cell carcinoma status postright nephrectomy ([id number]). DiagnosisBONE, LEFT ILIAC CREST LYTIC LESION, NEEDLE BIOPSY: BENIGN FIBROVASCULARTISSUE WITH FEW SCATTERED EOSINOPHILS, FOCAL MILD CHRONIC INFLAMMATION,FOCAL HISTIOCYTES AND FOCAL REACTIVE WOVEN BONE. (See microscopicdescription).Devaughn Jean M.D.;Resident PathologistElectronically Signed By Edgar Nair MD;, Attending Pathologist03/18/2020 17:38:48 The attending pathologist named above attests that he/she has personallyreviewed the relevant preparation(s) for the specimen, performedmicroscopic examination when indicated, and rendered the final diagnosis. Gross DescriptionThe specimen is received in formalin labeled with the patient's name"Monica Hobson" and "left iliac crest lytic lesion tissue". It consistsof multiple soft cazares-white tissue cores measuring from 0.1 up to 0.8 cm inlength and averaging 0.1 cm in diameter. Totally submitted in twocassettes.PILOT STATION/pmwMicroscopic DescriptionSections contain cores of fibrovascular tissue with bland spindle cellsthat have occasional irregular nuclear contours and longitudinal nucleargrooves. The morphology of these cells was initially suspicious forLangerhans cells but our CD1a and S-100 stains are negative. A feweosinophils are seen scattered in the background. Focal mild chronicinflammation, focal histiocytes and focal reactive woven bone are present. A CD163 immunostains highlights focal histiocytes within thefibrovascular tissue. Pankeratin and PAX-8 immunostains are alsonegative. No malignancy is identified.This report may include one or more immunohistochemical stain results thatuse analyte specific reagents. All positive and negative controls havebeen reviewed by the attending pathologist and are satisfactory. The testswere developed and their performance characteristics determined by [facility] Pathology department. They have not been cleared or approved by the USFood and Drug Administration. The FDA has determined that such clearanceor approval is not necessary. Name Value Range Interpretation Code Description Data Rachel rce(s) Supporting Document(s) ID Date Data Source [id number] 03/16/2020 03:48:00 PM [facility] CYTOPATHOLOGY REPORTName: HOBSONJOSEMRN: [id number] Number: [id number] Date: 03/15/2020 00:00Received Date: 03/15/2020 15:21Physician(s): GASTON PIZANO DO SHAPIRO, OLEG, MD Copy To:GASTON PIZANO,DOSpecimen(s) ReceivedA: ILIAC BONE LESION, LYTIC, LEFT, FINE NEEDLE ASPIRATIONClinical History:Hx of renal cell carcinoma, left lytic iliac lesion DiagnosisILIAC BONE LESION, LYTIC, LEFT, FINE NEEDLE ASPIRATION: BLOOD ONLYComment/cw/calReviewing Cytotech: Vanessa White, SCTQuoc Alcon MosesElectronically Signed By Wyatt Bradshaw M.D. 03/16/2020 15:48:44The attending pathologist named above attests that he/she has personallyreviewed the relevant preparation(s) for the specimen(s) and rendered thefinal diagnosis. Microscopic DescriptionThe specimen is composed of blood. The cell block shows similar features. /cw/calGross Qoefkvjvvrx15 ml red fluid RPMI received: 2 slides prepared by cytocentrifugation: 1Diff Quik and 1 Pap stain. Also received red clot material with aggregatedimension of 1.1 x 0.5 x 0.2 cm submitted for cell block. This report may include one or more immunohistochemical stain results thatuse analyte specific reagents. All positive and negative controls havebeen reviewed by the attending pathologist and are satisfactory. The testswere developed and their performance characteristics determined by [facility] Pathololgy department. They have not been cleared or approved by [place] Food and Drug Administration. The FDA has determined that suchclearance or approval is not necessary. Name Value Range Interpretation Code Description Data Rachel rce(s) Supporting Document(s) ID Date Data Source [id number] 03/11/2020 07:56:00 PM EST [facility] Name Value Range Interpretation Code Description Data Rachel rce(s) Supporting Document(s) SARS-CoV-2 RNA INHOUSE Negative Normal (applies to non-n umeric results) [facility] THIS IS A STATE REPORTABLE COMMUNICABLE DISEASE. Testing was performed using the [employer] COVID-19 MDx Assay. This test has been authorized by FDA under an (Emergency Use Authorization) EUA for use by authorized laboratories for individuals who are suspected of COVID-19 by their healthcare provider. This test is only authorized for the duration of the declaration that circumstances exist justifying the authorization of emergency use of in vitro diagnostic tests for detection and/or diagnosis of SARS-CoV-2. Methodology: Endpoint RT-PCR. Fact sheets for this EUA assay can be found at the following links: Providers: https://www.fda.gov/media/843692/download Patients : https://www.fda.gov/media/098596/download THIS IS A [facility] REPORTABLE COMMUNICABLE DISEASE Negative results do not preclude SARS-CoV-2 infection and should not be used as the sole basis for patient management decisions. Negative results must be combined with clinical observations,patient history, and epidemiological information. ID Date Data Source [id number] 03/10/2020 01:00:00 PM EST [facility] Name Value Range Interpretation Code Description Data Rachel rce(s) Supporting Document(s) Respiratory specimen severe acute respir atory syndrome coronavirus 2 (SARS-CoV-2) RNA Negative (qualifier value) [facility] This lab was ordered by [facility] yamil and reported by . ID Date Data Source [id number] 03/05/2020 10:26:00 AM EST [facility] Name Value Range Interpretation Code Description Data Rachel rce(s) Supporting Document(s) Color,Urine Colorl-Dk Y Normal (applies to non-numeric res ults) [facility] Clarity,Urine Clear Normal (applies to non-numeric re sults) [facility] Specific [place],Urine 1.005-1.030 Normal (applies to non- numeric results) [facility] pH,Urine 5.0-8.0 Normal (applies to non-numeric resul ts) [facility] Protein,Urine Negative Normal (applies to non-numeric re sults) [facility] Glucose,Urine Negative Normal (applies to non-numeric re sults) [facility] Ketones,Urine Negative Normal (applies to non-numeric re sults) [facility] Blood,Urine Negative Normal (applies to non-numeric resu lts) [facility] Bilirubin,Urine Negative Normal (applies to non-numeric results) [facility] Urobilinogen,Urine 0.2-1.0 Normal (applies to non-numer ic results) [facility] Leukocyte Esterase,Urine Negative Normal (applies to non -numeric results) [facility] Nitrite,Urine Negative Normal (applies to non-numeric re sults) [facility] ID Date Data Source [id number] 03/05/2020 10:55:00 AM EST [facility] Name Value Range Interpretation Code Description Data Rachel rce(s) Supporting Document(s) PSA,Monitoring 0.13-4.0 Normal (applies to non-numeric r esults) [facility] Results cannot be interpreted as absolut e evidence of the presence or absence of malignant disease. Testing method is EIA by [employer]. Values obtained with different assay methods or kits cannot be used interchangeably. ID Date Data Source [id number] 02/26/2020 11:55:39 AM [facility] Name Value Range Interpretation Code Description Data Rachel rce(s) Supporting Document(s) Progress Note 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 [file] ICAgICAgICAgICAgICAgICAgICAgICAgICAgICAgIC PwQRArHPToQDBlNCIxABMsNMIhJRWdKAMcCLGkYLKrBJYuWRKzAQXtSBIyDCVjOVDaSIYsIK1DXMJuCV AgICAgICAgICAgICAgICAgICAgICAgICAgICAgICAgICAgICAgICAgICAgICAgICAgICAgICAgICAgIC AgICAgICAgICAgICAgICAgICAgICAgICAgICAgICAg ACLgIE5OJTUpENRtWDJxCICzEOCcEBGbNUQnHYCdWTMyTRSdZMExTUTwAIOjSLPyCUZnLMCiNDNoKTVl LTZxMFZeSYYgGWLkNFHdAQSwAPCjDNBpJAJfCHDbUZEgTUTnXCHoPGXyENYjJI7QCFAbULTdPMYeGZCf ICAgICAgICAgICAgICAgICAgICAgICAgICAgICAgIC HaSTUvYFBmQELiVNSwTWEbFZOnWQBjURZsWJRtVKJcHTExLJRyJRMbPJAbEVXnWPJfLSCqCJOrON2XAZ AgICAgICAgICAgICAgICAgICAgICAgICAgICAgICAgICAgICAgICAgICAgICAgICAgICAgICAgICAgIC AgICAgICAgICAgICAgICAgICAgICAgICAgICAgICAg FNYcDMPaNP7TKTDmRORiQCJcYBRfEFXdJRUtTECtONDcVXZeIMLaTDOcHDHtFQBgQAGrKZMqNZLsSXHe ZWThQSOvIJOmLTFdJNIaYHMqGUYuADAdPGHhYVSiXUHwEAImXVPrVTEsLEGbSHLtYE5EUAYgBLHvMXOf ICAgICAgICAgICAgICAgICAgICAgICAgICAgICAgIC AgICAgICAgICAgICAgICAgICAgICAgICAgICAgICAgICAgICAgICAgICAgICAgICAgICAgICAgICAgIA 0KICAgICAgICAgICAgICAgICAgICAgICAgICAgICAgICAgICAgICAgICAgICAgICAgICAgICAgICAgIC AgICAgICAgICAgICAgICAgICAgICAgICAgICAgICAg IZJfRCJpXCKuET1OQXHfVXDpGCTlSKBsHMBiEZRvHYVjRTEnUFWdNWAeDPVtWCGzKEThYNVeMSTsTHCj MOVkHUMhLKCrTFOwMECrLCEwAYBpYFDtLAJyUAZrSGIaXTXjLCMqRCDuAMWoIXHrCYQbGW2BFS18dSAn z2K0FGIqBV8tpvn/Ys7MMXkhxoFjsZTkUM4RHkRlBO 5xkp7CJhUnUF7xsx8IVPdGUvLeO7V4mPLxRRBkTORKTeRnI89cTJysJm69FTciHOBdUnTuIQc1Db5JJc ViB6mlHSLuIaA0FZXiQwO7GXIfCcC2OCWwArCcJUDnNZBrCE6BWOHiC170vdUeZM0XEm5RZrTeSK8yji 1OYwQpPMQoGrhCQtk5PYvoRD3VwJBpfJZqJpIeCMFI NsWzY3wen2PfOdWhHBNPARohFK7Uh5NksIOuBUf+Lq0QJN3oh6ZqVYbwBeKoTT0jmi4KDPdIWyTnY1Cm zMflRDCrx1jkXKBpGI5dtAYjKJV6KT0vERfkN1poeWtabtsgSGOjWPNgTZ9aQV8bTFVmULNzAgXqHMJB LL3ELFGhBGPthUUwPGRjCAJLXP4GWZccWIV2BYMwoi HuzDQuMHllXA7ZHIRmjvXdNoWyDBHSUDm+An7QQX2am7SmWKnuKbCiMD7ydx1MRQhUMiKiY9T4rZEmK9 L7UVblZk3XWPJrQKVwSilgKMKJTAooNS4HMR6wxnG0XE2RwPMsZZEvLBSxmTIaRZx0X01efDIaYMokKG 0KICA+Antionette+Hv3YXVRyQRNvSDEkVyFtGQWLGnMoR8Ql J3IBm1RqX3BgCA06pNmallYoPHmqVC2CFB5rFADqLDGBRR0KhPDwtT7muhIsLGHpLONKMsRgL90cfAKz FKUdHUGkAVUdNr8RLYTqN6JiqqQbjOzlrfJoQSQeGHBSBL8HLXqccpGvkFVzlAywUY44rVhvVY2AJq7V XvQgTV9avj8GnEHhKy2XZNPzKE7TWCVyGHXkYRAtLU Y9YZOiMkXsDBcfPDXdAVQdKAL3JKEjUNTtIR9SSlNbJXIxHlF7SiPoUAQyOWBqnv9HPQJqYPQxUzW0OV NrKDGeQLPfDQysUHPqKESzMTQ2BCNoEGGyEE5GRvVsCNYoPDE4GfNdFDFiBXJpfj3NQSFqGWEeQgWrBM PiUDEcSJFmMPijLCThLPC7QWD7PTUvASPxAL0EFvEj JSVkKXYuZQMoCPTiQIRpzu1SAJOvIWGxADN5YVIgUNYqEKGbOXfcYFBhNPE5ZRrkXEPcHWZhXA9MLfDo ULFaEBI0BZShSYZnUSGupv8HVJQgZMYzFji0NtWlYACoGPRdSZzwGVUbHJPsYCS4CZVeJAGnVW0GXfMi CHSkPACaYIVeFTTfTJFkyi9YVXMgNZCpSTM6OmFwBY GmPNOvOQlnMXTlFMX3NTI0UCNzKYXhIL0KRuKrZZZqGPQhUOvoQLKyTKCrpc6YYVPnGCWaGGEwIZZrVS TuHGUxHCnrEQAoTNU2VLR0XOCxCUXhRD7OQdCxPUKqEinbHZMjWLEwDTJgjn3CPKJhXVFgGyO5GPYpGG JiWIWaCAdkFBEhMUD2CaE7USMwFYEfZY0YSlKmPUUp Ikh1QOFnFYWbCTKjgs3DQIOzCXFkOJokMALhKUIzITOdJLilASKrDXJ6KYD6PSJwTMWpGL1DSmQjLKUn IjwsVBXtEEQfWYUapw1BFVNyNQDwRRZ1DVMqULFyCWVgUGsmZINpEMTzSaEgURCaDNZyNC0KFkKgVNAh SeC5AFSbSSOtTJYoto0JVJPnYIGtDPjlTENkIKGxUL TiXGmbFMDbUKHdWdllBZAfVHDlPL6KYzVbCFRnUfB6ClYeJDQwCXEnek2MVMCcUOOsHiMuBZRbMSGuGN GtOZm9rvRsyZIyERe9QN7II2NstaAyQzKUIw0Xc564MPMpNVBbZg0NM0fcVc9sJUMoXZRBIx4HTMt4UU A7KTQfTzN2SDSmYGY2YSD2U7EtGShdNctdDcNlFjN+ OCrcAFGqRfX6FEswErT3FMAoFJrgUQP0NrLjGMBpMdS9CA5uVXBJIs4+DQpzdGFydHhyZWYNCjMyODUz YXmcKMKQIw4O ID Date Data Source [id number] 02/26/2020 08:56:29 AM [facility] CT ABDOMEN PELVIS WITH AND WITHOUT CONTR AST [id number] RESULTInterpreted by:Alycia Pickard DOINDICATION: 54-year-old male with kidney cancer. TECHNIQUE: Helical axial images of the abdomen and pelvis were obtained with and without intravenous contrast administration. Oral contrast was not administered. Sagittal and coronal reconstructions were created from the original axial data. Automated dose lowering techniques and/or adjustment according to patient size were utilized for this exam. COMPARISON: CT abdomen and pelvis dated 02/16/2019.FINDINGS: LUNGS AND MEDIASTINUM: For findings above the diaphragm, please see CT chest performed same day. The visualized lung bases are clear. No pleural pericardial effusion.LIVER: The liver reveals homogeneous attenuation. There are no focal lesions. There is mild intrahepatic biliary duct prominence, expected given status post cholecystectomy..GALLBLADDER AND BILIARY TREE: Patient is status post cholecystectomy with surgical clips present within the gallbladder fossa. The common bile duct is normal in caliber, measuring 0.7 cm. PANCREAS: Redemonstration of diffuse fatty infiltration and associated mild atrophic changes. No pancreatic duct dilation.SPLEEN: Homogeneous attenuation, no focal lesions.ADRENALS: No focal mass lesion identified.RIGHT KIDNEY: Patient is status post radical left nephrectomy. Surgical material is present within the surgical bed. No evidence of local disease recurrence.LEFT KIDNEY: There is a nonenhancing 1.6 cm exophytic low-density lesion within the upper pole, unchanged. Redemonstration of multiple peripelvic cysts, not significantly different compared to prior exam. Low-density, lesion measuring 0.9 cm within the lower pole which is increased in size compared to prior study, with hyperdense contents without significant contrast enhancement. No new evidence of enhancing lesion or mass. No renal calculus or hydronephrosis.BOWEL: Stomach is unremarkable.Patient is status post Johana-en-Y gastric bypass. The small and large bowel appear unremarkable. No dilated loops of bowel or bowel wall thickening. Small amount stool is present within the colon. The appendix is not visualized.FREE AIR/FLUID: No evidence of free intraperitoneal air. No significant free fluid is identified.LYMPH NODES: No pathologically enlarged lymph nodes are identified.VESSELS: The abdominal aorta is normal in caliber and the origins of its major branches are patent. Small outpouching of contrast at the renal artery origin likely reflect postsurgical stump.BLADDER: Bladder is distended and unremarkable.REPRODUCTIVE ORGANS: Prostate is unremarkable. Seminal vesicles are symmetric bilaterally.BODY WALL: There is a 4.8 cm anterior abdominal wall defect with herniation of fat, similar to prior study. Small bowel loops are seen at the base of the abdominal wall defect. There is a 1.5 x 3.6 x 7.5 cm fluid collection within the posterior soft tissues, likely related to a postoperative seroma, cannot exclude infection or soft tissue eleme nt.BONES: Patient is status post lumbar spine fusion extending from L3 to L5. There is also laminectomy extending from L4 to S1. Postoperative changes are seen within the soft tissues. There is grade 1 anterolisthesis of L3 on L4 and L4 and L5. Multilevel degenerative changes are present within the spine, similar to prior study. There is 23 x 17 mm lytic lesion seen in the posterior superior aspect of the left iliac bone, new compared to prior study. Redemonstrated degenerative changes at the hip joint, more pronounced on the right side.IMPRESSION:Immediate postoperative details not provided in the chart.1. New 23 x 17 mm lytic lesion in the left iliac bone compared with prior exam of 02/16/2019, cannot exclude metastasis in absence of any recent procedure.2. Interval increase in low-density lesion within the lower pole of left kidney, however too small to resolve, attention on follow-up is suggested. Another exophytic cystic lesions at the superior pole appear stable in appearance.3. Patient is status post spinal surgery with postoperative changes. There is a fluid collection within the posterior soft tissues likely representing a seroma, cannot exclude complexity related to infection or other etiology.4. Other chronic and stable findings as above.5. Clinical correlation and Continued attention on follow-up is suggested.Findings were discussed with Dr. Jermain San MD at 12:49 PM on 02/25/2020This document has been electronically signed by RYANN Pickard on 02/26/2020 8:54 AM Name Value Range Interpretation Code Description Data Rachel rce(s) Supporting Document(s) ID Date Data Source [id number] 02/25/2020 04:23:47 PM [facility] CT THORAX WITH CONTRAST [id number] RESUL TInterpreted by:Rae Carlos MDINDICATION: kidney cancerTECHNIQUE: Multidetector axial images were obtained from the thoracic inlet through the domes of the diaphragm with intravenous contrast. Coronal and sagittal reformats are provided. Automated dose lowering techniques and/or adjustment according to patient size were utilized for this examination.COMPARISON: CT thorax dated 02/16/2019.FINDINGS:LUNGS: The central airways are patent. The lungs are clear. There is no interstitial or airspace opacity, pulmonary nodule, or mass.MEDIASTI NUM : No mediastinal, hilar or axillary lymphadenopathy is seen. HEART: The heart and pericardium are within normal limits.BASE OF THE NECK: No focal nodules in the visualized portions of the thyroid gland. VASCULAR: The aorta size is normal. There is no central filling defect within the main pulmonary arteries on this nonangiographic phase study. ABDOMEN: No focal lesion is seen within the visualized liver, spleen, pancreas, kidneys and adrenal glands. Postsurgical changes seen involving the stomach.SOFT TISSUES: Unremarkable other than bilateral gynecomastia.BONES: The osseous structures are intact. Multilevel degenerative changes noted throughout the spine. Stable appearance of lytic sclerotic lesion in the manubrium going back to at least 01/25/2020 seen. A sclerotic lesion is present in the left fourth rib (image 120. A lytic lesion is present in the left seventh rib (image 219. Hemangioma is present in T4 vertebra. A sclerotic focus is present in T7 spinous process. Another sclerotic focus is present in T9 vertebral body. These foci are present in prior CT dated 09/22/2015 and has not significantly changed since then. IMPRESSION:No evidence of acute intrathoracic process or malignancy. Multiple sclerotic foci in the spine and ribs as well as lytic lesions which are stable since 2016.This document has been electronically signed by RYANN Carlos on 02/25/2020 4:21 PM Name Value Range Interpretation Code Description Data Rachel rce(s) Supporting Document(s) ID Date Data Source [id number] 02/03/2020 04:30:00 AM [facility] Name Value Range Interpretation Code Description Data Rachel rce(s) Supporting Document(s) Vitamin B12 result 499 pg/mL 193-986 Normal (applies to non-numer ic results) [facility] Test Performed By: [facility] [address] [place] [address] Director: Amy Moreno MD ID Date Data Source [id number] 02/03/2020 04:30:00 AM [facility] Name Value Range Interpretation Code Description Data Rachel rce(s) Supporting Document(s) Folate result 2.76-20.0 Normal (applies to non-numeric re sults) [facility] Test Performed By: [facility] [address] [place] [address] Director: Amy Moreno MD ID Date Data Source [id number] 02/02/2020 08:15:00 PM EST [facility] Value Range Interpretation Code Description Data Rachel rce(s) Supporting Document(s) Vitamin B12 499 pg/mL 193-986 Normal (applies to non-numeric resu lts) [facility] Test Performed By: [facility] [address] [place] [address] Director: Amy Moreno MD ID Date Data Source [id number] 02/02/2020 08:16:[address] [facility] Value Range Interpretation Code Description Data Rachel rce(s) Supporting Document(s) Folate 2.76-20.0 Normal (applies to non-numeric resul ts) [facility] Test Performed By: [facility] [address] [place] [address] Director: Amy Moreno MD ID Date Data Source [id number] 02/02/2020 03:35:00 PM [facility] Value Range Interpretation Code Description Data Rachel rce(s) Supporting Document(s) Vitamin D, Total 30.0-100.0 Below low normal [facility] ID Date Data Source [id number] 02/02/2020 03:17:00 PM [facility] Value Range Interpretation Code Description Data Rachel rce(s) Supporting Document(s) Triglycerides 248 mg/dL <150 Above high normal [facility] Cholesterol 194 mg/dL 100-200 Normal (applies to non-numeric resu lts) [facility] LDL Cholesterol Calculated 111 0-130 Normal (applies to n on-numeric results) [facility] HDL Cholesterol 33 mg/dL 40-60 Below low normal [facility] Cholesterol/HDL Ratio 3.6-6.7 Normal (applies to non-nu meric results) [facility] ID Date Data Source [id number] 02/02/2020 03:17:00 PM [facility] Value Range Interpretation Code Description Data Rachel rce(s) Supporting Document(s) PSA,Monitoring 0.13-4.0 Above high normal [facility] Results cannot be interpreted as absolut e evidence of the presence or absence of malignant disease. Testing method is EIA by [employer]. Values obtained with different assay methods or kits cannot be used interchangeably. ID Date Data Source [id number] 02/02/2020 03:17:00 PM EST [facility] Name Value Range Interpretation Code Description Data Rachel rce(s) Supporting Document(s) Sodium 139 mmol/L 136-145 Normal (applies to non-numeric resul ts) [facility] Potassium 3.5-5.1 Above high normal [facility] Chloride 103 mmol/L 98-107 Normal (applies to non-numeric resul ts) [facility] Carbon Dioxide CO2 21-32 Normal (applies to non-numer ic results) [facility] Anion Gap 5.0-16.0 Normal (applies to non-numeric resul ts) [facility] BUN 11 mg/dL 7-18 Normal (applies to non-numeric results) [facility] Creatinine,Serum 0.8-1.5 Normal (applies to non-numeric results) [facility] GFR >60 Normal (applies to non-numeric results) [facility] Glucose Level 91 mg/dL 60-99 Normal (applies to non-numeric re sults) [facility] Reference range is only applicable when patient is fasting Note the following drug interference: Sulfasalazine Sulfapyridine Can see falsely depressed Can see falsely elevated result with up to 17% results with up to 11% decrease in measurement increase in measurement Recommend patients be collected for this test prior to administration of either drug. Calcium 8.5-10.1 Normal (applies to non-numeric resul ts) [facility] Bilirubin,Total 0.1-1.9 Normal (applies to non-numeric results) [facility] SGOT(AST) 15 U/L 15-37 Normal (applies to non-numeric resul ts) [facility] Note the following drug interference: Sulfasalazine Sulfapyridine Can see falsely depressed Can see falsely elevated result with up to 10% results with up to 10% decrease in measurement increase in measurement Recommend patients be collected for this test prior to administration of either drug. SGPT(ALT) 28 U/L 12-78 Normal (applies to non-numeric resul ts) [facility] Note the following drug interference: Sulfasalazine Sulfapyridine Can see falsely depressed Can see falsely elevated result with up to 29% results with up to 10% decrease in measurement increase in measurement Recommend patients be collected for this test prior to administration of either drug. Alkaline Phosphatase 106 U/L 38-126 Normal (applies to non-num kuldeep results) [facility] can increase Alkaline Phosp le vels up to 2 times the normal adult value. Normal values for children and adolescents are 2 to 3 times the normal adult value. Total Protein 6.0-8.2 Normal (applies to non-numeric re sults) [facility] Albumin Level 3.4-5.0 Normal (applies to non-numeric re sults) [facility] ID Date Data Source [id number] 02/02/2020 02:51:00 PM EST [facility] Name Value Range Interpretation Code Description Data Rachel rce(s) Supporting Document(s) Color,Urine Colorl-Dk Y Normal (applies to non-numeric res ults) [facility] Clarity,Urine Clear Normal (applies to non-numeric re sults) [facility] Specific [place],Urine 1.005-1.030 Normal (applies to non- numeric results) [facility] pH,Urine 5.0-8.0 Normal (applies to non-numeric resul ts) [facility] Protein,Urine Negative Normal (applies to non-numeric re sults) [facility] Glucose,Urine Negative Normal (applies to non-numeric re sults) [facility] Ketones,Urine Negative Normal (applies to non-numeric re sults) [facility] Blood,Urine Negative Normal (applies to non-numeric resu lts) [facility] Bilirubin,Urine Negative Normal (applies to non-numeric results) [facility] Urobilinogen,Urine 0.2-1.0 Normal (applies to non-numer ic results) [facility] Leukocyte Esterase,Urine Negative [facility] Nitrite,Urine Negative Normal (applies to non-numeric re sults) [facility] ID Date Data Source [id number] 02/02/2020 02:51:00 PM [facility] Name Value Range Interpretation Code Description Data [facility] rce(s) Supporting Document(s) RBC,Urine None Seen Normal (applies to non-numeric resul ts) [facility] WBC,Urine None Seen [facility] Casts,Urine None Seen Normal (applies to non-numeric resu lts) [facility] Squamous Cells,Urine None Seen [facility] Bacteria,Urine None Seen [facility] ital ID Date Data Source [id number] 02/02/2020 02:35:00 PM [facility] Name Value Range Interpretation Code Description Data [facility] rce(s) Supporting Document(s) White Blood Count 3.5-10.5 Normal (applies to non-numeri c results) [facility] Red Blood Count 4.30-5.70 Below low normal [facility] Hemoglobin 13.5-17.5 Below low normal [facility] Hematocrit 38.8-50.0 Below low normal [facility] Mean Corpuscular Volume 81.2-95.1 Normal (applies to non- numeric results) [facility] Mean Corpuscular Hgb 25.6-32.2 Normal (applies to non-num kuldeep results) [facility] Mean Corpuscular Hgb Conc 32.0-36.0 Normal (applies to no n-numeric results) [facility] Red Cell Distribution Width 11.8-15.6 Normal (appli es to non-numeric results) [facility] Platelet Count 334 x10 3/uL 150-450 Normal (applies to non-numeric results) [facility] Mean Platelet Volume 9.4-12.4 Normal (applies to non-num kuldeep results) [facility] Neutrophils% (Auto) 31.0-71.0 Normal (applies to non-nume crow results) [facility] Lymphocytes% (Auto) 20.0-55.0 Normal (applies to non-nume crow results) [facility] Monocytes% (Auto) 4.0-12.0 Normal (applies to non-numeri c results) [facility] Eosinophils% (Auto) 1.0-8.0 Normal (applies to non-nume crow results) [facility] Basophils% (Auto) 0.0-2.0 Normal (applies to non-numeri c results) [facility] Immature Granulocytes% (Auto) 0.0-2.0 Normal (alba lies to non-numeric results) [facility] Neutrophils# (Auto) 1.50-6.20 Normal (applies to non-nume crow results) [facility] Lymphocytes# (Auto) 1.20-4.00 Normal (applies to non-nume crow results) [facility] Monocytes# (Auto) 0.00-0.90 Normal (applies to non-numeri c results) [facility] Eosinophils# (Auto) 0.00-0.50 Normal (applies to non-nume corw results) [facility] Basophils# (Auto) 0.00-0.20 Normal (applies to non-numeri c results) [facility] Immature Granulocytes# (Auto) 0.00-7.00 No rmal (applies to non-numeric results) [facility] ID Date Data Source [id number] 01/21/2020 12:16:55 PM EST [facility]Name: Monica EchevarriaOB: 1965Provider: Yoselin Dalton: 01/21/2020 Reason For VisitDavid Joce is here today for L Spine. Monica Hobson is an established patient here for follow up. L Spine follow up The patient is currently residing at home. DelfinoCTracy DOI: 10/08/2016. Surgery DOS: 11-30-2019. Surgery Description: Lumbar 3 to 4 Lumbar 4 to 5 Lumbar 5 to sacral 1 laminectomy with foraminotomies posterior lateral fusion iliac crest bone graft, local bone graft. Patient states the injury occurred while at work. Patient states he fell down stairs. The patient has followed a home exercise program for greater than 4 weeks. The patient has had a course of NSAIDs for greater than 4 weeks. NSAIDs usage has been effective. NSAID Name: ibuprofen. The patient's pain is managed by [facility] in [place]. 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 History of Present IllnessFollow-up lumbar surgeryPostop low back pain improvingPreopera tive left leg pain is gonePreoperative numbness in both feet unchanged-history of neuropathyNo signs of infection Results/DataXRays were ordered, obtained and interpreted today in the office. Indication: pain/dysfunction. Site: Lumbar Spine Views: 2 Views, AP/Lateral Standing Findings:. Good position of implants and healed fusion. Results/Data [facility]: Multilevel DDD.MRI lumbar [facility] neurology 07/22/19: L3- 4 moderate to severe stenosis; L4-5 severe stenosis; L5-S1 epidural lipomatosis was stenosis. 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 Low back pain (724.2) (M54.5) condition: Chronicetiology: Workers comp injury as abovelevels: L3-4, L4-5 and L5-S1 Plan X-Ray I Lumbosacral - 2 views (XRays were ordered, obtained and interpreted today inthe office. Indication: pain/dysfunction.); Status:Complete; Done: [id number] Perform:SOS22; Due: [id number]; Last Updated By:Sirena Ramires; 01/21/2020 10:41:27 AM;Ordered; For:Low back pain; Ordered By:Bijan Dalton; Plan, Assessment and Recommendation(s) Schedule Appointment: Months: 2 X-Rays ARE required at next visit. The various alternatives and treatment options were discussed with pros and cons, risks, and potential benefits of each option reviewed. The various options reviewed include physical therapy and home exercise program. He wishes to proceed with home exercise program. Work / School NoteThe percentage of temporary impairment is 50%. The patient is not working at this time. This document was dictated and electronically signed using Delver software. A reasonable attempt at proof reading has been made to minimize errors. Please call with any questions. Signatures Electronically signed by : Bijan Dalton M.D.; Jan 21 2020 12:16PM EST (Author) Name Value Range Interpretation Code Description Data Rachel rce(s) Supporting Document(s) ID Date Data Source [id number] 01/25/2020 04:10:00 PM EST [facility] Name Value Range Interpretation Code Description Data Rachel rce(s) Supporting Document(s) SARS-CoV-2 ALAYNA result Not Detected Normal (applies to non- numeric results) [facility] Testing was performed using the wily(R) SARS-CoV-2 test. This nucleic acid amplification test was developed and its performance characteristics determined by [employer]. Nucleic acid amplification tests include PCR and TMA. This test has not been FDA cleared or approved. This test has been authorized by FDA under an Emergency Use Authorization (EUA). This test is only authorized for the duration of time the declaration that circumstances exist justifying the authorization of the emergency use of in vitro diagnostic tests for detection of SARS-CoV-2 virus and/or diagnosis of COVID-19 infection under section 564(b)(1) of the Act, 21 U.S.C. 360bbb-3(b) (1), unless the authorization is terminated or revoked sooner. When diagnostic testing is negative, the possibility of a false negative result should be considered in the context of a patient's recent exposures and the presence of clinical signs and symptoms consistent with COVID-19. An individual without symptoms of COVID- 19 and who is not shedding SARS-CoV-2 virus would expect to have a negative (not detected) result in this assay. Performed at: [address] [id number] Regional Environmental Manager: Sintia Thompson MD, Phone: [phone] ID Date Data Source [id number] 12/29/2019 07:32:00 AM [facility] Name Value Range Interpretation Code Description Data Rachel rce(s) Supporting Document(s) COVID-19 Result Normal (applies to non-numeric results) [facility] SEE SCANNED REPORT ID Date Data Source [id number] 12/25/2019 01:00:00 PM [facility] Name Value Range Interpretation Code Description Data Rachel rce(s) Supporting Document(s) SARS coronavirus 2 RNA [facility] This lab was ordered by [facility]o and reported by [facility]. ID Date Data Source [id number] 12/25/2019 08:18:21 AM EST [facility]Name: Monica ThakkarsDOB: 1965Provider: Tremaine ElamDOS: 12/14/2019 Reason For VisitDavialan Hobson is an established patient here for follow up and Monica Hobson is here for first post-op appointment. The patient is currently residing at home. W.C. DOI: 10/08/2016. Surgery DOS: 11-30-2019. Surgery Description: Lumbar 3 to 4 Lumbar 4 to 5 Lumbar 5 to sacral 1 laminectomy with foraminotomies posterior lateral fusion iliac crest bone graft, local bone graft. Patient states the injury occurred while at work. Patient states he fell down stairs. The patient's pain is managed by [facility] in [place]. 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 History of Present IllnessPatient is a 54-year-old male presents to the office for his first postop visit following lumbar surgery on 11/30/2019. Complaining of mild to moderate low back soreness. Denies any signs of infection. Preoperative radicular symptoms improved. AssessmentLow back painPostsurgical arthrodesis status Plan X-Ray I Lumbosacral - 2 views (XRays were ordered, obtained and interpreted today inthe office. Indication: pain/dysfunction.); Status:Complete; Done: 14Dec2019 Perform:SOS22; Due:28Dec2019; Last Updated By:Sirena Ramires; 12/14/2019 11:27:38 AM;Ordered; For:Low back pain; Ordered By:Tremaine Elam; Patient is status post lumbar laminectomy/fusion on 11/30/2019. Advised to continue with normal ADLs. Follow-up in 4 weeks for clinical reassessment and x-ray recheck. Work / School NoteThe percentage of temporary impairment is 100%. The patient is not working at this time. DisclaimersThis document was dictated and electronically signed using Delver software. A reasonable attempt at proof reading has been made to minimize errors. Please call with any questions. Signatures Electronically signed by : Froylan Belle; Dec 25 2019 8:03AM EST (Author) Electronically signed by : Bijan Dalton M.D.; Dec 25 2019 8:18AM EST Name Value Range Interpretation Code Description Data Rachel rce(s) Supporting Document(s) ID Date Data Source [id number] 12/02/2019 08:54:22 PM EDT [facility] NT INFORMATIONPatient MRN Name Date of Age Gend*PT [id number] HobsonMonica 1965 54 years M IPPT Location Admission Date/Time Visit ID Attending [id number] 11/30/1920 --- --- EPI ID CSN Admitting Provider [id number] Bijan Dalton MD([id number]) Attestation signed by Bijan Dalton MD at 12/02/2019 8:54 PMSignature: CLAUDETTE Garciaate: December 02, 2019Time: 8:54 PM ORTHOPEDIC DISCHARGE SUMMARYPatient Name: Monica Hobson of : 1965 Age 54 yearsPrimary Physician: DELL TIRADO DO PCP Aqfodnhwe Date: 11/30/2019 Discharge Date: 12/02/2019Admission Provider: Bijan Dalton MD Discharge Provider: DOREEN Barrientosischjaskaran Diagnoses:Principal Problem: Low back pain radiating to both legsActive Problems: Alcohol dependence Vitamin B12 deficiency HypertensionResolved Problems: * No resolved hospital problems. *Surgical Procedures:Procedure(s) with comments:LUMBAR 3 TO 4 LUMBAR 4 TO 5 LUMBAR 5 TO SACRAL 1 LAMINECTOMY WITH FORAMINOTOMIESPOSTERIOR LATERAL FUSION ILIAC CREST BONE GRAFT LEFT, LOCAL BONEGRAFT (N/A) -NASIM ALANIZ NEUROMONOTORING,Brief Hospital Course:Patient was admitted through ambulatory unit. Patient underwent procedurewithout any complications. Postoperatively, patient had DVT prophylaxis withMechanical means. Hospital course was uneventful. Patient had physical therapywhile in the hospital. Pain control was maintained with IV and oral painmedications initially and transitioned to only oral when tolerating pain withoutany IV medications. Once discharge criteria was met, the patient was found to bestable for discharge. Please see discharge instructions and medications forfurther details.Discharge disposition: [facility] home in stable condition.Discharge Weight Bearing Status:WBATDischarge Medications:Patient was instructed to refrain from driving or operating machinery untilcleared by surgeon.Current Discharge Medication ListSTART taking these medications Detailsmethocarbamol (ROBAXIN) 500 MG tablet Take 1 tablet (500 mg total) by mouth 4(four) times a day as neededQty: 20 tablet, Refills: 0oxyCODONE (ROXICODONE) 5 MG immediate release tablet Take 1-2 tablets every 4hrs prn pain. MDD: 6 tabletsQty: 40 tablet, Refills: 0CONTINUE these medications which have NOT CHANGED DetailsCyanocobalamin 1000 MCG/ML KIT Inject 1,000 mcg as directed every 30 (thirty)dayshydrochlorothiazide (HYDRODIURIL) 12.5 MG tablet Take 12.5 mg by mouth dailylosartan (COZAAR) 50 MG tablet Take 50 mg by mouth dailymetoprolol succinate (TOPROL-XL) 50 MG 24 hr tablet Take 50 mg by mouth nightlyoxyCODONE HCl ER (OXYCONTIN) 20 MG T12A tablet Take 20 mg by mouth every 12(twelve) hourspregabalin (LYRICA) 100 MG capsule Take 100 mg by mouth 2 (two) times a dayvitamin D, Ergocalciferol, 1.25 MG (56628 UT) CAPS Take 1 capsule by mouth every30 (thirty) daysSTOP taking these medications oxyCODONE-acetaminophen (PERCOCET) 10-325 MG per tablet tiZANidine (ZANAFLEX) 4 MG tabletFollow Up Instructions:An After Visit Summary was printed and given to the patient.Items needing special attention: noneDischarge Exam:Blood Pressure: BP: 121/79 Pulse: Heart Rate: 85Temperature: Temp: 97.7 F Respirations: Resp: 16Admission Weight: Weight: (!) 138.3 kg (305 lb) O2 Saturation: SpO2: 95 %Discharge Weight: Weight: (!) 138.3 kg (305 lb) BMI: Body mass index is 42.54kg/m .Physical ExamGeneral: A/O x 3, NAD.Respiratory: Breathing unlaboredOrthopedic: lumbar spine exam: Dressing clean, dry and intact. Sensation intactbilaterally. Strength intact bilaterally, 5/5 DF/PF bilaterally.Diagnostics:Lab ResultsComponent Value Date WBC 10.6 12/01/2019 HGB 11.5 (L) 12/01/2019 HCT 32.9 (L) 12/01/2019 MCV 98.6 (H) 12/01/2019 PLT 160 12/01/2019Lab ResultsComponent Value Date INR 0.99 11/19/2019 PROTIME 10.3 11/19/2019Lab ResultsComponent Value Date CREATININE 1.37 (H) 12/01/2019 BUN 11 12/01/2019 NA 142 12/01/2019 K 4.3 12/01/2019 CL 107 12/01/2019 CO2 28 12/01/2019 GLU 94 12/01/2019Significant Imaging:noneConsults:noneSignature: [phone]: December 02, 2019Time: 9:27 AM Name Value Range Interpretation Code Description Data Rachel rce(s) Supporting Document(s) ID Date Data Source [id number] 12/01/2019 06:23:47 AM EDT [facility] Name Value Range Interpretation Code Description Data Rachel rce(s) Supporting Document(s) SODIUM 142 mmol/L (136-145) [facility] POTASSIUM 4.3 mmol/L (3.6-5.2) [facility] CHLORIDE 107 mmol/L (100-108) [facility] CO2 28 mmol/L (22-31) [facility] ANION GAP 7 mmol/L (7-16) [facility] UREA NITROGEN 11 mg/dL (7-24) [facility] CREATININE 1.37 mg/dL (0.80-1.30) H [facility] BUN/CREAT RATIO 8.0 RATIO (10.0-20.0) L [facility] GLUCOSE 94 mg/dL (70-99) [facility] CALCIUM 8.2 mg/dL (8.4-10.2) L [facility] GFR 54 ml/min/1.73m2 (>59) L [facility] GFR ( AMER) >60 ml/min/1.73m2 (>59) [facility] GFR INTERPRETATION [facility] [place] --NORMAL KIDNEY FUNCTION OR MILD DISEASE - GFR >OR= 60CHRONIC KIDNEY DISEASE - GFR 15 - 59RENAL FAILURE - GFR <15 Est. GFR calculation based on the MDRDstudy equation, which assumes a steadystate for creatinine. Est. GFR should notbe used for medication dosing. ID Date Data Source [id number] 12/01/2019 05:49:31 AM EDT [facility] Name Value Range Interpretation Code Description Data Rachel rce(s) Supporting Document(s) WBC 10.6 10*3/uL (4.1-11.0) [facility] RBC 3.34 10*6/uL (4.60-6.10) L [facility] HGB 11.5 g/dL (13.5-18.0) [facility] HCT 32.9 % (41.0-53.0) [facility] MCV 98.6 fL (80.0-95.0) [facility] MCH 34.3 pg (27.0-32.0) [facility] MCHC 34.8 g/dL (32.0-36.0) [facility] RDW 13.7 % (10.5-14.5) [facility] PLT 160 10*3/uL (150-450) [facility] MPV 9.1 fL (7.1-10.7) [facility] ID Date Data Source [id number] 11/30/2019 02:51:58 PM EDT [facility] NT INFORMATIONPatient MRN Name Date of Age Gend*PT [id number] Monica Hobson Darrell 1965 54 years M IPPT Location Admission Date/Time [facility] --- Bijan Dalton MD([id number]) EPI ID CSN Admitting Provider [id number] Bijan Dalton MD([id number])Operative ReportPatient Name: Monica Hobson of : 1965 Age 54 yearsPrimary Physician: DELL TIRADO DO PCP Hdjx of Surgery: 11/30/2019Diagnostic InformationPre- Op Diagnosis: Lumbar stenosis-multisegmental; L3-4 and L4-5spondylolisthesis; L5-S1 degenerative disc diseasePost-Op Diagnosis: SameProcedure(s) Procedure(s) with comments:LUMBAR 3 TO 4 LUMBAR 4 TO 5 LUMBAR 5 TO SACRAL 1 LAMINECTOMY WITH FORAMINOTOMIESPOSTERIOR LATERAL FUSION ILIAC CREST BONE GRAFT LEFT, LOCAL BONEGRAFT (N/A) -ROMARIO, SOS NEUROMONOTORING,Surgical StaffSurgeon: ONEIL Garciaurgical Staff: OR Mold Builder: Arthur Taylor RNRadiology Tech: Mitzy Swain Relief Mold Builder: Dora Pickett RNOR Relief Scrub: Karen Justice Scrub Person: Donavan Diezurophysiology Tech: ONEIL Elizabethurgical Victim Witness Administrator: Abrahan Cameron Photographic Colorist is a Physician's Manager Electrical (BYRON), the Orthopedic Resident wasnot availableAnesthesiaAnesthesia Staff: Anesthesiologist: Monica Sofia, DOCRNA: Tremaine Carter CRNAStudenini Nurse Conveyor Weigher Operator: Dinesh De Souzaesthesia: *Anesthesia ServicesOperative Description Procedure:1. L3-4, L4-5 and L5-S1 posterior lateral spinal fusions2. Segmental spinal instrumentation from L3 to L5 using Romario pedicle screwsystem3. Local bone graft/bone harvest from spinous process and lamina4. Left iliac crest bone graft through separate fascial incision-morselized5 . L3 and L4 and L5 and S1 laminectomies with partial facetectomies andbilateral foraminotomies with decompression of the cauda equina at each level aswell decompressing the bilateral L3, L4, L5 and S1 nerve roots6. Intraoperative electrophysiologic monitoring by Dr. Wade: 900 ccFluid: CrystalloidDrains: Collins and HemovacComplications:noneIndications: Patient is a 54 years Male with a history of back pain andbilateral leg pain. Evaluation including x-rays and MRI showed multilevel lumbarstenosis as well as multilevel spondylolisthesis and L5-S1 degenerative discdisease. Patient failed conserve measures. Treatment options were reviewed withrisks and benefits with the choice of operative intervention-no guaranteesgiven. Again did review what the surgery would involve including risks andbenefits, as well as the chances of successes and failures and potentialcomplications with no guarantees given.Antibiotics: Intravenous Kefzol was given within one hour of incision time andordered to be stopped within 24 hours of surgery.Procedure:Patient brought to operating room and received antibiotics as above. Alsoreceived general anesthe nikolai.. Monitoring needles placed per routine. Foleycatheter placed as well. Next rolled onto the Ruel table on the proneposition on the Jem frame. All pressure points checked and padded. Nextpatient's back was prepped and draped in usual fashion using a ChloraPrepsystem. Please note throughout the procedure, 3.5 loupe magnification views.Next use skin knife, midline incision from L3 to S1 . Carried deeply until thefascia was encounter. This was incised on each side using electrocautery incarried down to the level lamina as well as exposing out the transverse processof L3, L4, L5 and sacral ala bilaterally. Intraoperative x-rays obtained forlocalization.Next using Leksell, 1/2 inferior spinous process of L3, all of L4, all the L5and superior 1/2 of S1 was removed. Please note this bone was saved for localbone graft/bone harvest.Next using the Kerrison rongeurs, a nice wide midline laminectomy performed byremoving the inferior 1/2 lamina of L3, all of L4, all of L5 and superior halfof S1. This decompressed the cauda equina in the midline nicely each level.Again please note this bone was saved for local bone graft/ bone harvest. Again using the Kerrison rongeurs, lateral recesses were decompressed byperforming partial facetectomies and bilateral foraminotomies decompress thebilateral L3, L4, L5 and S1 nerve roots. Again please note this bone was savedfor local bone graft bone harvest.Next attention was directed to the left iliac crest region. This was done bytunneling under the skin. Fascia incised exposing the outer table. Usingosteotome, the outer table was removed. Next using curettes, cancellous bone wasscooped out. Nice amount of harvest was obtained. Wound was copiously irrigated.Fascia closed using 0 Vicryl, interrupted sutures.Attention placed back midline incision. Under C-arm guidance, pedicle screwsplaced in pedicles of L3, L4 and L5 bilaterally. Again these were Zimmerpedicle screws. Checked with C-arm and noted proper position. Also canalexplored using the probe and no evidence of any intra canal penetration ofscrews. Also each screw was checked electrophysiologically and again noevidence of any cortical breach of any screws. Bone decorticated bilaterally at L3-4, L4-5 and L5-S1 for the posterolateralfusion each level. Bone packed out bilaterally for the L3-4, L4-5 and L5-H6eurdyksadixlxl fusion. Screws hooked up using the norma and cap connectors andlocked down bilaterally. Wound was copiously irrigated. Wounds hemostatic. Deep drain inserted. Fasciaclosure number Vicryl. Skin closure in 2-0 Vicryl subcu and 3-0 Monocryl forskin with application of a sterile dressing..Please note throughout the procedure, electrophysiologic monitoring revealedstrong signals that were unchanged throughout the procedure. Patient rolled onto stretcher, extubated, moving all 4 extremities and broughtto recovery room in stable condition.Operative InformationSpecimen(s): @ORSPECMN@Grafts/Implants:Implant Name Type Inv. Item Serial No. Japanese Professor Lot No. LRB No. UsedSCREW,VITIALY,PA,6.5X50,ZIMM - [id number] SCREW,VITIALY,PA,6.5X50,ZIMM ROMARIO,INC. N/A 6SCREW,SET,TQ,LMT,ROMARIO - [id number] SCREW,SET,TQ,LMT,ROMARIO ROMARIO, INC. N/A6ROD,VITIALY,TI,CV,5.5X 80,ZIMM - [id number] NORMA,VITIALY,TI,CV,5.5X80,ZIMMZIMMER, INC. N/A 1ROD 85 MM ROMARIO, INC. N/A 1All significant tasks completed under the direction of the primary surgeonBijan Dalton MD Name Value Range Interpretation Code Description Data Rachel rce(s) Supporting Document(s) ID Date Data Source [id number] 11/30/2019 02:05:44 PM EDT [place], [place] [address]Patient Name: MONICA ECHEVARRIAOB: 1965Sex: MOrdering Provider: BIJAN DALTONAuthorielgin Prov: BIJAN DALTONReferreligio Provider: BIJAN DALTONProyue Performed: XR OR SPINE LUMBAR CONTINUATIONExam Date: 11/30/2019 14:04MRN: [id number] Number: [id number] Class: InpatientAccount #: [id number] for Exam: spondylosisTechnique: Fluoroscopy with no digital spot images obtained.Comparison: NoneFindings: Fluoroscopy used for lumbar spine surgery. There is placement of pedicle screws.IMPRESSION: Fluoroscopy for lumbar spine surgery.Report electronically signed by: REINA MACKENZIE On 11/30/2019 2:05 PMWorkstation ID: [id number] Name Value Range Interpretation Code Description Data Rachel rce(s) Supporting Document(s) ID Date Data Source [id number] 11/30/2019 12:16:45 PM EDT [place], [place] [address]Patient Name: MONICA BLACK: 1965Sex: MOrdering Provider: BIJAN PIZANOEFANOAuthorizing Prov: BIJAN DISTEFANOReferring Provider: BIJAN DISTEFANOProcedure Performed: XR OR SPINE LUMBAR CONTINUATIONExam Date: 11/30/2019 12:13MRN: [id number] Number: [id number] Class: InpatientAccount #: [id number] for Exam: spondylosisTechnique: Lateral view obtained.Comparison: NoneFindings: Localization devices are overlying the posterior elements. One is at the top of L3. The second is at the L3-4 disc space. The third is at the L5-S1 disc space.IMPRESSION: Intraoperative localization for lumbar spine surgery.Report electronically signed by: REINA MACKENZIE On 11/30/2019 12:16 PMWorkstation ID: [id number] - [id number] Name Value Range Interpretation Code Description Data Rachel rce(s) Supporting Document(s) ID Date Data Source [id number] 11/30/2019 12:15:45 PM EDT [address] [address]Dylvnem Name: MONICA THAKKARSDOB: 1965Sex: MOrdering Provider: BIJAN PIZANOEFANOAuthorizing Prov: BIJAN PIZANOEFANOReferring Provider: BIJAN DISTEFANOProcedure Performed: XR OR SPINE LUMBARExam Date: 11/30/2019 12:13MRN: [id number] Number: [id number] Class: InpatientAccount #: [id number] for Exam: painTechnique: Lateral view obtained.Comparison: NoneFindings: Localization devices are in the posterior soft tissues. One is pointing toward the back of L3. The second is point toward the back of S2.IMPRESSION: Intr aoperative localization for lumbar spine surgery.Report electronically signed by: REINA MACKENZIE On 11/30/2019 12:15 PMWorkstation ID: [id number] - [id number] Name Value Range Interpretation Code Description Data Rachel rce(s) Supporting Document(s) ID Date Data Source [id number] 11/30/2019 09:56:42 AM EDT [facility]PAT[facility] NT INFORMATIONPatient MRN Name Date of Age Gend*PT [id number] Monica Hobson 1965 54 years M SDAPT Location Admission Date/Time Visit ID [facility] --- Bijan Dalton MD([id number]) EPI ID CSN Admitting Provider [id number] Bijan Dalton MD([id number])Pre- op note/discusson/H&P review:Long discussion today.Options were reviewedProcedure was reviewedRisks/potential complications were reviewedDavid Darrell Hobson wishes to proceed with surgeryNo guarantees givenPlease refer to the patient's H&P completed within 30 days prior to admissionfor details.I have reviewed the patient's H&P and there are no significant changes in thepatient's history nor physical exam.--Bijan Dalton MD Name Value Range Interpretation Code Description Data Rachel rce(s) Supporting Document(s) ID Date Data Source [id number] 12/03/2019 07:12:55 AM EDT [facility] Name Value Range Interpretation Code Description Data Rachel rce(s) Supporting Document(s) POC POTASSIUM 4.1 MMOL/L (3.6-5.2) [facility] PERFORMED BY [facility] STAFF ID Date Data Source [id number] 11/25/2019 10:25:00 AM EDT [facility] Name Value Range Interpretation Code Description Data Rachel rce(s) Supporting Document(s) SARS coronavirus 2 RNA [facility] This lab was ordered by [facility] and reported by [facility]. ID Date Data Source [id number] 11/26/2019 12:11:17 PM EDT [facility] Name Value Range Interpretation Code Description Data Rachel rce(s) Supporting Document(s) SARS-COV-2 [facility] Not DetectedReference range: Not Detecte d This nucleic acid amplification test was developed and its performance characteristics determined by [facility]. Nucleic acid amplification tests include PCR and TMA. This test has not been FDA cleared or approved. This test has been authorized by FDA under an Emergency Use Authorization (EUA). This test is only authorized for the duration of time the declaration that circumstances exist justifying the authorization of the emergency use of in vitro diagnostic tests for detection of SARS-CoV-2 virus and/or diagnosis of COVID-19 infection under section 564(b)(1) of the Act, 21 U.S.C. 360bbb-3(b) (1), unless the authorization is terminated or revoked sooner. When diagnostic testing is negative, the possibility of a false negative result should be considered in the context of a patient's recent exposures and the presence of clinical signs and symptoms consistent with COVID- 19. An individual without symptoms of COVID- 19 and who is not shedding SARS -CoV-2 virus would expect to have a negative (not detected) result in this assay. Performed At: [facility] [address] [id number] Jay Disla MD Ph:[phone] ID Date Data Source [id number] 11/20/2019 07:00:40 AM EDT [facility] NT INFORMATIONPatient MRN Name Date of Age Gend*PT [id number] Monica Hobson 1965 54 years M OPPT Location Admission Date/Time Visit ID Attending Provider --- --- --- Bijan Dalton MD([id number]) EPI ID CSN Admitting Provider [id number] Bijan Dalton MD([id number])Addended by: BAILEY ALVAREZ on: 11/20/2019 07:00 AM Modules accepted: Orders Name Value Range Interpretation Code Description Data Rachel rce(s) Supporting Document(s) ID Date Data Source [id number] 11/19/2019 03:09:50 PM EDT [facility] NT INFORMATIONPatient MRN Name Date of Age Gend*PT [id number] Monica Hobson 1965 54 years M OPPT Location Admission Date/Time Visit ID Attending Provider --- --- --- Bijan Dalton MD([id number]) EPI ID CSN Admitting Provider [id number] Bijan Dalton MD([id number])HISTORY PHYSICALName: Monica Hobson : 1965 Sex: male Care Provider: No primary care provider on file.Attending Physician: Dr. Bijan DaltonInformant: The patient who is reliable.Chief Complaint: Chronic low back pain radiating down to my feet. Numbnessand tingling in both feet. Pain ranges from 7-10 out of 10. I take prescriptionopiates 4 x/day for the pain.HISTORY OF PRESENT ILLNESS: 54 years old white male with a longstanding historyof pain to his low back area with referred pain in both legs associated withdecreased sensation in his feet. It has been more severe over the last coupleof years. However, he denies any weakness in his lower extremities. Patientreports being told that he had an elevated serum potassium approximately oneweek ago and was placed on a daily diuretic. Additionally, he reports having"gained" a lot of weight over the past couple of years. He is also beingtreatedhypertension. Lastly, he reports drinking 6-8 beers a day oykgclxzwpxwq5klif/week.The patient met with Dr. Dalton, options were discussed and the patient haselected to under go Lumbar 3 To 4 Lumbar 4 To 5 Lumbar 5 To Sacral 1 LaminectomyWith Foraminotomies Posterior Lateral Fusion Iliac Crest Bone Graft, [facility]Re[facility] Peoriaegraft - N/A on 11/30/2019.PAST MEDICAL HISTORY:Past Medical History:Diagnosis Date Alcohol dependence Reports consuming 6-8 beers a day approx five days a week. 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 H Edema of both legs BLE edema lower legs R>L Hypertension Low back pain radiating to both legs Morbid obesity with BMI of 40.0-44.9, adult Numbness and tingling of both feet Takes Lyrica daily Personal history of gallstones Umbilical hernia Vitamin B12 deficiency receives monthly injections Vitamin D deficiency takes monthly Vit DPAST SURGICAL HISTORY:Past Surgical History:Procedure Laterality Date lapararoscopic gall stone surgery ?2016 NEPHRECTOMY RADICAL Right renal cell carcinoma, status post radical nephrectomy in December 2014.ALLERGIES: No Known Drug AllergiesMEDICATIONS:Prior to Admission medicationsMedication Sig Start Date End Date Taking? Authorizing ProviderCyanocobalamin 1000 MCG/ML KIT Inject 1,000 mcg as directed every 30 (thirty)days Historical Provider, hydrochlorothiazide (HYDRODIURIL) 12.5 MG tablet Take 12.5 mg by mouth dailyHistorical Provider, losartan (COZAAR) 50 MG tablet Take 50 mg by mouth daily Historical Provider,Donetoprolol succinate (TOPROL-XL) 50 MG 24 hr tablet Take 50 mg by mouth nightlyHistorical Provider, oxyCODONE-acetaminophen (PERCOCET) 10-325 MG per tablet Take 1 tablet by mouthevery 6 (six) hours as needed for pain Historical Provider, Adrienneregabalin (LYRICA) 100 MG capsule Take 100 mg by mouth 2 (two) times a dayHistorical Provider, tiZANidine (ZANAFLEX) 4 MG tablet Take 4 mg by mouth nightly as neededHistorical Provider, vitamin D, Ergocalciferol, 1.25 MG (88104 UT) CAPS Take 1 capsule by mouth every30 (thirty) days Historical Provider, Tierney HistoryTobacco Use Smoking status: Not on fileSubstance Use Topics Alcohol use: Not on file Drug use: Not on fileNo family history on file.REVIEW OF SYSTEMS:Constitution: Weight stable, Denies fatigue, fever or chills.HEENT: Denies any blurred vision, double vision, dizziness, tinnitus, dysphagiaor headaches.Respiratory: Denies any shortness of breath, cough, yellow sputum production orwheezing.Cardiovascular: Denies any chest pain, pressure or tightness. Denies anyparoxysmal nocturnal dyspnea or orthopnea.Muscle/Skeletal System: Pain to the low back radiating to both legs as above.Ambulates at home without any assistance. Denies any falls.Neurologic: Reports chronic numbness and tingling in both feet. Denies tremorsor syncope.GI: Denies any nausea, vomiting, diarrhea, constipation or melena.: Denies any dysuria, hematuria or nocturia.Endocrine: Denies polyuria, polydipsia or polyphagia. Denies any heat or coldintolerance, fatigue or night sweats.Hematology: Denies any bleeding or bruising tendencies.Code Status: Full CodeHCP: uncertain, per patient. Recommended he accomplish when possible.PHYSICAL EXAM:General: He is a 54 years old, pleasant white male, in no acute distress at timeof examination. Vitals on arrival to the office are BP 136/76 (BP Location:Right upper arm, Patient Position: Sitting) | Pulse 65 | Temp 96.2 F(Temporal) | Ht 1.803 m (5' 11") | Wt (!) 138.6 kg (305 lb 9.6 oz) | SpO2 95%| BMI 42.62 kg/m Body mass index is 42.62 kg/m ..Skin is pink warm and dry. Dustin complexion.HEENT: He is normocephalic, atraumatic. Risingsun conjunctivae. Anicteric sclerae.Pupils are equal, round, reactive to light and accommodation. Extraocularmovements are intact. Ears: Without drainage or lesion. Mouth: Dentition is ingood repair. He has a class I airway. Neck is supple midline without cervicaladenopathy. There is no tonsillo pharyngeal congestion. Mucous membranes aremoist. There are no oral lesions. No jugular distention. No carotid bruit.CHEST/BREAST: A/P less than transverse. Breast exam declined.LUNGS: Clear to auscultation. No wheezes, rhonchi or crackles.HEART: Rate rhythm regular. S1, S2. No murmur, rub or gallop.ABDOMEN: Obese abdomen. Small umbilical hernia. Bowel sounds positive timesfour. Soft, non tender. No rebound tenderness. No hepatosplenomegaly. NegativeCVAT.GENITAL/RECTAL: Deferred.MUSCLE/SKELETAL: Strength is 5/5. Lining Inserter are equal.NEUROLOGICALLY: Cranial nerves II through XII are grossly intact.VASCULAR: Radial pulses are symmetrical. Bilateral lower extremity edema (belowthe knees), RLE +2 and LLE +1.Anesthesia complications: DeniesSteroid use: [facility]In[facility] Frailty Scale :: 3/10 Managing Well (medical problems are well controlled,but are not regularly active beyond routine walking).Stop Bang Questionnaire - Total Score:STOP-Bang Total Score: 7IMPRESSION and PLAN:Primary Diagnosis: Spinal stenosis of lumbar region with neurogenicclaudication: Spondylolisthesis, unspecified spinal region; chronic low backpain, unspecified back pain laterality, unspecified whether sciatica present.Surgery as per Dr. Dalton.Secondary Diagnosis and Plan:1. Hypertension Continuation of prior to admission anti-hypertensivemedications unless precluded by clinical status.2. GI prophylaxis Per surgeon3. DVT prophylaxis Early ambulation. Pneumatic compression device.Subcutaneous Heparin or LMW Heparin if clinically indicated4. Alcohol dependence.5. Chronic opioid use / Substance use disorder.Based on above medical co morbidities, length of stay may be prolonged greaterthan previously anticipated.ALLERGIES:Patient has no known drug allergies.11/19/2019 3:03 PMUgo Hill NP*This document or parts of this document, were dictated using Cloak software. A reasonable attempt at proofreading has beenmade to minimize errors. Please call with any questions or corrections. Name Value Range Interpretation Code Description Data Rachel rce(s) Supporting Document(s) ID Date Data Source [id number] 11/19/2019 06:59:57 PM EDT [facility] Name Value Range Interpretation Code Description Data Rachel rce(s) Supporting Document(s) SODIUM 137 mmol/L (136-145) [facility] POTASSIUM 4.7 mmol/L (3.6-5.2) [facility] CHLORIDE 100 mmol/L (100-108) [facility] CO2 29 mmol/L (22-31) [facility] ANION GAP 8 mmol/L (7-16) [facility] UREA NITROGEN 14 mg/dL (7-24) [facility] CREATININE 1.42 mg/dL (0.80-1.30) H [facility] BUN/CREAT RATIO 9.9 RATIO (10.0-20.0) L [facility] GLUCOSE 86 mg/dL (70-99) [facility] CALCIUM 9.5 mg/dL (8.4-10.2) [facility] TOTAL PROTEIN 7.3 g/dL (6.4-8.2) [facility] ALBUMIN 3.8 g/dL (3.5-4.6) [facility] GLOBULIN 3.5 g/dL (2.7-4.3) [facility] ALB/GLOB RATIO 1.1 RATIO [facility] ALKALINE PHOSPHATASE 103 U/L (45-117) [facility] BILIRUBIN,TOTAL 0.6 mg/dL (0.0-1.0) [facility] PLEASE NOTE:Total bilirubin results may be falselyelevated in patients taking Eltrombopag. AST (SGOT) 40 U/L (11-39) H [facility] ALT (SGPT) 58 U/L (12-78) [facility] GFR 52 ml/min/1.73m2 (>59) L [facility] GFR ( AMER) >60 ml/min/1.73m2 (>59) [facility] GFR INTERPRETATION [facility] --NORMAL KIDNEY FUNCTION OR MILD DISEASE - GFR >OR= 60CHRONIC KIDNEY DISEASE - GFR 15 - 59RENAL FAILURE - GFR <15 Est. GFR calculation based on the MDRDstudy equation, which assumes a steadystate for creatinine. Est. GFR should notbe used for medication dosing. ID Date Data Source [id number] 11/19/2019 06:57:22 PM EDT [facility] Name Value Range Interpretation Code Description Data Rachel rce(s) Supporting Document(s) HEMOGLOBIN A1C @ 5.1 % (4.0-6.0) [facility] Performed using Siemens Lazbuddie immunoassa y.Care must be taken when interpreting WvG2foojsicf in patients with a hemoglobin variantor decreased erythrocyte lifespan. Values 5.7 - 6.4% suggest prediabetes.Values >=6.5% are diagnostic for diabetes.REFERENCE: DIABETES CARE 2018: 41(S13-S27). EST AVERAGE GLUCOSE 100 mg/dL [facility] ID Date Data Source [id number] 11/19/2019 06:55:17 PM EDT [facility] Name Value Range Interpretation Code Description Data Rachel rce(s) Supporting Document(s) APTT 25.6 s (22.0-34.3) [facility] ID Date Data Source [id number] 11/19/2019 06:55:17 PM EDT [facility] Name Value Range Interpretation Code Description Data Rachel rce(s) Supporting Document(s) PT 10.3 s (9.2-11.9) [facility] INR 0.99 [facility] VILLASENOR SUGGESTED THERAPEUTIC RANGES USING INR F ORSTABILIZED ANTICOAGULATED PATIENTS:STANDARD DOSE THERAPY INR 2.0-3.0 DVT, PE, PREVENT DVT OR EMBOLISMHIGH DOSE THERAPY INR 2.5-3.5 PREVENT EMBOLISM FROM MECHANICAL HEART VALVE ID Date Data Source [id number] 11/19/2019 06:33:37 PM EDT [facility] SPEC EXP DATE 12/01/2019PATI ENT ABO/Rh A POSITIVEANTIBODY SCREEN NEGATIVETESTING SITE PERFORMED AT [address] [place] [address] Name Value Range Interpretation Code Description Data Rachel rce(s) Supporting Document(s) TYPE AND SCREEN [facility] ID Date Data Source [id number] 11/20/2019 10:37:21 AM EDT [facility] Name Value Range Interpretation Code Description Data Rachel rce(s) Supporting Document(s) SPECIMEN DESCRIPTION [facility] STAPH SCREEN RESULTS (ONEGSA) [facility] COMMENT [facility] GENE TO DETECT STAPH AUREUS. (2) RT-P CR WAS PERFORMED FOR THE mecA AND SCCmec GENES TO DETECT METHICILLIN RESISTANCE IN STAPH AUREUS. ID Date Data Source [id number] 11/24/2019 09:57:47 AM EDT [facility], PCName: Monica ThakkarKimOB: 1965Provider: Asia Elam: 11/19/2019 Reason For VisitPatient is seen at the request of Dr. Dell Tirado, PCP. Monica Hobson is an established patient here for follow up. The patient is currently residing at home. W.C. DOI: 10/08/2016. Surgery Description: Lumbar 3 to Sacral 1 Laminectomy/Foraminotomies, Posterior Lateral Fusion, Instrumentation, Iliac Crest Bone Graft, Local Bone Graft. [facility] Neuromonitoring. Expected DOS: 11-30-2019. Patient states the injury occurred while at work. Patient states he fell down stairs. The patient's pain is managed by [facility] in [place]. 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 History of Present IllnessPatient is a 54-year-old male presents to the office for his preoperative HP. Scheduled for lumbar surgery on 11/30/2019. Complaining of constant chronic low back pain rated 7 out of 10. Associated with radiating pain in the left lower extremity with constant numbness in the left anterior ospina and foot. Results/Data XRays previously taken were reviewed today. Site: Lumbar Spine Views: 4 Views, AP/Lateral/Flexion/Extension Findings:. Grade 1 spondylolisthesis at L3-4 and L4-5. Results/Data OtherMRI [facility]: Multilevel DDD.MRI lumbar [facility] neurology 07/22/19: L3-4 moderate to severe stenosis; L4-5 severe stenosis; L5-S1 epidural lipomatosis was stenosis. 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 Spondylolisthesis (756.12) (M43.10) 2. Spinal stenosis of lumbar region with neurogenic claudication (724.03) (M48.062) PlanPatient is scheduled for lumbar laminectomy/fusion on 11/30/2019. He will follow-up postoperatively. Work / School NoteThe percentage of temporary impairment is 50%. The patient is not working at this time. This document was dictated and electronically signed using Delver software. A reasonable attempt at proof reading has been made to minimize errors. Please call with any questions. Signatures Electronically signed by : Froylan Belle; Nov 23 2019 9:42PM EST (Author) Electronically signed by : Bijan Dalton M.D.; Nov 24 2019 9:57AM EST Name Value Range Interpretation Code Description Data Rachel rce(s) Supporting Document(s) ID Date Data Source [id number] 11/12/2019 11:43:00 AM EDT [facility] spital Procedure Performed By: [facility] [address] [place] [address] Director: Randal Moreno MD Name Value Range Interpretation Code Description Data Rachel rce(s) Supporting Document(s) Urine Culture [facility] ID Date Data Source [id number] 11/10/2019 11:18:00 AM EDT [facility] C AND S IF INDICATED Name Value Range Interpretation Code Description Data Rachel rce(s) Supporting Document(s) Color,Urine Colorl-Dk Y Normal (applies to non-numeric res ults) [facility] Clarity,Urine Clear Normal (applies to non-numeric re sults) [facility] Specific [place],Urine 1.005-1.030 Normal (applies to non- numeric results) [facility] pH,Urine 5.0-8.0 Normal (applies to non-numeric resul ts) [facility] Protein,Urine Negative Normal (applies to non-numeric re sults) [facility] Glucose,Urine Negative Normal (applies to non-numeric re sults) [facility] Ketones,Urine Negative Normal (applies to non-numeric re sults) [facility] Blood,Urine Negative Normal (applies to non-numeric resu lts) [facility] Bilirubin,Urine Negative Normal (applies to non-numeric results) [facility] Urobilinogen,Urine 0.2-1.0 Normal (applies to non-numer ic results) [facility] Leukocyte Esterase,Urine Negative Normal (applies to non -numeric results) [facility] Nitrite,Urine Negative Normal (applies to non-numeric re sults) [facility] ID Date Data Source [id number] 11/12/2019 09:48:00 AM EDT [facility] Procedure Performed By: [facility] [address] [place] [address] Director: Randal Moreno MD Name Value Range Interpretation Code Description Data Rachel rce(s) Supporting Document(s) Urine Culture [facility] ospital ID Date Data Source [id number] 11/10/2019 11:34:00 AM EDT [facility] Name Value Range Interpretation Code Description Data Rachel rce(s) Supporting Document(s) Sodium 139 mmol/L 136-145 Normal (applies to non-numeric resul ts) [facility] Potassium 3.5-5.1 Above high normal [facility] ospital Chloride 101 mmol/L 98-107 Normal (applies to non-numeric resul ts) [facility] Carbon Dioxide CO2 21-32 Normal (applies to non-numer ic results) [facility] Anion Gap 5.0-16.0 Normal (applies to non-numeric resul ts) [facility] BUN 11 mg/dL 7-18 Normal (applies to non-numeric results) [facility] Creatinine,Serum 0.8-1.5 Normal (applies to non-numeric results) [facility] GFR >60 Normal (applies to non-numeric results) [facility] Glucose Level 104 mg/dL 60-99 Above high normal [facility] Reference range is only applicable when patient is fasting Note the following drug interference: Sulfasalazine Sulfapyridine Can see falsely depressed Can see falsely elevated result with up to 17% results with up to 11% decrease in measurement increase in measurement Recommend patients be collected for this test prior to administration of either drug. Calcium 8.5-10.1 Normal (applies to non-numeric resul ts) [facility] ID Date Data Source [id number] 11/10/2019 10:44:00 AM EDT [facility] Name Value Range Interpretation Code Description Data Rachel rce(s) Supporting Document(s) White Blood Count 3.5-10.5 Normal (applies to non-numeri c results) [facility] Red Blood Count 4.30-5.70 Normal (applies to non-numeric results) [facility] Hemoglobin 13.5-17.5 Normal (applies to non-numeric resul ts) [facility] Hematocrit 38.8-50.0 Normal (applies to non-numeric resul ts) [facility] Mean Corpuscular Volume 81.2-95.1 Above high normal [facility] Mean Corpuscular Hgb 25.6-32.2 Above high normal [facility] Mean Corpuscular Hgb Conc 32.0-36.0 Normal (applies to no n-numeric results) [facility] Red Cell Distribution Width 11.8-15.6 Normal (appli es to non-numeric results) [facility] Platelet Count 184 x10 3/uL 150-450 Normal (applies to non-numeric results) [facility] Mean Platelet Volume 9.4-12.4 Normal (applies to non-num kuldeep results) [facility] Neutrophils% (Auto) 31.0-71.0 Normal (applies to non-nume crow results) [facility] Lymphocytes% (Auto) 20.0-55.0 Normal (applies to non-nume crow results) [facility] Monocytes% (Auto) 4.0-12.0 Normal (applies to non-numeri c results) [facility] Eosinophils% (Auto) 1.0-8.0 Normal (applies to non-nume crow results) [facility] Basophils% (Auto) 0.0-2.0 Normal (applies to non-numeri c results) [facility] Immature Granulocytes% (Auto) 0.0-2.0 Normal (alba lies to non-numeric results) [facility] Neutrophils# (Auto) 1.50-6.20 Normal (applies to non-nume crow results) [facility] Lymphocytes# (Auto) 1.20-4.00 Normal (applies to non-nume crow results) [facility] Monocytes# (Auto) 0.00-0.90 Normal (applies to non-numeri c results) [facility] Eosinophils# (Auto) 0.00-0.50 Normal (applies to non-nume crow results) [facility] Basophils# (Auto) 0.00-0.20 Normal (applies to non-numeri c results) [facility] Immature Granulocytes# (Auto) 0.00-7.00 No rmal (applies to non-numeric results) [facility] ID Date Data Source [id number] 09/03/2019 07:23:32 PM EDT [facility] PCName: Monica Black: 1965Provider: Yoselin Dalton: 09/03/2019 History of Present IllnessPhysical therapy 2018-no benefitSeen Dr. Leon for pain management 2019--injections not helpfulChronic low back painAlso constant numbness left ospina/foot area since August 2018 The patient complains of pain in the lumbar spine . The patient states that the timing of the pain is continuous . The pain radiates to the left, posterior, buttock(s), thigh(s) and leg(s) . The patient states that the timing of the pain is intermittent . The patient denies signs of bladder dysfunction, bowel dysfunction, cancer/metastasis, infection and myelopathy . The pain is knife like and achy . The pain severity is rated 7-8 out of 10. Pain is aggravated by periods of activity . There is numbness involving the left and anterior foot and leg(s). Results/DataXRays were ordered, obtained and interpreted today in the office. Indication: pain/dysfunction. Site: Lumbar Spine Views: 4 Views, AP/Lateral/Flexion/Extension Findings:. Grade 1 spondylolisthesis at L3-4 and L4-5. Results/Data OtherI [facility] 11/02/16: Multilevel DDD.MRI lumbar [facility] neurology 07/22/19: L3-4 moderate to severe stenosis; L4-5 severe stenosis; L5-S1 epidural lipomatosis was stenosis. 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 Reviewed the pertinent applicable clinical implications relating to the patient. Also provided a copy of the results for their personal records. Assessment 1. Spondylolisthesis (756.12) (M43.10) 2. Low back pain (724.2) (M54.5) 3. Spinal stenosis of lumbar region with neurogenic claudication (724.03) (M48.062) condition: Chronicetiology: Workers comp injury as abovelevels: L3-4, L4-5 and L5-S1 Plan X-Ray I Lumbosacral Comp - 4 views (XRays were ordered, obtained and interpretedtoday in the office. Indication: pain/dysfunction.); Status:Complete; Done: [id number] Perform:SOS22; Due:[id number]; Last Updated By:Jimena Baumann; 09/03/2019 2:26:27 PM;Ordered; For:Low back pain; Ordered By:Bijan Dalton; Plan, Assessment and Recommendation(s) Schedule appointment: After authorization is obtained. The various alternatives and treatment options were discussed with pros and cons, risks, and potential benefits of each option reviewed. He wishes to proceed with surgery. Requesting 1-2 visits of pre-hab PT for strengthening and better post op outcomes. Requests Surgery Workers comp request surgery: L3-4, L4-5 and L5-S1 laminectomy/foraminotomy; posterior lateral fusion, instrumentation, iliac crest bone graft, local bone graft Work / School NoteThe percentage of temporary impairment is 50%. The patient is not working at this time. This document was dictated and electronically signed using Delver software. A reasonable attempt at proof reading has been made to minimize errors. Please call with any questions. Signatures Electronically signed by : Bijan Dalton M.D.; Sep 03 2019 7:23PM EST (Author) Name Value Range Interpretation Code Description Data Rachel rce(s) Supporting Document(s) ID Date Data Source [id number] 06/13/2019 06:00:00 AM T [facility] Imaging Services Department Imaging Report [address], [place] [address] %(RAD)RES..mtdd.print.filter("line") Name: MONICA HOBSON : 1965 Age/Sex: 53M Ordering Provider: Dell Tirado, Med Rec #: [id number] Reg Status: DEP REF Room #: Date of Service: 06/12/19 Report Number: [id number] cc:Dell Plunkett Reason, DO Send Report To: [id number] US/US Dup Lower Ext Artery Bilat Reason for exam: PVD Technique: Ultrasound imaging performed using color flow and spectral Doppler interrogation. FINDINGS: There are no signs of any accelerated velocities from the common femoral arteries through the posterior tibial and dorsalis pedis arteries. Triphasic waveforms identified bilaterally with no signs of any identifiable occlusions or any stenosis of greater than 15% diameter. IMPRESSION: No significant pathology identified. REPORT SIGNATURE ON FILE Reported By: Guillaume Owens MD <Electronically signed by Kaleb Owens MD> 06/15/19 0939 Dictation Date/Time: 06/12/19 1541 Transcribed Date/Time: 06/13/19 0600 Track Repair Person: JACLYN Name Value Range Interpretation Code Description Data [facility] rce(s) Supporting Document(s) ID Date Data Source [id number] 06/17/2019 08:00:00 AM EDT [facility] Name Value Range Interpretation Code Description Data [facility] rce(s) Supporting Document(s) Mercury, Blood 1 ng/mL 0-9 Normal (applies to non-numeric r esults) [facility] ADDITIONAL INFORMATIO N This test was developed and its performance characteristics determined by [facility] in a manner consistent with CLIA requirements. This test has not been cleared or approved by the U.S. Food and Drug Administration. Test Performed by: [facility] [place] [address] Regional Environmental Manager: David Lubin M.D. Ph.D.; CLIA# [id number] ID Date Data Source [id number] 06/17/2019 08:00:00 AM EDT [facility] Name Value Range Interpretation Code Description Data [facility](s) Supporting Document(s) Thiamine (Vitamin B1) result 129 nmol/L 70-180 Nor mal (applies to non-numeric results) [facility] ADDITIONAL INFORMATIO N This test was developed and its performance characteristics determined by [facility] in a manner consistent with CLIA requirements. This test has not been cleared or approved by the U.S. Food and Drug Administration. Test Performed by: [facility] [place] [address] Regional Environmental Manager: David Lubin M.D. Ph.D.; CLIA# [id number] ID Date Data Source [id number] 06/17/2019 08:00:00 AM EDT [facility] Name Value Range Interpretation Code Description Data Rachel rce(s) Supporting Document(s) Arsenic, Blood 7 ng/mL 0-12 Normal (applies to non-numeric r esults) [facility] ADDITIONAL INFORMATIO N This test was developed and its performance characteristics determined by [facility] in a manner consistent with CLIA requirements. This test has not been cleared or approved by the U.S. Food and Drug Administration. Test Performed by: [facility] [place] [address] Regional Environmental Manager: David Lubin M.D. Ph.D.; CLIA# [id number] ID Date Data Source [id number] 06/17/2019 07:22:00 AM EDT [facility] Value Range Interpretation Code Description Data [facility](s) Supporting Document(s) Mercury,Blood result 1 ng/mL 0-9 Normal (applies to non-num kuldeep results) [facility] ADDITIONAL INFORMATIO N This test was developed and its performance characteristics determined by [facility] in a manner consistent with CLIA requirements. This test has not been cleared or approved by the U.S. Food and Drug Administration. Test Performed by: [facility] [place] [address] Regional Environmental Manager: David Lubin M.D. Ph.D.; CLIA# [id number] ID Date Data Source [id number] 06/17/2019 07:22:00 AM EDT [facility] Value Range Interpretation Code Description Data Rachel rce(s) Supporting Document(s) Thiamine (Vitamin B1) result 129 nmol/L 70-180 Nor mal (applies to non-numeric results) [facility] ADDITIONAL INFORMATIO N This test was developed and its performance characteristics determined by [facility] in a manner consistent with CLIA requirements. This test has not been cleared or approved by the U.S. Food and Drug Administration. Test Performed by: [facility] [place] [address] Regional Environmental Manager: David Lubin M.D. Ph.D.; CLIA# [id number] ID Date Data Source [id number] 06/17/2019 02:32:00 AM EDT [facility] Value Range Interpretation Code Description Data [facility] rce(s) Supporting Document(s) Arsenic, Blood 7 ng/mL 0-12 Normal (applies to non-numeric r esults) [facility] ADDITIONAL INFORMATIO N This test was developed and its performance characteristics determined by [facility] in a manner consistent with CLIA requirements. This test has not been cleared or approved by the U.S. Food and Drug Administration. Test Performed by: [facility] [place] [address] Regional Environmental Manager: David Lubin M.D. Ph.D.; CLIA# [id number] ID Date Data Source [id number] 06/16/2019 11:48:00 AM EDT [facility] Value Range Interpretation Code Description Data Rachel rce(s) Supporting Document(s) Lead,Blood (Venous) result 0.0-4.9 Normal (applies to n on-numeric results) [facility] ADDITIONAL INFORMATIO N Testing performed by Inductively Coupled Plasma-Mass Spectrometry (ICP-MS). This test was developed and its performance characteristics determined by [facility] in a manner consistent with CLIA requirements. This test has not been cleared or approved by the U.S. Food and Drug Administration. PBDV Source (Venous) Normal (applies to non-num kuldeep results) [facility] PBDV Patient Street Normal (applies to non-nume crow results) [facility] PBDV Patient City Normal (applies to non-numeri c results) [facility] PBDV Patient State Normal (applies to non-numer ic results) [facility] PBDV Patient Zip [phone] Normal (applies to non-numeric results) [facility] Normal (applies to non-nume crow results) [facility] PBDV Patient Phone Normal (applies to non-numer ic results) [facility] Race Normal (applies to non-numeri c results) [facility] Ethnicity Normal (applies to non-n umeric results) [facility] Occupation Normal (applies to non- numeric results) [facility] Employer Normal (applies to non-nu meric results) [facility] Guardian Name,First Normal (applies to non -numeric results) [facility] Name,Last Normal (applies to non- numeric results) [facility] PBDV Provider Name Normal (applies to non-numer ic results) [facility] PBDV Provider [place] Normal (applies to non-num kuldeep results) [facility] PBDV Provider [facility] Normal (applies to non-numer ic results) [facility] PBDV Provider State Normal (applies to non-nume crow results) [facility] PBDV Provider Zip [address] Normal (applies to non-numeri c results) [facility] PBDV Provider Phone Normal (applies to non-nume crow results) [facility] Sub[facility] Phone Normal (applies to no n-numeric results) [facility] Test Performed by: [place] [address] Regional Environmental Manager: David Lubin M.D. Ph.D.; CLIA# [id number] ID Date Data Source [id number] 06/16/2019 11:09:00 AM EDT [facility] Name Value Range Interpretation Code Description Data Rachel rce(s) Supporting Document(s) Lead,Blood (Venous) result 0.0-4.9 Normal (applies to n on-numeric results) [facility] ADDITIONAL INFORMATIO N Testing performed by Inductively Coupled Plasma-Mass Spectrometry (ICP-MS). This test was developed and its performance characteristics determined by [facility] in a manner consistent with CLIA requirements. This test has not been cleared or approved by the U.S. Food and Drug Administration. PBDV Source (Venous) Normal (applies to non-num kuldeep results) [facility] PBDV Patient Street Normal (applies to non-nume crow results) [facility] Normal (applies to non-numeri c results) [facility] State Normal (applies to non-numer ic results) [facility] Zip [address] Normal (applies to non-numeric results) [facility] County Normal (applies to non-nume crow results) [facility] Phone Normal (applies to non-numer ic results) [facility] Race Normal (applies to non-numeri c results) [facility] Ethnicity Normal (applies to non-n umeric results) [facility] Occupation Normal (applies to non- numeric results) [facility] Employer Normal (applies to non-nu meric results) [facility] Guardian Name,First Normal (applies to non -numeric results) [facility] Guardian Name,Last Normal (applies to non- numeric results) [facility] Name Normal (applies to non-numer ic results) [facility] Normal (applies to non-num kuldeep results) [facility] City Normal (applies to non-numer ic results) [facility] State Normal (applies to non-nume crow results) [facility] PBDV Provider Zip [address] Normal (applies to non-numeri c results) [facility] PBDV Provider Phone Normal (applies to non-nume crow results) [facility] PBDV Submitting Lab Phone Normal (applies to no n-numeric results) [facility] Test Performed by: [facility] [address] [place] [address] Regional Environmental Manager: David Lubin M.D. Ph.D.; IA# [id number] ID Date Data Source [id number] 06/12/2019 06:26:00 PM EDT [facility] Name Value Range Interpretation Code Description Data Rachel rce(s) Supporting Document(s) Vitamin B12 result 187 pg/mL [id number] [facility] Test Performed By: [facility] [address] [place] [address] Director: Amy Moreno MD ID Date Data Source [id number] 06/12/2019 06:27:00 PM EDT [facility] Name Value Range Interpretation Code Description Data Rachel rce(s) Supporting Document(s) Folate result 2.76-20.0 Normal (applies to non-numeric re sults) [facility] Test Performed By: [facility] [address] [place] [address] Director: Amy Moreno MD ID Date Data Source [id number] 06/12/2019 06:16:00 PM EDT [facility] Name Value Range Interpretation Code Description Data Rachel rce(s) Supporting Document(s) Vitamin B12 187 pg/mL [phone] Below low normal [facility] Test Performed By: [facility] [address] [place] [address] Director: Amy Moreno MD ID Date Data Source [id number] 06/12/2019 06:16:00 PM EDT [facility] Name Value Range Interpretation Code Description Data Rachel rce(s) Supporting Document(s) Folate 2.76-20.0 Normal (applies to non-numeric resul ts) [facility] Test Performed By: [facility] [address] [place] [address] Director: Amy Moreno MD ID Date Data Source [id number] 06/12/2019 02:55:00 PM T [facility] Name Value Range Interpretation Code Description Data Rachel rce(s) Supporting Document(s) Vitamin D, Total 30.0-100.0 Below low normal [facility] ID Date Data Source [id number] 06/12/2019 01:54:00 PM EDT [facility] Name Value Range Interpretation Code Description Data Rachel rce(s) Supporting Document(s) Hemoglobin A1c 4.4-6.2 Normal (applies to non-numeric r esults) [facility] Estimated Avg Glucose 114 mg/dL 126-240 Below low normal [facility] ID Date Data Source [id number] 06/12/2019 01:31:00 PM EDT [facility] Name Value Range Interpretation Code Description Data Rachel rce(s) Supporting Document(s) Sodium 138 mmol/L 136-145 Normal (applies to non-numeric resul ts) [facility] Potassium 3.5-5.1 Normal (applies to non-numeric resul ts) [facility] Chloride 102 mmol/L 98-107 Normal (applies to non-numeric resul ts) [facility] Carbon Dioxide CO2 21-32 Normal (applies to non-numer ic results) [facility] Anion Gap 5.0-16.0 Normal (applies to non-numeric resul ts) [facility] BUN 12 mg/dL 7-18 Normal (applies to non-numeric results) [facility] Creatinine,Serum 0.8-1.5 Normal (applies to non-numeric results) [facility] GFR 56 mL/min >60 Below low normal [facility] spital Glucose Level 98 mg/dL 60-99 Normal (applies to non-numeric re sults) [facility] Reference range is only applicable when patient is fasting Note the following drug interference: Sulfasalazine Sulfapyridine Can see falsely depressed Can see falsely elevated result with up to 17% results with up to 11% decrease in measurement increase in measurement Recommend patients be collected for this test prior to administration of either drug. Calcium 8.5-10.1 Normal (applies to non-numeric resul ts) [facility] ID Date Data Source [id number] 06/12/2019 01:31:00 PM EDT [facility] Name Value Range Interpretation Code Description Data Rachel rce(s) Supporting Document(s) Magnesium 1.8-2.4 Normal (applies to non-numeric resul ts) [facility] ID Date Data Source [id number] 06/12/2019 01:31:00 PM [facility] Name Value Range Interpretation Code Description Data Rachel rce(s) Supporting Document(s) Thyroid Stimulate Hormone TSH 0.358-3.74 Above high normal [facility] ID Date Data Source [id number] 06/12/2019 01:31:00 PM [facility] Name Value Range Interpretation Code Description Data Rachel rce(s) Supporting Document(s) Free T4 (Free Thyroxine) 0.76-1.46 Normal (applies to non -numeric results) [facility] ID Date Data Source [id number] 06/12/2019 01:24:00 PM [facility] Value Range Interpretation Code Description Data Rachel rce(s) Supporting Document(s) White Blood Count 3.5-10.5 Normal (applies to non-numeri c results) [facility] Red Blood Count 4.30-5.70 Normal (applies to non-numeric results) [facility] Hemoglobin 13.5-17.5 Normal (applies to non-numeric resul ts) [facility] Hematocrit 38.8-50.0 Normal (applies to non-numeric resul ts) [facility] Mean Corpuscular Volume 81.2-95.1 Above high normal [facility] Mean Corpuscular Hgb 25.6-32.2 Above high normal [facility] Mean Corpuscular Hgb Conc 32.0-36.0 Normal (applies to no n-numeric results) [facility] Red Cell Distribution Width 11.8-15.6 Normal (appli es to non-numeric results) [facility] Platelet Count 207 x10 3/uL 150-450 Normal (applies to non-numeric results) [facility] Mean Platelet Volume 9.4-12.4 Normal (applies to non-num kuldeep results) [facility] Neutrophils% (Auto) 31.0-71.0 Normal (applies to non-nume crow results) [facility] Lymphocytes% (Auto) 20.0-55.0 Below low normal [facility] Monocytes% (Auto) 4.0-12.0 Normal (applies to non-numeri c results) [facility] Eosinophils% (Auto) 1.0-8.0 Normal (applies to non-nume crow results) [facility] Basophils% (Auto) 0.0-2.0 Normal (applies to non-numeri c results) [facility] Immature Granulocytes% (Auto) 0.0-2.0 Normal (alba lies to non-numeric results) [facility] Neutrophils# (Auto) 1.50-6.20 Above high normal [facility] Lymphocytes# (Auto) 1.20-4.00 Normal (applies to non-nume crow results) [facility] Monocytes# (Auto) 0.00-0.90 Normal (applies to non-numeri c results) [facility] Eosinophils# (Auto) 0.00-0.50 Normal (applies to non-nume crow results) [facility] Basophils# (Auto) 0.00-0.20 Normal (applies to non-numeri c results) [facility] Immature Granulocytes# (Auto) 0.00-7.00 No rmal (applies to non-numeric results) [facility] ID Date Data Source [id number] 06/12/2019 01:24:00 PM EDT [facility] Name Value Range Interpretation Code Description Data Rachel rce(s) Supporting Document(s) Erythrocyte Sedimentation rate 11 mm/hr 0-15 N ormal (applies to non-numeric results) [facility] ID Date Data Source [id number] 02/17/2019 11:04:03 AM [facility] CT THORAX WITH CONTRAST [id number] RESUL TInterpreted by:Sandor Leon MDINDICATION: Kidney cancer.TECHNIQUE: Multidetector axial CT images along with coronal and sagittal reconstructed images were obtained from the thoracic inlet through the upper abdomen. 100 cc of Ominipaque-300 was administered intravenously. Automated dose lowering techniques and/or adjustment according to patient size were utilized for this exam.COMPARISON: Prior CT thorax dated 01/24/2018.FINDINGS: There is no axillary, mediastinal or hilar lymphadenopathy identified.The heart, the great vessels and mediastinal structures are unremarkable. There is no evidence of pericardial disease.The evaluation of the lungs is compromised by respiratory motion. The lungs are clear. There is no evidence of pleural disease. The central airways appear patent.The osseous structures are without fracture. Multilevel degenerative changes are seen throughout the spine. Redemonstration of a region of mixed lytic sclerotic lesion involving the manubrium, likely related to hemangioma. Stable 1.2 cm small subcutaneous lesion is seen involving the posterior midline back. Stable well-circumscribed lytic lesion is seen within the posterior lateral left seventh rib.For details below the diaphragm please see CT of the abdomen dated the same.IMPRESSION:No significant interval change compared to prior CT thorax dated 01/24/2018.This document has been electronically signed by Sandor Leon MD on 02/17/2019 11:01 AM Name Value Range Interpretation Code Description Data [facility] rce(s) Supporting Document(s) ID Date Data Source [id number] 02/17/2019 09:46:21 AM [facility] CT ABDOMEN PELVIS WITH AND WITHOUT CONTR AST [id number] RESULTInterpreted by:Leida Henderson MDINDICATION: 53-year-old male with history of renal cell carcinoma status post radical nephrectomy.COMPARISON: CT abdomen and pelvis dated 01/24/2018.TECHNIQUE: Helical CT axial scans were performed from the lung bases to below the pubic symphysis before and after the administration of intravenous contrast according to the renal mass protocol. Oral contrast was not administered. Subsequently, coronal and sagittal reformations were obtained. Automated dose lowering techniques and/or adjustment according to patient size were utilized for this examination.FINDINGS:LUNGS BASES: For detailed evaluation above the diaphragm please refer to dedicated CT of the thorax dated the same. LIVER: No focal liver lesions. The intrahepatic biliary ducts are not dilated.SPLEEN: Normal.GALLBLADDER: Surgically absent. The intrahepatic bile ducts are not dilated. Surgical clips are seen in the gallbladder fossa.PANCREAS: Diffuse fatty infiltration of the pancreas. No pancreatic ductal dilatation.ADRENAL GLANDS: Normal.KIDNEYS: The right kidney is surgically absent, status post radical nephrectomy. Staple lines are seen within the surgical bed. No evidence of local recurrent disease. Redemonstration of multiple parapelvic cysts within the left mid and lower pole measuring approximately 4.5 x 3.2 x 4.3 cm, not significantly changed when compared to prior study. They measure simple fluid density, consistent with simple cysts. Stable 1.7 cm partially exophytic cyst within the left upper pole that measures slightly higher than simple fluid density, however this is nonenhancing. Stable 0.7 cm hyperdense cyst in the medial lower pole. No evidence of hydronephrosis.BOWEL: The patient is status post Johana-en-Y gastric bypass. The small bowel is nondilated. The appendix is not clearly identified. A small amount of stool is seen throughout the colon.LYMPH NODES: No pathologically enlarged lymph nodes.VASCULAR STRUCTURES: No aneurysmal dilatation of the aorta.PELVIS:BLADDER: On delayed images there is a subtle 6 mm rounded hypodensity along the right lateral bladder wall on image 401. This is at the level of the contrast layering dependently, and is favored to be artifactual. Underlying filling defect cannot be excluded. PROSTATE: Normal. The seminal vesicles are symmetric. FREE AIR OR FREE FLUID: No evidence of free air or free fluid.OSSEOUS STRUCTURES: Multilevel endplate degenerative changes of the spine. Chronic anterior wedge deformity of the L1 vertebral body. There is grade 1 anterolisthesis of L3 on L4, unchanged from prior study. Degenerative changes of the pubic symphysis are also noted. No suspicious osseous lesions are identified. ABDOMINAL WALL: Redemonstration of 2 large mid line fat-containing ventral hernias, grossly unchanged when compared to prior. The anterior mesenteric wall of a loop of small bowel is seen entering the abdominal wall defect. 1.8 cm soft tissue density nodule within the superficial subcutaneous tissues of the posterior mid back, image 12 at the level of T9. Tiny small fat-containing bilateral inguinal hernias are seen.IMPRESSION:1. Postsurgical changes related to right radical nephrectomy with no evidence of recurrent or metastatic disease.2. Stable parapelvic and partially exophytic renal cystic lesions as described above.3. On delayed images there is a subtle 6 mm rounded hypodensity along the right lateral bladder wall on image 401. This is at the level of the contrast layering dependently, and is favored to be artifactual. Underlying filling defect cannot be excluded. Close short term follow up or correlation with cystoscopy is recommended. 4. Additional stable findings as described above.This document has been electronically signed by Lacey Rubio MD on 02/17/2019 9:44 AM Name Value Range Interpretation Code Description Data Rachel rce(s) Supporting Document(s) ID Date Data Source [id number] 02/17/2019 08:09:56 AM [facility] Name Value Range Interpretation Code Description Data Rachel rce(s) Supporting Document(s) Progress Note [facility] [id number]/WHZecETHdp6QaPKdkBEa8XWwpDWWoC0OqWCL1zM1kGXL6MTeRLdUkBvPzTGY2 [facility] [file] /R93nx+4FLtl6gM585r1TW8c9M489Lzlx01ld2bkJ9RI+[employer]/Ql98adBCJLeEtSEJ1pdMkvK3YDT9ft9 [file] ICAgICAgICAgICAgICAgICAgICAgICAgICAgICAgICAgICAgICAgICAgICAgICAgICAgICAgICAgICAg ICAgICAgICAgICAgICAgICAgICAgICAgICAgICAgDQogICAgICAgICAgICAgICAgICAgICAgICAgICAg ICAgICAgICAgICAgICAgICAgICAgICAgICAgICAgIC AgICAgICAgICAgICAgICAgICAgICAgICAgICAgICAgICAgICAgICAgDQogICAgICAgICAgICAgICAgIC AgICAgICAgICAgICAgICAgICAgICAgICAgICAgICAgICAgICAgICAgICAgICAgICAgICAgICAgICAgIC AgICAgICAgICAgICAgICAgICAgICAgDQogICAgICAg ICAgICAgICAgICAgICAgICAgICAgICAgICAgICAgICAgICAgICAgICAgICAgICAgICAgICAgICAgICAg ICAgICAgICAgICAgICAgICAgICAgICAgICAgICAgICAgDQogICAgICAgICAgICAgICAgICAgICAgICAg ICAgICAgICAgICAgICAgICAgICAgICAgICAgICAgIC AgICAgICAgICAgICAgICAgICAgICAgICAgICAgICAgICAgICAgICAgICAgDQogICAgICAgICAgICAgIC AgICAgICAgICAgICAgICAgICAgICAgICAgICAgICAgICAgICAgICAgICAgICAgICAgICAgICAgICAgIC AgICAgICAgICAgICAgICAgICAgICAgICAgDQogICAg ICAgICAgICAgICAgICAgICAgICAgICAgICAgICAgICAgICAgICAgICAgICAgICAgICAgICAgICAgICAg ICAgICAgICAgICAgICAgICAgICAgICAgICAgICAgICAgICAgDQogICAgICAgICAgICAgICAgICAgICAg ICAgICAgICAgICAgICAgICAgICAgICAgICAgICAgIC AgICAgICAgICAgICAgICAgICAgICAgICAgICAgICAgICAgICAgICAgICAgICAgDQogICAgICAgICAgIC AgICAgICAgICAgICAgICAgICAgICAgICAgICAgICAgICAgICAgICAgICAgICAgICAgICAgICAgICAgIC AgICAgICAgICAgICAgICAgICAgICAgICAgICAgDQog ICAgICAgICAgICAgICAgICAgICAgICAgICAgICAgICAgICAgICAgICAgICAgICAgICAgICAgICAgICAg QONmFZEnAEXeGSYtSTIhTVMoYIVrKDQwMJOsBUOrGFDvOUJbNXRbGHo3R3lyLPNaVZDmBU0fOPj1Nh5+ IAuIGfHsVVM9pkEnvQ9LMM4qx1IiHPqqCTVza8TkAL k9RL4YXIFoEXhfZL1ACRpdqm2EAVDjDWVmaEDWa3xcScOsOIB8OFDrJmjrVP9TCZBjT9ydkaSrVMDlCK YDTOnwFAUWAV5RXcRqB6SmiA30VSSRCt7+AAndyuMnNkuIMrUmMYCrl1OeFUp7YI3VUJQsBhofz7DrKm RyVORXVIavGE5UDIO6TUIgAWWuJi6CZODeP278pwRd VL5TRv3ISePcGN4kge6KNoKiVCWjVynZDyl3UMxbHB5ZjLQtYBmOmk8duxDonmNEu2ImenLcrUZBvOPh ODJnHCYdow3vWB5PICT8GKDhZl5pANYlXDYtWlFwEZUTBJ2PUCPuCHCzoENbKRElGGXKDP2QVWxoWDX5 DGDhjrXaxQJeUAaxLF9MRGAcuqOjYgZmDDBYTNj+Pg 5RNP4kr8UyJZxdBdCkXY1zjo5DXIvWNvIzE8V2gQNxP6H3ZLmsXv1PZOJdEMRiCPknDRLILMrfRG9LIB 9yhrV1YJ3RxLIxEUGxPDPmhZKxOUk1V93tmXLiQLpiBJ0UFWJ+Antionette+Qo6BSKBvXHUlFROeZiJqWSTMWi DwW7TmO6IGx6VsT3MpGY06oZlmtvLrSOpoPV4QDB5y HAEoLLLRAB9EuIKhaW0bedKkYQYdKBBFQeZcR75beARqOHBeEOBnAMMqCc0GWGRgW6QqtkMlyWvldvRq NQKsUXHHHI2EZPlbyaYbzIDjcSyhVX06iMmxLH2WGa5HEkRuJQ8zwg4RtKCkMw1EPPJmUW7NBVFzOOHb YAXgJEW8RALcHyLiFKxnGBPbXVRkEFP5GFBqWWXuUB 1GOtCqDSLkRMb3KnObWUOtPPVkfz8HVYXbQZJfIIU4KuKrULUgARYpTOadSEVmEPWqHCH6VQZbYBGrBA 9TXrMlRMOoWJU7DWXxBCYbGFFcxc5DBPWaDAVdPtn7SYOoLENlOLDuIYbpBVMmTWP3ZIA8GCEoZFXnAL 9TBsYuHOWcDXJ6BzIxXWRaHJSvuw3PSTNrVOYdVERo NDNfRKBaZPWzMGfcBQXqEJX1EOQ6EKHaXWPtZS7LZcVsUYGdOOF2BNpbINDmRZBwiu8TRDXsQVXuPog5 KnEyEIFoTOLnDKvrWMVkTPO8NZD1NTIyQEClVR1EGeBlZMDyMWmrIJBlDNCwXEIiua9OPVFkHZLxHWij QRMcFQNlHSMgJFudUCOyDQR0CPA3NTOaELNgQM3DSo ZqXOVjMRpoOiZlBTKyKFIhyd0KZSNqHACuCPP1DgYyEXMhCWLmRUtfHOXvBCO9ZqUgUWVgNTQwBT2WNh ZkYTFiGtWpIUBtNSKnKPUvqi3BFZSfPZNqWDF5NdPnKIIsIYGfLRsvAIFrBRCxMQU4FECuZNOrUH7NBc NePJOaXpQ5TlFwQVIpJBDwpq6IrRJirZznhc1UODlR Fi3MpLqeNTK0WLmlXh6kuKErGhViYPZTCv7SztMdNGZuONWTTYiqFYAqALf9ZGzmPFP2RLE8XxV4BKl1 HdJiY8E9E8OhTOWeEEQjDrQ9KIx3BGKlMfrcGHLtGFB7CTpiY2H2RwyxYIT2EJY6JqC+LJ2pINm+Pg0K g3McaxE9khQsKVhgFWjjYR5FIYVDE7ZYVg== ID Date Data Source [id number] 02/07/2019 01:25:00 PM EST [facility] Name Value Range Interpretation Code Description Data Rachel rce(s) Supporting Document(s) Sodium 140 mmol/L 136-145 Normal (applies to non-numeric resul ts) [facility] Potassium 3.5-5.1 Above high normal [facility] ospital Chloride 101 mmol/L 98-107 Normal (applies to non-numeric resul ts) [facility] Carbon Dioxide CO2 21-32 Normal (applies to non-numer ic results) [facility] Anion Gap 5.0-16.0 Normal (applies to non-numeric resul ts) [facility] BUN 11 mg/dL 7-18 Normal (applies to non-numeric results) [facility] Creatinine,Serum 0.8-1.5 Above high normal [facility] GFR 48 mL/min >60 Below low normal [facility] spital Glucose Level 96 mg/dL 60-99 Normal (applies to non-numeric re sults) [facility] Reference range is only applicable when patient is fasting Note the following drug interference: Sulfasalazine Sulfapyridine Can see falsely depressed Can see falsely elevated result with up to 17% results with up to 11% decrease in measurement increase in measurement Recommend patients be collected for this test prior to administration of either drug. Calcium 8.5-10.1 Normal (applies to non-numeric resul ts) [facility] Procedure Social History Code Duration Value Status Description Data Source(s ) Alcohol intake 03/25/2020 12:00:00 AM EST Current drinker of al cohol (finding) completed Current drinker of alcohol (finding) [facility] Tobacco use and exposure 03/25/2020 12:00:00 AM EST Never used co mpleted Never used [facility] Smoking 03/25/2020 12:00:00 AM EST Former smoker completed Former smoker [facility] Alcohol intake 03/15/2020 12:00:00 AM EST Current drinker of al cohol (finding) completed Current drinker of alcohol (finding) [facility] Alcohol intake 02/26/2020 12:00:00 AM EST Current drinker of al cohol (finding) completed Current drinker of alcohol (finding) [facility] Alcohol intake 12/01/2019 12:00:00 AM EDT Yes completed [facility] Smoking 12/01/2019 12:00:00 AM EDT Never smoker completed Never s moker [facility] Alcohol intake 02/16/2019 12:00:00 AM EST Current drinker of al cohol (finding) completed Current drinker of alcohol (finding) [facility] Smoking 02/16/2019 12:00:00 AM EST Former smoker completed Former smoker [facility] Vital Signs ID Date Data Source UNK Name Value Range Interpretation Code Description Data Source(s) Systolic blood pressure 121 mm[Hg] 121 mm[Hg] S [facility] Oxygen saturation in Arterial blood by Pulse oximetry 95 % 95 % [facility] Respiratory rate 16 /min 16 /min [facility] Body temperature 36.[address] [facility] Heart rate 85 /min 85 /min [facility] Diastolic blood pressure 79 mm[Hg] 79 mm[Hg] [facility] Body mass index (BMI) [Ratio] 42.54 kg/m2 42.54 kg/m2 [facility] Body weight 138.347 kg 138.347 kg [facility] Body height 180.3 cm 180.3 cm [facility] Body mass index (BMI) [Ratio] 40.7 kg/m2 40.7 k g/m2 [facility] ([facility], ) Body weight 300.00 [lb_av] 300.00 [lb_av] MEDEN T ([facility], ) Body height 72 [in_i] 72 [in_i] [facility] ([facility], ) 6'0" Heart rate 72 /min 72 /min [facility] ([facility], ) Diastolic blood pressure 80 mm[Hg] 80 mm[Hg] [facility] ([facility], ) Systolic blood pressure 130 mm[Hg] 130 mm[Hg] M EDENT ([facility], ) Body weight 270 [lb_av] 270 [lb_av] KATIE ([facility]) Systolic blood pressure 134 mm[Hg] 134 mm[Hg] A THENA ([facility]) Body mass index (BMI) [Ratio] 36.6 kg/m2 36.6 k g/m2 KATIE ([facility]) Body height 72 [in_i] 72 [in_i] KATIE ([facility]) Diastolic blood pressure 82 mm[Hg] 82 mm[Hg] KATIE ([facility]) ID Date Data Source [id number] 03/18/2020 05:39:04 PM [facility] Name Value Range Interpretation Code Description Data Source(s) WEIGHT RECORDED 300 lb 300 lb [facility] Body height Measured 72 in 72 in [facility] ID Date Data Source [id number] 01/29/2020 02:38:09 PM [facility] Name Value Range Interpretation Code Description Data Source(s) WEIGHT RECORDED 304.4 lb 304.4 lb [facility] Body height Measured 72.01 in 72.01 in [facility] WEIGHT RECORDED 304.4 lb 304.4 lb [facility] Body height Measured 72.01 in 72.01 in [facility] ID Date Data Source [id number] 02/19/2020 09:51:00 AM EST [facility] spital Name Value Range Interpretation Code Description Data Source(s) Weight Measurement Method 8 8 [facility] 4080 [facility]80 [facility] 7 7 [facility] Temperature 96.9 96.9 [facility] spital Respiratory Effort 1 1 [facility] Respiratory Rate 18 18 [facility] Pulse Assessment Method 4 4 [facility] Pulse Rate 83 83 [facility] pital Height 72 72 [facility] Blood Pressure 160/100 160/100 [facility] ID Date Data Source [id number] 02/19/2020 09:51:00 AM EST [facility] spital Name Value Range Interpretation Code Description Data Source(s) Weight 4160 4160 [facility] Temperature Source 7 7 [facility] Temperature 96.9 96.9 [facility] spital Respiratory Effort 2 2 [facility] Respiratory Rate 16 16 [facility] Pulse Assessment Method 4 4 [facility] Pulse Rate 99 99 [facility] pital Height 72 72 [facility] Blood Pressure 123/80 123/80 [facility] Patient Treatment Plan of Care Planned Activity Planned Date Details Description Data Source (s) sodium chloride (preservative free) 0.9 % flush 3 mL 021 05:00:[address] [facility] sodium chloride 0.9 % bag 3-20 mL 03/15/2020 09:54:[address] [facility] Ergocalciferol 27831 UNT Oral Capsule 02/19/2020 12:00:[address] [facility] Methocarbamol 500 MG Oral Tablet 12/02/2019 12:00:00 AM EDT [facility] Oxycodone Hydrochloride 5 MG Oral Tablet 12/02/2019 12:00:00 AM EDT [facility] Losartan Potassium 50 MG Oral Tablet 02/06/2019 12:00:[address] [facility] tizanidine 4 MG Oral Tablet [facility] Acetaminophen 325 MG / Oxycodone Hydrochloride 10 MG Oral Tablet [facility]
[2020-03-26] MEDS ORDERED: CEPH500C (12:41)
[2020-03-26] MEDS ORDERED: PREG100C (12:41)
[2020-03-26] MEDS ORDERED: OXYC20TA40 (12:41)
[2020-03-26] MEDS ORDERED: METO1TAB7 (12:41)
[2020-03-26] MEDS ORDERED: VITA50005 (12:41)
[2020-03-26] MEDS ORDERED: OXYC10TA3 (12:41)
--- OUTSIDE RECORDS SUMMARY | 2020-03-26 12:55 | CCD ---
Author Author [facility] Organization [facility] Address Unknown Phone Unavailable Care Team Providers Care Beater Out Name Role Phone Yusuf Grissom Unavailable Unavailable Praveena, Jacek FLORES Unavailable Unavailable Praveena, Jacek FLORES Unavailable Unavailable Praveena, Jacek FLORES Unavailable Unavailable Praveena, Jacek FLORES Unavailable Unavailable Praveena, Jacek FLORES Unavailable Unavailable Praveena, Jacek FLORES Unavailable Unavailable Praveena, Jacek FLORES Unavailable Unavailable Praveena, Jacek MD Unavailable Unavailable Praveena, Jacek MD Unavailable Unavailable Praveena, Jacek MD Unavailable Unavailable Parveena, Jacek MD Unavailable Unavailable PraveenaYusuf Unavailable Unavailable PraveenaYusuf Unavailable [...] Unavailable Unavailable Schaffer, Jermain Unavailable Unavailable Schaffer, Ejrmain Unavailable Unavailable Schaffer, Jermain Unavailable Unavailable Schaffer, [...] Jermain Unavailable Unavailable Schaffer, Jermain Unavailable Unavailable Tokio, F Bijan PA Unavailable Unavailable Tokio, F Bijan PA Unavailable Unavailable [place]io, F Bijan PA Unavailable Unavailable Tokio, F Bijan PA Unavailable Unavailable Tokio, F Bijan PA Unavailable Unavailable Storm, F Bijan PA Unavailable Unavailable Storm, F Bijan PA Unavailable Unavailable Tokio, F Bijan PA Unavailable Unavailable Tokio, F Bijan PA Unavailable Unavailable Tokio, F Bijan PA Unavailable Unavailable Hadian, Max [...] Unavailable Rey DALTON MD Unavailable Unavailable Rey DALTNO MD Unavailable Unavailable Rey DALTON MD Unavailable [...] Unavailable Rey DALTON MD Unavailable Unavailable Rey ADLTON MD Unavailable Unavailable Rey DALTON MD Unavailable [...] DALTON MD Unavailable Unavailable Jumalon, M Wen METALWORKING INSTRUCTOR Unavailable Unavailable Jumalon, M Wen METALWORKING INSTRUCTOR Unavailable Unavailable Jumalon, M Wen METALWORKING INSTRUCTOR Unavailable Unavailable Jumalon, M Wen METALWORKING INSTRUCTOR Unavailable Unavailable Jumalon, M Wen METALWORKING INSTRUCTOR Unavailable Unavailable Jumalon, M Wen METALWORKING INSTRUCTOR Unavailable Unavailable Jumalon, M Wen METALWORKING INSTRUCTOR Unavailable Unavailable Jumalon, M Wen METALWORKING INSTRUCTOR Unavailable Unavailable Jumalon, M Wen METALWORKING INSTRUCTOR Unavailable Unavailable Jumalon, M Wen METALWORKING INSTRUCTOR Unavailable Unavailable Jumalon, M Wen METALWORKING INSTRUCTOR Unavailable Unavailable Jumalon, M Wen METALWORKING INSTRUCTOR Unavailable Unavailable Jumalon, M Wen METALWORKING INSTRUCTOR Unavailable Unavailable Jumalon, M Wen METALWORKING INSTRUCTOR Unavailable Unavailable Jumalon, M Wen METALWORKING INSTRUCTOR Unavailable Unavailable Jumalon, M Wen METALWORKING INSTRUCTOR Unavailable Unavailable Jumalon, M Wen METALWORKING INSTRUCTOR Unavailable Unavailable Jumalon, M Wen METALWORKING INSTRUCTOR Unavailable Unavailable Jumalon, M Wen METALWORKING INSTRUCTOR Unavailable Unavailable Jumalon, M Wen METALWORKING INSTRUCTOR Unavailable Unavailable Jumalon, M Wen METALWORKING INSTRUCTOR Unavailable Unavailable Jumalon, M Wen METALWORKING INSTRUCTOR Unavailable Unavailable Jumalon, M Wen METALWORKING INSTRUCTOR Unavailable Unavailable Jumalon, M Wen METALWORKING INSTRUCTOR Unavailable Unavailable Jumalon, M Wen METALWORKING INSTRUCTOR Unavailable Unavailable Jumalon, M Wen METALWORKING INSTRUCTOR Unavailable Unavailable Jumalon, M Wen METALWORKING INSTRUCTOR Unavailable Unavailable Jumalon, M Wen METALWORKING INSTRUCTOR Unavailable Unavailable Rey GARCÍA MD Unavailable Unavailable [...] Unavailable Unavailable Rey GARCÍA MD Unavailable Unavailable Rye GARCÍA MD Unavailable Unavailable Rey GARCÍA MD [...] is protected by Article 27-F of the [place] State Public Health law. If you continue you may have access to information: Regarding HIV / AIDS; Provided by facilities licensed or operated by the [facility] Office of Mental Health; or Provided by the [facility] Office for People With Developmental Disabilities. If such information is present, then the following [facility] mandated warning applies: This information has been [...] law may result in a fine or care home sentence or both. A general authorization for the release of medical or other information is NOT sufficient authorization for further disc losure. Encounters Encounter Providers Location Date Indications Data Source(s ) Outpatient Attender: Jermain Schaffer 07/19/2020 12:00:00 AM [facility] Outpatient Attender: Jermain Schaffer [id number] 03/25/2020 12:00:[address] [facility] Recurring Patient Referrer: DELL TIRADO DO 03/24/2020 11 :20:26 AM [facility] Outpatient Attender: EDGABE REASON DO ED-IMAG 03/23 02:47:00 PM [facility] - 03/23/2020 02:48:00 PM [facility] I771 [facility] I771 Patient discharged. Outpatient Attender: GASTON PIZANOAdmitter: GASTON PIZANO Referrer: Jermain Schaffer [id number] 03/15/2020 12:00:00 AM EST - 03/15/2020 12:00:00 AM ES T Malignant neoplasm of right kidney, except renal pelvis [facility] Malignant neoplasm of right kidney, exce pt renal pelvis Patient discharged. Outpatient 03/11/2020 12:00:[address] [facility] Outpatient Attender: Max Salmeron ED-LABPNP 02:04:00 PM EST - 03/10/2020 02:05:00 PM EST PREOP [facility] PREOP Patient discharged. Outpatient Attender: DELL REASON DO ED-LAB 03/05 09:45:00 AM EST - 03/05/2020 09:46:00 AM EST [id number] [facility] [id number] Patient discharged. Outpatient Attender: Jermain Schaffer [id number] 02/26/2020 12:00:[address] [facility] Recurring Patient Referrer: DELL TIRADO DO 02/25/2020 10 :08:17 AM EST [facility] Outpatient Referrer: Jermain Davon 02/24/2020 12:00:0 0 AM EST Malignant neoplasm of right kidney, except renal pelvis [facility] Malignant neoplasm of right kidney, exce pt renal pelvis Outpatient Attender: Jermain Schaffer 02/15/2020 12:00:00 AM E [facility] Outpatient [facility] 02/02/2020 02:59:00 PM EST [facility] Outpatient Attender: DELL TIRADO DO ED-LAB 02/01 01:38:00 PM EST - 02/02/2020 01:39:00 PM EST E559 [id number] I10 N400 C641 [facility] E559 E538 I10 N400 C641 Patient discharged. Outpatient Attender: BIJAN DALTON MDReferrer: DELL JACOBO DO 01/21/2020 12:16:55 PM EST [facility] 12/25/2019 02:56:00 PM EST [facility] Outpatient Attender: DELL TIRADO DO ED-LABPNP 12/24 01:35:00 PM EST - 12/25/2019 01:36:00 PM EST HEADACHE [facility] HEADACHE Patient discharged. Outpatient Attender: Tremaine Marvinerrer: DELL MALDONADO DO 12/25/2019 08:18:21 AM EST [facility] Inpatient Attender: HOUSTON GARCÍA MDAt tender: BIJAN DALTON MDAdmitter: BIJAN DALTON MDReferrer: BIJAN DALTON MD [id number] 09:00:39 AM EDT - 12/02/2019 02:12:00 PM EDT [facility] Patient discharged. Outpatient Admitter: BIJAN DALTON MDReferrer: BIJAN DALTON MD MOB-MOB.PAT 11/25/2019 12:00:00 AM EDT [facility] Outpatient Attender: Tremaine Mayaer: DELL BRANDON SON DO 11/24/2019 09:57:47 AM EDT [facility] Recurring Patient Referrer: DELL REASON DO 11/19/2019 11 :41:32 AM EDT [facility] Outpatient Attender: BIJAN DALTON MDAdmitter: BIJAN DALTON MDReferrer: BIJAN DALTON MD MOB-MOB.PAT 11/19/2019 12:00:00 AM EDT - 11/19/2019 02:52:02 PM EDT [facility] Outpatient [facility]PS[facility]-LABEJN 11/10/2019 09:25:00 PM EDT [facility] Outpatient Attender: DELL REASON DO ED-LAB 11/09 10:02:00 AM EDT - 11/10/2019 10:03:00 AM EDT I10 PREOP [facility] I10 PREOP Patient discharged. Recurring Patient Referrer: DELL REASON DO 11/04/2019 07 :00:10 AM EDT [facility] Outpatient Attender: BIJAN DALTON MDReferrer: DELL JACOBO DO 09/03/2019 07:23:32 PM EDT [facility] Recurring Patient Referrer: DELL TIRADO DO 09/03/2019 01 :52:24 PM EDT [facility] Outpatient Attender: Jacek Grissom MD Main office - [place] 08/19/2019 12:30:00 PM EDT [facility] ([facility] Outpatient Attender: Jacek Grissom MD Main office - [place] 07/20/2019 12:15:00 PM EDT [facility] ([facility]) Outpatient [facility]-LABEJN 06/12/2019 02:48:00 PM EDT [facility] Outpatient Attender: DELL TIRADO DO ED-IMAG 06/11 12:12:00 PM EDT - 06/12/2019 12:13:00 PM EDT PVD - BILAT LEGS I73.9 G62.89 [facility] PVD - BILAT LEGS I73.9 G62.89 Patient discharged. Wen Earl, PHLEBOTOMY TECH: [address], [address], [place] [address], Ph. Attender: Wen Rodriguezeliza MCKOY [facility] 03/31/2019 12:00:00 AM EST ATHE NA ([facility]) Farzad Leon MD: [address], [facility] [place] [address], Ph. Attender: Farzad Leon MD [facility] 02/23/2019 12:00:00 AM EST KATIE ([facility]) Farzad Leon MD: [id number], [place] [address], Ph. Attender: Farzad Leon MD [facility] 02/23/2019 12:00:00 AM EST KATIE ([facility]) Outpatient Attender: Jermain Schaffer [id number] 0 12:00:00 AM EST - 02/16/2019 01:36:52 PM EST Malignant neoplasm of right kidney, exce pt renal pelvis [facility] Malignant neoplasm of right kidney, exce pt renal pelvis Outpatient Referrer: Jermain Schaffer 02/16/2019 12:00:0 0 AM EST Malignant neoplasm of right kidney, except renal pelvis [facility] Malignant neoplasm of right kidney, exce pt renal pelvis Outpatient Attender: Jermain Schaffer [facility] 9 10:22:00 AM EST - 02/07/2019 10:23:00 AM EST C641 [facility] C641 Patient discharged. R Attender: BIJAN DALTON MD ED-PRSGHPT 0 04/04/2017 09:36:00 AM EST - 04/10/2017 12:01:00 AM EST LOW BACK PAIN, SPONDYLOLISTHESIS [facility] LOW BACK PAIN, SPONDYLOLISTHESIS R Attender: BIJAN DALTON MD ED-PRSGHPT 0 03/08/2017 09:54:00 AM EST - 03/13/2017 12:01:00 AM EST LOW BACK PAIN, SPONDYLOLISTHESIS [facility] LOW BACK PAIN, SPONDYLOLISTHESIS R Attender: BIJAN [facility]ALTON MD [facility] 04/10/2016 09:47:00 AM EST - 02/10/2017 12:01:00 AM EST LOW BACK PAIN, SPONDYLOLISTHESIS [facility] LOW BACK PAIN, SPONDYLOLISTHESIS Outpatient Attender: EDWARD REASON DO ED-IMAG 11/02 10:03:00 AM EDT - 11/02/2016 10:04:00 AM EDT LBP [facility] LBP Outpatient Attender: EDWARD REASON DO ED-LAB 10/11 03:24:00 PM EDT - 10/11/2016 03:25:00 PM EDT [id number] CONTUSION OF THE RIGHT HIP [facility] [id number] CONTUSION OF THE RIGHT HIP Emergency Attender: GUSTAVO COLLAZO MD ED-ED 2016 08:00:00 PM EDT - 10/08/2016 08:50:00 PM EDT RT LOWER BACK AND HIP PAIN [facility] RT LOWER BACK AND HIP PAIN Outpatient Attender: Jermain Schaffer [facility] 6 09:02:00 AM EDT - 09/13/2015 09:03:00 AM EDT C64.1 [facility] C64.1 Outpatient Attender: EDWARD REASON DO [facility] 06/09 09:26:00 AM EDT - 06/10/2015 09:27:00 AM EDT K86.9, [facility] K86.9, Emergency Attender: Bijan MATTHEWS ED-ED 01:01:00 AM EDT - 06/09/2015 03:54:00 AM EDT EPIGASTRIC DISCOMFORT [facility] EPIGASTRIC DISCOMFORT Outpatient Attender: Jermain Schaffer [facility] 6 03:00:00 PM EDT - 05/20/2015 03:01:00 PM EDT C64.1 [facility] C64.1 Outpatient Attender: Jermain Schaffer [facility] 6 01:54:00 PM EST - 04/20/2015 01:55:00 PM EST C64.1 [facility] C64.1 Medications Medication Brand Name Start Date Product Form Dose Route Admi nistrative Instructions Pharmacy Instructions Status Indications Reaction Description Data Source(s) 100 mg 03/20/2020 12:00:00 AM EST capsule 60 TAKE ONE CAPSULE BY MOUTH TWICE A DAY MAXIMUM DAILY DOSE = 2 TAKE ONE CAPSULE BY MOUTH TWICE A DAY MA XIMUM DAILY DOSE = 2 SOLD: 03/20/2020 [facility] Cephalexin 500 MG Oral Capsule CEPHALEXIN 03/20/2020 12:00:00 AM EST capsule 28 TAKE ONE CAPSULE BY MOUTH FOUR TIMES A DAY FOR 7 DAYS TAKE ONE CAPSULE BY MOUTH FOUR TIMES A DAY FOR 7 DAYS SOLD: 03/20/2020 [facility] 2 % 03/20/2020 12:00:00 AM EST ointment 22 APPLY ONCE DAILY DIRECTED TO AFFECTED TOES APPLY ONCE DAILY DIRECTED TO AFFECTED TOES SOLD: 03/20/2020 [facility] 20 mg 03/17/2020 12:00:00 AM EST tablet,oral only,ext.re l.12 hr 60 TAKE ONE TABLET BY MOUTH EVERY 12 HOURS MAXIMUM DAILY DOSE = 2 TAKE ONE TABLET BY MOUTH EVERY 12 HOURS MAXIMUM DAILY DOSE = 2 SOLD: 03/17/2020 [facility] 10-325 mg 03/17/2020 12:00:00 AM EST tablet 120 TAKE ONE TABLET BY MOUTH FOUR TIMES A DAY NEEDED MAXIMUM DAILY DOSE = 4 TAKE ONE TABLET BY MOUTH FOUR TIMES A DAY NEEDED MAXIMUM DAILY DOSE = 4 SOLD: 03/17/2020 [facility] sodium chloride (preservative free) 0.9 % flush [...] For 1 occurrence
Pre-op [Order 4 End] [facility] Medication administered onsite sodium bicarbonate 8.4 % 1 mL in lidocaine (XYLOCAINE) 2 % 4 mL injection 03/15/2020 12:00:00 PM EST Infiltration complete d Infiltration, Code/Trauma Medication, Starting Sat03/15/20 at 1200 [facility] Medication administered onsite Cefazolin 1000 MG Injection ceFAZolin (ANCEF) IVPB 1 g in dextrose 5 % (premix) ceFAZolin (ANCEF) IVPB 1 g in dextrose 5 % (premix) 03/15/2020 11:53:19 AM EST completed Administer ove r 30 Minutes, Code/Trauma continuous Med, Starting [facility] 03/15/20 at 1153 [facility] Medication administered onsite sodium chloride 0.9 % bag 3-20 mL [id number] 03/15/2020 09:54:43 AM EST mL Intravenous active 3-20 mL, Intr avenous, at 1-999 mL/hr, PRN, For Medication Administration and Line Clearance, Starting 03/15/20 at 0954, For 30 days, Pre-op
Flush line with sufficient amount of fluid needed based on fruit room hand recommendation for specific line size. Rate should be run at the same rate as medication in the line being flushed.
[facility] Medication administered onsite iohexol (OMNIPAQUE) 300 MG/ML contrast injection 100 mL 1776 02/24/2020 01:45:00 PM EST 100 mL Intravenous completed 100 mL, Intravenous, 1 TIME IMAGING, 02/24/20 at 1345, For 1 dose, Imaging Protocol [facility] Medication administered onsite Ergocalciferol 19624 UNT Oral Capsule Vi tamin D (Ergocalciferol) 1.25 MG (94033 UT) Oral Capsule (ERGOCALCIFEROL) Vitamin D (Ergocalciferol) 1.25 MG (5000 0 UT) Oral Capsule (ERGOCALCIFEROL) 02/19/2020 12:00:00 AM EST [facility] 20 mg 02/10/2020 12:00:00 AM EST tablet,oral [...] dose, Post-op
Post-op day #2Hold for BM
[facility] Medication administered onsite Methocarbamol 500 MG Oral Tablet methocarbamol (ROBAXI N) 500 MG tablet methocarbamol (ROBAXIN) 500 MG tablet 12/02/2019 12:00:00 AM EDT 50 0 mg Oral active Take 1 tablet ( 500 mg total) by mouth 4 (four) times a day as needed [facility] Oxycodone Hydrochloride 5 MG Oral Tablet oxyCODONE (ROXICODONE) 5 MG immediate release tablet oxyCODONE (ROXICODONE) 5 MG immediate release tablet 1 12:00:00 AM EDT active Take 1-2 tablets every 4 hrs prn pain. MDD: 6 tablets [facility] 500 mg 12/02/2019 12:00:00 AM EDT tablet [...] First dose on Sat12/01/19 at 2100, Post-op [facility] Medication administered onsite Methocarbamol 500 MG Oral Tablet methocarbamol (ROBAXI N) tablet 500 mg methocarbamol (ROBAXIN) tablet 500 mg 12/01/2019 03:13:56 PM EDT 50 0 mg Oral active 500 mg, Oral, 4 times daily PRN, muscle spasms, Starting Sat12/01/19 at 1513 [facility] Medication administered onsite oxyCODONE HCl ER (OXYCONTIN) tablet 20 mg [id number] 12/01/2019 11:00:00 AM EDT 20 mg Oral active 20 mg, O ral, Every 12 hours, First dose on Sat12/01/19 at 1100 [facility] Medication administered onsite POLYETHYLENE GLYCOL 3350 142 MG/ML Oral Solution polyethylene glycol (GLYCOLAX) packet 17 g polyethylene glycol (GLYCOLAX) packet 17 g 12/01/2019 09:00:00 AM EDT 17 g Oral active 17 g, Or al, Daily, First dose on Sat12/01/19 at 0900, Post-op
Start POD #1
[facility] Medication administered onsite Bisacodyl 10 MG Rectal Suppository bisacodyl (DULCOLAX ) suppository 10 mg bisacodyl (DULCOLAX) suppository 10 mg 12/01/2019 12:00:00 AM EDT 10 mg Rectal active 10 mg, Rectal, Daily PRN, constipation, for constipation unrelieved by miralax/MOM, Starting Sat12/01/19 at 0000, For 4 days, Post- op
For post-op day #1, #3, and #4Hold for BM
[facility] Medication administered onsite Docusate Sodium 50 MG / sennosides, SKILLED NURSING 8.6 MG Oral Tablet senna-docusate (PERICOLACE) 8.6-50 MG 2 tablet senna-docusate (PERICOLACE) 8.6-50 MG 2 tablet 11/30/2019 09:00:00 PM EDT 2 {tbl} Oral active 2 tablet, Oral, Nightly, First dose on Sat11/30/19 at 2100, Post-op
hold for loose stools
[facility] Medication administered onsite pregabalin 100 MG Oral Capsule pregabalin (LYRICA) cap addison 100 mg pregabalin (LYRICA) capsule 100 mg 11/30/2019 09:00:00 PM EDT 100 mg Oral active 100 mg, Oral, 2 times daily, First dose on Sat11/30/19 at 2100, For 7 days, Post-op [facility] Medication administered onsite sodium chloride 0.9% (NS) infusion [id number] 11/30/2019 06:00:00 P M EDT Intravenous active at 100 mL/hr, Intravenous, Continuous, Starting Sat11/30/19 at 1800, Post-op [facility] Medication administered onsite cefazolin (ANCEF) injection 2 [...] this medication through syringe adapter set ref [phone]. Flush line after use
[facility] Perioperative Pharmacoprophylaxis Medication administered onsite Acetaminophen 500 MG Oral Tablet acetaminophen (TYLENO L) tablet 1,000 mg acetaminophen (TYLENOL) tablet 1,000 mg 11/30/2019 06:00:00 PM EDT 1000 mg Oral active 1,000 mg, Oral , Every 6 hours (scheduled), First dose on Sat11/30/19 at 1800, Post-op [facility] Medication administered onsite Oxycodone Hydrochloride 5 MG Oral Tablet oxyCODONE (ROXICODONE) immediate release tablet 5 mg oxyCODONE (ROXICODONE) immediate release tablet 5 mg 11/30/2019 04:54:15 PM EDT 5 mg Oral active 5 mg, Oral, Every 4 hours PRN, moderate pain (4-6), Starting 11/30/19 at 1654, For 7 days, Post-op [facility] Medication administered onsite Oxycodone Hydrochloride 10 MG Oral Tablet Oxycodone HC l TABS 10 mg Oxycodone HCl TABS 10 mg 11/30/2019 04:54:15 PM EDT 10 mg Oral active 10 mg, Oral, Every 4 hours PRN, severe pain (7-10), Starting 11/30/19 at 1654, For 7 days, Post-op [facility] Medication administered onsite Ondansetron 4 MG Disintegrating Oral Tab let ondansetron (ZOFRAN-ODT) disintegrating tablet 4 mg ondansetron (ZOFRAN-ODT) disintegrating tablet 4 mg 11/30/2019 04:54:15 PM EDT 4 mg Oral active 4 mg, Oral, Every 4 hours PRN, nausea, vomiting, Starting 11/30/19 at 1654, Post-op [facility] Medication administered onsite ondansetron (ZOFRAN) injection 4 mg [id number] 11/30/2019 04:54:1 5 PM EDT 4 mg Intravenous active 4 mg, In travenous, Every 4 hours PRN, nausea, vomiting, Starting 11/30/19 at 1654, Post-op
If unable to take PO
[facility] Medication administered onsite Mineral Oil 1000 MG/ML Enema mineral oil enema 1 enema mineral oil enema 1 enema 11/30/2019 04:54:15 PM EDT 1 {enema} Rectal active 1 enema, Rectal, Daily PRN, constipation, if unrelieved by dulcolax, Starting 11/30/19 at 1654, Post-op
hold for loose stools
[facility] Medication administered onsite fentaNYL Citrate (PF) (SUBLIMAZE) injection 50 mcg [id number] 11/30/2019 04:54:15 PM EDT 50 ug Intravenous active 50 mcg, Intravenous, Every 3 hours PRN, for severe breakthrough pain (7-10) if oral opioid ineffective, Starting Sat11/30/19 at 1654, For 7 days, Post-op [facility] Medication administered onsite 1 ML Meperidine Hydrochloride 50 MG/ML I njection meperidine (DEMEROL) injection 25 mg meperidine (DEMEROL) injection 25 mg 11/30/2019 04:18:32 PM EDT 25 mg Intravenous aborted 25 mg, Intrav enous, Every 10 min PRN, severe pain (7-10), Starting Sat11/30/19 at 1618, For 2 doses, PACU (only) [facility] Medication administered onsite HYDROmorphone (DILAUDID) injection 0.5 mg [id number] 11/30/2019 03:54:58 PM EDT 0.5 mg Intravenous aborted 0.5 mg, Intravenous, Every 5 min PRN, severe pain (7-10), Starting Sat11/30/19 at 1554, For 4 doses, PACU (only) [facility] Medication administered onsite fentaNYL Citrate (PF) (SUBLIMAZE) injection 25 mcg [id number] 11/30/2019 02:43:29 PM EDT 25 ug Intravenous aborted 25 mcg, Intravenous, Every 5 min PRN, moderate pain (4 to 6), Starting Sat11/30/19 at 1443, For 5 doses, PACU (only) [facility] Medication administered onsite HYDROmorphone (DILAUDID) injection 0.5 mg [id number] 11/30/2019 02:43:29 PM EDT 0.5 mg Intravenous completed 0. 5 mg, Intravenous, Every 5 min PRN, severe pain (7-10), Starting Sat11/30/19 at 1443, For 5 doses, PACU (only) [facility] Medication administered onsite Acetaminophen 500 MG Oral Tablet acetaminophen (TYLENO L) tablet 1,000 mg acetaminophen (TYLENOL) tablet 1,000 mg 11/30/2019 09:00:00 AM EDT 1000 mg Oral completed Spinal stenosis of lumbar region with neurogenic claudication 1,000 mg, Oral, senior maintenance mechanic, Sat11/30/19 at 0900, For 1 dose, Pre-op
To be administered just prior to to transport to operating room
[facility] Spinal stenosis of lumbar region with ne urogenic claudication Medication administered onsite chlorhexidine gluconate 1.2 MG/ML Mouthw aleksey chlorhexidine (PERIDEX) 0.12 % oral solution 15 mL chlorhexidine (PERIDEX) 0.12 % oral solution 15 mL 09:00:00 AM EDT 15 mL Mouth/Throat completed S randell stenosis of lumbar region with neurogenic claudication 15 mL, Mouth/Throa t, senior maintenance mechanic, Sat11/30/19 at 0900, For 1 dose, Pre-op
Swish for 30 seconds and spit in pre-induction unit
[facility] Spinal stenosis of lumbar region with ne urogenic claudication Medication administered onsite dexamethasone (DECADRON) injection 4 mg [id number] 11/30/19 09:00:00 AM EDT 4 mg Intravenous completed Spinal stenos is of lumbar region with neurogenic claudication 4 mg, Intravenous, senior maintenance mechanic, Sat11/30/19 at 0900, For 1 dose, Pre-op
To be administered just prior to to transport to operating room.Hold if patient is diabetic or if stress dose steroids are ordered
[facility] Spinal stenosis of lumbar region with ne urogenic claudication Medication administered onsite 2 ML Metoclopramide 5 MG/ML Prefilled Sy ringe metoclopramide (REGLAN) injection 10 mg metoclopramide (REGLAN) injection 10 mg 11/30/2019 09:00:00 AM E DT 10 mg Intravenous completed Spinal stenosis of lumbar region with neurogenic claudication 10 mg, Intravenous, senior maintenance mechanic, Sat11/30/19 at 0900, For 1 dose, Pre-op
To be administered just prior to to transport to operating room
[facility] Spinal stenosis of lumbar region with ne urogenic claudication Medication administered onsite ondansetron (ZOFRAN) injection 4 mg [id number] 11/30/2019 09:00:0 0 AM EDT 4 mg Intravenous completed Spinal stenosis of lumbar region with neurogenic claudication 4 mg, Intravenous, senior maintenance mechanic, Sat11/30/19 at 0900, For 1 dose, Pre-op
To be administered just prior to to transport to operating room
[facility] Spinal stenosis of lumbar region with ne urogenic claudication Medication administered onsite Magnesium Chloride 0.63213 MEQ/ML / Pota ssium Chloride 0.0497 MEQ/ML / Sodium Acetate 0.0163 MEQ/ML / Sodium Chloride 0.0899 MEQ/ML / Sodium gluconate 5.02 MG/ML Injectable Solution [Normosol-R] electrolyte-R (NORMOSOL-R/PLASMALYTE-R) solution electrolyte-R (NORMOSOL-R/PLASMALYTE-R) solution 11/29 09:00:00 AM EDT Intravenous aborted at 1 00 mL/hr, Intravenous, Continuous, Starting Sat11/30/19 at 0900, Pre-op [facility] Medication administered onsite Hydrochlorothiazide 12.5 MG Oral [...] DOLLY ALMAZAN DAILY DOSE = 2 SOLD: 11/10/2019 [facility] 100 mg 10/12/2019 12:00:00 AM EDT capsule 60 TAKE ONE CAPSULE BY MOUTH TWICE A DAY MAXIMUM DAILY DOSE = 2 TAKE ONE CAPSULE BY MOUTH TWICE A DAY DOLLY ALMAZAN DAILY DOSE = 2 SOLD: 10/12/2019 [facility] 100 mg 10/12/2019 12:00:00 AM EDT capsule 60 TAKE ONE CAPSULE BY MOUTH TWICE A DAY MAXIMUM DAILY DOSE = 2 TAKE ONE CAPSULE BY MOUTH TWICE A DAY DOLLY ALMAZAN DAILY DOSE = 2 SOLD: 12/10/2019 [facility] [...] MA XIMUM DAILY DOSE = 2 SOLD: 09/14/2019 [facility] [...] MA XIMUM DAILY DOSE = 2 SOLD: 07/15/2019 [facility] [...] Hour 06/18/2019 12:00:00 AM EDT active [facility] ([facility]) 10-325 mg 06/11/2019 12:00:00 [...] at 1300, For 1 dose, Imaging Protocol [facility] Medication administered onsite Losartan Potassium 50 MG Oral Tablet Los tenisha Potassium 50 MG Oral Tablet (COZAAR) Losartan Potassium 50 MG Oral Tablet (COZAAR) 02/07/20 19 12:00:00 AM EST active [facility] 10-325 mg 01/25/2019 12:00:00 AM EST tablet [...] 6 (six) hours as needed for pain [facility] tizanidine 4 MG Oral Tablet tiZANidine (ZANAFLEX) 4 MG tablet tiZANidine (ZANAFLEX) 4 MG tablet 4 mg Oral aborted Take 4 mg by mouth nightly as needed [facility] Insurance Providers Payer name Policy type / Coverage type Policy ID Covered alliance party ID Covered alliance party's relationship to jhaveri Policy Jhaveri Plan Information [facility] [id number] SP [id number] [facility] EMPIRE MARIA ELENA DIV [id number] SP [id number] [facility] [id number] SP [id number] [facility] EMPIRE MAR[place] ELENA DIV [id number] SP [id number] EMPIRE PLAN [facility] U [id number] Self [id number] EXCELLUS [facility] [place] [id number] S [id number] [facility] INS[facility]ANCE FUND [id number] S [id number] [facility] INSURANCE FUND [id number] S [id number] [employer] [place] [id number] S [id number] [employer] [place]IRE [id number] S [id number] [employer] [place] [id number] S [id number] WORKER'S COMP [id number] WORKER'S COMP [id number] Rabia [id number] INSURANCE COVID-19 COVID Rabia C OVID WORKER'S COMP [id number] Rabia [id number] ONE CALL CARE MANAGEMENT O [id number] S [id number] [employer] EMPIRE [place] ELENA DIV [id number] SP [id number] [facility] [id number] SP [id number] [facility] O [id number] S [id number] [facility] O [id number] S [id number] [facility] [id number] SP [id number] [employer] EMPIRE [place] ELENA DIV [id number] SP [id number] EMPIRE PLAN [facility] U [id number] Self [id number] EMPIRE PLAN [facility] U [id number] Self [id number] EMPIRE BLUE CROSS -O/P [id number] [facility] [id number] BLUE CARD C [id number] Self [id number] Problems, Conditions, and Diagnoses Code Display Name Description Problem Type Effective Dates Data Source(s) I10 Hypertension Hypertension 06666520 11/30/2019 12:00:00 A M EDT [facility] E53.8 Vitamin B12 deficiency Vitamin B12 deficiency 55754696 11/30/2019 12:00:00 AM EDT [facility] E55.9 Vitamin D deficiency Vitamin D deficiency 18153579 11/30/2019 12:00:00 AM EDT [facility] F10.20 Alcohol dependence Alcohol dependence 97168410 12:00:00 AM EDT [facility] M54.5 Low back pain radiating to both legs Low back pa in radiating to both legs 88420623 11/30/2019 12:00:00 AM EDT [facility] R60.0 Edema of both legs Edema of both legs 71526190 0 12:00:00 AM EDT [facility] R20.0 Numbness and tingling of both feet Numbness and tingling of both feet 67172268 11/19/2019 12:00:00 AM EDT [facility] G62.9 Peripheral neuropathy Peripheral neuropathy 95127338 11/19/2019 12:00:00 AM EDT [facility] Z87.19 Personal history of gallstones Personal history of gal lstones 37051245 11/19/2019 12:00:00 AM EDT [facility] E66.01 Morbid obesity with BMI of 40.0-44.9, ad ult Morbid obesity with BMI of 40.0-44.9, adult 65946521 11/19/2019 12:00:00 AM EDT [facility] K42.9 Umbilical hernia Umbilical hernia 76153416 11/19/2019 12 :00:00 AM EDT [facility] C80.1 Cancer Cancer 96933912 11/19/2019 12:00:00 AM ED T [facility] [id number] Idiopathic peripheral neuropathy Idiopathic tyler pheral neuropathy Problem 06/18/2019 12:00:00 AM EDT [facility] ([facility]) [id number] Numbness of lower limb Numbness of lower limb Problem 06/18/2019 12:00:00 AM EDT [facility] ([facility]) 9042940 Lumbosacral radiculopathy Lumbosacral radiculopathy Pr oblem 06/18/2019 12:00:00 AM EDT [facility] ([facility]) 171896571 Chronic low back pain Chronic low back pain Problem 06/18/2019 12:00:00 AM EDT [facility] ([facility]) Z11.52 ENCOUNTER FOR SCREENING FOR COVID-19 ENC OUNTER FOR SCREENING FOR COVID-19 Diagnosis 03/10/2020 02:04:00 PM EST [facility] Z01.812 Encounter for preprocedural laboratory e xamination ENCOUNTER FOR PREPROCEDURAL LABORATORY EXAMINATION Diagnosis 03/10/2020 02:04:00 PM [facility] C64.1 Malignant neoplasm of right kidney, exce pt renal pelvis MALIGNANT NEOPLASM OF RIGHT KIDNEY, EXCEPT RENAL PELVIS Diagnosis 02/02/2020 01:38:00 PM [facility] N40.0 Benign prostatic hyperplasia without low er urinary tract symptoms BENIGN PROSTATIC HYPERPLASIA WITHOUT LOWER URINRY TRACT SYMP Diagnosis 02/02/2020 01:38:00 PM [facility] E53.8 Deficiency of other specified B group vi tamins DEFICIENCY OF OTHER SPECIFIED B GROUP VITAMINS Diagnosis 02/02/2020 01:38:00 PM [facility] E55.9 Vitamin D deficiency, unspecified VITAMIN D DEFI CIENCY, UNSPECIFIED Diagnosis 02/02/2020 01:38:00 PM [facility] M48.062 Spinal stenosis, lumbar region with neur ogenic claudication Spinal stenosis, lumbar region with neur Diagnosis 11/30/2019 07:20:00 AM EDT [facility] G89.29 Other chronic pain Other chronic pain Diagnosis 07:20:00 AM EDT [facility] M54.5 Low back pain Low back pain Diagnosis 11/30/2019 07:20:00 AM EDT [facility] M43.10 Spondylolisthesis, site unspecified Spondylolist hesis, site unspecified Diagnosis 11/30/2019 07:20:00 AM EDT [facility] U07.1 COVID-19 COVID-19 Diagnosis 11/25/2019 12:00:00 AM ED T [facility] R60.0 Localized edema Localized edema Diagnosis 11/19/2019 12:5 4:33 PM EDT [facility] E53.8 Deficiency of other specified B group vi tamins Deficiency of other specified B group vi Diagnosis 11/19/2019 12:54:33 PM EDT [facility] E55.9 Vitamin D deficiency, unspecified Vitamin D defi ciency, unspecified Diagnosis 11/19/2019 12:54:33 PM EDT [facility] R20.2 Paresthesia of skin Paresthesia of skin Diagnosis 1 12:54:33 PM EDT [facility] R20.0 Anesthesia of skin Anesthesia of skin Diagnosis 09/2019 12:54:33 PM EDT [facility] F10.20 Alcohol dependence, uncomplicated Alcohol depend ence, uncomplicated Diagnosis 11/19/2019 12:54:33 PM EDT [facility] Center Z87.19 Personal history of other diseases of th e digestive system Personal history of other diseases of th Diagnosis 11/19/2019 12:54:33 PM EDT [facility] Z68.41 Body mass index (BMI) 40.0-44.9, adult B jemima mass index (BMI)40.0-44.9, adult Diagnosis 11/19/2019 12:54:33 PM EDT [facility] E66.01 Morbid (severe) obesity due to excess ca lories Morbid (severe) obesity due to excess ca Diagnosis 11/19/2019 12:54:33 PM EDT [facility] K42.9 Umbilical hernia without obstruction or gangrene Umbilical hernia without obstruction or Diagnosis 11/19/2019 12:54:33 PM EDT [facility] C80.1 Malignant (primary) neoplasm, unspecifie d Malignant (primary) neoplasm, unspecifie Diagnosis 11/19/2019 12:54:33 PM EDT [facility] I10 Essential (primary) hypertension ESSENTIAL (PRIMARY) H YPERTENSION Diagnosis 11/10/2019 10:02:00 AM T [facility] Z01.818 Encounter for other preprocedural examin ation ENCOUNTER FOR OTHER PREPROCEDURAL EXAMINATION Diagnosis 11/10/2019 10:02:00 AM EDT [facility] G62.89 Other specified polyneuropathies OTHER SPECIFIED POLYNEUROPATHIES Diagnosis 06/12/2019 12:12:00 PM EDT [facility] I73.9 Peripheral vascular disease, unspecified PERIPHERAL VASCULAR DISEASE, UNSPECIFIED Diagnosis 06/12/2019 12:12:00 PM EDT [facility] spital Surgeries/Procedures Procedure Description Date Indications Data Source(s) CUL BACT XCPT URINE BLOOD/STOOL AEROBIC ISOL WOUND CULTURE Ro utine 03/15/2020 1:17 PM EST 03/15/2020 01:17:00 PM [facility] BIOPSY BONE TROCAR/NEEDLE DEEP IR IMAGE GUIDED NEEDLE DRAIN PRO CEDURE Routine 03/15/2020 12:30 PM EST Malignant neoplasm of right kidney 03/15/2020 12:30:00 PM ES T Malignant neoplasm of right kidney [facility] Malignant neoplasm of right kidney PROTHROMBIN TIME PROTIME INR STAT 03/15/2020 10:19 AM EST 03/15/2020 10:19:[address] [facility] BLOOD COUNT COMPLETE AUTO&AUTO DIFRNTL WBC COUNT CBC AND DIFFER ENTIAL Routine 03/15/2020 10:19 AM EST 03/15/2020 10:19:[address] [facility] BASIC METABOLIC PANEL CALCIUM TOTAL BASIC METABOLIC PANEL STAT 03/15/2020 10:19 AM EST 03/15/2020 10:19:00 AM [facility] [address]21 SARS-COV-2 COVID-19 AMP PRB 03/10/2020 12:00:00 AM [facility] 25 HYDROXY INCLUDES FRACTIONS IF PERFORMED VITAMIN D 25 HYDR OXY 02/02/2020 12:00:00 AM [facility] FOLIC ACID SERUM ASSAY OF FOLIC ACID SERUM 02/02/2020 12:00:00 AM [facility] CYANOCOBALAMIN VITAMIN B-12 VITAMIN B-12 02/02/2020 12:00:00 AM [facility] URNLS DIP STICK/TABLET REAGENT AUTO MICROSCOPY URINALYSIS AU TO W/SCOPE 02/02/2020 12:00:00 AM [facility] PROSTATE SPECIFIC ANTIGEN TOTAL ASSAY OF PSA TOTAL 02/02/2020 12:00 :00 AM [facility] LIPID PANEL LIPID PANEL 02/02/2020 12:00:00 AM [facility] BLOOD COUNT COMPLETE AUTOMATED CBC Routine 12/01/2019 4:22 A M EDT 12/01/2019 08:22:00 AM EDT [facility] BASIC METABOLIC PANEL CALCIUM TOTAL BASIC METABOLIC PANEL Routi ne 12/01/2019 4:22 AM EDT 12/01/2019 08:22:00 AM EDT [facility] FLUOROSCOPY SPX <1 HOUR PHYSICIAN TIME XR OR SPINE LUMBAR JUSTIN NUATION STAT 11/30/2019 2:04 PM EDT 11/30/2019 06:04:24 PM EDT [facility] RADEX SPINE 1 VIEW SPECIFY LEVEL XR OR SPINE LUMBAR CONTINUATIO N STAT 11/30/2019 12:13 PM EDT 11/30/2019 04:13:56 PM EDT [facility] XR OR SPINE LUMBAR XR OR SPINE LUMBAR Routine 11/30/2019 12:13 PM E DT 11/30/2019 04:13:21 PM EDT [facility] LAMINECTOMY, SPINE, THORACOLUMBAR, 3 LEVELS, WITH DECO [...] stenosis of lumbar region with neurogenic claudication [facility] Chronic low back pain, unspecified back pain laterality, unspecified whether sciatica present Spondylolisthesis, unspecified spinal re gion Spinal stenosis of lumbar region with ne urogenic claudication ECG ROUTINE ECG W/LEAST 12 LDS TRCG ONLY W/O I&R ELECTROCARD IOGRAM TRACING 11/10/2019 12:00:00 AM [facility] CULTURE BACTERIAL QUANTTATIVE COLONY COUNT URINE URINE CULTU RE/COLONY COUNT 11/10/2019 12:00:00 AM [facility] URNLS DIP STICK/TABLET RGNT AUTO W/O MICROSCOPY URINALYSIS A UTO W/O SCOPE 11/10/2019 12:00:00 AM [facility] COLLECTION VENOUS BLOOD VENIPUNCTURE ROUTINE VENIPUNCTURE 12:00:00 AM [facility] BLOOD COUNT COMPLETE AUTO&AUTO DIFRNTL WBC COUNT COMPLETE CB C W/AUTO DIFF WBC 11/10/2019 12:00:00 AM [facility] BASIC METABOLIC PANEL CALCIUM TOTAL METABOLIC PANEL TOTAL CA 11/10/2019 12:00:00 AM [facility] MRI SPINAL CANAL LUMBAR W/O CONTRAST MATERIAL 07/22/19 12:00:[address] [facility] ([facility] MRI SPINAL CANAL LUMBAR W/O CONTRAST MATERIAL 07/22/19 12:00:[address] [facility] ([facility] ) Needle electromyography, each extremity, with related paraspinal areas, when performed, done with nerve conduction, amplitude and latency/velocity study; complete, five or more muscles studied, innervated by three or more nerves or four or more spinal levels (list separately in addition to the code for primary procedure). 06/18/2019 12:00:00 AM [facility] ([facility] ) Needle electromyography, each extremity, with related paraspinal areas, when performed, done with nerve conduction, amplitude and latency/velocity study; complete, five or more muscles studied, innervated by three or more nerves or four or more spinal levels (list separately in addition to the code for primary procedure). 06/18/2019 12:00:00 AM [facility] ([facility] ) [address] Nerve conduction studies 13 or more studies NEW 201206/18/2019 12:00:[address] [facility] ([facility] ) DUP-SCAN LXTR ART/ARTL BPGS COMPL BI STUDY LOWER EXTREMITY S TUDY 06/12/2019 12:00:00 AM [facility] THIAMINE ASSAY OF VITAMIN B-1 06/12/2019 12:00:00 AM [facility] LEAD ASSAY OF LEAD 06/12/2019 12:00:00 AM [facility] MERCURY QUANTITATIVE ASSAY OF MERCURY 06/12/2019 12:00:00 AM [facility] THYROXINE FREE ASSAY OF FREE THYROXINE 06/12/2019 12:00:00 AM [facility] THYROID STIMULATING HORMONE TSH ASSAY THYROID STIM HORMONE 0 06/12/2019 12:00:00 AM [facility] ARSENIC ASSAY OF ARSENIC 06/12/2019 12:00:00 AM [facility] SEDIMENTATION RATE RBC NON-AUTOMATED RBC SED RATE NONAUTOMAT ED 06/12/2019 12:00:00 AM [facility] HEMOGLOBIN GLYCOSYLATED A1C GLYCOSYLATED HEMOGLOBIN TEST 02/2019 12:00:00 AM [facility] MAGNESIUM ASSAY OF MAGNESIUM 06/12/2019 12:00:00 AM [facility] Results ID Date Data Source [id number] 03/25/2020 11:56:30 AM [facility] Name Value Range Interpretation Code Description Data Rachel rce(s) Supporting Document(s) Progress Note [facility] RLHBLy5lBkFYEcMc71/DFLnaWATgd9XyXJixVQq4ALlrEJFlH5WnECK9lC3aFZE7HSuCQlJxIsZoNrLd lbm [file] AgICAgICAgICAgICAgICAgICAgICAgICAgICAgICAgICAgICAgICAgICAgICAgICAgICAgICAgICAgIC AgICAgICAgICAgICAgICAgICAgICAgICAgICANCiAg ICAgICAgICAgICAgICAgICAgICAgICAgICAgICAgICAgICAgICAgICAgICAgICAgICAgICAgICAgICAg ICAgICAgICAgICAgICAgICAgICAgICAgICAgICAgICAgICAgICANCiAgICAgICAgICAgICAgICAgICAg ICAgICAgICAgICAgICAgICAgICAgICAgICAgICAgIC AgICAgICAgICAgICAgICAgICAgICAgICAgICAgICAgICAgICAgICAgICAgICAgICANCiAgICAgICAgIC AgICAgICAgICAgICAgICAgICAgICAgICAgICAgICAgICAgICAgICAgICAgICAgICAgICAgICAgICAgIC AgICAgICAgICAgICAgICAgICAgICAgICAgICAgICAN CiAgICAgICAgICAgICAgICAgICAgICAgICAgICAgICAgICAgICAgICAgICAgICAgICAgICAgICAgICAg ICAgICAgICAgICAgICAgICAgICAgICAgICAgICAgICAgICAgICAgICANCiAgICAgICAgICAgICAgICAg ICAgICAgICAgICAgICAgICAgICAgICAgICAgICAgIC AgICAgICAgICAgICAgICAgICAgICAgICAgICAgICAgICAgICAgICAgICAgICAgICAgICANCiAgICAgIC AgICAgICAgICAgICAgICAgICAgICAgICAgICAgICAgICAgICAgICAgICAgICAgICAgICAgICAgICAgIC AgICAgICAgICAgICAgICAgICAgICAgICAgICAgICAg ICANCiAgICAgICAgICAgICAgICAgICAgICAgICAgICAgICAgICAgICAgICAgICAgICAgICAgICAgICAg ICAgICAgICAgICAgICAgICAgICAgICAgICAgICAgICAgICAgICAgICAgICANCiAgICAgICAgICAgICAg ICAgICAgICAgICAgICAgICAgICAgICAgICAgICAgIC AgICAgICAgICAgICAgICAgICAgICAgICAgICAgICAgICAgICAgICAgICAgICAgICAgICAgICANCiAgIC AgICAgICAgICAgICAgICAgICAgICAgICAgICAgICAgICAgICAgICAgICAgICAgICAgICAgICAgICAgIC AgICAgICAgICAgICAgICAgICAgICAgICAgICAgICAg ICAgICANCjw/eQBlM8ekbXZukoD9O9ipKu5ZBe9TQD7sb4KaZWMuNTxljvCkVqlKPcKjEBTfEqcSQwp9 NJkoRR2PfZZaX5HqQ3JdDHytDR7KCHRzNHHvqYBnZLNvUCDcGgF8CSRnQUunSU9FpIRoECdxLVQcOXLx NyAwIFIgOSAwIFIgMTEgMCBSIDEzIDAgUiAxNSAwIF GfHLodYENEANG7TUHvVnUfSZwuBW2Vy4JibCV5YXx+Tg9HJI1jf5QcELqhJLAtJO3nnz5CYMkTExLtE4 XpzsR6VYPyAWMfUe4AXVIkZBLwaCE8EOQdSOZXRdAhQ7KhlW34HGSTCw8+DQplbmRvYmoNCjQwIDAgb2 RhCEz2JI6CZWCqNKa0rUKlWWLbF9Tdv7SgXv08RNGg TpquU0ikJrOGnXSgrPWkFRKGBUTzjUHkSdIbGwQiFoNyOTZ5BMVpUD8iXHckFS9KDEF2WWvnLBCgCJPb T0eXTsAgDHZrKIMuaGrfME7ILoBkR2JxgqQesXHwJNLzVWAMIb3+QDbfnhRmEhoUVlMdXGVls7UkKOz4 AZ2RULGtCOxuBO8LTAGrdC4pAAlrFO1MUsDlHdBcMT KXYnJcL02avSSlHJb2L5XeAbEjWPOsVqhlREEsLUgdWsPbWNNoJrPqSXaeXE9+ID4+VWqsCF0IXLvchg OoCZBsDz3WCLUgOJGlQE4uEAVhIUCqY2D3fPxcXXHZVlTnQ6eslyoqJF8bUDWiE297bTsvlwZrVAE7WQ JaCn3KVZLbQZQ2WXPblOXrYbzeDRTOKGjrMM7KtDNw VHH6kG5uYBihFBGzDCBdF5cFJjPdgGjtQG32oXzemsAheJDrPXh+Gd0POI5we6XwSLc5wcIhAUrmLHZo MEjxIIZgNLGzAPVeAXT2GVK5PEAMLpVmGKIqRVKyVGosFSHrFIYatd0KIIGlHNA9BEDbQBToVBWfCYWy UOzdJCIkLWJbLKy9KBAoHBZxBU7RNnJgBFPlQAAhOJ bbGMViBFMnpc6PTBTxQWPdTfX4YDDcLFHiDUHnCWfjQUTfYGOcBxAqPYBwVQKiFN1OTaPpLBJzQYOlRy hbHTUxJDJkoy1IKJWwLBBlWfL0XZWpFCRiNLJvXXtySJMnIJL4YNA1BMHbVGSdKU4KIrGsJFYrVMv2VV mrOYQtYTIehw8QZXLeDIQqYfA0CmNaUXTqOBSzTViv DKKwIWZgDYx2WMSgWBLcNO3CSzYbIUKiTFOcLOZvRBVpCXYtef4IQLYvOIHuXiPfYWMrZPYoQEYbGKsi GDWkAVU4NpC4TTHfPLBkZP4TOuVjUJLwQHw3PLPjWGMcMNAbdj9LKDIsYJHeIoN5TDFePPDuOXOyLBoo VXNzLVOlDeB2EDUkQOSfXH9IJqYqOKNbSxS6BGChDW TrUQAkok0VHDFmLBXzIcC4WhSyHTUpYSKsOIrcFFSmHHK6ZsQ1WOUzYAUbIR8AYnFdZQFbYsG4ENKuZY VzUEKcwa6SDBWvFUClQFk3DvXvGLSzJVJpEJydEJZzKFR2SBK7AMOhDYHdEU5QBhJeQPGbOsLwMCjcQB LmIAShwc8BARPvPVFdHsQvYkLgTQTnBGYuXPpuHDHy RRZ7NlK6WPSvTKClOU9CSnVvHOGfUfpwWFWnJULdEXFwqb8GSJUjJLOlWOEeBPAvVQFtGHOrBTzrQJQz MZW5QDTmHDShBLNmAN9RTfCmWVBrFvx1WNUrHYJyWIOmdo1OJFBrVYRjJJI8CNDpYZYuUMNbWXyjHHUc EZH1TKH5YLJwKESzTL6OWoPgPDMaTWAoIHOaDKCkBB Ijdz1QXGRnZIB7HKw2NPCwTAInOZIjJRhzIHMcSTOrAUMeQJIzMRVyLB9XJhYeWCKoPFDvZCCrOYIlOD Mxlz8YHFXuNRU5BBudREPfPAOtCIFtVAedUVAaAEMmLjBzYUTrXDXoXF5SFiTmWGKtQJSxPLQcZMSoKY Nvge0DKDToMMM8NvBiZZUyMPLcHEOnAVt8nuMapENh GCu9RH0YY6UaqhRiWLGCTx4Zp805VNHjMTShLi4SM6ziYo1cAVFhBPYJWb0LUOu2AqYdRQCdZOV7IeOn LSKnSTB2UAXjWyG4OwnwRSJnYMx+KRsmTYE6SGEcDjPoKEByZML3QFM9ARZ5LyRcMZC1SXB1Uq2sWHEW Cj4+KNzmiYIinJyzVKDGYjBmOcmmIRksOWDAVz0M ID Date Data Source [id number] 03/24/2020 11:55:00 AM EST [facility] Imaging Services Department Imaging Report [address] [address] %(RAD)RES..mtdd.print.filter("line") Name: MONICA HOBSON : 1965 Age/Sex: 54M Ordering Provider: Dell Tirado, Med Rec #: [id number] Reg Status: [facility] REF Room #: Date of Service: 03/23/20 Report Number: [id number] cc:Dell RamírezTracy Reason, DO Send Report To: [id number] US/US Dup Lower Ext Artery Lt Reason [...] Ruiz MD> 03/25/20 1154 Dictation Date/Time: 03/23/20 2948 Transcribed Date/Time: 03/24/20 1155 Supervisor Special Services: LOUISA Name Value Range Interpretation Code Description Data Rachel rce(s) Supporting Document(s) ID Date Data Source [id number] 03/15/2020 01:37:12 PM [facility] Name Value Range Interpretation Code Description Data Rachel rce(s) Supporting Document(s) Progress Note [facility] BSELQm5kXdIELaMs86/HTRjcKPTlu5UbJKrxSBu0XUsfLFGyF1LzYGU7zK6nRSX6NYhHMyPoUrOwBwRe [facility] [file] YyIxXBB7BWSnHjCjJwhiYDBgHZSsZiK+EN9dMFb+No2He7DstcD5gkPqCKw1MIMtWZzpXTVZBh5Y ID Date Data Source [id number] 03/18/2020 10:57:29 AM EST [facility] Service Cmnt XXX-Imp : LEFT LYTIC LESION Gram Stn XXX : 2+WBC'S Seen.No organisms seenMicroorganism XXX Cult : No growth 3 days Name Value Range Interpretation Code Description Data Rachel rce(s) Supporting Document(s) ID Date Data Source [id number] 03/15/2020 01:00:10 PM [facility] IR IMAGE GUIDED NEEDLE DRAIN PROCEDUREFI NAL [...] rce(s) Supporting Document(s) ID Date Data Source [id number] 03/15/2020 10:27:18 AM [facility] Name Value Range Interpretation Code Description Data Rachel rce(s) Supporting Document(s) History and Physical [facility] VJLAXr7uHgZKOsCv28/QMOxfDJRai5VwSXzvABw8OKcoKHHkW8OzKZN7jE7lWSM0SJaJFnWyNfEeCgXx [facility] [file] [id number]+UKnrmUXxsZxjZMVRMeU9GUpfQVfnQCWQPk7H ID Date Data Source [id number] 03/15/2020 10:37:21 AM [facility] Name Value Range Interpretation Code Description Data Rachel rce(s) Supporting Document(s) Leukocytes [#/volume] in Blood by Automated count 6.2 10*3/uL 4-10 [facility] Erythrocytes [#/volume] in Blood by Automated count 4.19 10*6/uL 4.6- 6.1 L [facility] Hemoglobin [Mass/volume] in Blood 12.4 g/dL 13.5-18 L [facility] Hematocrit [Volume Fraction] of Blood by Automated count 37.1 % 4 1-53 L [facility] Erythrocyte mean corpuscular volume [Entitic volume] by Auto mated count 88.5 fL 80-96 [facility] Erythrocyte mean corpuscular hemoglobin [Entitic mass] by Automated count 29.6 pg 27-33 [facility] Erythrocyte mean corpuscular hemoglobin concentration [Mass/volume] by Automated count 33.4 g/dL 32.0-36.0 [facility] distribution width [Ratio] by Automated count 15.5 % 11.5-14.5 H [facility] Platelets [#/volume] in Blood by Automated count 189 10*3/uL 150-400 [facility] Differential cell count method - Blood [facility] Neutrophils/100 leukocytes in Blood by Automated count 62 % [facility] Lymphocytes/100 leukocytes in Blood by Automated count 24 % [facility] Monocytes/100 leukocytes in Blood by Automated count 10 % [facility] Eosinophils/100 leukocytes in Blood by Automated count 3 % [facility] Basophils/100 leukocytes in Blood by Automated count 1 % [facility] Neutrophils [#/volume] in Blood by Automated count 3.88 10*3/uL 1.8-7 .0 [facility] Lymphocytes [#/volume] in Blood by Automated count 1.50 10*3/uL 1.2-4 .0 [facility] Monocytes [#/volume] in Blood by Automated count 0.59 10*3/uL 0-0.8 [facility] Eosinophils [#/volume] in Blood by Automated count 0.18 10*3/uL 0-0.5 [facility] Basophils [#/volume] in Blood by Automated count 0.04 10*3/uL 0-0.2 [facility] Nucleated erythrocytes/100 leukocytes [Ratio] in Blood by Automated count 0 /100{WBCs} 0-0 [facility] ID Date Data Source [id number] 03/15/2020 11:00:32 AM [facility] Name Value Range Interpretation Code Description Data Rachel rce(s) Supporting Document(s) Bicarbonate [Moles/volume] in Serum 28 mmol/L 22-29 [facility] Chloride [Moles/volume] in Serum or Plasma 100 mmol/L 98-107 [facility] Creatinine [Mass/volume] in Serum or Plasma 1.30 mg/dL 0.70-1.20 H [facility] Glucose [Mass/volume] in Serum or Plasma 97 mg/dL 70-140 [facility] Potassium [Moles/volume] in Serum or Plasma 4.6 mmol/L 3.4-5.1 [facility] Sodium [Moles/volume] in Serum or Plasma 138 mmol/L 136-145 [facility] Urea nitrogen [Mass/volume] in Serum or Plasma 13 mg/dL 6-20 [facility] Anion gap 3 in Serum or Plasma 10 mmol/L 8-15 [facility] Osmolality of Serum or Plasma by calculation 286 mosm/kg 275-300 [facility] Creatinine/Urea nitrogen [Mass Ratio] in Serum or Plasma 10 [facility] Calcium [Mass/volume] in Serum or Plasma 9.4 mg/dL 8.6-10.0 [facility] Glomerular filtration rate/1.73 sq M pre dicted among non-blacks [Volume Rate/Area] in Serum or Plasma by Creatinine-based formula (MDRD) 61 mL/min/1.73m2 >60 [facility] Glomerular filtration rate/1.73 sq M pre dicted among blacks [Volume Rate/Area] in Serum or Plasma by Creatinine-based formula (MDRD) 70 mL/min/1.73m2 >60 [facility] ID Date Data Source [id number] 03/15/2020 11:03:27 AM [facility] Name Value Range Interpretation Code Description Data Rachel rce(s) Supporting Document(s) Prothrombin time (PT) 13.4 s 12.5-14.9 [facility] INR in Platelet poor plasma by Coagulation assay 1.01 [facility] Routine intensity oral anticoagulation I NR is typically 2.0-3.0. Target INR must be clinically individualized. ID Date Data Source [id number] 03/18/2020 05:38:00 PM [facility] Surgical Pathology ReportName: MONICA HOBSONMRN: [id number] Number: [id number] Date: 03/15/2020 00:00Received Date: 03/15/2020 13:37Physician(s): GASTON PIZANO DO MUJO,GASTON,DOCopy To:SCHAFFERJERMAIN MDSpecimen(s) ReceivedA: Left lytic iliac lesion tissueClinical HistoryLeft iliac lesion. 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 DiagnosisBONE, LEFT ILIAC CREST LYTIC LESION, NEEDLE [...] 0.1 cm in diameter. Totally submitted in twocassettes.SAULT [facility]. [facility]IE/pmwMicroscopic DescriptionSections contain cores of fibrovascular tissue with [...] developed and their performance characteristics determined by [facility] Pathology department. They have not been cleared or approved by the USFood and Drug Administration. The FDA has determined that such clearanceor approval is not necessary. Name Value Range Interpretation Code Description Data Rachel rce(s) Supporting Document(s) ID Date Data Source [id number] 03/16/2020 03:48:00 PM [facility] CYTOPATHOLOGY REPORTName: JOSE HOBSONMRN: [id number] Number: [id number] Date: 03/15/2020 00:00Received Date: 03/15/2020 15:21Physician(s): GASTNO PIZANO DO SHAPIRO, OLEG, MD Copy To:GASTON PIZANO,DOSpecimen(s) ReceivedA: ILIAC BONE LESION, LYTIC, LEFT, FINE NEEDLE ASPIRATIONClinical History:Hx of renal cell carcinoma, left lytic iliac lesion DiagnosisILIAC BONE LESION, LYTIC, LEFT, FINE NEEDLE ASPIRATION: BLOOD ONLYComment/cw/calReviewing [employer]: Vanessa White, SCTQufrancisca Moses M.D.Electronically Signed By Wyatt Bradshaw M.D. 03/16/2020 15:48:44The attending pathologist named above attests that he/she has personallyreviewed the relevant preparation(s) for the specimen(s) and rendered thefinal diagnosis. Microscopic DescriptionThe specimen is composed of blood. The cell block shows similar features. /cw/calGross Dmcdkvuzfcb10 ml red fluid RPMI received: 2 slides [...] developed and their performance characteristics determined by [facility] Pathololgy department. They have not been cleared or approved by [place] Food and Drug Administration. The FDA has determined that suchclearance or approval is not necessary. Name Value Range Interpretation Code Description Data Rachel rce(s) Supporting Document(s) ID Date Data Source [id number] 03/11/2020 07:56:00 PM [facility] Name Value Range Interpretation Code Description Data Rachel rce(s) Supporting Document(s) SARS-CoV-2 RNA INHOUSE Negative Normal (applies to non-n umeric results) [facility] THIS IS A STATE REPORTABLE COMMUNICABLE DISEASE. Testing was performed using the Ullink COVID-19 MDx Assay. This test has been [...] be found at the following links: Providers: https://www.fda.gov/media/100666/download Patients : https://www.fda.gov/media/801132/download THIS IS A [facility] REPORTABLE COMMUNICABLE DISEASE Negative results do not preclude SARS-CoV-2 infection and should not be used as the sole basis for patient management decisions. Negative results must be combined with clinical observations,patient history, and epidemiological information. ID Date Data Source [id number] 03/10/2020 01:00:00 PM EST [facility] Name Value Range Interpretation Code Description Data Rachel rce(s) Supporting Document(s) Respiratory specimen severe acute respir atory syndrome coronavirus 2 (SARS-CoV-2) RNA Negative (qualifier value) [facility] This lab was ordered by [facility] and reported by . ID Date Data Source [id number] 03/05/2020 10:26:00 AM EST [facility] Name Value Range Interpretation Code Description Data Rachel rce(s) Supporting Document(s) Color,Urine Colorl-Dk Y Normal (applies to non-numeric res ults) [facility] Clarity,Urine Clear Normal (applies to non-numeric re sults) [facility] Specific [place],Urine 1.005-1.030 Normal (applies to non- numeric results) [facility] pH,Urine 5.0-8.0 Normal (applies to non-numeric resul ts) [facility] Protein,Urine Negative Normal (applies to non-numeric re sults) [facility] Glucose,Urine Negative Normal (applies to non-numeric re sults) [facility] Ketones,Urine Negative Normal (applies to non-numeric re sults) [facility] Blood,Urine Negative Normal (applies to non-numeric resu lts) [facility] Bilirubin,Urine Negative Normal (applies to non-numeric results) [facility] Urobilinogen,Urine 0.2-1.0 Normal (applies to non-numer ic results) [facility] Leukocyte Esterase,Urine Negative Normal (applies to non -numeric results) [facility] Nitrite,Urine Negative Normal (applies to non-numeric re sults) [facility] ID Date Data Source [id number] 03/05/2020 10:55:00 AM EST [facility] Name Value Range Interpretation Code Description Data Rachel rce(s) Supporting Document(s) PSA,Monitoring 0.13-4.0 Normal (applies to non-numeric r esults) [facility] Results cannot be interpreted as absolut e evidence of the presence or absence of malignant disease. Testing method is EIA by [employer]. Values obtained with different assay methods or kits cannot be used interchangeably. 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 [file] ICAgICAgICAgICAgICAgICAgICAgICAgICAgICAgIC NuAQDbPYWnRFMkVHDqPJUhNSEiJVDvESYiWLPiCJNbAPMvHCKgMOCqYNKfNBMuWXQvEHPpVT1DXXGaDT AgICAgICAgICAgICAgICAgICAgICAgICAgICAgICAgICAgICAgICAgICAgICAgICAgICAgICAgICAgIC AgICAgICAgICAgICAgICAgICAgICAgICAgICAgICAg BDXzNB9SKHHeKDJcUUEaCFKsYPFiFQBxEGOzYNPoPQVbSSFcLSZgETKeWVAcAGRbTVLwEFQqNNThGHMk MLZyRNWsXVLuDWUiCPYjMARlOXHbNXHpRDBzALXgTDOkFGRvBZUeSBKhVERbID2OYVFiAEItAUWqJZXr ICAgICAgICAgICAgICAgICAgICAgICAgICAgICAgIC SrAKCgOSAvTKLoEDEjYCGyRYDbNQNhCUFbCMFfEWMqFUFxSLPoJNOtESSdSXMaQSCjHQRfNVRwSZ1KAX AgICAgICAgICAgICAgICAgICAgICAgICAgICAgICAgICAgICAgICAgICAgICAgICAgICAgICAgICAgIC AgICAgICAgICAgICAgICAgICAgICAgICAgICAgICAg SBSxFTUvHO2QLSHrXBQbCZGfPVCrPUVcKLViSDLiFCMdVNKsLIPbWMPoCWCdOEOxUDDeQSQzKKXcYPRa QNFqFRVpYVEiPVXyXPAcBZYbVYKkHBAgTXEpDHRnRXYkGVTbYCRnZZUjWXEnYRMiKV9WOUAaSABaTOOw ICAgICAgICAgICAgICAgICAgICAgICAgICAgICAgIC AgICAgICAgICAgICAgICAgICAgICAgICAgICAgICAgICAgICAgICAgICAgICAgICAgICAgICAgICAgIA 0KICAgICAgICAgICAgICAgICAgICAgICAgICAgICAgICAgICAgICAgICAgICAgICAgICAgICAgICAgIC AgICAgICAgICAgICAgICAgICAgICAgICAgICAgICAg XEYuZSEeHDUuDS7ZQRBzSMZwVTRvNTXiTDHqAKTmVPBzMKFdZBKrPJKfEJQzJFUxKQKmQGVlHCDzPMRw CVXgDBIxJFIuZERnZUVjTDEvQZFvXUOlDUHjUOWoRJHnFEWvIIKlBOEeQIKxCETtSOVmKQ0GWA37pYEv b2R6IRIpOW0apqj/Nf7GMTvdyrIbeIAhNN0XVhAhQO 0rht2KBaYbXE2byw3JHIaGGuVfM1S8uMJiEIHtUYLPApZsL36eUNoeSn19FOuiTXUmAgArLIt1Ym9JGp UoB5frKTUbTyY3RUQgTbU1NTNlCyL5KVDtMmPgQLRlYHTxVJ9PYRPmT674jpYuHV1TVs1UFtQsKE3hzd 7OOqZiBCFzNfdHPja5RNtnOH6LwLHzwOPyWpIxZVFS RdNfU5oov4SqBhJkVYPUCAqrOT2Wx5SevDMsZSm+Xm3ZDN1fa9DsORskXwHdPV1jfl8KKEoKGxOvF9Gp iMtxJARws5xhQWVmFA5gqBGlXQA8EF3lVQztY0ttkYhyvfjgMFRtJFJyVY6hEB3fZEAhNCXhPuFlOZUW CI3KQFHiZUTzyFSqMFItURAJMV5VSFqdFIT0NRTmzk VflWRcZEelBD8SRINlssBsPiGeYFXBFVd+Oa3XVY3os1NxZXuhTkDoNQ8qwp0SUIuDWdJtR4A4eUDyR6 H2CRdjUj1EPAFnCTCwQpchTQRWSWuzGK0CKM9lxwG3MT3WwTYjDPVjZYTilSReNRh6K04xzQIxEVgeYY 0KICA+Antionette+Uh5YIXEcBDOwLRNcEgXmUWGRYrRiN1Ys G2CDk9TxW8KwXY42xAgecjZiUKyyER3FLZ2jMLBvITWODO1SaJFlxT3risDuXFAqADXOJlKbC07qdWWc UMCuAVMzSFRdSq3DRFEkE0AspcBaxPmdhvGpFHSeXHNIRG5SFIlmemVhyDFsyDwsMT29aXumIO3RCw9Z DbIdSQ2qlm1YjATaFx8CLENtQR6WISDiUTAuNFLsDI U6PSPuRcRyFOboYLExOORjTNF2RVUuGPVpPY8HYyElBESdHqJ8GtFnPUGcUGYzjp6AECLiWUHnZhK8HB FfHQQjFFJsAZmpIOHoRUZzFTN3IFNhWCYlKT4PRuHjLOLpENN8OrIgOFMuDWEnwk8LSBZnNUYgZtWdTR XhDZDuANMqSAgdLUXpKPE6JIY5RMIvFVPcVD5IXuYe IOHgNALnWXXiIEPoUMBlte7JVJXyWREaOMZ0WBZuYDCoRJYnYGjwPZOvCZH3IHewALYbDRMhQY4LMrCy LXEbSBQ7YQRxNKYgZVPtfv3HFXRaTTHgWce3PnUkEKZjBYBvMIzuRNQtXSBkALW5YODmSCAyFC5UYnVx CJQxYLFwRSNeIAEbOYNdjy7FAZTmDEZwEOO8HvDoQI AmKSVbKJtgQQEtFHF5SLM3EHTrQKAmIG2AYkBhHJObTMDlTBpvNLXbJZVbhx8DJXPyWTOpVUDhPTEkVI JxFRRnHMixXJFdRMH0DGQ7YBUpEVVtBW4QUnBlLIOiTcyzLMQtSNWfGMYwcp4TCFJtYNVgYdW8GYRwPF JeHYSlOQipYXWtVIZ5IcF5ACQwPILlGY7LSsYcXMKm Ssx7LAMhHPIkCVQtnb3JPTYaNWJyXTrsJUHzJTYjOLWiVBmvPYDiZWP8LED2AREbNBRjXK8QDjVjPKZq MlyrGRJwZMPrVCGtze6ZVTZiZWLaRGD8TPYjMLExBXEvOAbbUVDdFVAaNxTsBLZgFGJxTY6JAbEpNAGv WsR9OHWhEMXoOZThtk4NCIKhJBJtWZowFKThCWMhEL QySYezRLOsKQLeBjpjCDMwDVVxAX4UEfWfKQFqBbW9BoNxECEeSKIhut1EUNFgBLIpVrHoJONsPTYaCK HwAZk8ndSduUJaDLb1SQ0IP2HlwwTlVcEIXw6Iy241DZSmJHOgRd2UV0krKw5qLDDoQCOLDw1ZCZy2GU B1DAUyQhC2PYVlUVM9HKU5L1IbEKugSwemLxLcTtM+ MDhuSWRjPyN0SRvrXaW4NIQlWBtmLCY8JtOuVKJjJjX4BB0cULOYMl3+DQpzdGFydHhyZWYNCjMyODUz LYfxPDAPAf9O ID Date Data Source [id number] 02/26/2020 08:56:29 AM [facility] CT ABDOMEN PELVIS WITH AND WITHOUT CONTR AST [id number] RESULTInterpreted by:Alycia Pickard, DOINDICATION: 54-year-old male with kidney cancer. TECHNIQUE: [...] rce(s) Supporting Document(s) ID Date Data Source [id number] 02/25/2020 04:23:[address] [facility] CT THORAX WITH CONTRAST [id number] RESUL TInterpreted by:Rae Carlos MDINDICATION: kidney cancerTECHNIQUE: [...] Name Value Range Interpretation Code Description Data [facility] rce(s) Supporting Document(s) ID Date Data Source [id number] 02/03/2020 04:30:00 AM [facility] Name Value Range Interpretation Code Description Data [facility] rce(s) Supporting Document(s) Vitamin B12 result 499 pg/mL 193-986 Normal (applies to non-numer ic results) [facility] Test Performed By: [facility] [address] [place] [address] Director: Amy Moreno MD ID Date Data Source [id number] 02/03/2020 04:30:00 AM [facility] Name Value Range Interpretation Code Description Data [facility] rce(s) Supporting Document(s) Folate result 2.76-20.0 Normal (applies to non-numeric re sults) [facility] Test Performed By: [facility] [address] [place] [address] Director: Amy Moreno MD ID Date Data Source [id number] 02/02/2020 08:15:00 PM [facility] Name Value Range Interpretation Code Description Data Rachel rce(s) Supporting Document(s) Vitamin B12 499 pg/mL 193-986 Normal (applies to non-numeric resu lts) [facility] Test Performed By: [facility] [address] [place] [address] Director: Amy Moreno MD ID Date Data Source [id number] 02/02/2020 08:16:00 PM [facility] Value Range Interpretation Code Description Data Rachel rce(s) Supporting Document(s) Folate 2.76-20.0 Normal (applies to non-numeric resul ts) [facility] Test Performed By: [facility] [address] [place] [address] Director: Amy Moreno MD ID Date Data Source [id number] 02/02/2020 03:35:00 PM [facility] Name Value Range Interpretation Code Description Data Rachel rce(s) Supporting Document(s) Vitamin D, Total 30.0-100.0 Below low normal [facility] ID Date Data Source [id number] 02/02/2020 03:17:00 PM [facility] Name Value Range Interpretation Code Description Data Rachel rce(s) Supporting Document(s) Triglycerides 248 mg/dL <150 Above high normal [facility] Cholesterol 194 mg/dL 100-200 Normal (applies to non-numeric resu lts) [facility] LDL Cholesterol Calculated 111 0-130 Normal (applies to n on-numeric results) [facility] HDL Cholesterol 33 mg/dL 40-60 Below low normal [facility] Cholesterol/HDL Ratio 3.6-6.7 Normal (applies to non-nu meric results) [facility] ID Date Data Source [id number] 02/02/2020 03:17:00 PM [facility] Name Value Range Interpretation Code Description Data Rachel rce(s) Supporting Document(s) PSA,Monitoring 0.13-4.0 Above high normal [facility] Results cannot be interpreted as absolut e evidence of the presence or absence of malignant disease. Testing method is EIA by [employer]. Values obtained with different assay methods or kits cannot be used interchangeably. ID Date Data Source [id number] 02/02/2020 03:17:00 PM [facility] Name Value Range Interpretation Code Description Data Rachel rce(s) Supporting Document(s) Sodium 139 mmol/L 136-145 Normal (applies to non-numeric resul ts) [facility] Potassium 3.5-5.1 Above high normal [facility] Chloride 103 mmol/L 98-107 Normal (applies to non-numeric resul ts) [facility] Carbon Dioxide CO2 21-32 Normal (applies to non-numer ic results) [facility] Anion Gap 5.0-16.0 Normal (applies to non-numeric resul ts) [facility] BUN 11 mg/dL 7-18 Normal (applies to non-numeric results) [facility] Creatinine,Serum 0.8-1.5 Normal (applies to non-numeric results) [facility] GFR >60 Normal (applies to non-numeric results) [facility] Glucose Level 91 mg/dL 60-99 Normal (applies to non-numeric re sults) [facility] Reference range is only applicable when patient is fasting Note the following drug interference: Sulfasalazine Sulfapyridine Can see falsely depressed Can see falsely elevated result with up to 17% results with up to 11% decrease in measurement increase in measurement Recommend patients be collected for this test prior to administration of either drug. Calcium 8.5-10.1 Normal (applies to non-numeric resul ts) [facility] Bilirubin,Total 0.1-1.9 Normal (applies to non-numeric results) [facility] SGOT(AST) 15 U/L 15-37 Normal (applies to non-numeric resul ts) [facility] Note the following drug interference: Sulfasalazine Sulfapyridine Can see falsely depressed Can see falsely elevated result with up to 10% results with up to 10% decrease in measurement increase in measurement Recommend patients be collected for this test prior to administration of either drug. SGPT(ALT) 28 U/L 12-78 Normal (applies to non-numeric resul ts) [facility] Note the following drug interference: Sulfasalazine Sulfapyridine Can see falsely depressed Can see falsely elevated result with up to 29% results with up to 10% decrease in measurement increase in measurement Recommend patients be collected for this test prior to administration of either drug. Alkaline Phosphatase 106 U/L 38-126 Normal (applies to non-num kuldeep results) [facility] can increase Alkaline Phosp le vels up to 2 times the normal adult value. Normal values for children and adolescents are 2 to 3 times the normal adult value. Total Protein 6.0-8.2 Normal (applies to non-numeric re sults) [facility] Albumin Level 3.4-5.0 Normal (applies to non-numeric re sults) [facility] ID Date Data Source [id number] 02/02/2020 02:51:00 PM EST [facility] Name Value Range Interpretation Code Description Data Rachel rce(s) Supporting Document(s) Color,Urine Colorl-Dk Y Normal (applies to non-numeric res ults) [facility] Clarity,Urine Clear Normal (applies to non-numeric re sults) [facility] Specific [place],Urine 1.005-1.030 Normal (applies to non- numeric results) [facility] pH,Urine 5.0-8.0 Normal (applies to non-numeric resul ts) [facility] Protein,Urine Negative Normal (applies to non-numeric re sults) [facility] Glucose,Urine Negative Normal (applies to non-numeric re sults) [facility] Ketones,Urine Negative Normal (applies to non-numeric re sults) [facility] Blood,Urine Negative Normal (applies to non-numeric resu lts) [facility] Bilirubin,Urine Negative Normal (applies to non-numeric results) [facility] Urobilinogen,Urine 0.2-1.0 Normal (applies to non-numer ic results) [facility] Leukocyte Esterase,Urine Negative [facility] Nitrite,Urine Negative Normal (applies to non-numeric re sults) [facility] ID Date Data Source [id number] 02/02/2020 02:51:00 PM EST [facility] Name Value Range Interpretation Code Description Data Rachel rce(s) Supporting Document(s) RBC,Urine None Seen Normal (applies to non-numeric resul ts) [facility] WBC,Urine None Seen [facility] Casts,Urine None Seen Normal (applies to non-numeric resu lts) [facility] Squamous Cells,Urine None Seen [facility] Bacteria,Urine None Seen [facility] ital ID Date Data Source [id number] 02/02/2020 02:35:00 PM EST [facility] Name Value Range Interpretation Code Description Data Rachel rce(s) Supporting Document(s) White Blood Count 3.5-10.5 Normal (applies to non-numeri c results) [facility] Red Blood Count 4.30-5.70 Below low normal [facility] Hemoglobin 13.5-17.5 Below low normal [facility] Hematocrit 38.8-50.0 Below low normal [facility] Mean Corpuscular Volume 81.2-95.1 Normal (applies to non- numeric results) [facility] Mean Corpuscular Hgb 25.6-32.2 Normal (applies to non-num kuldeep results) [facility] Mean Corpuscular Hgb Conc 32.0-36.0 Normal (applies to no n-numeric results) [facility] Red Cell Distribution Width 11.8-15.6 Normal (appli es to non-numeric results) [facility] Platelet Count 334 x10 3/uL 150-450 Normal (applies to non-numeric results) [facility] Mean Platelet Volume 9.4-12.4 Normal (applies to non-num kuldeep results) [facility] Neutrophils% (Auto) 31.0-71.0 Normal (applies to non-nume crow results) [facility] Lymphocytes% (Auto) 20.0-55.0 Normal (applies to non-nume crow results) [facility] Monocytes% (Auto) 4.0-12.0 Normal (applies to non-numeri c results) [facility] Eosinophils% (Auto) 1.0-8.0 Normal (applies to non-nume crow results) [facility] Basophils% (Auto) 0.0-2.0 Normal (applies to non-numeri c results) [facility] Immature Granulocytes% (Auto) 0.0-2.0 Normal (alba lies to non-numeric results) [facility] Neutrophils# (Auto) 1.50-6.20 Normal (applies to non-nume crow results) [facility] Lymphocytes# (Auto) 1.20-4.00 Normal (applies to non-nume crow results) [facility] Monocytes# (Auto) 0.00-0.90 Normal (applies to non-numeri c results) [facility] Eosinophils# (Auto) 0.00-0.50 Normal (applies to non-nume crow results) [facility] Basophils# (Auto) 0.00-0.20 Normal (applies to non-numeri c results) [facility] Immature Granulocytes# (Auto) 0.00-7.00 No rmal (applies to non-numeric results) [facility] ID Date Data Source [id number] 01/21/2020 12:16:55 PM EST [facility], PCName: Monica ThakkarsDOB: 1965Provider: Yoselin Dalton: 01/21/2020 Reason For VisitDavialan Joce is here today for L Spine. [...] pain is managed by [facility] in [place]. 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 History of Present IllnessFollow-up lumbar surgeryPostop low back pain improvingPreopera tive left leg pain is gonePreoperative numbness in both feet unchanged-history of neuropathyNo signs of infection Results/DataXRays were ordered, obtained and interpreted today in the office. Indication: pain/dysfunction. Site: Lumbar Spine Views: 2 Views, AP/Lateral Standing Findings:. Good position of implants and healed fusion. Results/Data Other[facility]16: Multilevel DDD.MRI lumbar [facility] neurology 07/22/19: L3- 4 moderate to severe stenosis; L4-5 severe stenosis; L5-S1 epidural lipomatosis was stenosis. 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 Low back pain (724.2) (M54.5) condition: Chronicetiology: Workers comp injury as abovelevels: L3-4, L4-5 and L5-S1 Plan X-Ray I Lumbosacral - 2 views (XRays were ordered, obtained and interpreted today inthe office. Indication: pain/dysfunction.); Status:Complete; Done: [id number] Perform:SOS22; Due: [id number]; Last Updated By:Sirena Ramires; 01/21/2020 10:41:27 AM;Ordered; [...] document was dictated and electronically signed using [employer] software. A reasonable attempt at proof reading has been made to minimize errors. Please call with any questions. Signatures Electronically signed by : Bijan Dalton M.D.; Jan 21 2020 12:16PM EST (Author) Name Value Range Interpretation Code Description Data Rachel rce(s) Supporting Document(s) ID Date Data Source [id number] 01/25/2020 04:10:00 PM [facility] Name Value Range Interpretation Code Description Data Rachel rce(s) Supporting Document(s) SARS-CoV-2 ALAYNA result Not Detected Normal (applies to non- numeric results) [facility] Testing was performed using the wily(R) SARS-CoV-2 test. This nucleic acid amplification test was developed and its performance characteristics determined by [employer]. Nucleic acid amplification tests include PCR and [...] detected) result in this assay. Performed at: [facility] [id number] [place] Offbearer: Sintia Thompson MD, Phone: [phone] ID Date Data Source [id number] 12/29/2019 07:32:00 [facility] Name Value Range Interpretation Code Description Data Rachel rce(s) Supporting Document(s) COVID-19 Result Normal (applies to non-numeric results) [facility] SEE SCANNED REPORT ID Date Data Source [id number] 12/25/2019 01:00:00 PM EST [facility] Name Value Range Interpretation Code Description Data Rachel rce(s) Supporting Document(s) SARS coronavirus 2 RNA [facility] This lab was ordered by [facility] toro and reported by [facility]. ID Date Data Source [id number] 12/25/2019 08:18:21 AM EST [facility], PCName: Monica AlvaradoOB: 1965Provider: Tremaine ElamDOS: 12/14/2019 Reason For VisitDavialan [...] pain is managed by [facility] in [place]. 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 History of Present [...] document was dictated and electronically signed using [employer] Speaking software. A reasonable attempt at proof reading has been made to minimize errors. Please call with any questions. Signatures Electronically signed by : Froylan Belle; Dec 25 2019 8:03AM EST (Author) Electronically signed by : Bijan Dalton M.D.; Dec 25 2019 8:18AM EST Name Value Range Interpretation Code Description Data Rachel rce(s) Supporting Document(s) ID Date Data Source [id number] 12/02/2019 08:54:22 PM EDT [facility] NT INFORMATIONPatient MRN Name Date of Age Gend*PT [id number] Monica Hobson 1965 54 years M IPPT Location Admission Date/Time Visit ID Attending [id number] 11/30/19 0720 --- --- EPI ID CSN Admitting Provider [id number] Bijan Dalton MD([id number]) Attestation signed by Bijan Dalton MD at 12/02/2019 8:54 PMSignature: CLAUDETTE Garciaate: December 02, 2019Time: 8:54 PM ORTHOPEDIC DISCHARGE SUMMARYPatient Name: Monica Darrell Hobson of : 1965 Age 54 yearsPrimary Physician: DELL TIRADO DO PCP [id number] Date: 11/30/2019 Discharge Date: 12/02/2019Admission Provider: Bijan [...] GRAFT LEFT, LOCAL BONEGRAFT (N/A) -ROMARIO, SOS NEUROMONOTORING,Brief Hospital Course:Patient was admitted through ambulatory [...] details.Discharge disposition: He will be discharged from [facility] to home in stable condition.Discharge [...] times a dayvitamin D, Ergocalciferol, 1.25 MG (47504 UT) CAPS Take 1 capsule by mouth [...] GLU 94 12/01/2019Significant Imaging:noneConsults:noneSignature: [phone]: December 02, 2019Time: 9:27 AM Name Value Range Interpretation Code Description Data Rachel rce(s) Supporting Document(s) ID Date Data Source [id number] 12/01/2019 06:23:47 AM EDT [facility] Name Value Range Interpretation Code Description Data Rachel rce(s) Supporting Document(s) SODIUM 142 mmol/L (136-145) [facility] [place] POTASSIUM 4.3 mmol/L (3.6-5.2) [facility] CHLORIDE 107 mmol/L (100-108) [facility] CO2 28 mmol/L (22-31) [facility] ANION GAP 7 mmol/L (7-16) [facility] UREA NITROGEN 11 mg/dL (7-24) [facility] CREATININE 1.37 mg/dL (0.80-1.30) H [facility] BUN/CREAT RATIO 8.0 RATIO (10.0-20.0) L [facility] GLUCOSE 94 mg/dL (70-99) [facility] CALCIUM 8.2 mg/dL (8.4-10.2) L [facility] GFR 54 ml/min/1.73m2 (>59) L [facility] GFR ( AMER) >60 ml/min/1.73m2 (>59) [facility] GFR INTERPRETATION [facility] [place] --NORMAL KIDNEY FUNCTION OR MILD DISEASE - GFR >OR= 60CHRONIC KIDNEY DISEASE - GFR 15 - 59RENAL FAILURE - GFR <15 Est. GFR calculation based on the MDRDstudy equation, which assumes a steadystate for creatinine. Est. GFR should notbe used for medication dosing. ID Date Data Source [id number] 12/01/2019 05:49:31 AM EDT [facility] Name Value Range Interpretation Code Description Data Rachel rce(s) Supporting Document(s) WBC 10.6 10*3/uL (4.1-11.0) [facility] RBC 3.34 10*6/uL (4.60-6.10) L [facility] HGB 11.5 g/dL (13.5-18.0) L [facility] [place] HCT 32.9 % (41.0-53.0) L [facility] [place] MCV 98.6 fL (80.0-95.0) H [facility] [place] MCH 34.3 pg (27.0-32.0) H [facility] [place] MCHC 34.8 g/dL (32.0-36.0) [facility] RDW 13.7 % (10.5-14.5) [facility] [place] PLT 160 10*3/uL (150-450) [facility] [place] MPV 9.1 fL (7.1-10.7) [facility] [place] ID Date Data Source [id number] 11/30/2019 02:51:58 PM EDT [facility]PAT[facility] NT INFORMATIONPatient MRN Name Date of Age Gend*PT [id number] Monica Hobson 1965 54 years M IPPT Location Admission Date/Time Visit ID Attending ProviderPERIOP [place] 11/30/19 0720 --- Bijan Dalton MD([id number]) EPI ID CSN Admitting Provider [id number] Bijan Dalton MD([id number])Operative ReportPatient Name: Monica Hobson of : 1965 Age 54 yearsPrimary Physician: DELL TIRADO DO PCP Voao of Surgery: 11/30/2019Diagnostic InformationPre- Op Diagnosis: Lumbar stenosis-multisegmental; L3-4 and L4-5spondylolisthesis; L5-S1 degenerative disc diseasePost-Op Diagnosis: SameProcedure(s) Procedure(s) with comments:LUMBAR 3 TO 4 LUMBAR 4 TO 5 LUMBAR 5 TO SACRAL 1 LAMINECTOMY WITH FORAMINOTOMIESPOSTERIOR LATERAL FUSION ILIAC CREST BONE GRAFT LEFT, LOCAL BONEGRAFT (N/A) -NASIM ALANIZ NEUROMONOTORING,Surgical StaffSurgeon: ONEIL Garciaurgical Staff: OR Java Software Developer: Arthur Taylor RNRadiology Tech: Mitzy Swain Relief Java Software Developer: Dora Pickett RNOR Relief Scrub: Karen Justice Scrub Person: Donavan Diezurophysiology Tech: ONEIL Elizabethurgical Real Estate Account Executive: Abrahan Cameron Practicing Md Anesthesiologist is a Physician's Photographic Developer And Printer (BYRON), the Orthopedic Resident wasnot availableAnesthesiaAnesthesia Staff: Anesthesiologist: Monica Sofia, DOCRNA: Tremaine Carter, CRNAStudent Nurse Tray Service Worker: Dinesh De Souzaesthesia: *Anesthesia ServicesOperative Description Procedure:1. [...] nerve roots6. Intraoperative electrophysiologic monitoring by Dr. LermaBL: 900 ccFluid: CrystalloidDrains: Collins and HemovacComplications:noneIndications: Patient [...] out bilaterally for the L3-4, L4-5 and L5-C6txliilpdtaegvn fusion. Screws hooked up using the norma [...] @ORSPECMN@Grafts/Implants:Implant Name Type Inv. Item Serial No. School Lunch Manager Lot No. LRB No. UsedSCREW,VITIALY,PA,6.5X50,ZIMM - [id number] SCREW,VITIALY,PA,6.5X50,ZIMM ROMARIO,INC. N/A 6SCREW,SET,TQ,LMT,ROMARIO - [id number] SCREW,SET,TQ,LMT,ROMARIO ROMARIO, INC. N/A6ROD,VITIALY,TI,CV,5.5X 80,ZIMM - [id number] NORMA,VITIALY,TI,CV,5.5X80,ZIMMZIMMER, INC. N/A 1ROD 85 MM ROMARIO, INC. N/A 1All significant tasks completed under the direction of the primary surgeonBijan Dalton MD Name Value Range Interpretation Code Description Data Rachel rce(s) Supporting Document(s) ID Date Data Source [id number] 11/30/2019 02:05:44 PM EDT [place], [place] [address]Patient Name: MONICA THAKKARSDOB: 1965Sex: MOrdering Provider: BIJAN DALTONAuthorizing Prov: BIJAN DALTONReferring Provider: BIJAN DALTONProcedure Performed: XR OR SPINE LUMBAR CONTINUATIONExam Date: 11/30/2019 14:04MRN: [id number] Number: [id number] Class: InpatientAccount #: [id number] for Exam: spondylosisTechnique: Fluoroscopy with no digital spot images obtained.Comparison: NoneFindings: Fluoroscopy used for lumbar spine surgery. There is placement of pedicle screws.IMPRESSION: Fluoroscopy for lumbar spine surgery.Report electronically signed by: REINA MACKENZIE On 11/30/2019 2:05 PMWorkstation ID: [id number] - [id number] Name Value Range Interpretation Code Description Data Rachel rce(s) Supporting Document(s) ID Date Data Source [id number] 11/30/2019 12:16:45 PM EDT [place], [place] [address]Patient Name: MONICA THAKKARSDOB: 1965Sex: MOrdering Provider: BIJAN Ronquillo Prov: BIJAN Silvaerreligio Provider: BIJAN Artis Performed: XR OR SPINE LUMBAR CONTINUATIONExam Date: 11/30/2019 12:13MRN: [id number] Number: [id number] Class: InpatientAccount #: [id number] for Exam: spondylosisTechnique: Lateral view obtained.Comparison: NoneFindings: Localization devices are overlying the posterior elements. One is at the top of L3. The second is at the L3-4 disc space. The third is at the L5-S1 disc space.IMPRESSION: Intraoperative localization for lumbar spine surgery.Report electronically signed by: REINA MACKENZIE On 11/30/2019 12:16 PMWorkstation ID: [id number] Name Value Range Interpretation Code Description Data Rachel rce(s) Supporting Document(s) ID Date Data Source [id number] 11/30/2019 12:15:45 PM EDT [place], [place] [address]Patient Name: MONICA THAKKARSDOB: 1965Sex: MOrdering Provider: BIJAN Ronquillo Prov: BIJAN Don Provider: BIJAN Artis Performed: XR OR SPINE LUMBARExam Date: 11/30/2019 12:13MRN: [id number] Number: [id number] Class: InpatientAccount #: [id number] for Exam: painTechnique: Lateral view obtained.Comparison: NoneFindings: Localization devices are in the posterior soft tissues. One is pointing toward the back of L3. The second is point toward the back of S2.IMPRESSION: Intr aoperative localization for lumbar spine surgery.Report electronically signed by: REINA MACKENZIE On 11/30/2019 12:15 PMWorkstation ID: [id number] - [id number] Name Value Range Interpretation Code Description Data Rachel rce(s) Supporting Document(s) ID Date Data Source [id number] 11/30/2019 09:56:42 AM EDT [facility]PAT[facility] NT INFORMATIONPatient MRN Name Date of Age Gend*PT [id number] Monica Hobson 1965 54 years M SDAPT Location Admission Date/Time Visit ID [facility] 0720 --- Bijan Dalton MD([id number]) EPI ID CSN Admitting Provider [id number] Bijan Dalton MD([id number])Pre- op note/discusson/H&P review:Long discussion today.Options were reviewedProcedure was reviewedRisks/potential complications were reviewedDavid Darrell Hobson wishes to proceed with surgeryNo guarantees givenPlease refer to the patient's H&P completed within 30 days prior to admissionfor details.I have reviewed the patient's H&P and there are no significant changes in thepatient's history nor physical exam.--Bijan Datlon MD Name Value Range Interpretation Code Description Data Rachel rce(s) Supporting Document(s) ID Date Data Source [id number] 12/03/2019 07:12:55 AM EDT [facility] Name Value Range Interpretation Code Description Data Rachel rce(s) Supporting Document(s) POC POTASSIUM 4.1 MMOL/L (3.6-5.2) [facility] PERFORMED BY [facility] ID Date Data Source [id number] 11/25/2019 10:25:00 AM EDT [facility] Name Value Range Interpretation Code Description Data Rachel rce(s) Supporting Document(s) SARS coronavirus 2 RNA [facility] This lab was ordered by [facility] and reported by [facility]. ID Date Data Source [id number] 11/26/2019 12:11:17 PM EDT [facility] Name Value Range Interpretation Code Description Data Rachel rce(s) Supporting Document(s) SARS-COV-2 [facility] [employer] Not DetectedReference range: Not Detecte d This nucleic acid amplification test was developed and its performance characteristics determined by [facility]. Nucleic acid amplification tests include PCR [...] result in this assay. Performed At: [facility] [address] [id number] Jay Disla MD Ph:[phone] ID Date Data Source [id number] 11/20/2019 07:00:40 AM EDT [facility] NT INFORMATIONPatient MRN Name Date of Age Gend*PT [id number] Monica Hobson 1965 54 years M OPPT Location Admission Date/Time Visit ID Attending Provider --- --- --- Bijan Dalton MD([id number]) EPI ID CSN Admitting Provider [id number] Bijan Dalton MD([id number])Addended by: BAILEY ALVAREZ on: 11/20/2019 07:00 AM Modules accepted: Orders Name Value Range Interpretation Code Description Data Rachel rce(s) Supporting Document(s) ID Date Data Source [id number] 11/19/2019 03:09:50 PM EDT [facility] NT INFORMATIONPatient MRN Name Date of Age Gend*PT [id number] Monica Hobson 1965 54 years M OPPT Location Admission Date/Time Visit ID Attending Provider --- --- --- Bijan Dalton MD([id number]) EPI ID CSN Admitting Provider [id number] Bijan Dalton MD([id number])HISTORY PHYSICALName: Monica Hobson : 1965 Sex: male [...] he reports drinking 6-8 beers a day gotkmftyajnll3djcn/week.The patient met with Dr. Dalton, options were discussed and the patient haselected to under go Lumbar 3 To 4 Lumbar 4 To 5 Lumbar 5 To Sacral 1 LaminectomyWith Foraminotomies Posterior Lateral Fusion Iliac Crest Bone Graft, LocalBonegraft - N/A on 11/30/2019.PAST MEDICAL HISTORY:Past Medical [...] hours as needed for pain Historical Provider, MDpregabalin (LYRICA) 100 MG capsule Take 100 mg by mouth 2 (two) times a dayHistorical Provider, tiZANidine (ZANAFLEX) 4 MG tablet Take 4 mg by mouth nightly as neededHistorical Provider, vitamin D, Ergocalciferol, 1.25 MG (41720 UT) CAPS Take 1 capsule by mouth [...] dry. Dustin complexion.HEENT: He is normocephalic, atraumatic. Ferry conjunctivae. Anicteric sclerae.Pupils are equal, round, reactive [...] No hepatosplenomegaly. NegativeCVAT.GENITAL/RECTAL: Deferred.MUSCLE/SKELETAL: Strength is 5/5. E Business Consultant are equal.NEUROLOGICALLY: Cranial nerves II through XII are grossly intact.VASCULAR: Radial pulses are symmetrical. Bilateral lower extremity edema (belowthe knees), RLE +2 and LLE +1.Anesthesia complications: DeniesSteroid use: [facility]iesDE[facility] Frailty Scale :: 3/10 Managing Well (medical [...] parts of this document, were dictated using Viropro software. A reasonable attempt at proofreading has beenmade to minimize errors. Please call with any questions or corrections. Name Value Range Interpretation Code Description Data Archel rce(s) Supporting Document(s) ID Date Data Source [id number] 11/19/2019 06:59:57 PM EDT [facility] Name Value Range Interpretation Code Description Data Rachel rce(s) Supporting Document(s) SODIUM 137 mmol/L (136-145) [facility] POTASSIUM 4.7 mmol/L (3.6-5.2) [facility] CHLORIDE 100 mmol/L (100-108) [facility] CO2 29 mmol/L (22-31) [facility] ANION GAP 8 mmol/L (7-16) [facility] UREA NITROGEN 14 mg/dL (7-24) [facility] CREATININE 1.42 mg/dL (0.80-1.30) H [facility] BUN/CREAT RATIO 9.9 RATIO (10.0-20.0) L [facility] GLUCOSE 86 mg/dL (70-99) [facility] CALCIUM 9.5 mg/dL (8.4-10.2) [facility] TOTAL PROTEIN 7.3 g/dL (6.4-8.2) [facility] ALBUMIN 3.8 g/dL (3.5-4.6) [facility] GLOBULIN 3.5 g/dL (2.7-4.3) [facility] ALB/GLOB RATIO 1.1 RATIO [facility] ALKALINE PHOSPHATASE 103 U/L (45-117) [facility] BILIRUBIN,TOTAL 0.6 mg/dL (0.0-1.0) [facility] PLEASE NOTE:Total bilirubin results may be falselyelevated in patients taking Eltrombopag. AST (SGOT) 40 U/L (11-39) H [facility] ALT (SGPT) 58 U/L (12-78) [facility] GFR 52 ml/min/1.73m2 (>59) L [facility] GFR ( AMER) >60 ml/min/1.73m2 (>59) [facility] GFR INTERPRETATION [facility] --NORMAL KIDNEY FUNCTION OR MILD DISEASE - GFR >OR= 60CHRONIC KIDNEY DISEASE - GFR 15 - 59RENAL FAILURE - GFR <15 Est. GFR calculation based on the MDRDstudy equation, which assumes a steadystate for creatinine. Est. GFR should notbe used for medication dosing. ID Date Data Source [id number] 11/19/2019 06:57:22 PM EDT [facility] [place] Name Value Range Interpretation Code Description Data Rachel rce(s) Supporting Document(s) HEMOGLOBIN A1C @ 5.1 % (4.0-6.0) [facility] [place] Performed using Siemens [place] immunoassa y.Care must be taken when interpreting CnM0asdnzawi in patients with a hemoglobin variantor decreased erythrocyte lifespan. Values 5.7 - 6.4% suggest prediabetes.Values >=6.5% are diagnostic for diabetes.REFERENCE: DIABETES CARE 2018: 41(S13-S27). EST AVERAGE GLUCOSE 100 mg/dL [facility] ID Date Data Source [id number] 11/19/2019 06:55:17 PM EDT [facility] Name Value Range Interpretation Code Description Data Rachel rce(s) Supporting Document(s) APTT 25.6 s (22.0-34.3) [facility] ID Date Data Source [id number] 11/19/2019 06:55:17 PM EDT [facility] [place] Name Value Range Interpretation Code Description Data Rachel rce(s) Supporting Document(s) PT 10.3 s (9.2-11.9) [facility] [place] INR 0.99 [facility] [place] SUGGESTED THERAPEUTIC RANGES USING INR F ORSTABILIZED ANTICOAGULATED PATIENTS:STANDARD DOSE THERAPY INR 2.0-3.0 DVT, PE, PREVENT DVT OR EMBOLISMHIGH DOSE THERAPY INR 2.5-3.5 PREVENT EMBOLISM FROM MECHANICAL HEART VALVE ID Date Data Source [id number] 11/19/2019 06:33:37 PM EDT [facility] [place] SPEC EXP DATE 12/01/2019PATI ENT ABO/Rh A POSITIVEANTIBODY SCREEN NEGATIVETESTING SITE PERFORMED AT [address] [place] [address] Name Value Range Interpretation Code Description Data Rachel rce(s) Supporting Document(s) TYPE AND SCREEN [facility] ID Date Data Source [id number] 11/20/2019 10:37:21 AM EDT [facility] [place] Name Value Range Interpretation Code Description Data Rachel rce(s) Supporting Document(s) SPECIMEN DESCRIPTION [facility] [place] STAPH SCREEN RESULTS (ONEGSA) [facility] COMMENT [facility] [place] GENE TO DETECT STAPH AUREUS. (2) RT-P CR WAS PERFORMED FOR THE mecA AND SCCmec GENES TO DETECT METHICILLIN RESISTANCE IN STAPH AUREUS. ID Date Data Source [id number] 11/24/2019 09:57:47 AM EDT [facility], PCName: Monica ThakkarKimOB: 1965Provider: Asia Elam: 11/19/2019 Reason For VisitPatient is seen at the request of Dr. Dell Tirado, PCP. Monica Hobson is an established patient here for follow up. The patient is currently residing at home. W.C. DOI: 10/08/2016. Surgery Description: Lumbar 3 to Sacral 1 Laminectomy/Foraminotomies, Posterior Lateral Fusion, Instrumentation, Iliac Crest Bone Graft, Local Bone Graft. MePlease Neuromonitoring. Expected DOS: 11-30-2019. Patient states the injury occurred while at work. Patient states he fell down stairs. The patient's pain is managed by [facility] in [place]. 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 History of Present [...] spondylolisthesis at L3-4 and L4-5. Results/Data Other[facility]16: Multilevel DDD.MRI lumbar [facility] neurology 07/22/19: L3-4 moderate to severe stenosis; L4-5 severe stenosis; L5-S1 epidural lipomatosis was stenosis. 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 A reasonable attempt at proof reading has been made to minimize errors. Please call with any questions. Signatures Electronically signed by : Froylan Belle; Nov 23 2019 9:42PM EST (Author) Electronically signed by : Bijan Dalton M.D.; Nov 24 2019 9:57AM EST Name Value Range Interpretation Code Description Data Rachel rce(s) Supporting Document(s) ID Date Data Source [id number] 11/12/2019 11:43:00 AM EDT [facility] Procedure Performed By: [facility] [address] [place] [address] Director: Randal Moreno MD Name Value Range Interpretation Code Description Data Rachel rce(s) Supporting Document(s) [facility] ID Date Data Source [id number] 11/10/2019 11:18:00 AM EDT [facility] C AND S IF INDICATED Name Value Range Interpretation Code Description Data Rachel rce(s) Supporting Document(s) Color,Urine Colorl-Dk Y Normal (applies to non-numeric res ults) [facility] Clarity,Urine Clear Normal (applies to non-numeric re sults) [facility] Specific [place],Urine 1.005-1.030 Normal (applies to non- numeric results) [facility] pH,Urine 5.0-8.0 Normal (applies to non-numeric resul ts) [facility] Protein,Urine Negative Normal (applies to non-numeric re sults) [facility] Glucose,Urine Negative Normal (applies to non-numeric re sults) [facility] Ketones,Urine Negative Normal (applies to non-numeric re sults) [facility] Blood,Urine Negative Normal (applies to non-numeric resu lts) [facility] Bilirubin,Urine Negative Normal (applies to non-numeric results) [facility] Urobilinogen,Urine 0.2-1.0 Normal (applies to non-numer ic results) [facility] Leukocyte Esterase,Urine Negative Normal (applies to non -numeric results) [facility] Nitrite,Urine Negative Normal (applies to non-numeric re sults) [facility] ID Date Data Source [id number] 11/12/2019 09:48:00 AM EDT [facility] Procedure Performed By: [facility] [address] [place] [address] Director: Randal Moreno MD Name Value Range Interpretation Code Description Data Rachel rce(s) Supporting Document(s) Urine Culture [facility] ospital ID Date Data Source [id number] 11/10/2019 11:34:00 AM EDT [facility] Name Value Range Interpretation Code Description Data Rachel rce(s) Supporting Document(s) Sodium 139 mmol/L 136-145 Normal (applies to non-numeric resul ts) [facility] Potassium 3.5-5.1 Above high normal [facility] ospital Chloride 101 mmol/L 98-107 Normal (applies to non-numeric resul ts) [facility] Carbon Dioxide CO2 21-32 Normal (applies to non-numer ic results) [facility] Anion Gap 5.0-16.0 Normal (applies to non-numeric resul ts) [facility] BUN 11 mg/dL 7-18 Normal (applies to non-numeric results) [facility] Creatinine,Serum 0.8-1.5 Normal (applies to non-numeric results) [facility] GFR >60 Normal (applies to non-numeric results) [facility] Glucose Level 104 mg/dL 60-99 Above high normal [facility] Reference range is only applicable when patient is fasting Note the following drug interference: Sulfasalazine Sulfapyridine Can see falsely depressed Can see falsely elevated result with up to 17% results with up to 11% decrease in measurement increase in measurement Recommend patients be collected for this test prior to administration of either drug. Calcium 8.5-10.1 Normal (applies to non-numeric resul ts) [facility] ID Date Data Source [id number] 11/10/2019 10:44:00 AM EDT [facility] Name Value Range Interpretation Code Description Data Rachel rce(s) Supporting Document(s) White Blood Count 3.5-10.5 Normal (applies to non-numeri c results) [facility] Red Blood Count 4.30-5.70 Normal (applies to non-numeric results) [facility] Hemoglobin 13.5-17.5 Normal (applies to non-numeric resul ts) [facility] Hematocrit 38.8-50.0 Normal (applies to non-numeric resul ts) [facility] Mean Corpuscular Volume 81.2-95.1 Above high normal [facility] Mean Corpuscular Hgb 25.6-32.2 Above high normal [facility] Mean Corpuscular Hgb Conc 32.0-36.0 Normal (applies to no n-numeric results) [facility] [facility] Red Cell Distribution Width 11.8-15.6 Normal (appli es to non-numeric results) [facility] Platelet Count 184 x10 3/uL 150-450 Normal (applies to non-numeric results) [facility] Mean Platelet Volume 9.4-12.4 Normal (applies to non-num kuldeep results) [facility] Neutrophils% (Auto) 31.0-71.0 Normal (applies to non-nume crow results) [facility] Lymphocytes% (Auto) 20.0-55.0 Normal (applies to non-nume crow results) [facility] Monocytes% (Auto) 4.0-12.0 Normal (applies to non-numeri c results) [facility] Eosinophils% (Auto) 1.0-8.0 Normal (applies to non-nume crow results) [facility] Basophils% (Auto) 0.0-2.0 Normal (applies to non-numeri c results) [facility] Immature Granulocytes% (Auto) 0.0-2.0 Normal (alba lies to non-numeric results) [facility] Neutrophils# (Auto) 1.50-6.20 Normal (applies to non-nume crow results) [facility] Lymphocytes# (Auto) 1.20-4.00 Normal (applies to non-nume crow results) [facility] Monocytes# (Auto) 0.00-0.90 Normal (applies to non-numeri c results) [facility] Eosinophils# (Auto) 0.00-0.50 Normal (applies to non-nume crow results) [facility] Basophils# (Auto) 0.00-0.20 Normal (applies to non-numeri c results) [facility] Immature Granulocytes# (Auto) 0.00-7.00 No rmal (applies to non-numeric results) [facility] ID Date Data Source [id number] 09/03/2019 07:23:32 PM EDT [facility] PCName: Monica AlvaradoOB: 1965Provider: Yoselin Dalton: 09/03/2019 History of Present [...] spondylolisthesis at L3-4 and L4-5. Results/Data OtherMRI [facility] 11/02/16: Multilevel DDD.MRI lumbar [facility] neurology 07/22/19: L3-4 moderate to severe stenosis; L4-5 severe stenosis; L5-S1 epidural lipomatosis was stenosis. 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 Indication: pain/dysfunction.); Status:Complete; Done: [id number] Perform:SOS22; Due:[id number]; Last Updated By:Jimena Baumann; 09/03/2019 2:26:27 PM;Ordered; [...] document was dictated and electronically signed using [employer] software. A reasonable attempt at proof reading has been made to minimize errors. Please call with any questions. Signatures Electronically signed by : Bijan Dalton M.D.; Sep 03 2019 7:23PM EST (Author) Name Value Range Interpretation Code Description Data Rachel rce(s) Supporting Document(s) ID Date Data Source [id number] 06/13/2019 06:00:00 AM T [facility] Imaging Services Department Imaging Report [address], [place] [address] %(RAD)RES..mtdd.print.filter("line") Name: MONICA HOBSON : 1965 Age/Sex: 53M Ordering Provider: Dell Tirado, DO Med Rec #: [id number] Reg Status: DEP REF Room #: Date of Service: 06/12/19 Report Number: [id number] cc:Dell Plunkett Reason, DO Send Report To: [id number] US/US Dup Lower Ext Artery Bilat Reason [...] Date/Time: 06/12/19 1541 Transcribed Date/Time: 06/13/19 0600 Supervisor Special Services: ADDIE Name Value Range Interpretation Code Description Data [facility] rce(s) Supporting Document(s) ID Date Data Source [id number] 06/17/2019 08:00:00 AM [facility] Name Value Range Interpretation Code Description [facility]) Mercury, Blood 1 ng/mL 0-9 Normal (applies to non-numeric r esults) [facility] ADDITIONAL INFORMATIO N This test was developed and its performance characteristics determined by [facility] in a manner consistent with CLIA requirements. This test has not been cleared or approved by the U.S. Food and Drug Administration. Test Performed by: [facility] [place] [address] Drum Sander Offbearer: David Lubin M.D. Ph.D.; CLIA# [id number] ID Date Data Source [id number] 06/17/2019 08:00:00 AM [facility] Value Range Interpretation Code Description Data [facility] Supporting Document(s) Thiamine (Vitamin B1) result 129 nmol/L 70-180 Nor mal (applies to non-numeric results) [facility] ADDITIONAL INFORMATIO N This test was developed and its performance characteristics determined by [facility] in a manner consistent with CLIA requirements. This test has not been cleared or approved by the U.S. Food and Drug Administration. Test Performed by: [facility] [place] [address] Drum Sander Offbearer: David Lubin M.D. Ph.D.; CLIA# [id number] ID Date Data Source [id number] 06/17/2019 08:00:00 AM EDT [facility] Value Range Interpretation Code Description Data [facility] rce(s) Supporting Document(s) Arsenic, Blood 7 ng/mL 0-12 Normal (applies to non-numeric r esults) [facility] ADDITIONAL INFORMATIO N This test was developed and its performance characteristics determined by [facility] in a manner consistent with CLIA requirements. This test has not been cleared or approved by the U.S. Food and Drug Administration. Test Performed by: [facility] [place] [address] Drum Sander Offbearer: David Lubin M.D. Ph.D.; CLIA# [id number] ID Date Data Source [id number] 06/17/2019 07:22:00 AM EDT [facility] Value Range Interpretation Code Description Data [facility](s) Supporting Document(s) Mercury,Blood result 1 ng/mL 0-9 Normal (applies to non-num kuldeep results) [facility] ADDITIONAL INFORMATIO N This test was developed and its performance characteristics determined by [facility] in a manner consistent with CLIA requirements. This test has not been cleared or approved by the U.S. Food and Drug Administration. Test Performed by: [facility] [place] [address] Drum Sander Offbearer: David Lubin M.D. Ph.D.; CLIA# [id number] ID Date Data Source [id number] 06/17/2019 07:22:00 AM EDT [facility] Value Range Interpretation Code Description Data [facility] Supporting Document(s) Thiamine (Vitamin B1) result 129 nmol/L 70-180 Nor mal (applies to non-numeric results) [facility] ADDITIONAL INFORMATIO N This test was developed and its performance characteristics determined by [facility] in a manner consistent with CLIA requirements. This test has not been cleared or approved by the U.S. Food and Drug Administration. Test Performed by: [facility] [place] [address] Drum Sander Offbearer: David Lubin M.D. Ph.D.; CLIA# [id number] ID Date Data Source [id number] 06/17/2019 [facility] Interpretation Code Description Data [facility](s) Supporting Document(s) Arsenic, Blood 7 ng/mL 0-12 Normal (applies to non-numeric r esults) [facility] ADDITIONAL INFORMATIO N This test was developed and its performance characteristics determined by [facility] in a manner consistent with CLIA requirements. This test has not been cleared or approved by the U.S. Food and Drug Administration. Test Performed by: [facility] [place] [address] Drum Sander Offbearer: David Lubin M.D. Ph.D.; CLIA# [id number] ID Date Data Source [id number] 06/16/2019 11:48:00 AM [facility] Value Range Interpretation Code Description Data [facility](s) Supporting Document(s) Lead,Blood (Venous) result 0.0-4.9 Normal (applies to n on-numeric results) [facility] ADDITIONAL INFORMATIO N Testing performed by Inductively Coupled Plasma-Mass Spectrometry (ICP-MS). This test was developed and its performance characteristics determined by [facility] in a manner consistent with CLIA requirements. This test has not been cleared or approved by the U.S. Food and Drug Administration. PBDV Source (Venous) Normal (applies to non-num kuldeep results) [facility] PBDV Patient Street Normal (applies to non-nume crow results) [facility] Normal (applies to non-numeri c results) [facility] State Normal (applies to non-numer ic results) [facility] PBDV Patient Zip [address] Normal (applies to non-numeric results) [facility] County Normal (applies to non-nume crow results) [facility] Phone Normal (applies to non-numer ic results) [facility] Race Normal (applies to non-numeri c results) [facility] Patient Ethnicity Normal (applies to non-n umeric results) [facility] Occupation Normal (applies to non- numeric results) [facility] Patient Employer Normal (applies to non-nu meric results) [facility] Guardian Name,First Normal (applies to non -numeric results) [facility] Guardian Name,Last Normal (applies to non- numeric results) [facility] Provider Name Normal (applies to non-numer ic results) [facility] PBDV Provider Street Normal (applies to non-num kuldeep results) [facility] Normal (applies to non-numer ic results) [facility] State Normal (applies to non-nume crow results) [facility] Zip [address] Normal (applies to non-numeri c results) [facility] Phone Normal (applies to non-nume crow results) [facility] Submitting Lab Phone Normal (applies to no n-numeric results) [facility] Test Performed by: Formerly named [facility] [address] [place] [address] Drum Sander Offbearer: David Lubin M.D. Ph.D.; CLIA# [id number] ID Date Data Source [id number] 06/16/2019 11:09:00 AM EDT [facility] Name Value Range Interpretation Code Description Data Rachel rce(s) Supporting Document(s) Lead,Blood (Venous) result 0.0-4.9 Normal (applies to n on-numeric results) [facility] ADDITIONAL INFORMATIO N Testing performed by Inductively Coupled Plasma-Mass Spectrometry (ICP-MS). This test was developed and its performance characteristics determined by [facility] in a manner consistent with CLIA requirements. This test has not been cleared or approved by the U.S. Food and Drug Administration. PBDV Source (Venous) Normal (applies to non-num kuldeep results) [facility] PBDV Patient Street Normal (applies to non-nume crow results) [facility] Normal (applies to non-numeri c results) [facility] State Normal (applies to non-numer ic results) [facility] Patient [place] [phone] Normal (applies to non-numeric results) [facility] Patient [facility] Normal (applies to non-nume crow results) [facility] Phone Normal (applies to non-numer ic results) [facility] Race Normal (applies to non-numeri c results) [facility] Patient Ethnicity Normal (applies to non-n umeric results) [facility] Occupation Normal (applies to non- numeric results) [facility] Employer Normal (applies to non-nu meric results) [facility] Guardian Name,First Normal (applies to non -numeric results) [facility] Guardian Name,Last Normal (applies to non- numeric results) [facility] Name Normal (applies to non-numer ic results) [facility] Normal (applies to non-num kuldeep results) [facility] PBDV Provider City Normal (applies to non-numer ic results) [facility] PBDV Provider State Normal (applies to non-nume crow results) [facility] PBDV Provider Zip [address] Normal (applies to non-numeri c results) [facility] PBDV Provider Phone Normal (applies to non-nume crow results) [facility] PBDV Submitting Lab Phone Normal (applies to no n-numeric results) [facility] Test Performed by: Formerly named [facility] [address] [place] [address] Drum Sander Offbearer: David Lubin M.D. Ph.D.; CLIA# [id number] ID Date Data Source [id number] 06/12/2019 06:26:00 PM EDT [facility] Name Value Range Interpretation Code Description Data Rachel rce(s) Supporting Document(s) Vitamin B12 result 187 pg/mL [phone] [facility] Test Performed By: [facility] [address] [place] [address] Director: Amy Moreno MD ID Date Data Source [id number] 06/12/2019 06:27:00 PM EDT [facility] Name Value Range Interpretation Code Description Data Rachel rce(s) Supporting Document(s) Folate result 2.76-20.0 Normal (applies to non-numeric re sults) [facility] Test Performed By: [facility] [address] [place] [address] Director: Amy Moreno MD ID Date Data Source [id number] 06/12/2019 06:16:00 PM EDT [facility] Name Value Range Interpretation Code Description Data Rachel rce(s) Supporting Document(s) Vitamin B12 187 pg/mL [phone] Below low normal [facility] Test [facility] By: [facility] [address] [place] [address] Director: Amy Moreno MD ID Date Data Source [id number] 06/12/2019 06:16:00 PM EDT [facility] Name Value Range Interpretation Code Description Data Rachel rce(s) Supporting Document(s) Folate 2.76-20.0 Normal (applies to non-numeric resul ts) [facility] Test Performed By: [facility] [address] [place] [address] Director: Amy Moreno MD ID Date Data Source [id number] 06/12/2019 02:55:00 PM EDT [facility] Name Value Range Interpretation Code Description Data Rachel rce(s) Supporting Document(s) Vitamin D, Total 30.0-100.0 Below low normal [facility] ID Date Data Source [id number] 06/12/2019 01:54:00 PM [facility] Name Value Range Interpretation Code Description Data Rachel rce(s) Supporting Document(s) Hemoglobin A1c 4.4-6.2 Normal (applies to non-numeric r esults) [facility] Estimated Avg Glucose 114 mg/dL 126-240 Below low normal [facility] ID Date Data Source [id number] 06/12/2019 01:31:00 PM [facility] Name Value Range Interpretation Code Description Data Rachel rce(s) Supporting Document(s) Sodium 138 mmol/L 136-145 Normal (applies to non-numeric resul ts) [facility] Potassium 3.5-5.1 Normal (applies to non-numeric resul ts) [facility] Chloride 102 mmol/L 98-107 Normal (applies to non-numeric resul ts) [facility] Carbon Dioxide CO2 21-32 Normal (applies to non-numer ic results) [facility] Anion Gap 5.0-16.0 Normal (applies to non-numeric resul ts) [facility] BUN 12 mg/dL 7-18 Normal (applies to non-numeric results) [facility] Creatinine,Serum 0.8-1.5 Normal (applies to non-numeric results) [facility] GFR 56 mL/min >60 Below low normal [facility] spital Glucose Level 98 mg/dL 60-99 Normal (applies to non-numeric re sults) [facility] Reference range is only applicable when patient is fasting Note the following drug interference: Sulfasalazine Sulfapyridine Can see falsely depressed Can see falsely elevated result with up to 17% results with up to 11% decrease in measurement increase in measurement Recommend patients be collected for this test prior to administration of either drug. Calcium 8.5-10.1 Normal (applies to non-numeric resul ts) [facility] ID Date Data Source [id number] 06/12/2019 01:31:00 PM EDT [facility] Name Value Range Interpretation Code Description Data Rachel rce(s) Supporting Document(s) Magnesium 1.8-2.4 Normal (applies to non-numeric resul ts) [facility] ID Date Data Source [id number] 06/12/2019 01:31:00 PM [facility] Name Value Range Interpretation Code Description Data Rachel rce(s) Supporting Document(s) Thyroid Stimulate Hormone TSH 0.358-3.74 Above high normal [facility] ID Date Data Source [id number] 06/12/2019 01:31:00 PM T [facility] Name Value Range Interpretation Code Description Data Rachel rce(s) Supporting Document(s) Free T4 (Free Thyroxine) 0.76-1.46 Normal (applies to non -numeric results) [facility] ID Date Data Source [id number] 06/12/2019 01:24:00 PM [facility] Name Value Range Interpretation Code Description Data Rachel rce(s) Supporting Document(s) White Blood Count 3.5-10.5 Normal (applies to non-numeri c results) [facility] Red Blood Count 4.30-5.70 Normal (applies to non-numeric results) [facility] Hemoglobin 13.5-17.5 Normal (applies to non-numeric resul ts) [facility] Hematocrit 38.8-50.0 Normal (applies to non-numeric resul ts) [facility] Mean Corpuscular Volume 81.2-95.1 Above high normal [facility] Mean Corpuscular Hgb 25.6-32.2 Above high normal [facility] Mean Corpuscular Hgb Conc 32.0-36.0 Normal (applies to no n-numeric results) [facility] Red Cell Distribution Width 11.8-15.6 Normal (appli es to non-numeric results) [facility] Platelet Count 207 x10 3/uL 150-450 Normal (applies to non-numeric results) [facility] Mean Platelet Volume 9.4-12.4 Normal (applies to non-num kuldeep results) [facility] Neutrophils% (Auto) 31.0-71.0 Normal (applies to non-nume crow results) [facility] Lymphocytes% (Auto) 20.0-55.0 Below low normal [facility] Monocytes% (Auto) 4.0-12.0 Normal (applies to non-numeri c results) [facility] Eosinophils% (Auto) 1.0-8.0 Normal (applies to non-nume corw results) [facility] Basophils% (Auto) 0.0-2.0 Normal (applies to non-numeri c results) [facility] Immature Granulocytes% (Auto) 0.0-2.0 Normal (alba lies to non-numeric results) [facility] Neutrophils# (Auto) 1.50-6.20 Above high normal [facility] Lymphocytes# (Auto) 1.20-4.00 Normal (applies to non-nume crow results) [facility] Monocytes# (Auto) 0.00-0.90 Normal (applies to non-numeri c results) [facility] Eosinophils# (Auto) 0.00-0.50 Normal (applies to non-nume crow results) [facility] Basophils# (Auto) 0.00-0.20 Normal (applies to non-numeri c results) [facility] Immature Granulocytes# (Auto) 0.00-7.00 No rmal (applies to non-numeric results) [facility] ID Date Data Source [id number] 06/12/2019 01:24:00 PM EDT [facility] Name Value Range Interpretation Code Description Data Rachel rce(s) Supporting Document(s) Erythrocyte Sedimentation rate 11 mm/hr 0-15 N ormal (applies to non-numeric results) [facility] ID Date Data Source [id number] 02/17/2019 11:04:03 AM [facility] CT THORAX WITH CONTRAST [id number] RESUL TInterpreted by:Sandor Leon MDINDICATION: Kidney cancer.TECHNIQUE: [...] rce(s) Supporting Document(s) ID Date Data Source [id number] 02/17/2019 09:46:21 AM [facility] CT ABDOMEN PELVIS WITH AND WITHOUT CONTR AST [id number] RESULTInterpreted by:Leida Henderson MDINDICATION: 53-year-old male with [...] rce(s) Supporting Document(s) ID Date Data Source [id number] 02/17/2019 08:09:56 AM [facility] Name Value Range Interpretation Code Description Data Rachel rce(s) Supporting Document(s) Progress Note [facility] VOWBNe1qYpKBQvIm13/PDEgmAXVai8MxKFgvRMm1JHfxSRYjX0JgJYI8iV6oAUV5LExQWiLcAyKmMQL5 [facility] [file] /R93nx+3UVkx0nT332n7KO2n8C957Tocm67ki7ptN4KY+[employer]at [employer] P[employer] Inspector/Xy25ixHFHOjDtEYQ4lqMpeA5JFC9ga1 [file] ICAgICAgICAgICAgICAgICAgICAgICAgICAgICAgICAgICAgICAgICAgICAgICAgICAgICAgICAgICAg ICAgICAgICAgICAgICAgICAgICAgICAgICAgICAgDQogICAgICAgICAgICAgICAgICAgICAgICAgICAg ICAgICAgICAgICAgICAgICAgICAgICAgICAgICAgIC AgICAgICAgICAgICAgICAgICAgICAgICAgICAgICAgICAgICAgICAgDQogICAgICAgICAgICAgICAgIC AgICAgICAgICAgICAgICAgICAgICAgICAgICAgICAgICAgICAgICAgICAgICAgICAgICAgICAgICAgIC AgICAgICAgICAgICAgICAgICAgICAgDQogICAgICAg ICAgICAgICAgICAgICAgICAgICAgICAgICAgICAgICAgICAgICAgICAgICAgICAgICAgICAgICAgICAg ICAgICAgICAgICAgICAgICAgICAgICAgICAgICAgICAgDQogICAgICAgICAgICAgICAgICAgICAgICAg ICAgICAgICAgICAgICAgICAgICAgICAgICAgICAgIC AgICAgICAgICAgICAgICAgICAgICAgICAgICAgICAgICAgICAgICAgICAgDQogICAgICAgICAgICAgIC AgICAgICAgICAgICAgICAgICAgICAgICAgICAgICAgICAgICAgICAgICAgICAgICAgICAgICAgICAgIC AgICAgICAgICAgICAgICAgICAgICAgICAgDQogICAg ICAgICAgICAgICAgICAgICAgICAgICAgICAgICAgICAgICAgICAgICAgICAgICAgICAgICAgICAgICAg ICAgICAgICAgICAgICAgICAgICAgICAgICAgICAgICAgICAgDQogICAgICAgICAgICAgICAgICAgICAg ICAgICAgICAgICAgICAgICAgICAgICAgICAgICAgIC AgICAgICAgICAgICAgICAgICAgICAgICAgICAgICAgICAgICAgICAgICAgICAgDQogICAgICAgICAgIC AgICAgICAgICAgICAgICAgICAgICAgICAgICAgICAgICAgICAgICAgICAgICAgICAgICAgICAgICAgIC AgICAgICAgICAgICAgICAgICAgICAgICAgICAgDQog ICAgICAgICAgICAgICAgICAgICAgICAgICAgICAgICAgICAgICAgICAgICAgICAgICAgICAgICAgICAg MBMlTKJaRRUeMXAcZDCtWGLmZYPmFHIkYAUaFUYmYSEzRMSaEIRkIBf0N0gwTJSwQUFqHJ6jKUq9Bc6+ VRnBMyIrLLM7mvVrhZ9IDV5mc2PeVQowWGNkc6VsUM s1JK9YSSFdYJvyHL4MOTzdjh6XGBHkXYYrkCWLz6nrWkQcTII6KOZpOdoyHG6PUFOrY1sogsZhQLVbLX CUIMyzVSACNN5FSwBvT8JhdL64TOKOVa4+KOulywToPpdXQdZeTPLbr0FpFOy5RN2IDYEoKovpc6BsWh ChNEJNPFwdHD0TXDA5FXTnMFUbUd1KLIPuZ419olWu JZ3JJj3BJaYdZO3tms1FLeAeXJApGofQAmj8IZyoEV4RiWQwKNiQzm3stwKtpeQDo1VmxnKipAZOzGYg IWYdGPCaqc0aYU7YGHW3NKOlFd7vKCOkONIzObZdEMSBEA5SMDWeLPMwkWYtKONvGBIJAM7JKMukIYS9 WNEmtsLrcZEzUEdlOL6TXWPeywXaAcTzQGIIOZg+Pg 8MGZ2mf5LuUVtmQxYgAF7tov9LUEkGSbOmQ7B5eGMeM9J9XPaqNi1CFDWySSGnGWvuBKUEPNhyGF4CRK 5uoqX5VH3XoYTdIMFiSBIpxRByGSs8P52oxACdXUagQG0JDRP+Antionette+En6GFKBmGPHyEFJqAdJlIZYDYt SrS1RyH9FSc4QgK8WdHD12wXyfvkFhOPmbVT7ASR1c DWBjCONYMI9VfQHagL6pioJoGAYxLGNZAeDiA82vhHCrMZWoUTDoYEPnFg5QFTUwB4MwcpCycIhpenBk OEGjMNOXLE7BKPcfrkJpxSYvvGnjRJ33cAsmDI8JRp8XBiCwPB4tli2YdUOoZm7QBJDePA4EELNfNRHu QNCwKPY1GHRhCuTvYBmdCSArJGYzSNW3YYVyLHVfHF 4CSxDjGALcZIz0SpEpCGByODVpqw8CRTLqFJMzRGK2FpGhIAQhPHWaLOccYNDxSOAqYPN4PBLiZKEoUO 8FWyYaMWIiMZX9ZYQuQGBcDLGqqb2FIFTnIIBeVgp7TQWdQGIyTFBaLPzvGACmCVO7UYU3EJLtJBOhZP 5RWlRbUJTrUEO1QpVhYRKxWASloz7PRYOzALPzBRSf PUKwQSJbSSWvBZwjNOHxYNT4KPT9ELXkEVWaCZ3ARtLrERCuFPA7RJwyYLKhUHGfuq9HBGOqNEHgAge3 HlFkTSMpUNDnVLyfMFPfADW7XVW4SCIyFPAoKE0THyQkWRSvWEdlIFNeTAVrNSEwwh8QPOQeTMOmLRjq RXNnKPEhMUXaNHwbNIDqIMK4HQS5QPNvVTWbLW4YKz PfPXCcBRtgPsXhEWKlIPMmqn9PAUVtDMPzWMC4XaHlZVJsBCGwFMaiHIRbYJP6ToDtVJBwFKNqFZ3DHl DtZICcIwSgGOIzHOZjISGbpz4PPFGsDZXcMXA4JqWwWZJtKFHbSAwlTRNkEKBdCDR0UVXqVGQlEF6OJw InNFYvAhY8BkTgCJQhOCOiuh7HuHSbgAsofo0VBEaD Mz2BaJiiNSF0ITlnCy8jqIQsIsWjKYWDMt4PimFtXMHaASMSNOhfXLNmHTo4LEqtPWG2VGA3GdK5WFj8 HfLnH8M3Y2MuUYTqCNWuEsJ2WUh5FIIzPhtaMZKjKZI5VBfdN8F1WtbcJUG0INA7ZoH+TT9tHFa+Pg0K b7LtqzH2tcZwQNizNSjvYT0UWEMTN8VWQl== ID Date Data Source [id number] 02/07/2019 01:25:00 PM EST [facility] Name Value Range Interpretation Code Description Data Rachel rce(s) Supporting Document(s) Sodium 140 mmol/L 136-145 Normal (applies to non-numeric resul ts) [facility] Potassium 3.5-5.1 Above high normal [facility] ospital Chloride 101 mmol/L 98-107 Normal (applies to non-numeric resul ts) [facility] Carbon Dioxide CO2 21-32 Normal (applies to non-numer ic results) [facility] Anion Gap 5.0-16.0 Normal (applies to non-numeric resul ts) [facility] BUN 11 mg/dL 7-18 Normal (applies to non-numeric results) [facility] Creatinine,Serum 0.8-1.5 Above high normal [facility] GFR 48 mL/min >60 Below low normal [facility] spital Glucose Level 96 mg/dL 60-99 Normal (applies to non-numeric re sults) [facility] Reference range is only applicable when patient is fasting Note the following drug interference: Sulfasalazine Sulfapyridine Can see falsely depressed Can see falsely elevated result with up to 17% results with up to 11% decrease in measurement increase in measurement Recommend patients be collected for this test prior to administration of either drug. Calcium 8.5-10.1 Normal (applies to non-numeric resul ts) [facility] Procedure Social History Code Duration Value Status Description Data Source(s ) Alcohol intake 03/25/2020 12:00:00 AM EST Current drinker of al cohol (finding) completed Current drinker of alcohol (finding) [facility] Tobacco use and exposure 03/25/2020 12:00:00 AM EST Never used co mpleted Never used [facility] Smoking 03/25/2020 12:00:00 AM EST Former smoker completed Former smoker [facility] Alcohol intake 03/15/2020 12:00:00 AM EST Current drinker of al cohol (finding) completed Current drinker of alcohol (finding) [facility] Alcohol intake 02/26/2020 12:00:00 AM EST Current drinker of al cohol (finding) completed Current drinker of alcohol (finding) [facility] Alcohol intake 12/01/2019 12:00:00 AM EDT Yes completed [facility] Smoking 12/01/2019 12:00:00 AM EDT Never smoker completed Never s moker [facility] Alcohol intake 02/16/2019 12:00:00 AM EST Current drinker of al cohol (finding) completed Current drinker of alcohol (finding) [facility] Smoking 02/16/2019 12:00:00 AM EST Former smoker completed Former smoker [facility] Vital Signs ID Date Data Source UNK Name Value Range Interpretation Code Description Data Source(s) Systolic blood pressure 121 mm[Hg] 121 mm[Hg] S [facility] Oxygen saturation in Arterial blood by Pulse oximetry 95 % 95 % [facility] Respiratory rate 16 /min 16 /min [facility] Body temperature 36.5 Mary 36.5 Mary [facility] Heart rate 85 /min 85 /min [facility] 79 mm[Hg] 79 mm[Hg] [facility] Body mass index (BMI) [Ratio] 42.54 kg/m2 42.54 kg/m2 [facility] Body weight 138.347 kg 138.347 kg [facility] Body height 180.3 cm 180.3 cm [facility] Body mass index (BMI) [Ratio] 40.7 kg/m2 40.7 k g/m2 MED[facility] ([facility], ) Body weight 300.00 [lb_av] 300.00 [lb_av] MEDEN T ([facility], ) Body height 72 [in_i] 72 [in_i] MEDENT ([facility], ) 6'0" Heart rate 72 /min 72 /min [facility] ([facility], ) Diastolic blood pressure 80 mm[Hg] 80 mm[Hg] MEDENT ([facility], ) Systolic blood pressure 130 mm[Hg] 130 mm[Hg] M EDENT ([facility], ) Body weight 270 [lb_av] 270 [lb_av] KATIE ([facility]) Systolic blood pressure 134 mm[Hg] 134 mm[Hg] A THENA ([facility]) Body mass index (BMI) [Ratio] 36.6 kg/m2 36.6 k g/m2 KATIE ([facility]) Body height 72 [in_i] 72 [in_i] KATIE ([facility]) Diastolic blood pressure 82 mm[Hg] 82 mm[Hg] KATIE ([facility]) ID Date Data Source [id number] 03/18/2020 05:39:04 PM EST [facility] Name Value Range Interpretation Code Description Data Source(s) WEIGHT RECORDED 300 lb 300 lb [facility] Body height Measured 72 in 72 in [facility] ID Date Data Source [id number] 01/29/2020 02:38:09 PM EST [facility] Name Value Range Interpretation Code Description Data Source(s) WEIGHT RECORDED 304.4 lb 304.4 lb [facility] Body height Measured 72.01 in 72.01 in [facility] WEIGHT RECORDED 304.4 lb 304.4 lb [facility] Body height Measured 72.01 in 72.01 in [facility] ID Date Data Source [id number] 02/19/2020 09:51:00 AM EST [facility] sp[facility] Name Value Range Interpretation Code Description Data Source(s) Weight Measurement Method 8 8 [facility] Weight 4080 4080 [facility] Temperature Source 7 7 [facility] Temperature 96.9 96.9 [facility] sp[facility] Respiratory Effort 1 1 [facility] Respiratory Rate 18 18 [facility] Pulse Assessment Method 4 4 G [facility] Pulse Rate 83 83 [facility] pital Height 72 72 [facility] Blood Pressure 160/100 160/100 [facility] ID Date Data Source [id number] 02/19/2020 09:51:00 AM EST [facility] Name Value Range Interpretation Code Description Data Source(s) Weight 4160 4160 [facility] Temperature Source 7 7 [facility] Temperature 96.9 96.9 [facility] Respiratory Effort 2 2 [facility] Respiratory Rate 16 16 [facility] Pulse Assessment Method 4 4 G [facility] 99 99 [facility] 72 [facility] Blood Pressure 123/80 123/80 [facility] Patient Treatment Plan of Care Planned Activity Planned Date Details Description Data Source (s) sodium chloride (preservative free) 0.9 % flush 3 mL 021 05:00:[address] [facility] sodium chloride 0.9 % bag 3-20 mL 03/15/2020 09:54:[address] [facility] Ergocalciferol 56069 UNT Oral Capsule 02/19/2020 12:00:[address] [facility] Methocarbamol 500 MG Oral Tablet 12/02/2019 12:00:00 AM EDT [facility] Oxycodone Hydrochloride 5 MG Oral Tablet 12/02/2019 12:00:00 AM EDT [facility] Losartan Potassium 50 MG Oral Tablet 02/06/2019 12:00:[address] [facility] tizanidine 4 MG Oral Tablet [facility] Acetaminophen 325 MG / Oxycodone Hydrochloride 10 MG Oral Tablet [facility]
[2020-03-26] MEDS ORDERED: NITR2OI TOP (14:33)
== END 2020-03-26 14:56 | disposition home or self-care (01) ==
LOC: M ED 12:20
DX: T33.822A Superficial frostbite of left foot, initial encounter (principal); X31.XXXA Exposure to excessive natural cold, initial encounter; Y92.014 Private driveway to single-family (private) house as the place of occurrence of the external cause; Y93.29 Activity, other involving ice and snow; Y99.9 Unspecified external cause status; G90.09 Other idiopathic peripheral autonomic neuropathy; Z79.899 Other long term (current) drug therapy

== ENCOUNTER → 2020-04-22 | Outpatient (CLI) | payer BC, OTHER ==
[~2020-04-22] MED LIST changes: -BUPIVACAINE HCL 0.25% 30 ML VIAL As Ordered ONE; +CEPH500C; +ISOVUE-370 76% 100ML VIAL As Ordered ONE; -ISOVUE-M 300 61% 15ML VIAL (Q9967) As Ordered ONE; -LIDOCAINE 1% SDV INJ 30 ML VIAL As Ordered ONE; +METO1TAB7; +NITR2OI TOP; +OXYC10TA3; +OXYC20TA40; +PREG100C; -TRIAMCINOLONE ACETONIDE SUSP 40 MG/ML VIAL (J3301) As Ordered ONE; +VITA50005; -diazePAM 5 MG TAB As Ordered ONE; -oxyCODONE 5MG TAB As Ordered ONE
--- NOTE | 2020-04-22 09:38 | REP ---
INDICATION: GANGRENE COMPARISON: None. TECHNIQUE: CT angiogram of the abdomen and pelvis and bilateral lower extremities was performed with intravenous administration of 100 cc of Isovue 370, without oral contrast. 3D MIP reconstruction images performed. FINDINGS: Abdominal aorta: No aneurysm or dissection. Celiac, superior and inferior mesenteric arteries are widely patent. Main left renal artery is widely patent. Bilaterally the common iliac, internal and external iliac, common femoral, superficial femoral, popliteal arteries are widely patent with no stenosis or occlusion. Trifurcation vessels are patent bilaterally but appear small in size symmetrically. There is 2 vessel runoff into each foot. The right peroneal artery terminates in the distal 3rd of the calf. The left peroneal artery terminates in the mid calf. Lung bases: Unremarkable. Liver: Normal Gallbladder: Prior cholecystectomy. Spleen: Normal. Adrenals: Normal. Pancreas: Normal. Kidneys: Prior right nephrectomy. There is a 1.6 cm cyst projecting from the upper pole the left kidney. Small and large bowel: Unremarkable. There has been prior gastric surgery. Free fluid: None. Adenopathy: None. Appendix: Prior appendectomy. Pelvis: No mass. There is a moderate hydrocele in the right hemiscrotum. There is umbilical hernia with a wide aperture containing noninflamed fat, the hernia sac is bilobed with 1 lobe projecting to the right of midline. Osseous structures: There is prior laminectomy and fusion surgery of the lower lumbar spine. There are diffuse degenerative changes of the spine. Schmorl's nodes are seen at the superior endplate of L1 and both endplates of T8. There is a benign lipoma in the right vastus lateralis muscle measuring 2.6 cm in diameter. IMPRESSION: No significant arterial stenosis or occlusion. Thin calf arteries bilaterally with 2 vessel runoff into each foot. Moderate right hydrocele in the scrotum. Umbilical hernia contains noninflamed fat. <Electronically signed by Marcos Thomas > 04/22/20 [id number]
== END ==
LOC: M RAD 07:44
PROVIDERS: ATTEND Internal Medicine
DX: I96 Gangrene, not elsewhere classified (principal); Z90.5 Acquired absence of kidney; Z90.49 Acquired absence of other specified parts of digestive tract; Z98.84 Bariatric surgery status; N43.3 Hydrocele, unspecified; Z98.1 Arthrodesis status; K42.9 Umbilical hernia without obstruction or gangrene; D17.9 Benign lipomatous neoplasm, unspecified
CPT/HCPCS: 73706; Q9967

== ENCOUNTER → 2020-06-22 | Outpatient (CLI) | payer BC, OTHER ==
[~2020-06-22] MED LIST changes: +CYAN1000VL IM; +ERGO80006 PO; +ISOVUE-300 61% 50ML VIAL As Ordered ONE; -ISOVUE-370 76% 100ML VIAL As Ordered ONE; +LIDOCAINE 1% MDV 20ML VIAL As Ordered ONE; +LOSA50TA88 PO; -METO1TAB7; +METO1TAB7 PO; +MIDAZOLAM INJ 2MG/2ML VIAL (J2250 PER 1MG) As Ordered ONE; +MUPI2OI TOP; -OXYC10TA3; +OXYC10TA3 PO; -OXYC20TA40; +OXYC20TA40 PO; -PREG100C; +PREG100C PO; +fentaNYL 100 MCG/2 ML INJECTION (J3010) As Ordered ONE
[2020-06-22 09:04] LABS: HEMATOCRIT 39.5 % (42.0-52.0); HEMOGLOBIN 12.6 g/dl (13.5-17.5); MEAN CORPUSCULAR HEMOGLOBIN 29.2 pg (27.0-33.0); MEAN CORPUSCULAR HGB CONC 31.9 g/dl (32.0-36.5); MEAN CORPUSCULAR VOLUME 91.6 fl (80.0-96.0); PLATELET COUNT, AUTOMATED 197 10^3/uL (150-450); RED BLOOD COUNT 4.31 10^6/uL (4.30-6.10); WHITE BLOOD COUNT 5.7 10^3/uL (4.0-10.0)
[2020-06-22 09:27] LABS: BLOOD UREA NITROGEN 13 MG/DL (7-18); CALCIUM LEVEL 9.2 MG/DL (8.5-10.1); CARBON DIOXIDE LEVEL 29 MEQ/L (21-32); CHLORIDE LEVEL 105 MEQ/L (98-107); CREATININE FOR GFR 1.17 MG/DL (0.70-1.30); GLOMERULAR FILTRATION RATE > 60.0 (>56); GLUCOSE, FASTING 87 MG/DL (70-100); POTASSIUM SERUM 4.2 MEQ/L (3.5-5.1); SODIUM LEVEL 138 MEQ/L (136-145)
--- NOTE | 2020-06-22 10:18 | ROOPDOC ---
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 Ultrasound-guided access right common femoral artery 2. Aortoiliofemoral arteriogram 3. Selection left superficial femoral artery and left lower extremity runoff 4. Mynx closure right common femoral artery SURGEON: Jakob Hull MD ANESTHESIA: Local anesthesia 10 mL lidocaine. Moderate intravenous conscious sedation was supervised by Dr. Hull. The patient was intermittently monitored by registered nurse assigned to the Department of radiology using automated blood pressure, EKG, and pulse oximetry. The detailed sedation record is probably started in the hospital information system. The following is brief sedation record: Start time 09:33, stop time 09:59, Versed 0.5 mg IV, but no 25 g IV. CONTRAST: 26 mL Isovue-300 INDICATION FOR PROCEDURE: This is a very pleasant 55-year-old patient with suspected atherosclerosis in the [place] arteries contributing to poor wound healing of his left foot after frostbite. The patient had an arterial duplex that suggested he may have a deficit in the left peroneal artery. Subsequent to this, the patient had deterioration of his wounds and suspicion for poor arterial flow. Therefore, risks benefits and alternatives to arteriogram and potential intervention The patient is agreeable to proceed. Informed consent was obtained. Since the patient has been working to heal his wounds for 3 months, we want to give him every advantage to do so, and we are happy to try to improve his blood flow possible. INTERPRETATION: 1. The distal aorta, common iliac arteries, hypogastric arteries, and external iliac arteries are all widely patent with no visible stenosis plaque or regularity. The iliacs are slightly tortuous, but no flow-limiting stenoses are noted. 2. The left common femoral artery is widely patent with good flow into widely patent profunda and superficial femoral artery. I do not note any significant plaque ectasia or regularity in the femoral vessels. The left popliteal artery is also widely patent with excellent flow through the anterior tibial and posterior tibial artery to the foot. No plaque or stenosis are noted. The peroneal artery is patent, but has an early bifurcation and then each of the bifurcated vessels bifurcate again in the upper calf. This is congenital, but we do not note any stenosis or occlusion of the peroneal artery. REPORT OF OPERATION: The patient was brought to the angiographic suite in stable condition. His bilateral groins were prepped and draped in a sterile fashion. A timeout was performed. Sedation was a ministered without consultation. Local anesthesia was administered to the skin and subcutaneous tissue over the right common femoral artery. A microneedle was used to access the artery under ultrasound guidance. A wire was passed through this access the needle was removed. A 4 [place] sheath was placed and flushed with saline. A Glidewire and flushing catheter were advanced in the distal aorta. Aortoiliofemoral arteriogr am to perform, please interpretation above. We then went up and over the bifurcation selected left superficial femoral artery and left lower extremity runoff was performed, please see interpretation above. We then extended the sheath over the wire for a 5 [place] sheath and blood Mynx closure device with good hemostasis. Pressure was held and sterile dressings were applied and the p atient was taken to recovery in stable condition. He tolerated the procedure and the sedation well. ESTIMATED BLOOD LOSS: Approximately 5 mL. COMPLICATIONS: None. PLAN: Okay to resume home diet and medications. Continue wound care per Dr. Rodriguez to the left foot. Follow-up in 1 week to check groin access site and perfusion. Likely delayed wound healing is just from recovery of frostbite. This can take 6-12 months to fully recover. We do visualize flow in the foot all the way to the toes, but the capillary flow can be affected for longer periods of time due to the frostbite. We appreciate the opportunity to participate in the care of this patient. JAKOB HULL MD June 22, 2020 10:18
[2020-06-22 13:50] VITALS: BP 136/72
== END ==
LOC: M IRPRO 08:25
PROVIDERS: ATTEND Surgery Vascular Surgery
DX: I96 Gangrene, not elsewhere classified (principal); I10 Essential (primary) hypertension; Z79.899 Other long term (current) drug therapy; Z85.528 Personal history of other malignant neoplasm of kidney
CPT/HCPCS: 36247; 75710; 80048; 85027; 99152; 99153; C1760; C1769; C1887; C1894; G0269; J1644; J2250; J3010; Q9967